=== PATIENT | female | born 1970 | race Caucasian/White ===

== ENCOUNTER 2017-09-04 15:17 | Inpatient (IN) | payer OTHER ==
[2017-09-04] VITALS (9 sets, daily range): BP systolic 116–162; BP diastolic 70–86
[~2017-09-04] VITALS: Ht 174 cm; Wt 71.6 kg
[2017-09-04] MEDS ORDERED: NS IV 1000 ML 1,000 ML IV ONE ×2 (15:40→16:19)
[2017-09-04] MEDS ORDERED: ONDANSETRON 4 MG/2 ML (SDV) Z0FRAN IVP ONE (15:45)
[2017-09-04 15:53] LABS: BASOPHILS % (AUTO) 0 % (0-10); EOSINOPHILS % (AUTO) 0 % (0-10); LYMPHOCYTES # (AUTO) 0.6 X 10^3 (1.0-4.0); LYMPHOCYTES % (AUTO) 4 % (12-44); MEAN CORPUSCULAR HEMOGLOBIN 30 PG (25-34); MEAN CORPUSCULAR HGB CONC 33 G/DL (32-36); MEAN CORPUSCULAR VOLUME 93 FL (80-99); MEAN PLATELET VOLUME 10.7 FL (7.4-10.4); MONOCYTES # (AUTO) 0.5 X 10^3 (0.0-1.0); MONOCYTES % (AUTO) 3 % (0-12); NEUTROPHILS # (AUTO) 16.9 X 10^3 (1.8-7.8); NEUTROPHILS % (AUTO) 93 % (42-75); PLATELET COUNT 391 10^3/uL (130-400); RED BLOOD COUNT 4.69 10^6/uL (4.35-5.85); RED CELL DISTRIBUTION WIDTH 14.1 % (10.0-14.5); WHITE BLOOD COUNT 18.1 10^3/uL (4.3-11.0)
[2017-09-04] MEDS ORDERED: inSUlin (REGULAR) HUMAN 1 UNIT/0.01 ML (CHARGE PER UNIT) IV ONE ×2 (16:00→17:15)
[2017-09-04 16:13] LABS: ALBUMIN 4.7 GM/DL (3.2-4.5); BILIRUBIN,TOTAL 0.3 MG/DL (0.1-1.0); CALCIUM 9.2 MG/DL (8.5-10.1); CREATININE SERUM 2.06 MG/DL (0.60-1.30); MAGNESIUM 2.8 MG/DL (1.8-2.4); POTASSIUM 5.6 MMOL/L (3.6-5.0); TOTAL PROTEIN 8.3 GM/DL (6.4-8.2)
[2017-09-04 16:23] LABS: BAND NEUTROPHILS 0 %; BASOPHILS % (MANUAL) 0 %; EOSINOPHILS % (MANUAL) 0 %; LYMPHOCYTES % (MANUAL) 5 %; NEUTROPHILS % (MANUAL) 92 %
[2017-09-04] MEDS ORDERED: PROMETHAZINE INJ 25 MG/ML (PHENERGAN) AMP IVP ONE (16:45)
[2017-09-04 16:49] LABS: BILIRUBIN,URINE NEGATIVE (NEGATIVE); KETONES,URINE 4+ (NEGATIVE); LEUKOCYTE ESTERASE ,URINE 1+ (NEGATIVE); NITRITE,URINE NEGATIVE (NEGATIVE); PH,URINE 5 (5-9); PROTEIN,URINE 2+ (NEGATIVE); UROBILINOGEN,URINE NORMAL (NORMAL)
--- NOTE | 2017-09-04 16:55 | ED General ---
General Chief Complaint: Abdominal/GI Problems Stated Complaint: VOMITING/STOMACH PAIN Nursing Triage Note: PT REPORTS N/V SINCE YESTERDAY MORNING. SHE STATES SHE IS UNABLE TO KEEP ANYTHING DOWN. SHE REPORTS SHE IS A TYPE 1 DIABETIC AND HAS NOT FELT WELL ENOUGH TO CHECK HER BLOOD GLUCOSE. SHE STATES SHE HAS NOT TAKEN ANY INSULIN TODAY. Nursing Sepsis Screen: No Definite Risk Source of Information: Patient Exam Limitations: No Limitations History of Present Illness Time Seen by Provider: 15:35 Initial Comments This 47-year-old woman presents to emergency room with complaints of vomiting and probable DKA. She has type I diabetes and has been ill for the past 2 days. She did not check her blood sugars today but notes her blood sugars yesterday were in the 200s. She stopped taking any short acting insulin because she was not able to eat. She has continued to take her long-acting insulin. She has been recently treated for UTI. She received a Cipro prescription on August 25. She denies fever. She is alert and oriented. Allergies and Home Medications Allergies Coded Allergies: Sulfa (Sulfonamide Antibiotics) (Verified Allergy, Mild, RASH, 09/04/17) Constitutional: no symptoms reported EENTM: no symptoms reported Respiratory: no symptoms reported Cardiovascular: no symptoms reported Gastrointestinal: see HPI Genitourinary: see HPI : No Musculoskeletal: no symptoms reported Skin: no symptoms reported Psychiatric/Neurological: No Symptoms Reported Hematologic/Lymphatic: No Symptoms Reported Past Lvbkimg-Qiemtj-Nsofng Hx Patient Social History Alcohol Use: Denies Use Recreational Drug Use: No Smoking Status: Current Everyday Smoker Type Used: Cigarettes 2nd Hand Smoke Exposure: No Recent Foreign Travel: No Contact w/Someone Who Travel: No Recent Infectious Disease Expo: No Recent Hopitalizations: No Physical Abuse: No Sexual Abuse: No Seasonal Allergies Seasonal Allergies: No Surgeries History of Surgeries: Yes Surgeries: Breast, Orthopedic, Renal (ureteral reimplantation), Tubal Ligation Respiratory History of Respiratory Disorde: No Cardiovascular History of Cardiac Disorders: Yes Cardiac Disorders: Hypertension Neurological History of Neurological Disord: No 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 System : 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 Genitourinary History of Genitourinary Disor: Yes ("KIDNEY PROBLEMS", ureteral reflux status post ureteral reimplantation, atrophic kidney) Musculoskeletal History of Musculoskeletal Dis: No Endocrine History of Endocrine Disorders: Yes Endocrine Disorders: Diabetes, Insulin dep Are Your Blood Sugars Over 250: No HEENT History of HEENT Disorders: No Cancer History of Cancer: No Psychosocial Behavioral Health Disorders: Anxiety, Depression Suicide Risk Score: 0 Integumentary History of Skin or Integumenta: No Physical Exam Vital Signs Vital Sign - Last 12Hours 09/04/17 15:30 Temp 95.6 Pulse 122 Resp 30 B/P (MAP) 145/80 Pulse Ox 100 O2 Delivery Room Air Capillary Refill : Less Than 3 Seconds General Appearance: WD/WN, Moderate Distress HEENT: PERRL/EOMI, Normal ENT Inspection, Other (oropharynx somewhat dry) Neck: Normal Inspection Respiratory: Lungs Clear, Normal Breath Sounds, No Accessory Muscle Use, No Respiratory Distress Cardiovascular: No Edema, No Murmur, Tachycardia Gastrointestinal: Normal Bowel Sounds, Non Tender, Soft Extremity: Normal Inspection, No Pedal Edema Neurologic/Psychiatric: Alert, Oriented x3, No Motor/Sensory Deficits, Normal 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, 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 Norm as Tested Skin: Normal Color, Warm/Dry Focused Exam Evaluation Lactate Level Laboratory Tests 09/04/17 16:19: Lactic Acid Level Laboratory Tests Test 09/04/17 16:19 Progress/Results/Core Measures Suspected Sepsis Recent Fever Within 48 Hours: No Infection Criteria Present: None New/Unexplained Altered Menta: No Sepsis Screen: No Definite Risk Sepsis Diagnosis: SIRS Temperature:95.6 Pulse: 122 Respiratory Rate: 30 Laboratory Tests 09/04/17 15:45: White Blood Count 18.1H Blood Pressure 145 /80 Mean: 101 Laboratory Tests 09/04/17 16:19: Laboratory Tests 09/04/17 15:45: Creatinine 2.06H, Platelet Count 391, Total Bilirubin 0.3 Results/Orders Lab Results Laboratory Tests Test 09/04/17 15:43 09/04/17 15:45 09/04/17 16:19 09/04/17 16:37 Range/Units Glucometer 562 *H 70-110 MG/DL White Blood Count 18.1 H 4.3-11.0 10^3/uL Red Blood Count 4.69 4.35-5.85 10^6/uL Hemoglobin 14.2 11.5-16.0 G/DL Hematocrit 44 35-52 % Mean Corpuscular Volume 93 80-99 FL Mean Corpuscular Hemoglobin 30 25-34 PG Mean Corpuscular Hemoglobin Concent 33 32-36 G/DL Red Cell Distribution Width 14.1 10.0-14.5 % Platelet Count 391 130-400 10^3/uL Mean Platelet Volume 10.7 H 7.4-10.4 FL Neutrophils (%) (Auto) 93 H 42-75 % Lymphocytes (%) (Auto) 4 L 12-44 % Monocytes (%) (Auto) 3 0-12 % Eosinophils (%) (Auto) 0 0-10 % Basophils (%) (Auto) 0 0-10 % Neutrophils # (Auto) 16.9 H 1.8-7.8 X 10^3 Lymphocytes # (Auto) 0.6 L 1.0-4.0 X 10^3 Monocytes # (Auto) 0.5 0.0-1.0 X 10^3 Eosinophils # (Auto) 0.0 0.0-0.3 10^3/uL Basophils # (Auto) 0.0 0.0-0.1 10^3/uL Neutrophils % (Manual) 92 % Lymphocytes % (Manual) 5 % Monocytes % (Manual) 3 % Eosinophils % (Manual) 0 % Basophils % (Manual) 0 % Band Neutrophils 0 % Blood Morphology Comment NORMAL Sodium Level 136 135-145 MMOL/L Potassium Level 5.6 H 3.6-5.0 MMOL/L Chloride Level 98 98-107 MMOL/L Carbon Dioxide Level 5 *L 21-32 MMOL/L Anion Gap 33 H 5-14 MMOL/L Blood Urea Nitrogen 32 H 7-18 MG/DL Creatinine 2.06 H 0.60-1.30 MG/DL Estimat Glomerular Filtration Rate 26 BUN/Creatinine Ratio 16 Glucose Level 703 *H 70-105 MG/DL Calcium Level 9.2 8.5-10.1 MG/DL Phosphorus Level 6.0 H 2.3-4.7 MG/DL Magnesium Level 2.8 H 1.8-2.4 MG/DL Total Bilirubin 0.3 0.1-1.0 MG/DL Aspartate Amino Transf (AST/SGOT) 19 5-34 U/L Alanine Aminotransferase (ALT/SGPT) 24 0-55 U/L Alkaline Phosphatase 143 H 40-136 U/L Total Protein 8.3 H 6.4-8.2 GM/DL Albumin 4.7 H 3.2-4.5 GM/DL Lipase 12 8-78 U/L Urine Color YELLOW Urine Clarity SLIGHTLY CLOUDY Urine pH 5 5-9 Urine Specific [place] 1.020 1.016-1.022 Urine Protein 2+ H NEGATIVE Urine Glucose (UA) 4+ H NEGATIVE Urine Ketones 4+ H NEGATIVE Urine Nitrite NEGATIVE NEGATIVE Urine Bilirubin NEGATIVE NEGATIVE Urine Urobilinogen NORMAL NORMAL MG/DL Urine Leukocyte Esterase 1+ H NEGATIVE Urine RBC (Auto) 5+ H NEGATIVE Urine RBC 50-100 H /HPF Urine WBC 0-2 /HPF Urine Squamous Epithelial Cells 0-2 /HPF Urine Crystals NONE /LPF Urine Bacteria NEGATIVE /HPF Urine Casts NONE /LPF Urine Mucus NEGATIVE /LPF Urine Culture Indicated NO Test 09/04/17 16:38 Range/Units Glucose Level 549 *H 70-105 MG/DL My Orders Orders - TYLER HILLMAN MD Saline Lock/Iv-Start (09/04/17 15:40) Ns Iv 1000 Ml (Sodium Chloride 0.9%) (09/04/17 15:40) Cbc With Automated Diff (09/04/17 15:40) Comprehensive Metabolic Panel (09/04/17 15:40) Lipase (09/04/17 15:40) Magnesium (09/04/17 15:40) Ua Culture If Indicated (09/04/17 15:40) Phosphorus (09/04/17 15:40) Accucheck Stat ONCE (09/04/17 15:40) Monitor-Rhythm Ecg Trace Only (09/04/17 15:40) Ondansetron Injection (Zofran Injectio (09/04/17 15:45) Insulin (Regular) Human (Humulin R (Per (09/04/17 16:00) Manual Differential (09/04/17 15:45) Ns Iv 1000 Ml (Sodium Chloride 0.9%) (09/04/17 16:19) Lactic Acid Analyzer (09/04/17 16:19) Blood Culture (09/04/17 16:19) Hemoglobin A1c (09/04/17 16:31) Promethazine Injection (Phenergan Injec (09/04/17 16:45) Glucose (09/04/17 16:46) Medications Given in ED Current Medications Medications Dose Ordered Sig/Sigifredo Route Start Time Stop Time Status Last Admin Dose Admin Insulin Human Regular 10 unit ONCE ONCE IV 09/04/17 16:00 09/04/17 16:01 DC 09/04/17 15:55 10 UNIT Ondansetron HCl 8 mg ONCE ONCE IVP 09/04/17 15:45 09/04/17 15:46 DC 09/04/17 15:55 8 MG Promethazine HCl 12.5 mg ONCE ONCE IVP 09/04/17 16:45 09/04/17 16:46 DC 09/04/17 16:39 12.5 MG Sodium Chloride 1,000 ml @ 0 mls/hr Q0M ONCE IV 09/04/17 15:40 09/04/17 15:42 DC 09/04/17 15:56 0 MLS/HR Sodium Chloride 1,000 ml @ 0 mls/hr Q0M ONCE IV 09/04/17 16:19 09/04/17 16:21 DC 09/04/17 16:39 0 MLS/HR Vital Signs/I&O Vital Sign - Last 12Hours 09/04/17 15:30 Temp 95.6 Pulse 122 Resp 30 B/P (MAP) 145/80 Pulse Ox 100 O2 Delivery Room Air Capillary Refill : Less Than 3 Seconds Blood Pressure Mean: 101 Point of Care Testing Finger Stick Blood Glucose: 476 Blood Glucose Action Taken: RN AND DR NOTIFIED Progress Note #1: Time: 16:45 Progress Note Patient received a liter of normal saline. A second liter has been ordered. Zofran 8 mg was administered for nausea and vomiting. She has some refractory nausea and Phenergan will be given. 10 units of insulin was given in IV bolus. There is some discrepancy between lab draw glucose and fingerstick glucose. A second laboratory glucose is being obtained. UA is pending. Progress Note #2: Time: 17:12 Progress Note There is no evidence of infection in the urinalysis. Blood sugar still over 500. An additional 5 units of insulin will be administered before being moved to the ICU. Departure Communication (Admissions) Time/Spoke to Admitting Phy: 16:[address] Enriquez Impression Impression: Primary Impression: Diabetic ketoacidosis Qualified Codes: E10.11 - Type 1 diabetes mellitus with ketoacidosis with coma Disposition: ADMITTED INPATIENT Condition: Improved Admissions Decision to Admit Reason: Admit from ER (General) Decision to Admit/Date: Sep 04, 2017 Time/Decision to Admit Time: 15:45 Departure-Patient Inst. Referrals: [facility] (PCP/Family) Primary Care Physician TYLER HILLMAN MD Sep 04, 2017 16:55
[2017-09-04 16:56] LABS: SQUAMOUS EPITHELIAL CELL,UR 0-2 /HPF; WBC,URINE 0-2 /HPF
[2017-09-04] MEDS ORDERED: NS (IVPB) 100 ML ONE (18:06)
[2017-09-04] MEDS ORDERED: 1/2 NS IV SOLUTION 1,000 ML IV ONE (18:10)
[2017-09-04] MEDS ORDERED: D5 1/2 NS 1000 ML IV SOLUTION 1,000 ML IV SCH (18:15)
[2017-09-04] MEDS ORDERED: ONDANSETRON 4 MG/2 ML (SDV) Z0FRAN IVP PRN (18:30)
[2017-09-04] MEDS: 1/2 NS IV SOLUTION 1,000 ML IV SCH ×2 (18:32→22:48)
[2017-09-04] MEDS: 1/2 NS W/KCL 20 MEQ/L 1,000 ML IV SCH ×2 (18:36→22:48)
[2017-09-04] MEDS: D5 1/2 NS W/KCL 20 MEQ/L 1,000 ML IV SCH ×2 (18:37→19:45)
[2017-09-04] MEDS: DEXTROSE 10% IV SOLUTION 1,000 ML IV SCH (18:37)
[2017-09-04] MEDS ORDERED: GABA-488 PO (18:38)
[2017-09-04] MEDS ORDERED: INSU100V16 SQ (18:38)
[2017-09-04] MEDS ORDERED: INSU100V5 SQ (18:38)
[2017-09-04] MEDS ORDERED: AMIT10TA6 PO (18:38)
[2017-09-04] MEDS ORDERED: LISI-556 PO (18:38)
[2017-09-04] MEDS ORDERED: VENL-48 PO (18:38)
[2017-09-04] MEDS ORDERED: IBUP-2055 PO (18:45)
[2017-09-04] MEDS: PROMETHAZINE INJ 25 MG/ML (PHENERGAN) AMP IVP PRN ×2 (18:48→22:52)
[2017-09-04 19:08] LABS: CALCIUM 8.3 MG/DL (8.5-10.1); CREATININE SERUM 1.46 MG/DL (0.60-1.30); MAGNESIUM 2.4 MG/DL (1.8-2.4); POTASSIUM 4.6 MMOL/L (3.6-5.0)
[2017-09-04] MEDS ORDERED: INFLUENZA TRIvalent 2017-2018 0.5 ML/45 MCG SYR IM ONE (19:15)
[2017-09-04] MEDS: FAMOTIDINE 20 MG (PEPCID) TABLET PO SCH (19:56)
[2017-09-04] MEDS: FAMOTIDINE 20MG/2ML IV (PEPCID) IVP SCH (19:56)
[2017-09-04 20:49] LABS: CALCIUM 7.9 MG/DL (8.5-10.1); CREATININE SERUM 1.25 MG/DL (0.60-1.30); POTASSIUM 4.2 MMOL/L (3.6-5.0)
[2017-09-04] MEDS: ONDANSETRON 4 MG/2 ML (SDV) Z0FRAN IVP PRN (20:50)
[2017-09-05] VITALS (23 sets, daily range): BP systolic 83–165; BP diastolic 64–102
[2017-09-05] MEDS: DEXTROSE 10% IV SOLUTION 1,000 ML IV SCH (00:40)
[2017-09-05 00:47] LABS: CALCIUM 8.1 MG/DL (8.5-10.1); CREATININE SERUM 1.3 MG/DL (0.60-1.30); MAGNESIUM 2.3 MG/DL (1.8-2.4); POTASSIUM 4.3 MMOL/L (3.6-5.0)
[2017-09-05 00:51] LABS: PHOSPHORUS 0.8 MG/DL (2.3-4.7)
[2017-09-05] MEDS ORDERED: SODIUM PHOSPHATE INJ 30 MM in NS (IVPB) 250 ML IV NR (01:39)
[2017-09-05] MEDS: 1/2 NS IV SOLUTION 1,000 ML IV SCH ×3 (02:14→10:07)
[2017-09-05] MEDS: 1/2 NS W/KCL 20 MEQ/L 1,000 ML IV SCH ×3 (02:15→10:07)
[2017-09-05] MEDS: D5 1/2 NS W/KCL 20 MEQ/L 1,000 ML IV SCH ×3 (02:15→08:19)
[2017-09-05] MEDS: ONDANSETRON 4 MG/2 ML (SDV) Z0FRAN IVP PRN ×3 (03:24→18:48)
[2017-09-05 05:14] LABS: BASOPHILS % (AUTO) 0 % (0-10); EOSINOPHILS % (AUTO) 0 % (0-10); LYMPHOCYTES % (AUTO) 7 % (12-44); MEAN CORPUSCULAR HEMOGLOBIN 31 PG (25-34); MEAN CORPUSCULAR HGB CONC 34 G/DL (32-36); MEAN CORPUSCULAR VOLUME 90 FL (80-99); MEAN PLATELET VOLUME 10.1 FL (7.4-10.4); MONOCYTES % (AUTO) 7 % (0-12); NEUTROPHILS # (AUTO) 12.6 X 10^3 (1.8-7.8); NEUTROPHILS % (AUTO) 87 % (42-75); PLATELET COUNT 352 10^3/uL (130-400); RED BLOOD COUNT 4.11 10^6/uL (4.35-5.85); RED CELL DISTRIBUTION WIDTH 13.9 % (10.0-14.5); WHITE BLOOD COUNT 14.6 10^3/uL (4.3-11.0)
[2017-09-05 05:27] LABS: CALCIUM 8.1 MG/DL (8.5-10.1); CREATININE SERUM 1.25 MG/DL (0.60-1.30); MAGNESIUM 2.1 MG/DL (1.8-2.4); PHOSPHORUS 3.1 MG/DL (2.3-4.7)
[2017-09-05] MEDS: POTASSIUM CL 10MEQ/50ML IVPB 50 ML IV SCH (05:54)
[2017-09-05] MEDS: MAGNESIUM 1 GM/100 ML IVPB 100 ML IV SCH (05:54)
[2017-09-05] MEDS: KCL 20 MEQ TAB (K-DUR) PO SCH (05:54)
[2017-09-05] MEDS ORDERED: INFLUENZA TRIvalent 2017-2018 0.5 ML/45 MCG SYR IM ONE (07:15)
--- NOTE | 2017-09-05 07:33 | Diagnostic Imaging Report ---
INDICATION: Dyspnea. COMPARISON: None. FINDINGS: Single frontal view of the chest demonstrates normal heart size and pulmonary vascularity. The lungs are well aerated and clear. No large pleural effusion or pneumothorax is seen. The visualized osseous structures show no acute abnormalities. IMPRESSION: 1. No acute cardiopulmonary process. Dictated by: Dictated on workstation # [id number]
[2017-09-05 08:21] LABS: CALCIUM 7.7 MG/DL (8.5-10.1); CREATININE SERUM 1.08 MG/DL (0.60-1.30); POTASSIUM 3.7 MMOL/L (3.6-5.0)
[2017-09-05] MEDS: FAMOTIDINE 20 MG (PEPCID) TABLET PO SCH ×2 (09:00→20:23)
[2017-09-05] MEDS ORDERED: inSUlin DETERMIR 1 UNIT/0.01 ML (LEVEMIR) CHARGE PER UNIT SQ ONE (09:15)
[2017-09-05] MEDS: FAMOTIDINE 20MG/2ML IV (PEPCID) IVP SCH ×2 (11:03→20:23)
[2017-09-05] MEDS ORDERED: inSUlin (REGULAR) HUMAN 1 UNIT/0.01 ML (CHARGE PER UNIT) ONE (12:36)
[2017-09-05] MEDS ORDERED: inSUlin ASPART (NovoLOG) 1 UNIT/0.01 ML (CHARGE PER UNIT) ONE (12:42)
[2017-09-05] MEDS: inSUlin ASPART (NovoLOG) 1 UNIT/0.01 ML (CHARGE PER UNIT) SC SCH ×3 (12:51→20:09)
--- NOTE | 2017-09-05 15:03 | Short Stay Summary ---
History of Present Illness History of Present Illness Reason for visit/HPI 47yo woman with a history of T1DM presented to ER with vomiting and weakness. Patient states she was seen at the clinic and diagnosed with a UTI. SHe has been compliant with her usual insulin regimen but states her BS became somewhat labile in the past few days. She eventually was unable to tolerate orals and presented to ER. She did not have fever associated with the n/v. NO blood in the urine. Denies other sx including cough/sore throat/runny nose. Date of Admission Sep 04, 2017 at 16:30 Date of Discharge September 06, 2017 Time Seen by Provider: 09:00 Attending Physician Margarita Enriquez DO Admitting Physician Ema,[facility] Allergies and Home Medications Allergies Coded Allergies: Sulfa (Sulfonamide Antibiotics) (Verified Allergy, Mild, RASH, 09/04/17) Home Medications Amitriptyline HCl 10 Mg Tablet, 10 MG PO DAILY, (Reported) Gabapentin 300 Mg Capsule, 300 MG PO BID, (Reported) Ibuprofen 200 Mg Tablet, 800 MG PO DAILY PRN for PAIN-MILD, (Reported) TAKES 4 (200 MG) TABLETS Insulin Aspart 100 Unit/1 Ml Susp, 12 UNITS SQ AC, (Reported) Insulin Determir 1,000 Units/10 Ml Soln, 20 UNITS SQ BID, (Reported) Lisinopril 5 Mg Tablet, 5 MG PO DAILY, (Reported) Venlafaxine HCl 37.5 Mg Cap.er.24h, 37.5 MG PO DAILY, (Reported) Past Oragdko-Chkkmm-Cxlgod Hx Patient Social History Alcohol Use: Denies Use Recreational Drug Use: No Smoking Status: Current Everyday Smoker Type Used: Cigarettes 2nd Hand Smoke Exposure: No Physical Abuse Screen: No Sexual Abuse: No Recent Foreign Travel: No Contact w/other who traveled: No Recent Hopitalizations: No Recent Infectious Disease Expo: No Seasonal Allergies Seasonal Allergies: No Surgeries Yes (ureter reimplantation bilaterally when a child) Breast, Orthopedic, Renal (ureteral reimplantation), Tubal Ligation Respiratory No Cardiovascular No Hypertension Neurological No 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 System : No Sexually Transmitted Disease: No HIV/AIDS: 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 Genitourinary Yes (atrophic kidney) Kidney Stones, UTI-Chronic Gastrointestinal No Musculoskeletal No Endocrine History of Endocrine Disorders: Yes Endocrine Disorders: Diabetes, Insulin dep Are Your Blood Sugars Over 250: No HEENT History of HEENT Disorders: No Cancer No Psychosocial History of Psychiatric Problem: Yes Behavioral Health Disorders: Anxiety, Depression Integumentary History of Skin or Integumenta: No Blood Transfusions History of Blood Disorders: No Constitutional: no symptoms reported All Other Systems Reviewed Negative Unless Noted: Yes Physical Exam Vital Signs Vital Sign - Last 12Hours 09/04/17 15:30 Temp 95.6 Pulse 122 Resp 30 B/P (MAP) 145/80 Pulse Ox 100 O2 Delivery Room Air Capillary Refill : Less Than 3 Seconds General Appearance: No Apparent Distress, WD/WN, Thin HEENT: PERRL/EOMI, Pharynx Normal Neck: Full Range of Motion, Normal Inspection, Non Tender, Supple Respiratory: Chest Non Tender, Lungs Clear, Normal Breath Sounds, No Accessory Muscle Use, No Respiratory Distress Cardiovascular: Regular Rate, Rhythm, No Edema, No Gallop, No JVD, No Murmur, Normal Peripheral Pulses Gastrointestinal: Normal Bowel Sounds, No Organomegaly, No Pulsatile Mass, Non Tender, Soft Back: Normal Inspection, No CVA Tenderness, No Vertebral Tenderness Extremity: Normal Capillary Refill, Normal Inspection, Normal Range of Motion, Non Tender, No Calf Tenderness, No Pedal Edema Neurologic/Psychiatric: Alert, Oriented x3, No Motor/Sensory Deficits, Normal Mood/Affect Skin: Normal Color, Warm/Dry Clinical Quality Measures DVT/VTE Risk/Contraindication: Risk Factor Score Per Nursin RFS Level Per Nursing on Admit: 3=High Short Stay Diagnosis Discharge Diagnosis-Short Stay Admission Diagnosis: SEE BELOW Final Discharge Diagnosis: MILD DIABETIC KETOACIDOSIS SIMLE URINARY TRACT INFECTION Conclusion Labs Laboratory Tests 09/04/17 15:43: Glucometer 562*H 09/04/17 15:45: White Blood Count 18.1H, Red Blood Count 4.69, Hemoglobin 14.2, Hematocrit 44, Mean Corpuscular Volume 93, Mean Corpuscular Hemoglobin 30, Mean Corpuscular Hemoglobin Concent 33, Red Cell Distribution Width 14.1, Platelet Count 391, Mean Platelet Volume 10.7H, Neutrophils (%) (Auto) 93H, Lymphocytes (%) (Auto) 4L, Monocytes (%) (Auto) 3, Eosinophils (%) (Auto) 0, Basophils (%) (Auto) 0, Neutrophils # (Auto) 16.9H, Lymphocytes # (Auto) 0.6L, Monocytes # (Auto) 0.5, Eosinophils # (Auto) 0.0, Basophils # (Auto) 0.0, Neutrophils % (Manual) 92, Lymphocytes % (Manual) 5, Monocytes % (Manual) 3, Eosinophils % (Manual) 0, Basophils % (Manual) 0, Band Neutrophils 0, Blood Morphology Comment NORMAL, Sodium Level 136, Potassium Level 5.6H, Chloride Level 98, Carbon Dioxide Level 5*L, Anion Gap 33H, Blood Urea Nitrogen 32H, Creatinine 2.06H, Estimat Glomerular Filtration Rate 26, BUN/Creatinine Ratio 16, Glucose Level 703*H, Hemoglobin A1c 10.2H, Calcium Level 9.2, Phosphorus Level 6.0H, Magnesium Level 2.8H, Total Bilirubin 0.3, Aspartate Amino Transf (AST/SGOT) 19, Alanine Aminotransferase (ALT/SGPT) 24, Alkaline Phosphatase 143H, Total Protein 8.3H, Albumin 4.7H, Lipase 12 09/04/17 16:19: Lactic Acid Level 2.16*H 09/04/17 16:37: Urine Color YELLOW, Urine Clarity SLIGHTLY CLOUDY, Urine pH 5, Urine Specific [place] 1.020, Urine Protein 2+H, Urine Glucose (UA) 4+H, Urine Ketones 4+H, Urine Nitrite NEGATIVE, Urine Bilirubin NEGATIVE, Urine Urobilinogen NORMAL, Urine Leukocyte Esterase 1+H, Urine RBC (Auto) 5+H, Urine RBC 50-100H, Urine WBC 0-2, Urine Squamous Epithelial Cells 0-2, Urine Crystals NONE, Urine Bacteria NEGATIVE, Urine Casts NONE, Urine Mucus NEGATIVE, Urine Culture Indicated NO 09/04/17 16:38: Glucose Level 549*H 09/04/17 18:28: Glucometer 287H 09/04/17 18:42: Glucose Level 313H, Sodium Level 139, Potassium Level 4.6, Chloride Level 109H, Carbon Dioxide Level 8*L, Anion Gap 22H, Blood Urea Nitrogen 27H, Creatinine 1.46H, Estimat Glomerular Filtration Rate 39, BUN/Creatinine Ratio 18, Lactic Acid Level 1.31, Calcium Level 8.3L, Phosphorus Level 2.0L, Magnesium Level 2.4 09/04/17 19:40: Glucometer 187H 09/04/17 20:17: Sodium Level 140, Potassium Level 4.2, Chloride Level 113H, Carbon Dioxide Level 11L, Anion Gap 16H, Blood Urea Nitrogen 25H, Creatinine 1.25, Estimat Glomerular Filtration Rate 46, BUN/Creatinine Ratio 20, Glucose Level 218H, Calcium Level 7.9L 09/04/17 20:29: Glucometer 168H 09/04/17 21:32: Glucometer 195H 09/04/17 22:32: Glucometer 168H 09/04/17 23:29: Glucometer 155H 09/04/17 23:59: Glucometer 145H 09/05/17 00:15: Sodium Level 138, Potassium Level 4.3, Chloride Level 113H, Carbon Dioxide Level 16L, Anion Gap 9, Blood Urea Nitrogen 23H, Creatinine 1.30, Estimat Glomerular Filtration Rate 44, BUN/Creatinine Ratio 18, Glucose Level 175H, Calcium Level 8.1L, Phosphorus Level 0.8*L, Magnesium Level 2.3 09/05/17 00:32: Glucometer 147H 09/05/17 01:32: Glucometer 138H 09/05/17 02:05: Glucometer 154H 09/05/17 03:02: Glucometer 136H 09/05/17 03:52: Glucometer 180H 09/05/17 04:43: Glucometer 216H 09/05/17 04:50: White Blood Count 14.6H, Red Blood Count 4.11L, Hemoglobin 12.6, Hematocrit 37, Mean Corpuscular Volume 90, Mean Corpuscular Hemoglobin 31, Mean Corpuscular Hemoglobin Concent 34, Red Cell Distribution Width 13.9, Platelet Count 352, Mean Platelet Volume 10.1, Neutrophils (%) (Auto) 87H, Lymphocytes (%) (Auto) 7L , Monocytes (%) (Auto) 7, Eosinophils (%) (Auto) 0, Basophils (%) (Auto) 0, Neutrophils # (Auto) 12.6H, Lymphocytes # (Auto) 1.0, Monocytes # (Auto) 1.0, Eosinophils # (Auto) 0.0, Basophils # (Auto) 0.0, Sodium Level 140, Potassium Level 4.0, Chloride Level 110H, Carbon Dioxide Level 15L, Anion Gap 15H, Blood Urea Nitrogen 20H, Creatinine 1.25, Estimat Glomerular Filtration Rate 46, BUN/ Creatinine Ratio 16, Glucose Level 258H, Calcium Level 8.1L, Phosphorus Level 3.1, Magnesium Level 2.1 09/05/17 05:49: Glucometer 209H 09/05/17 06:29: Glucometer 206H 09/05/17 07:56: Sodium Level 139, Potassium Level 3.7, Chloride Level 111H, Carbon Dioxide Level 18L, Anion Gap 10, Blood Urea Nitrogen 16, Creatinine 1.08, Estimat Glomerular Filtration Rate 55, BUN/Creatinine Ratio 15, Glucose Level 212H, Calcium Level 7.7L 09/05/17 08:10: Glucometer 157H 09/05/17 09:06: Glucometer 135H 09/05/17 10:23: Glucometer 233H Conclusion/Plan Misty was admitted to hospital with DKA. SHe received aggressive fluid rehydration per the DKA protocol. She was also placed on an insulin drip with good response. THis was stopped overnight, but the anion gap opened, so it was put back on. THe morning after admission, we stopped the insulin drip and fluids again. We gave levemir 20 units (she normally takes 20 units BID). SHe received SSI on top of this. Her BS were largely very controlled. HOwever, she began having profuse vomiting. She did not complain of abdominal pain with this , but she continued to vomit through the day, thus delaying the discharge. Decision was made to keep her an additional night to see if the vomiting would calm down. Please see DC summary for the second day progress. Copy Copies To 1: NICOLAS VILLAR APRN, MD Sep 05, 2017 3:03 pm
[2017-09-05 15:47] LABS: ANION GAP 8 MMOL/L (5-14); BLOOD UREA NITROGEN 11 MG/DL (7-18); BUN/CREATININE RATIO 12; CARBON DIOXIDE 21 MMOL/L (21-32); CHLORIDE 110 MMOL/L (98-107); GFR ESTIMATED > 60; GLUCOSE 78 MG/DL (70-105); POTASSIUM 3.5 MMOL/L (3.6-5.0); SODIUM 139 MMOL/L (135-145)
[2017-09-05] MEDS: PROMETHAZINE INJ 25 MG/ML (PHENERGAN) AMP IVP PRN ×2 (15:49→20:23)
[2017-09-05] MEDS ORDERED: NS IV 1000 ML 1,000 ML IV SCH (18:15)
[2017-09-05] MEDS ORDERED: POTASSIUM CHLORIDE INJ 20 MEQ in NS IV 1000 ML 1,000 ML IV SCH (19:25)
[2017-09-05] MEDS: NS W/KCL 20 MEQ/L 1,000 ML IV SCH (20:23)
[2017-09-06] VITALS (18 sets, daily range): BP systolic 130–162; BP diastolic 84–100
[2017-09-06] MEDS: ONDANSETRON 4 MG/2 ML (SDV) Z0FRAN IVP PRN ×2 (02:38→12:29)
[2017-09-06] MEDS: PROMETHAZINE INJ 25 MG/ML (PHENERGAN) AMP IVP PRN ×3 (04:04→17:47)
[2017-09-06] MEDS: NS W/KCL 20 MEQ/L 1,000 ML IV SCH ×2 (04:04→11:46)
[2017-09-06 05:23] LABS: BASOPHILS % (AUTO) 0 % (0-10); EOSINOPHILS % (AUTO) 0 % (0-10); LYMPHOCYTES % (AUTO) 9 % (12-44); MEAN CORPUSCULAR HEMOGLOBIN 30 PG (25-34); MEAN CORPUSCULAR HGB CONC 34 G/DL (32-36); MEAN CORPUSCULAR VOLUME 90 FL (80-99); MEAN PLATELET VOLUME 10.1 FL (7.4-10.4); MONOCYTES # (AUTO) 0.8 X 10^3 (0.0-1.0); MONOCYTES % (AUTO) 8 % (0-12); NEUTROPHILS % (AUTO) 83 % (42-75); PLATELET COUNT 279 10^3/uL (130-400); RED BLOOD COUNT 3.96 10^6/uL (4.35-5.85); RED CELL DISTRIBUTION WIDTH 14.3 % (10.0-14.5); WHITE BLOOD COUNT 10.9 10^3/uL (4.3-11.0)
[2017-09-06 05:40] LABS: ANION GAP 12 MMOL/L (5-14); BLOOD UREA NITROGEN 9 MG/DL (7-18); BUN/CREATININE RATIO 12; CALCIUM 7.8 MG/DL (8.5-10.1); CARBON DIOXIDE 20 MMOL/L (21-32); CHLORIDE 106 MMOL/L (98-107); CREATININE SERUM 0.75 MG/DL (0.60-1.30); GFR ESTIMATED > 60; GLUCOSE 298 MG/DL (70-105); MAGNESIUM 2.1 MG/DL (1.8-2.4); PHOSPHORUS 1.7 MG/DL (2.3-4.7); SODIUM 138 MMOL/L (135-145)
[2017-09-06] MEDS: MAGNESIUM 1 GM/100 ML IVPB 100 ML IV SCH (06:07)
[2017-09-06] MEDS: POTASSIUM CL 10MEQ/50ML IVPB 50 ML IV SCH (06:07)
[2017-09-06] MEDS: KCL 20 MEQ TAB (K-DUR) PO SCH (06:07)
[2017-09-06] MEDS: inSUlin ASPART (NovoLOG) 1 UNIT/0.01 ML (CHARGE PER UNIT) SC SCH ×3 (06:11→17:00)
[2017-09-06] MEDS: FAMOTIDINE 20 MG (PEPCID) TABLET PO SCH (09:00)
[2017-09-06] MEDS ORDERED: CIPROFLOXACIN 500 MG (CIPRO) TABLET PO SCH (09:00)
--- NOTE | 2017-09-06 10:16 | Diagnostic Imaging Report ---
INDICATION: Dyspnea. Comparison made with prior examination 09/05/2017. FINDINGS: The heart size, mediastinal configuration, and pulmonary vascularity are within normal limits. There is no pleural effusion, pneumothorax, or pneumonia. The osseous structures are unremarkable. IMPRESSION: No acute cardiopulmonary abnormality. Dictated by: Dictated on workstation # [id number]
[2017-09-06 10:20] LABS: BILIRUBIN,URINE NEGATIVE (NEGATIVE); KETONES,URINE 3+ (NEGATIVE); LEUKOCYTE ESTERASE ,URINE 2+ (NEGATIVE); NITRITE,URINE POSITIVE (NEGATIVE); PH,URINE 6.5 (5-9); PROTEIN,URINE 1+ (NEGATIVE); UROBILINOGEN,URINE NORMAL (NORMAL)
[2017-09-06] MEDS: FAMOTIDINE 20MG/2ML IV (PEPCID) IVP SCH (10:26)
[2017-09-06 10:37] LABS: WBC,URINE 25-50 /HPF
--- NOTE | 2017-09-06 11:19 | Diagnostic Imaging Report ---
PROCEDURE: CT abdomen without contrast. TECHNIQUE: Multiple contiguous axial images were obtained through the abdomen without the use of intravenous contrast. INDICATION: Persistent vomiting. Epigastric pain. FINDINGS: The lung bases appear unremarkable. The liver, the gallbladder, the spleen, and adrenal glands appear unremarkable. The pancreas appears unremarkable. The kidneys demonstrate moderate to severe hydronephrosis on the right side with hydroureter. The visualized portions of the upper pelvis demonstrate portions of a significantly dilated urinary bladder. 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 There is also severe dilatation of the left ureter draining the lower pole. There is possibly another nondilated ureter on the left side. There is severe atrophy of the renal parenchyma in the lower pole of the left kidney suggestive of chronicity. No fluid collection or pneumoperitoneum is seen in the abdomen. There is a tiny fat-containing umbilical hernia. The osseous structures appear grossly unremarkable. IMPRESSION: 1. 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 The ureters appears to be dilated within the field of view to the upper pelvis. Also the urinary bladder appears to be significantly dilated. The distal ureters are not evaluated on this exam. 2. Consider imaging of the pelvis and a distal ureteric stones are suspected. 3. Tiny fat-containing umbilical hernia. Dictated by: Dictated on workstation # [id number]
[2017-09-06] MEDS ORDERED: inSUlin DETERMIR 1 UNIT/0.01 ML (LEVEMIR) CHARGE PER UNIT SQ NR (11:30)
[2017-09-06] MEDS ORDERED: NITR-65 PO (16:06)
--- NOTE | 2017-09-06 16:10 | Discharge Instructions ---
Discharge [facility] Discharge Medications New, Converted or Re-Newed RX: Transmitted to Pharmacy New Medications: Nitrofurantoin Monohyd/M-Cryst (Macrobid 100 mg Capsule) 100 Mg Capsule 1 TAB PO BID for 7 Days, #14 CAP 0 Refills Continued Medications: Amitriptyline HCl (Amitriptyline HCl) 10 Mg Tablet 10 MG PO DAILY Gabapentin (Gabapentin) 300 Mg Capsule 300 MG PO BID Ibuprofen (Ibuprofen) 200 Mg Tablet 800 MG PO DAILY PRN for PAIN-MILD, TAB TAKES 4 (200 MG) TABLETS Insulin Aspart (Novolog) 100 Unit/1 Ml Susp 12 UNITS SQ AC Insulin Determir (Levemir) 1,000 Units/10 Ml Soln 20 UNITS SQ BID Lisinopril (Lisinopril) 5 Mg Tablet 5 MG PO DAILY Venlafaxine HCl (Venlafaxine HCl ER) 37.5 Mg Cap.er.24h 37.5 MG PO DAILY Patient Instructions Goal/Follow Up Appt: SEPTEMBER 13 AT 1:20 WITH SANTINO HAN APRN SEPTEMBER [address] BRUSH Patient Instructions: PLEASE TAKE ALL OF THE MACROBID PRESCRIBED. YOU HAVE A URINARY TRACT INFECTION WITH A RESISTANT E COLI BACTERIA. IT IS VERY IMPORTANT THAT WE ERADICATE IT FROM YOUR SYSTEM. KEEP CAREFUL CHECKS OF YOUR BLOOD SUGARS WELL. Return to The Hospital For: BS >500 THAT WON'T COME DOWN WITH INSULIN, PERSISTENT VOMITING, BLOOD IN URINE, INABILITY TO URINATE Activity & Diet Discharge Diet: ADA Diet Activity as Tolerated: Yes Orders-Post D/C & Referrals Pneu Vac Indicated: Yes Copy Copies To 1: NICOLAS VILLAR APRN, MD Sep 06, 2017 4:10 pm
--- NOTE | 2017-09-06 16:11 | Discharge Summary ---
Diagnosis/Chief Complaint Date of Admission Sep 04, 2017 at 4:30 pm Date of Discharge Discharge Summary-Simple/Stand Discharge Physical Examination Allergies: Coded Allergies: Sulfa (Sulfonamide Antibiotics) (Verified Allergy, Mild, RASH, 09/04/17) Vitals & I&Os Vital Sign - Last 12Hours Date Time Temp Pulse Resp B/P (MAP) Pulse Ox O2 Delivery O2 Flow Rate FiO2 09/06/17 14:00 101 15 152/85 97 Room Air 09/06/17 08:00 97.8 Hospital Course See final discharge diagnosis. Discharge Instructions to patient/family Please see electronic discharge instructions given to patient. Discharge Medications Reviewed and agree with Discharge Medication list on patient's Discharge Instruction sheet Clinical Quality Measures DVT/VTE Risk/Contraindication: Risk Factor Score Per Nursin RFS Level Per Nursing on Admit: 3=High NICOLAS JETT MD Sep 06, 2017 4:11 pm
== END 2017-09-06 17:40 | disposition home or self-care (01) | DRG 638 ==
LOC: ER 15:20 → ICU 16:30
PROVIDERS: ADMIT Family Medicine; ATTEND Family Medicine
DX: E10.10 Type 1 diabetes mellitus with ketoacidosis without coma (principal); N39.0 Urinary tract infection, site not specified; I10 Essential (primary) hypertension; F41.9 Anxiety disorder, unspecified; F32.9 Major depressive disorder, single episode, unspecified; F17.210 Nicotine dependence, cigarettes, uncomplicated; Z79.4 Long term (current) use of insulin; Z87.440 Personal history of urinary (tract) infections; Z87.442 Personal history of urinary calculi
CPT/HCPCS: 36415; 71010; 74150; 80048; 80053; 81000; 82947; 82962; 83036; 83605; 83690; 83735; 84100; 85007; 85025; 85027; 87040; 87088; 93041; 96361; 96374; 96375; 96376

== ENCOUNTER 2017-09-09 16:23 | Emergency (ER) | payer OTHER ==
[~2017-09-09] VITALS: Ht 172.7 cm; Wt 75.3 kg
[~2017-09-09 16:23] MED LIST: AMIT10TA6 PO; GABA-488 PO; IBUP-2055 PO; INSU100V16 SQ; INSU100V5 SQ; LISI-556 PO; NITR-65 PO; VENL-48 PO
[2017-09-09] MEDS ORDERED: PROM50TA3 PO (16:44)
[2017-09-09] MEDS ORDERED: FAMOTIDINE 20MG/2ML IV (PEPCID) IV STA (16:48)
[2017-09-09] MEDS ORDERED: NS IV 1000 ML 1,000 ML IV ONE (16:48)
[2017-09-09 16:56] VITALS: BP_SYST 144; BP_SYST 149; BP_SYST 160; BP_DIAS 104; BP_DIAS 94; BP_DIAS 97
[2017-09-09] MEDS ORDERED: SCOPOLAMINE 1.5 MG (TRANSDERM-SCOP) PATCH TD ONE (17:00)
[2017-09-09] MEDS ORDERED: ONDANSETRON 4 MG/2 ML (SDV) Z0FRAN IVP ONE ×2 (17:00→19:15)
--- NOTE | 2017-09-09 17:08 | ED GI ---
General Chief Complaint: Abdominal/GI Problems Stated Complaint: VOMITING Nursing Triage Note: Pt reports she has been unable to keep food down since Monday 09/03. Pt was admitted to ICU on 09/04 for DKA and discharged on 09/06. Pt reports she has a prescription for phenergan tablets but vomits shortly after taking them. Pt states sugars have been running 58-158 at home recently. Sepsis Screen: Possible Sepsis Risk Source of Information: Patient, Old Records History of Present Illness Time Seen By Provider: 16:45 Initial Comments PT ARRIVES VIA POV C/O NAUSEA AND VOMITING X 1 WEEK--SYMPTOMS BEGAN LAST Tuesday09/03/17 WAS ADMITTED ON Tuesday09/04/17 FOR DKA AND UTI. DISMISSED WITH RX'S FOR MACROBID AND PHENERGAN PILLS WAS DISMISSED ON TUESDAY PT STATES HER SYMPTOMS HAVE NOT IMPROVED AT ALL, AND CANNOT KEEP PHENERGAN PILLS DOWN. HAS VOMITED AT LEAST 5 TIMES SINCE 1400 NO DIARRHEA NO FEVER C/O BODY ACHES C/O GENERALIZED WEAKNESS STATES HER STOMACH MUSCLES ARE SORE FROM HEAVING, BUT NOT ACTUALLY HAVING ABDOMINAL PAIN. STATES "MY ESOPHAGUS IS SORE FROM VOMITING AND MY KIDNEYS ACHE" THINKS SHE ONLY VOIDED TWICE TODAY, BUT NOT SURE--THINKS SHE URINATED THIS AM AND MAYBE ONE OTHER TIME EARLIER TODAY TRIED TO EAT BREAKFAST AT 0900--PINEAPPLE + MASHED POTATOES. HAS NOT TAKEN ANY OF HER REGULAR MEDICATIONS TODAY--TRIED TO TAKE PHENERGAN PILL AND MACROBID THIS AM STATES HER BLOOD SUGARS ARE RUNNING 50'S TO 150'S NO KNOWN SICK CONTACTS NO SUSPICIOUS FOODS HAS NOT ATTEMPTED TO FOLLOW UP WITH [facility]UE THIS WEEK PCP: RENÉ ROGERS Allergies and Home Medications Allergies Coded Allergies: Sulfa (Sulfonamide Antibiotics) (Verified Allergy, Mild, RASH, 09/04/17) Home Medications Amitriptyline HCl 10 Mg Tablet, 10 MG PO DAILY, (Reported) Gabapentin 300 Mg Capsule, 300 MG PO BID, (Reported) Ibuprofen 200 Mg Tablet, 800 MG PO DAILY PRN for PAIN-MILD, (Reported) TAKES 4 (200 MG) TABLETS Insulin Aspart 100 Unit/1 Ml Susp, 12 UNITS SQ AC, (Reported) Insulin Determir 1,000 Units/10 Ml Soln, 20 UNITS SQ BID, (Reported) Lisinopril 5 Mg Tablet, 5 MG PO DAILY, (Reported) Nitrofurantoin Monohyd/M-Cryst 100 Mg Capsule, 1 TAB PO BID for 7 Days, #14 Ref 0 Prescribed by: NICOLAS JETT on 09/06/17 1606 Promethazine HCl 50 Mg Tablet, 25 MG PO Q6H PRN for NAUSEA/VOMITING-1ST LINE, ( Reported) Venlafaxine HCl 37.5 Mg Cap.er.24h, 37.5 MG PO DAILY, (Reported) Review of Systems Constitutional: see HPI, malaise, weakness EENTM: Other (DRY MOUTH) Respiratory: No Symptoms Reported Cardiovascular: No Symptoms Reported Gastrointestinal: See HPI, Nausea, Poor Appetite, Poor Fluid Intake, Vomiting Genitourinary: See HPI Musculoskeletal: see HPI Skin: no symptoms reported Psychiatric/Neurological: No Symptoms Reported Endocrine: No Symptoms Reported Hematologic/Lymphatic: No Symptoms Reported Past [id number] Hx Patient Social History Alcohol Use: Denies Use Recreational Drug Use: No Smoking Status: Current Everyday Smoker Type Used: Cigarettes 2nd Hand Smoke Exposure: No Recent Foreign Travel: No Contact w/Someone Who Travel: No Recent Infectious Disease Expo: No Recent Hopitalizations: No Immunizations Up To Date Tetanus Booster (TDap): Unknown Seasonal Allergies Seasonal Allergies: No Surgeries History of Surgeries: Yes (ureter reimplantation bilaterally when a child) Surgeries: Breast, Orthopedic, Renal, Tubal Ligation Respiratory History of Respiratory Disorde: No Cardiovascular History of Cardiac Disorders: Yes Cardiac Disorders: Hypertension Neurological History of Neurological Disord: Yes Neurological Disorders: Neuropathy 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 System : No Sexually Transmitted Disease: No HIV/AIDS: No 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 Genitourinary History of Genitourinary Disor: Yes (atrophic kidney) Genitourinary Disorders: Kidney Stones, UTI-Chronic Gastrointestinal History of Gastrointestinal Di: No Musculoskeletal History of Musculoskeletal Dis: No Endocrine History of Endocrine Disorders: Yes Endocrine Disorders: Diabetes, Insulin dep HEENT History of HEENT Disorders: No Cancer History of Cancer: No Psychosocial History of Psychiatric Problem: Yes Behavioral Health Disorders: Anxiety, Depression Integumentary History of Skin or Integumenta: No Blood Transfusions History of Blood Disorders: No Physical Exam Vital Signs VS - Last 72 Hours, by Label 09/09/17 09/09/17 16:37 16:56 Temp 96.6 Pulse 103 100 109 128 Resp 18 B/P (MAP) 168/117 160/97 (118) 149/94 (112) 144/104 (117) Pulse Ox 99 O2 Delivery Room Air Capillary Refill : Less Than 3 Seconds General Appearance: no apparent distress, thin, other (LOOKS MILDY ILL. 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, no motor/sensory deficits, alert, oriented x 3 Skin: normal color, warm/dry Focused Exam Respiratory: Normal Breath Sounds, No Accessory Muscle Use, No Respiratory Distress Cardiovascular: No JVD, No Murmur, Tachycardia Skin: normal color, warm/dry Progress/Results/Core Measures Results/Orders Lab Results Laboratory Tests Test 09/09/17 17:05 09/09/17 17:10 09/09/17 19:14 Range/Units Glucometer 73 70-110 MG/DL White Blood Count 10.2 4.3-11.0 10^3/uL Red Blood Count 5.10 4.35-5.85 10^6/uL Hemoglobin 15.4 # 11.5-16.0 G/DL Hematocrit 45 35-52 % Mean Corpuscular Volume 88 80-99 FL Mean Corpuscular Hemoglobin 30 25-34 PG Mean Corpuscular Hemoglobin Concent 34 32-36 G/DL Red Cell Distribution Width 14.4 10.0-14.5 % Platelet Count 374 130-400 10^3/uL Mean Platelet Volume 10.4 7.4-10.4 FL Neutrophils (%) (Auto) 78 H 42-75 % Lymphocytes (%) (Auto) 15 12-44 % Monocytes (%) (Auto) 7 0-12 % Eosinophils (%) (Auto) 0 0-10 % Basophils (%) (Auto) 0 0-10 % Neutrophils # (Auto) 7.9 H 1.8-7.8 X 10^3 Lymphocytes # (Auto) 1.5 1.0-4.0 X 10^3 Monocytes # (Auto) 0.7 0.0-1.0 X 10^3 Eosinophils # (Auto) 0.0 0.0-0.3 10^3/uL Basophils # (Auto) 0.0 0.0-0.1 10^3/uL Sodium Level 141 135-145 MMOL/L Potassium Level 2.9 L 3.6-5.0 MMOL/L Chloride Level 98 98-107 MMOL/L Carbon Dioxide Level 27 21-32 MMOL/L Anion Gap 16 H 5-14 MMOL/L Blood Urea Nitrogen 11 7-18 MG/DL Creatinine 0.79 0.60-1.30 MG/DL Estimat Glomerular Filtration Rate > 60 BUN/Creatinine Ratio 14 Glucose Level 75 70-105 MG/DL Calcium Level 9.9 8.5-10.1 MG/DL Magnesium Level 2.3 1.8-2.4 MG/DL Total Bilirubin 0.6 0.1-1.0 MG/DL Aspartate Amino Transf (AST/SGOT) 33 5-34 U/L Alanine Aminotransferase (ALT/SGPT) 24 0-55 U/L Alkaline Phosphatase 99 40-136 U/L Total Protein 7.8 6.4-8.2 GM/DL Albumin 4.4 3.2-4.5 GM/DL Amylase Level 25 25-125 U/L Lipase < 4 L 8-78 U/L Serum Test, Qualitative NEGATIVE NEGATIVE Urine Color YELLOW Urine Clarity SLIGHTLY CLOUDY Urine pH 8 5-9 Urine Specific [place] 1.015 L 1.016-1.022 Urine Protein NEGATIVE NEGATIVE Urine Glucose (UA) NEGATIVE NEGATIVE Urine Ketones 2+ H NEGATIVE Urine Nitrite NEGATIVE NEGATIVE Urine Bilirubin NEGATIVE NEGATIVE Urine Urobilinogen NORMAL NORMAL MG/DL Urine Leukocyte Esterase 3+ H NEGATIVE Urine RBC (Auto) 2+ H NEGATIVE Urine RBC 5-10 H /HPF Urine WBC 50-100 H /HPF Urine Squamous Epithelial Cells 5-10 /HPF Urine Crystals NONE /LPF Urine Bacteria MODERATE H /HPF Urine Casts NONE /LPF Urine Mucus NEGATIVE /LPF Urine Culture Indicated YES My Orders Orders - AKILA PEARSON DO Accucheck Stat ONCE (09/09/17 16:48) Saline Lock/Iv-Start (09/09/17 16:48) Ekg Tracing (09/09/17 16:48) Monitor-Rhythm Ecg Trace Only (09/09/17 16:48) Orthostatic Vital Signs (Adult (09/09/17 16:48) Amylase (09/09/17 16:48) Cbc With Automated Diff (09/09/17 16:48) Comprehensive Metabolic Panel (09/09/17 16:48) Hcg,Qualitative Serum (09/09/17 16:48) Lipase (09/09/17 16:48) Magnesium (09/09/17 16:48) Ua Culture If Indicated (09/09/17 16:48) Saline Lock/Iv-Start (09/09/17 16:48) Ns Iv 1000 Ml (Sodium Chloride 0.9%) (09/09/17 16:48) Ondansetron Injection (Zofran Injectio (09/09/17 17:00) Famotidine Injection (Pepcid Injection) (09/09/17 16:48) Scopolamine Patch (Transderm-Scop Patch) (09/09/17 17:00) Promethazine Injection (Phenergan Injec (09/09/17 18:07) Potassium Chloride (Tablet) (Klor Con Ta (09/09/17 18:15) Promethazine Injection (Phenergan Injec (09/09/17 19:15) Diphenhydramine Injection (Benadryl Inje (09/09/17 19:15) Ondansetron Injection (Zofran Injectio (09/09/17 19:15) Urine Culture (09/09/17 19:14) Medications Given in ED Current Medications Medications Dose Ordered Sig/Sigifredo Route Start Time Stop Time Status Last Admin Dose Admin Diphenhydramine HCl 25 mg ONCE ONCE IVP 09/09/17 19:15 09/09/17 19:16 DC 09/09/17 19:23 25 MG Ondansetron HCl 4 mg ONCE ONCE IVP 09/09/17 17:00 09/09/17 17:01 DC 09/09/17 17:08 4 MG Promethazine HCl 25 mg ONCE ONCE IVP 09/09/17 19:15 09/09/17 19:16 DC 09/09/17 19:23 25 MG Scopolamine 1.5 mg ONCE ONCE TD 09/09/17 17:00 09/09/17 17:01 DC 09/09/17 17:09 1.5 MG Sodium Chloride 1,000 ml @ 0 mls/hr Q0M ONCE IV 09/09/17 16:48 09/09/17 16:50 DC 09/09/17 17:07 999 MLS/HR Vital Signs/I&O Vital Sign - Last 12Hours 09/09/17 09/09/17 16:37 16:56 Temp 96.6 Pulse 103 100 109 128 Resp 18 B/P (MAP) 168/117 160/97 (118) 149/94 (112) 144/104 (117) Pulse Ox 99 O2 Delivery Room Air Blood Pressure Mean: 117 Progress Note : Progress Note NAUSEA IMPROVED, NO LONGER VOMITING AND PT ABLE TO TOLERATE WATER /ICE CHIPS PRIOR TO DISMISSAL REVIEWED URINE CULTURE FROM RECENT ADMIT--COAG NEGATIVE STAPH, SENSITIVE TO MACROBID ECG Initial ECG Impression Time: 17:13 Initial ECG Rate: 88 Initial ECG Rhythm: Normal Sinus Initial ECG Comparisson: No Previous ECG Available Departure Impression Impression: Primary Impression: Gastroenteritis Additional Impressions: Intractable nausea and vomiting Hypokalemia Urinary tract infection Disposition: 01 HOME, SELF-CARE Condition: Improved Departure-Patient Inst. Referrals: [facility] (PCP/Family) Primary Care Physician Patient Instructions: [id number], Hypokalemia (DC), Sick Day Management for Diabetics, Viral Gastroenteritis, Adult (DC) Add. Discharge Instructions: CLEAR LIQUIDS--WATER, BROTH, JELLO, GATORADE TOMORROW IF YOU ARE BETTER, ADD BRATS DIET TO CLEAR LIQUIDS--BANANAS, RICE, APPLESAUCE, TOAST, SALTINES CONTINUE MACROBID FOLLOW UP WITH [facility] IN 1-2 DAYS IF NO BETTER RETURN TO ER IF WORSE All discharge instructions reviewed with patient and/or family. Voiced understanding. Scripts Promethazine HCl (Phenergan) 25 Mg Supp.rect 25 MG RC Q4H for Nausea/Vomiting, #10 SUPP.RECT Prov: AKILA PEARSON DO 09/09/17 Ondansetron (Zofran Odt) 8 Mg Tab.rapdis 8 MG PO Q4H for Nausea/Vomiting, #14 TAB Prov: AKILA PEARSON DO 09/09/17 Scopolamine (Transderm-Scop) 1 Each Patch.td72 1 EACH TD Q72 HOURS for Dizziness, #3 PATCH Prov: AKILA PEARSON DO 09/09/17 AKILA PEARSON DO Sep 09, 2017 17:08
[2017-09-09 17:21] LABS: BASOPHILS % (AUTO) 0 % (0-10); EOSINOPHILS % (AUTO) 0 % (0-10); LYMPHOCYTES # (AUTO) 1.5 X 10^3 (1.0-4.0); LYMPHOCYTES % (AUTO) 15 % (12-44); MEAN CORPUSCULAR HEMOGLOBIN 30 PG (25-34); MEAN CORPUSCULAR HGB CONC 34 G/DL (32-36); MEAN CORPUSCULAR VOLUME 88 FL (80-99); MEAN PLATELET VOLUME 10.4 FL (7.4-10.4); MONOCYTES # (AUTO) 0.7 X 10^3 (0.0-1.0); MONOCYTES % (AUTO) 7 % (0-12); NEUTROPHILS # (AUTO) 7.9 X 10^3 (1.8-7.8); NEUTROPHILS % (AUTO) 78 % (42-75); PLATELET COUNT 374 10^3/uL (130-400); RED CELL DISTRIBUTION WIDTH 14.4 % (10.0-14.5); WHITE BLOOD COUNT 10.2 10^3/uL (4.3-11.0)
[2017-09-09 17:41] LABS: ALANINE AMINOTRANSFERASE 24 U/L (0-55); ALBUMIN 4.4 GM/DL (3.2-4.5); AMYLASE 25 U/L (25-125); ANION GAP 16 MMOL/L (5-14); ASPARTATE AMINO TRANSFERASE 33 U/L (5-34); BILIRUBIN,TOTAL 0.6 MG/DL (0.1-1.0); BLOOD UREA NITROGEN 11 MG/DL (7-18); BUN/CREATININE RATIO 14; CALCIUM 9.9 MG/DL (8.5-10.1); CARBON DIOXIDE 27 MMOL/L (21-32); CHLORIDE 98 MMOL/L (98-107); CREATININE SERUM 0.79 MG/DL (0.60-1.30); GFR ESTIMATED > 60; GLUCOSE 75 MG/DL (70-105); LIPASE < 4 U/L (8-78); MAGNESIUM 2.3 MG/DL (1.8-2.4); POTASSIUM 2.9 MMOL/L (3.6-5.0); SODIUM 141 MMOL/L (135-145); TOTAL PROTEIN 7.8 GM/DL (6.4-8.2)
[2017-09-09] MEDS ORDERED: PROMETHAZINE INJ 25 MG/ML (PHENERGAN) AMP IVP STA (18:07)
[2017-09-09] MEDS ORDERED: KCL 10 MEQ TAB (MICRO K) PO ONE (18:15)
[2017-09-09] MEDS ORDERED: PROMETHAZINE INJ 25 MG/ML (PHENERGAN) AMP IVP ONE (19:15)
[2017-09-09] MEDS ORDERED: diphenhydrAMINE 50 MG/ML INJ (BENADRYL) IVP ONE (19:15)
[2017-09-09 19:21] LABS: BILIRUBIN,URINE NEGATIVE (NEGATIVE); KETONES,URINE 2+ (NEGATIVE); LEUKOCYTE ESTERASE ,URINE 3+ (NEGATIVE); NITRITE,URINE NEGATIVE (NEGATIVE); PH,URINE 8 (5-9); PROTEIN,URINE NEGATIVE (NEGATIVE); UROBILINOGEN,URINE NORMAL (NORMAL)
[2017-09-09 19:29] LABS: WBC,URINE 50-100 /HPF
[2017-09-09] MEDS ORDERED: ONDA8TAB9 PO (20:01)
[2017-09-09] MEDS ORDERED: SCOP1PAT TD (20:01)
[2017-09-09] MEDS ORDERED: PROM25SU43 RC (20:01)
[2017-09-09 20:17] VITALS: BP 152/97
== END 2017-09-09 20:17 | disposition home or self-care (01) ==
LOC: EDUNIT# 16:23 → ER 16:24
DX: K52.9 Noninfective gastroenteritis and colitis, unspecified (principal); N39.0 Urinary tract infection, site not specified; E87.6 Hypokalemia; I10 Essential (primary) hypertension; E11.40 Type 2 diabetes mellitus with diabetic neuropathy, unspecified; F41.9 Anxiety disorder, unspecified; F32.9 Major depressive disorder, single episode, unspecified; F17.210 Nicotine dependence, cigarettes, uncomplicated; Z87.442 Personal history of urinary calculi; Z87.440 Personal history of urinary (tract) infections; Z79.4 Long term (current) use of insulin; Z98.51 Tubal ligation status
CPT/HCPCS: 36415; 80053; 81000; 82150; 82962; 83690; 83735; 84703; 85025; 87088; 93041

== ENCOUNTER 2019-12-27 14:07 | Inpatient (IN) | payer BC, OTHER ==
[~2019-12-27] VITALS: Ht 175 cm; Wt 89.7 kg
[~2019-12-27 14:07] MED LIST changes: -IBUP-2055 PO; +IBUP-2473 PO; +ONDA8TAB9 PO; +PROM25SU43 RC; +PROM50TA3 PO; +SCOP1PAT11 TD
--- NOTE | 2019-12-27 14:33 | NUR ---
ATTEMPT X2 FOR IV UNSUCCESSFUL.
[2019-12-27] MEDS ORDERED: NS IV 1000 ML 1,000 ML IV SCH ×2 (14:37→15:49)
--- NOTE | 2019-12-27 14:38 | NUR ---
FERNANDEZ IN ROOM ATTEMTING IV AT THIS TIME.
--- NOTE | 2019-12-27 14:48 | NUR ---
ANNE-MAREI NOTIFIED OF PT'S BLOOD SUGAR BEING 568. PT INFORMED ANNE-MARIE WOULD LIKE HER TO DOSE HERSELF WITH HER INSULIN PUMP. PT STATES SHE WILL BE GIVING HERSELF 9.2 UNITS OF NOVOLOG. ANNE-MARIE AN NOTIFIED.
[2019-12-27 14:51] LABS: BASOPHILS % (AUTO) 0 % (0-10); EOSINOPHILS % (AUTO) 0 % (0-10); HEMATOCRIT 44 % (35-52); HEMOGLOBIN 14.1 G/DL (11.5-16.0); LYMPHOCYTES # (AUTO) 0.4 X 10^3 (1.0-4.0); LYMPHOCYTES % (AUTO) 2 % (12-44); MEAN CORPUSCULAR HEMOGLOBIN 31 PG (25-34); MEAN CORPUSCULAR HGB CONC 32 G/DL (32-36); MEAN CORPUSCULAR VOLUME 97 FL (80-99); MEAN PLATELET VOLUME 10.8 FL (7.4-10.4); MONOCYTES # (AUTO) 0.9 X 10^3 (0.0-1.0); MONOCYTES % (AUTO) 4 % (0-12); NEUTROPHILS % (AUTO) 94 % (42-75); PLATELET COUNT 341 10^3/uL (130-400); RED CELL DISTRIBUTION WIDTH 13.7 % (10.0-14.5); WHITE BLOOD COUNT 23.4 10^3/uL (4.3-11.0)
[2019-12-27] MEDS ORDERED: ONDANSETRON 4 MG/2 ML (SDV) Z0FRAN IVP ONE (15:00)
[2019-12-27 15:06] LABS: INR 1.2 (0.8-1.4); PROTHROMBIN TIME PATIENT 15.2 SEC (12.2-14.7)
[2019-12-27 15:09] LABS: ALBUMIN 4.5 GM/DL (3.2-4.5); BILIRUBIN,TOTAL 0.5 MG/DL (0.1-1.0); CALCIUM 9.2 MG/DL (8.5-10.1); CREATININE SERUM 1.83 MG/DL (0.60-1.30); POTASSIUM 5.3 MMOL/L (3.6-5.0); TOTAL PROTEIN 7.6 GM/DL (6.4-8.2)
[2019-12-27 15:12] LABS: BILIRUBIN,URINE NEGATIVE (NEGATIVE); CLARITY,URINE CLEAR; COLOR,URINE YELLOW; GLUCOSE, URINE (UA) 3+ (NEGATIVE); KETONES,URINE 3+ (NEGATIVE); LEUKOCYTE ESTERASE ,URINE NEGATIVE (NEGATIVE); NITRITE,URINE NEGATIVE (NEGATIVE); PH,URINE 5.5 (5-9); PROTEIN,URINE TRACE (NEGATIVE)
[2019-12-27 15:25] LABS: BACTERIA,URINE TRACE /HPF; RBC,URINE 0-2 /HPF
--- NOTE | 2019-12-27 15:27 | Diagnostic Imaging Report ---
INDICATION: Nausea, vomiting, and body aches. TIME OF EXAM: 03:14 p.m. COMPARISON: Comparison is made with prior chest from 09/06/2017. FINDINGS: The heart size is normal. The pulmonary vascularity is unremarkable. The lungs are clear. No infiltrate, effusion or pneumothorax is detected. IMPRESSION: No acute cardiopulmonary process is detected. Dictated by: Dictated on workstation # [id number]
[2019-12-27 15:34] LABS: NEUTROPHILS % (MANUAL) 96 %
[2019-12-27 15:35] LABS: BAND NEUTROPHILS 1 %; LYMPHOCYTES % (MANUAL) 1 %; MONOCYTES % (MANUAL) 2 %
--- NOTE | 2019-12-27 15:46 | ED General ---
General Chief Complaint: Abdominal/GI Problems Stated Complaint: VOMITING;LEFT SIDE PAIN Nursing Triage Note: Pt amb to triage with c/o nausea, vomiting, body aches, chills, L flank discomfort, et hematuria. 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 Pt reports onset of flank discomfort to be 12/23/19 with progression of symptoms on 12/25/19. Pt reports [facility] tests her for influenza with negative results. Pt reports hx UTI. Nursing Sepsis Screen: Possible Severe Sepsis Risk History of Present Illness Date Seen by Provider: Dec 27, 2019 Time Seen by Provider: 14:20 Initial Comments 49 year old female presents from [facility] for nausea, vomiting, fevers and left flank pain. History of bilateral renal calculi in the past. Patient is a type I diabetic with a pump, but reports she is compliant with her diabetic management. She was diagnosed with diabetes approximately 12 years ago after having gestational diabetes. She sees the solar installer [facility]. She has limited fluid intake. Timing/Duration: 4-5 Days Severity: Mild Associated Systoms: No Chest Pain, No Cough, No Diaphoresis; Fever/Chills, Loss of Appetite, Malaise, Nausea/Vomiting; No Shortness of Air, No Weakness Allergies and Home Medications Allergies Coded Allergies: Sulfa (Sulfonamide Antibiotics) (Verified Allergy, Mild, RASH, 09/04/17) Home Medications Amitriptyline HCl 10 Mg Tablet, 10 MG PO DAILY, (Reported) Gabapentin 300 Mg Capsule, 300 MG PO BID, (Reported) Ibuprofen 200 Mg Tablet, 800 MG PO DAILY PRN for PAIN-MILD, (Reported) TAKES 4 (200 MG) TABLETS Insulin Aspart 100 Unit/1 Ml Susp, 12 UNITS SQ AC, (Reported) Insulin Determir 1,000 Units/10 Ml Soln, 20 UNITS SQ BID, (Reported) Lisinopril 5 Mg Tablet, 5 MG PO DAILY, (Reported) Nitrofurantoin Monohyd/M-Cryst 100 Mg Capsule, 1 TAB PO BID Prescribed by: NICOLAS JETT on 09/06/171605 Ondansetron 8 Mg Tab.rapdis, 8 MG PO Q4H Prescribed by: AKILA PEARSON on 09/09/172000 Promethazine HCl 50 Mg Tablet, 25 MG PO Q6H PRN for NAUSEA/VOMITING-1ST LINE, (Reported) Promethazine HCl 25 Mg Supp.rect, 25 MG RC Q4H Prescribed by: AKILA PEARSON on 09/09/172000 Scopolamine 1 Each Patch.td72, 1 EACH TD Q72 HOURS Prescribed by: AKILA PEARSON on 09/09/172000 Venlafaxine HCl 37.5 Mg Cap.er.24h, 37.5 MG PO DAILY, (Reported) Patient Home Medication List Home Medication List Reviewed: Yes Review of Systems Review of Systems Constitutional: see HPI, malaise, weakness Respiratory: no symptoms reported, see HPI; No cough Genitourinary: see HPI, dysuria, hematuria All Other Systems Reviewed Negative Unless Noted: Yes Past Mjkgoft-Bxqezz-Eqjjiy Hx Past Med/Social Hx: Reviewed Nursing Past Med/Soc Hx Patient Social History Alcohol Use: Rarely Uses Number of Drinks Today: 0 Recreational Drug Use: No Smoking Status: Current Everyday Smoker Type Used: Cigarettes 2nd Hand Smoke Exposure: No Recent Foreign Travel: No Contact w/Someone Who Travel: No Recent Infectious Disease Expo: No Recent Hopitalizations: No Immunizations Up To Date Tetanus Booster (TDap): Unknown Seasonal Allergies Seasonal Allergies: No Past Medical History Surgeries: Yes (ureter reimplantation bilaterally when a child) Breast, Orthopedic, Renal, Tubal Ligation Respiratory: No Cardiac: Yes Hypertension Neurological: Yes Neuropathy 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 12.8oz. [id number]; 26.00 BMI Method:Stated General Appearance: WD/WN, Mild Distress Eyes: Bilateral Eye Normal Inspection, Bilateral Eye PERRL, Bilateral Eye EOMI HEENT: PERRL/EOMI, TMs Normal, Normal ENT Inspection, Pharynx Normal Neck: Full Range of Motion, Normal Inspection, Non Tender Respiratory: Chest Non Tender, Lungs Clear, Normal Breath Sounds Cardiovascular: Regular Rate, Rhythm, No Edema, No Murmur, Normal Peripheral Pulses Gastrointestinal: Normal Bowel Sounds, Soft; No Distended, No Guarding Back: CVA Tenderness (L) Extremity: Normal Capillary Refill, Normal Inspection, Normal Range of Motion Neurologic/Psychiatric: Alert, Oriented x3, No Motor/Sensory Deficits, Normal Mood/Affect Skin: Normal Color, Warm/Dry Focused Exam Lactate Level 12/27/19 14:40: Lactic Acid Level 2.37*H 12/27/19 17:40: Lactic Acid Level 1.94 Lactic Acid Level Progress/Results/Core Measures Suspected Sepsis Recent Fever Within 48 Hours: Yes Infection Criteria Present: Suspected New Infection New/Unexplained Altered Menta: No Sepsis Screen: Possible Severe Sepsis Risk Within 3hrs of presentation: Admin fluids, Admin ABX, Blood cultures prior to ABX's, Focus exam, Lactate level SIRS Temperature: Pulse: 119 Respiratory Rate: 18 Laboratory Tests 12/27/19 14:40: White Blood Count 23.4H 12/27/19 20:50: White Blood Count 18.1H Blood Pressure 111 /61 Mean: 78 12/27/19 14:40: Lactic Acid Level 2.37*H 12/27/19 17:40: Lactic Acid Level 1.94 Laboratory Tests 12/27/19 14:40: Creatinine 1.83H, INR Comment 1.2, Platelet Count 341, Total Bilirubin 0.5 12/27/19 17:40: Creatinine 1.59H 12/27/19 20:50: Creatinine 1.29, Platelet Count 269 Results/Orders Lab Results Laboratory Tests Test 12/27/19 14:40 12/27/19 14:43 12/27/19 15:00 12/27/19 16:40 Range/Units White Blood Count 23.4 H 4.3-11.0 10^3/uL Red Blood Count 4.54 4.35-5.85 10^6/uL Hemoglobin 14.1 11.5-16.0 G/DL Hematocrit 44 35-52 % Mean Corpuscular Volume 97 80-99 FL Mean Corpuscular Hemoglobin 31 25-34 PG Mean Corpuscular Hemoglobin Concent 32 32-36 G/DL Red Cell Distribution Width 13.7 10.0-14.5 % Platelet Count 341 130-400 10^3/uL Mean Platelet Volume 10.8 H 7.4-10.4 FL Neutrophils (%) (Auto) 94 H 42-75 % Lymphocytes (%) (Auto) 2 L 12-44 % Monocytes (%) (Auto) 4 0-12 % Eosinophils (%) (Auto) 0 0-10 % Basophils (%) (Auto) 0 0-10 % Neutrophils # (Auto) 22.0 H 1.8-7.8 X 10^3 Lymphocytes # (Auto) 0.4 L 1.0-4.0 X 10^3 Monocytes # (Auto) 0.9 0.0-1.0 X 10^3 Eosinophils # (Auto) 0.0 0.0-0.3 10^3/uL Basophils # (Auto) 0.0 0.0-0.1 10^3/uL Neutrophils % (Manual) 96 % Lymphocytes % (Manual) 1 % Monocytes % (Manual) 2 % Band Neutrophils 1 % Macrocytosis SLIGHT Blood Morphology Comment SEE NOTE Prothrombin Time 15.2 H 12.2-14.7 SEC INR Comment 1.2 0.8-1.4 Activated Partial Thromboplast Time 28 24-35 SEC Sodium Level 132 L 135-145 MMOL/L Potassium Level 5.3 H 3.6-5.0 MMOL/L Chloride Level 99 98-107 MMOL/L Carbon Dioxide Level 10 L 21-32 MMOL/L Anion Gap 23 H 5-14 MMOL/L Blood Urea Nitrogen 31 H 7-18 MG/DL Creatinine 1.83 H 0.60-1.30 MG/DL Estimat Glomerular Filtration Rate 30 BUN/Creatinine Ratio 17 Glucose Level 651 *H 70-105 MG/DL Lactic Acid Level 2.37 *H 0.50-2.00 MMOL/L Calcium Level 9.2 8.5-10.1 MG/DL Corrected Calcium 8.8 8.5-10.1 MG/DL Total Bilirubin 0.5 0.1-1.0 MG/DL Aspartate Amino Transf (AST/SGOT) 38 H 5-34 U/L Alanine Aminotransferase (ALT/SGPT) 48 0-55 U/L Alkaline Phosphatase 139 H 40-136 U/L Total Protein 7.6 6.4-8.2 GM/DL Albumin 4.5 3.2-4.5 GM/DL Glucometer 568 *H 70-110 MG/DL Urine Color YELLOW Urine Clarity CLEAR Urine pH 5.5 5-9 Urine Specific Pritchett 1.025 H 1.016-1.022 Urine Protein TRACE H NEGATIVE Urine Glucose (UA) 3+ H NEGATIVE Urine Ketones 3+ H NEGATIVE Urine Nitrite NEGATIVE NEGATIVE Urine Bilirubin NEGATIVE NEGATIVE Urine Urobilinogen 0.2 < = 1.0 MG/DL Urine Leukocyte Esterase NEGATIVE NEGATIVE Urine RBC (Auto) 2+ H NEGATIVE Urine RBC 0-2 /HPF Urine WBC 10-25 H /HPF Urine Squamous Epithelial Cells 2-5 /HPF Urine Crystals NONE /LPF Urine Bacteria TRACE /HPF Urine Casts NONE /LPF Urine Mucus NEGATIVE /LPF Urine Culture Indicated NO Urine Opiates Screen NEGATIVE NEGATIVE Urine Oxycodone Screen NEGATIVE NEGATIVE Urine Methadone Screen NEGATIVE NEGATIVE Urine Propoxyphene Screen NEGATIVE NEGATIVE Urine Barbiturates Screen NEGATIVE NEGATIVE Ur Tricyclic Antidepressants Screen NEGATIVE NEGATIVE Urine Phencyclidine Screen NEGATIVE NEGATIVE Urine Amphetamines Screen NEGATIVE NEGATIVE Urine Methamphetamines Screen NEGATIVE NEGATIVE Urine Benzodiazepines Screen NEGATIVE NEGATIVE Urine Cocaine Screen NEGATIVE NEGATIVE Urine Cannabinoids Screen NEGATIVE NEGATIVE Blood Gas Puncture Site RIGHT RADIAL Blood Gas Patient Temperature 98.1 Arterial Blood pH 7.15 *L 7.37-7.43 Arterial Blood Partial Pressure CO2 21 L 35-45 MMHG Arterial Blood Partial Pressure O2 103 H 79-93 MMHG Arterial Blood HCO3 7 *L 23-27 MMOL/L Arterial Blood Total CO2 7.8 L 21.0-31.0 MMOL/L Arterial Blood Oxygen Saturation 98 94-100 % Arterial Blood Base Excess -20.2 L -2.5-2.5 MMOL/L Jose Test POSITIVE Blood Gas Ventilator Setting NO Blood Gas Inspired Oxygen UNK Test 12/27/19 16:51 12/27/19 17:40 12/27/19 18:54 12/27/19 19:56 Range/Units Glucometer 540 *H 392 H 390 H 70-110 MG/DL Sodium Level 134 L 135-145 MMOL/L Potassium Level 4.8 3.6-5.0 MMOL/L Chloride Level 104 98-107 MMOL/L Carbon Dioxide Level 9 *L 21-32 MMOL/L Anion Gap 21 H 5-14 MMOL/L Blood Urea Nitrogen 31 H 7-18 MG/DL Creatinine 1.59 H 0.60-1.30 MG/DL Estimat Glomerular Filtration Rate 35 BUN/Creatinine Ratio 19 Glucose Level 548 *H 70-105 MG/DL Lactic Acid Level 1.94 0.50-2.00 MMOL/L Calcium Level 8.6 8.5-10.1 MG/DL Test 12/27/19 20:50 12/27/19 21:08 12/27/19 21:32 Range/Units White Blood Count 18.1 H 4.3-11.0 10^3/uL Red Blood Count 3.54 L 4.35-5.85 10^6/uL Hemoglobin 10.8 #L 11.5-16.0 G/DL Hematocrit 34 L 35-52 % Mean Corpuscular Volume 96 80-99 FL Mean Corpuscular Hemoglobin 31 25-34 PG Mean Corpuscular Hemoglobin Concent 32 32-36 G/DL Red Cell Distribution Width 13.6 10.0-14.5 % Platelet Count 269 130-400 10^3/uL Mean Platelet Volume 10.6 H 7.4-10.4 FL Sodium Level 133 L 135-145 MMOL/L Potassium Level 4.2 3.6-5.0 MMOL/L Chloride Level 108 H 98-107 MMOL/L Carbon Dioxide Level 10 L 21-32 MMOL/L Anion Gap 15 H 5-14 MMOL/L Blood Urea Nitrogen 30 H 7-18 MG/DL Creatinine 1.29 0.60-1.30 MG/DL Estimat Glomerular Filtration Rate 44 BUN/Creatinine Ratio 23 Glucose Level 364 H 70-105 MG/DL Calcium Level 7.4 L 8.5-10.1 MG/DL Beta-Hydroxybutyrate (Chem panel) 3.26 H 0.00-0.27 MMOL/L Glucometer 299 H 70-110 MG/DL Urine Color YELLOW Urine Clarity CLEAR Urine pH 5.5 5-9 Urine Specific Pritchett 1.025 H 1.016-1.022 Urine Protein NEGATIVE NEGATIVE Urine Glucose (UA) 2+ H NEGATIVE Urine Ketones 3+ H NEGATIVE Urine Nitrite NEGATIVE NEGATIVE Urine Bilirubin NEGATIVE NEGATIVE Urine Urobilinogen 0.2 < = 1.0 MG/DL Urine Leukocyte Esterase NEGATIVE NEGATIVE Urine RBC (Auto) 1+ H NEGATIVE Urine RBC NONE /HPF Urine WBC NONE /HPF Urine Crystals NONE /LPF Urine Bacteria TRACE /HPF Urine Casts NONE /LPF Urine Mucus NEGATIVE /LPF Urine Culture Indicated NO My Orders Orders - ANNE-MARIE AN TELEPHONE ADVICE NURSE Ua Culture If Indicated (12/27/19 14:09) Cbc With Automated Diff (12/27/19 14:37) Comprehensive Metabolic Panel (12/27/19 14:37) Blood Culture (12/27/19 14:37) Protime With Inr (12/27/19 14:37) Partial Thromboplastin Time (12/27/19 14:37) Chest 1 View, Ap/Pa Only (12/27/19 14:37) Ed Iv/Invasive Line Start (12/27/19 14:37) Ns Iv 1000 Ml (Sodium Chloride 0.9%) (12/27/19 14:37) Lactic Acid Analyzer (12/27/19 14:37) Manual Differential (12/27/19 14:40) Ondansetron Injection (Zofran Injectio (12/27/19 15:00) Ct Abd/Pelvis Wo(Kidney Stone) (12/27/19 15:46) Ed Iv/Invasive Line Start (12/27/19 15:49) Ns Iv 1000 Ml (Sodium Chloride 0.9%) (12/27/19 15:49) Arterial Blood Gas (12/27/19 16:22) Ceftriaxone For Iv Use (Rocephin For I (12/27/19 16:45) Sodium Bicarbonate 8.4% Vial (Sodium Bic (12/27/19 17:00) Insulin (Regular) Human (Humulin R (Per (12/27/19 16:58) Drug Screen Stat (Urine) (12/27/19 17:03) Hemoglobin A1c (12/27/19 17:13) Basic Metabolic Panel (12/27/19 17:13) Ketorolac Injection (Toradol Injection) (12/27/19 17:45) 1/2 Ns Iv Solution (0.45% Sodium Chlorid (12/27/19 18:17) Medications Given in ED Current Medications Medications Dose Ordered Sig/Sigifredo Route Start Time Stop Time Status Last Admin Dose Admin Ceftriaxone Sodium 1000 mg/ Sterile Water 10 ml @ 200 mls/hr ONCE ONCE IV 12/27/19 16:45 12/27/19 16:47 DC 12/27/19 16:52 200 MLS/HR Ondansetron HCl 8 mg ONCE ONCE IVP 12/27/19 15:00 12/27/19 15:01 DC 12/27/19 15:15 8 MG Sodium Bicarbonate 50 meq ONCE ONCE IV 12/27/19 17:00 12/27/19 17:01 DC 12/27/19 16:58 50 MEQ Vital Signs/I&O 12/27/19 12/27/19 12/27/19 12/27/19 14:11 18:20 18:33 18:44 Temp 36.6 36.9 Pulse 119 110 111 Resp 18 18 B/P (MAP) 111/61 (78) 98/43 Pulse Ox 98 97 O2 Delivery Room Air Room Air Room Air 12/27/19 12/27/19 12/27/19 19:04 19:13 20:00 Temp 37.0 37.1 Pulse 107 Resp 20 B/P (MAP) 111/67 (82) Pulse Ox 97 96 O2 Delivery Room Air Room Air Capillary Refill : Less Than 3 Seconds Blood Pressure Mean: 78 Point of Care Testing Finger Stick Blood Glucose: 568 Progress Note : Time: 14:20 Progress Note Patient seen and evaluated, will obtain labs, normal saline 1 L IV, Zofran for nausea and continue to monitor closely. Patient just administered Insulin via pump, so will await labs to order Insulin. 1500 Glucose 651, will obtain ABG. Influenza negative. WBC elevated, secondary to dehydration. 1515 lactic acid 2.37. IV infusing slowly, 22 G. 1600 lab reports that ABGs are mixed blood, will draw a new set. 1 amp Sodium Bicarb. 1645 Glucose 540. Patient taking ice chips, second IV obtained. Spoke to Dr. Morley agreed with plans for admission to ICU for insulin drip. Will follow DKA protocol. 1745 Dr. Morley in emergency department to see patient. Glucose 548, will switch to half normal saline. Diagnostic Imaging Diagonstic Imaging: Xray Plain Films/CT/US/NM/MRI: chest Comments [place] NAME: BLANCHE MINOR MED REC#: [id number] PT STATUS: REG ER : 1970 PHYSICIAN: ANNE-MARIE AN ADMIT DATE: 12/27/19/ER Draft Date of Exam:12/27/19 CHEST 1 VIEW, AP/PA ONLY INDICATION: Nausea, vomiting, and body aches. TIME OF EXAM: 03:14 p.m. COMPARISON: Comparison is made with prior chest from 09/06/2017. FINDINGS: The heart size is normal. The pulmonary vascularity is unremarkable. The lungs are clear. No infiltrate, effusion or pneumothorax is detected. IMPRESSION: No acute cardiopulmonary process is detected. Dictated on workstation # [id number] Dict: 12/27/19 1523 Trans: 12/27/19 1527 [id number] Interpreted by: SUSI ALONSO MD Electronically signed by: Kristine Imaging: CT Plain Films/CT/US/NM/MRI: abdomen, pelvis Comments NAME: BLANCHE MINOR [facility] REC#: [id number] PT STATUS: REG ER : 1970 PHYSICIAN: ANNE-MARIE AN TELEPHONE ADVICE NURSE ADMIT DATE: 12/27/19/ER Signed Date of Exam:12/27/19 CT ABD/PELVIS WO(KIDNEY STONE) PROCEDURE: CT urinary tract, rule out kidney stone. TECHNIQUE: Multiple contiguous axial images were obtained through the abdomen and pelvis without the use of intravenous contrast. Auto Exposure Controls were utilized during the CT exam to meet ALARA standards for radiation dose reduction. INDICATION: Nausea and vomiting. Bodyaches. Left flank discomfort. COMPARISON: CT abdomen and pelvis on 09/12/2017. FINDINGS: The heart is unremarkable. The included lung bases are clear. There is bilateral mild hydroureteronephrosis. This appearance is similar on the left compared to prior exams. Associated atrophy of the mid and lower pole of the left kidney is noted. No obstructing renal calculi are seen bilaterally. No suspicious renal masses. Minimal perinephric fat stranding is seen. The urinary bladder is distended with bladder wall thickening and air within the bladder lumen. The liver, spleen, pancreas, and adrenal glands have an unremarkable noncontrast CT appearance. There is no pathologically enlarged mesenteric or retroperitoneal adenopathy. The bowel loops are nondilated. The appendix is visualized in the right lower quadrant and has a normal appearance.. There is no free air. The osseous structures are age-appropriate. A small amount of physiologic free fluid is seen in the pelvis. There is no free air, loculated collection, or adenopathy in the pelvis. IMPRESSION: 1. Bilateral mild hydroureteronephrosis which is likely chronic on the left. The urinary bladder is distended with bladder wall thickening and air in the bladder lumen. These findings are suggestive of cystitis. Recommend correlation with UA. 2. No obstructing calculi or suspicious renal masses. 3. Small amount of physiologic free fluid in the pelvis. Reviewed: Reviewed by Me Departure Impression Primary Impression: Diabetic ketoacidosis Qualified Codes: E10.10 - Type 1 diabetes mellitus with ketoacidosis without coma Additional Impression: Noncompliance with diabetes treatment Disposition: ADMITTED INPATIENT Condition: Critical Admissions Decision to Admit Reason: Admit from ER (General) Decision to Admit/Date: Dec 27, 2019 Time/Decision to Admit Time: 16:00 Departure-Patient Inst. Referrals: [facility] (PCP/Family) Primary Care Physician Copy Copies To 1: GRISELDA RUIZ AMY ARNP Dec 27, 2019 15:45
--- NOTE | 2019-12-27 15:52 | NUR ---
RT NOTIFIED OF NEEDING ABG'S.
--- NOTE | 2019-12-27 16:10 | NUR ---
FLUIDS PLACED ON PRESSURE BAG.
--- NOTE | 2019-12-27 16:20 | Diagnostic Imaging Report ---
PROCEDURE: CT urinary tract, rule out kidney stone. TECHNIQUE: Multiple contiguous axial images were obtained through the abdomen and pelvis without the use of intravenous contrast. Auto Exposure Controls were utilized during the CT exam to meet ALARA standards for radiation dose reduction. INDICATION: Nausea and vomiting. Bodyaches. Left flank discomfort. COMPARISON: CT abdomen and pelvis on 09/12/2017. FINDINGS: The heart is unremarkable. The included lung bases are clear. There is bilateral mild hydroureteronephrosis. This appearance is similar on the left compared to prior exams. Associated atrophy of the mid and lower pole of the left kidney is noted. No obstructing renal calculi are seen bilaterally. No suspicious renal masses. Minimal perinephric fat stranding is seen. The urinary bladder is distended with bladder wall thickening and air within the bladder lumen. The liver, spleen, pancreas, and adrenal glands have an unremarkable noncontrast CT appearance. There is no pathologically enlarged mesenteric or retroperitoneal adenopathy. The bowel loops are nondilated. The appendix is visualized in the right lower quadrant and has a normal appearance.. There is no free air. The osseous structures are age-appropriate. A small amount of physiologic free fluid is seen in the pelvis. There is no free air, loculated collection, or adenopathy in the pelvis. IMPRESSION: 1. Bilateral mild hydroureteronephrosis which is likely chronic on the left. The urinary bladder is distended with bladder wall thickening and air in the bladder lumen. These findings are suggestive of cystitis. Recommend correlation with UA. 2. No obstructing calculi or suspicious renal masses. 3. Small amount of physiologic free fluid in the pelvis. Dictated by: Dictated on workstation # [id number]
[2019-12-27] MEDS ORDERED: cefTRIAXone FOR IV USE 1,000 MG in WATER (STERILE) FOR INJECTION 10 ML IV ONE (16:45)
[2019-12-27 16:51] LABS: ABG BASE EXCESS -20.2 MMOL/L (-2.5-2.5); ABG OXYGEN SATURATION 98 % (94-100); ABG PCO2 21 MMHG (35-45); ABG PO2 103 MMHG (79-93); ABG TCO2 7.8 MMOL/L (21.0-31.0)
[2019-12-27 16:52] LABS: ABG PH 7.15 (7.37-7.43); ALLENS TEST POSITIVE; PATIENT TEMP 98.1; VENTILATOR NO
[2019-12-27] MEDS ORDERED: inSUlin (REGULAR) HUMAN 1 UNIT/0.01 ML (CHARGE PER UNIT) IV STA (16:58)
[2019-12-27] MEDS ORDERED: SODIUM BICARB 8.4% 50 MEQ/50 ML VIAL IV ONE (17:00)
[2019-12-27 17:21] LABS: AMPHETAMINE SCREEN, URINE NEGATIVE (NEGATIVE); BARBITURATE SCREEN URINE NEGATIVE (NEGATIVE); BENZODIAZEPINES SCREEN URINE NEGATIVE (NEGATIVE); CANNABINOID SCREEN, URINE NEGATIVE (NEGATIVE); COCAINE SCREEN URINE NEGATIVE (NEGATIVE); METHADONE STAT NEGATIVE (NEGATIVE); METHAMPHETAMINE SCREEN URINE S NEGATIVE (NEGATIVE); OPIATE SCREEN URINE NEGATIVE (NEGATIVE); OXYCODONE STAT NEGATIVE (NEGATIVE); PROPOXYPHENE STAT NEGATIVE (NEGATIVE); TRICYCLIC ANTIDEPRESSANTS SCRE NEGATIVE (NEGATIVE)
[2019-12-27] MEDS ORDERED: KETOROLAC 30 MG/ML VIAL IVP ONE (17:45)
[2019-12-27 18:00] LABS: CALCIUM 8.6 MG/DL (8.5-10.1); CREATININE SERUM 1.59 MG/DL (0.60-1.30); POTASSIUM 4.8 MMOL/L (3.6-5.0)
[2019-12-27] MEDS ORDERED: 1/2 NS IV SOLUTION 1,000 ML IV STA (18:17)
[2019-12-27] MEDS ORDERED: REGULAR inSUlin DRIP 250 UNITS/NS 250 ML IV SCH ×2 (18:45)
[2019-12-27] MEDS: DEXTROSE 10% IV SOLUTION 1,000 ML IV SCH (18:57)
[2019-12-27] MEDS: D5 1/2 NS IV 1,000 ML IV SCH ×3 (18:58→23:51)
[2019-12-27 19:13] VITALS: BP 111/67
[2019-12-27] MEDS ORDERED: ENOXAPARIN 40 MG/0.4 ML (LOVENOX) SYR SQ SCH (19:15)
[2019-12-27] MEDS: POTASSIUM CL 10MEQ/50ML IVPB 50 ML IV SCH ×3 (19:22→22:55)
[2019-12-27] MEDS: 1/2 NS IV SOLUTION 1,000 ML IV SCH ×2 (19:25→22:26)
[2019-12-27 19:30] VITALS: BP 99/52
[2019-12-27 20:00] VITALS: BP 101/57
--- NOTE | 2019-12-27 20:46 | History & Physical-Hospitalist ---
History of Present Illness HPI/Chief Complaint CC: DKA HPI: This is a 49yoWF clinic patient of [facility] who has a h/o DM since gestational DM dx who has an insulin pump who presented to the ER at [facility] direction due to high sugars and N/V and patient was found to have DKA. Patient reports she is non-compliant with her insulin pump and was having difficulty with getting her sugars down today. 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 Insulin drip will be started and IVF given for profound dehydration. Source: patient, family, RN/MD Exam Limitations: no limitations Date Seen 12/27/19 Time Seen by a Provider: 18:00 Attending Physician Rachelle Morley DO [facility] [place] Referring Physician Date of Admission Dec 27, 2019 at 17:00 Home Medications & Allergies Home Medications Reviewed patient Home Medication Reconciliation performed by pharmacy medication reconciliations boiler control technician and/or nursing. Patients Allergies have been reviewed. Allergies Allergies Coded Allergies Sulfa (Sulfonamide Antibiotics) (Verified Allergy, Mild, RASH, 09/04/17) Past Heffrud-Fmxttd-Iisiil Hx Past Med/Social Hx: Reviewed Nursing Past Med/Soc Hx, Reviewed and Corrections made Patient Social History Marrital Status: Employed/Student: employed Alcohol Use: Rarely Uses Number of Drinks Today: 0 Recreational Drug Use: No Smoking Status: Current Everyday Smoker Type Used: Cigarettes 2nd Hand Smoke Exposure: No Recent Foreign Travel: No Contact w/other who traveled: No Recent Hopitalizations: No Recent Infectious Disease Expo: No Immunizations Up To Date Tetanus Booster (TDap): Unknown Date of Influenza Vaccine: Jul 16, 2019 Seasonal Allergies Seasonal Allergies: No Past Medical History Surgeries: Breast, Orthopedic, Renal, Tubal Ligation Cardiac: Hypertension Neurological: Neuropathy Sexually Transmitted Disease: No HIV/AIDS: No Tubal Ligation Genitourinary: Kidney Stones, UTI-Chronic Endocrine: Diabetes, Insulin dep Psychosocial: Anxiety, Depression History of Blood Disorders: No Review of Systems Constitutional: see HPI, dizziness, malaise, weakness Gastrointestinal: loss of appetite, nausea, vomiting Physical Exam Physical Exam Vital Signs Vital Signs - First Documented 12/27/19 14:11 Temp 36.6 Pulse 119 Resp 18 B/P (MAP) 111/61 (78) Pulse Ox 98 O2 Delivery Room Air Capillary Refill : Less Than 3 Seconds Height, Weight, BMI Height: 5'8.00" Weight: 166lbs. 12.8oz. [id number]; 26.00 BMI Method:Stated General Appearance: Anxious, Chronically ill, Mild Distress HEENT: PERRL/EOMI, TMs Normal, Normal ENT Inspection, Pharynx Normal, Moist Mucous Membranes Respiratory: Chest Non Tender, Lungs Clear, Normal Breath Sounds, No Accessory Muscle Use, No Respiratory Distress Cardiovascular: Regular Rate, Rhythm, No Edema, No Gallop, No JVD, No Murmur, Normal Peripheral Pulses Neurologic/Psychiatric: Alert, Oriented x3, No Motor/Sensory Deficits, Normal Mood/Affect Skin: Normal Color, Warm/Dry Results Results/Procedures Labs Laboratory Tests 12/27/19 14:40 12/27/19 17:40 Patient resulted labs reviewed. Assessment/Plan Admission Diagnosis Assessment: Acute DKA DM Type 1 on insulin pump Smoker Non-compliance Plan: Insulin drip Monitor in ICU Admission Status: Observation Diagnosis/Problems Diagnosis/Problems (1) Diabetic ketoacidosis Status: Acute (2) Urinary tract infection Status: Acute (3) Intractable nausea and vomiting Status: Acute (4) Hypokalemia Status: Acute (5) Gastroenteritis Status: Acute Clinical Quality Measures DVT/VTE Risk/Contraindication: Risk Factor Score Per Nursin RFS Level Per Nursing on Admit: 2=Moderate RACHELLE MORLEY DO Dec 27, 2019 20:46
[2019-12-27 20:57] LABS: HEMOGLOBIN 10.8 G/DL (11.5-16.0); MEAN PLATELET VOLUME 10.6 FL (7.4-10.4); RED CELL DISTRIBUTION WIDTH 13.6 % (10.0-14.5); WHITE BLOOD COUNT 18.1 10^3/uL (4.3-11.0)
[2019-12-27 21:00] VITALS: BP 95/52
[2019-12-27 21:24] LABS: CREATININE SERUM 1.29 MG/DL (0.60-1.30); POTASSIUM 4.2 MMOL/L (3.6-5.0)
[2019-12-27 21:25] LABS: CALCIUM 7.4 MG/DL (8.5-10.1)
[2019-12-27 21:41] LABS: BILIRUBIN,URINE NEGATIVE (NEGATIVE); CLARITY,URINE CLEAR; COLOR,URINE YELLOW; GLUCOSE, URINE (UA) 2+ (NEGATIVE); KETONES,URINE 3+ (NEGATIVE); LEUKOCYTE ESTERASE ,URINE NEGATIVE (NEGATIVE); NITRITE,URINE NEGATIVE (NEGATIVE); PH,URINE 5.5 (5-9); PROTEIN,URINE NEGATIVE (NEGATIVE)
[2019-12-27 21:48] LABS: BACTERIA,URINE TRACE /HPF
[2019-12-27 22:00] VITALS: BP 97/51
[2019-12-27 23:00] VITALS: BP 90/51
[2019-12-27 23:05] LABS: CALCIUM 7.3 MG/DL (8.5-10.1); CREATININE SERUM 1.21 MG/DL (0.60-1.30); POTASSIUM 4.1 MMOL/L (3.6-5.0)
[2019-12-28] VITALS (23 sets, daily range): BP systolic 86–124; BP diastolic 51–71
[2019-12-28] MEDS: POTASSIUM CL 10MEQ/50ML IVPB 50 ML IV SCH ×8 (00:40→15:10)
[2019-12-28] MEDS: 1/2 NS IV SOLUTION 1,000 ML IV SCH ×4 (02:40→15:14)
[2019-12-28 03:52] LABS: BASOPHILS % (AUTO) 0 % (0-10); EOSINOPHILS # (AUTO) 0.1 10^3/uL (0.0-0.3); EOSINOPHILS % (AUTO) 0 % (0-10); HEMATOCRIT 33 % (35-52); HEMOGLOBIN 10.7 G/DL (11.5-16.0); LYMPHOCYTES # (AUTO) 1.5 X 10^3 (1.0-4.0); LYMPHOCYTES % (AUTO) 9 % (12-44); MEAN CORPUSCULAR HGB CONC 32 G/DL (32-36); MEAN CORPUSCULAR VOLUME 94 FL (80-99); MEAN PLATELET VOLUME 10.9 FL (7.4-10.4); MONOCYTES # (AUTO) 1.3 X 10^3 (0.0-1.0); MONOCYTES % (AUTO) 8 % (0-12); NEUTROPHILS # (AUTO) 13.7 X 10^3 (1.8-7.8); NEUTROPHILS % (AUTO) 83 % (42-75); PLATELET COUNT 255 10^3/uL (130-400); RED CELL DISTRIBUTION WIDTH 13.7 % (10.0-14.5); WHITE BLOOD COUNT 16.5 10^3/uL (4.3-11.0)
[2019-12-28 03:53] LABS: MEAN CORPUSCULAR HEMOGLOBIN 30 PG (25-34)
[2019-12-28] MEDS: D5 1/2 NS IV 1,000 ML IV SCH ×3 (03:55→13:42)
--- NOTE | 2019-12-28 04:08 | Pulmonary Consultation ---
History of Present Illness History of Present Illness Date Seen by Provider: Dec 28, 2019 Time Seen by Provider: 04:06 Date of Admission Allergies and Home Medications Allergies Coded Allergies: Sulfa (Sulfonamide Antibiotics) (Verified Allergy, Mild, RASH, 09/04/17) Home Medications Amitriptyline HCl 10 Mg Tablet, 10 MG PO DAILY, (Reported) Gabapentin 300 Mg Capsule, 300 MG PO BID, (Reported) Ibuprofen 200 Mg Tablet, 800 MG PO DAILY PRN for PAIN-MILD, (Reported) TAKES 4 (200 MG) TABLETS Insulin Aspart 100 Unit/1 Ml Susp, 12 UNITS SQ AC, (Reported) Insulin Determir 1,000 Units/10 Ml Soln, 20 UNITS SQ BID, (Reported) Lisinopril 5 Mg Tablet, 5 MG PO DAILY, (Reported) Nitrofurantoin Monohyd/M-Cryst 100 Mg Capsule, 1 TAB PO BID Prescribed by: NICOLAS JETT on 09/06/17 1606 Ondansetron 8 Mg Tab.rapdis, 8 MG PO Q4H Prescribed by: AKILA PEARSON on 09/09/172000 Promethazine HCl 50 Mg Tablet, 25 MG PO Q6H PRN for NAUSEA/VOMITING-1ST LINE, ( Reported) Promethazine HCl 25 Mg Supp.rect, 25 MG RC Q4H Prescribed by: AKILA PEARSON on 09/09/172000 Scopolamine 1 Each Patch.td72, 1 EACH TD Q72 HOURS Prescribed by: AKILA PEARSON on 09/09/172000 Venlafaxine HCl 37.5 Mg Cap.er.24h, 37.5 MG PO DAILY, (Reported) Past Mmmrcuv-Kdrvxi-Julvdq Hx Past Med/Social Hx: Reviewed Nursing Past Med/Soc Hx, Reviewed and Corrections made Patient Social History Alcohol Use: Rarely Uses Number of Drinks Today: 0 Recreational Drug Use: No Smoking Status: Current Everyday Smoker Type Used: Cigarettes 2nd Hand Smoke Exposure: No Recent Foreign Travel: No Contact w/Someone Who Travel: No Recent Infectious Disease Expo: No Recent Hopitalizations: No Immunizations Up To Date Tetanus Booster (TDap): Unknown Date of Influenza Vaccine: Jul 16, 2019 Seasonal Allergies Seasonal Allergies: No Past Medical History Surgeries: Yes (ureter reimplantation bilaterally when a child) Breast, Orthopedic, Renal, Tubal Ligation Respiratory: No Cardiac: Yes Hypertension Neurological: Yes Neuropathy [employer] E[employer]MENT [employer]PER[employer] History: Tubal Ligation Sexually Transmitted Disease: No HIV/AIDS: No Genitourinary: Yes (atrophic kidney) Kidney Stones, UTI-Chronic Gastrointestinal: No Musculoskeletal: No Endocrine: Yes Diabetes, Insulin dep HEENT: No Cancer: No Psychosocial: Yes Anxiety, Depression Integumentary: No Blood Disorders: No Review of Systems Time Seen by Provider: 04:08 Sepsis Event Evaluation Height, Weight, BMI Height: 5'8.00" Weight: 166lbs. 12.8oz. 75.816918eb; 26.00 BMI Method:Stated Exam Exam Vital Signs Date Time Temp Pulse Resp B/P (MAP) Pulse Ox O2 Delivery O2 Flow Rate FiO2 12/28/19 03:14 96 Room Air 12/28/19 01:00 92 12/27/19 23:30 96 Room Air 12/27/19 23:28 36.6 12/27/19 23:00 96 16 90/51 (64) 97 Room Air 12/27/19 22:00 99 16 97/51 (66) 97 Room Air 12/27/19 21:00 103 15 95/52 (66) 96 Room Air 12/27/19 20:30 104 18 96 Room Air 12/27/19 20:00 96 Room Air 12/27/19 20:00 107 19 101/57 (72) 96 Room Air 12/27/19 19:45 110 18 96 Room Air 12/27/19 19:30 106 16 99/52 (68) 96 Room Air 12/27/19 19:13 37.1 107 20 111/67 (82) 97 Room Air 12/27/19 19:04 37.0 12/27/19 18:44 Room Air 12/27/19 18:33 111 12/27/19 18:20 36.9 110 18 98/43 97 Room Air 12/27/19 14:11 36.6 119 18 111/61 (78) 98 Room Air I & O 12/28/19 07:00 Intake Total 4650 ml Output Total 300 ml Balance 4350 ml Height & Weight Height: 5'8.00" Weight: 166lbs. 12.8oz. 75.543742nt; 26.00 BMI Method:Stated General Appearance: WD/WN, Mild Distress HEENT: PERRL/EOMI, TMs Normal, Normal ENT Inspection, Pharynx Normal Neck: Full Range of Motion, Normal Inspection, Non Tender Respiratory: Chest Non Tender, Lungs Clear, Normal Breath Sounds Cardiovascular: Regular Rate, Rhythm, No Edema, No Murmur, Normal Peripheral Pulses Capillary Refill: Less Than 3 Seconds Extremity: Normal Capillary Refill, Normal Inspection, Normal Range of Motion Neurologic/Psychiatric: Alert, Oriented x3, No Motor/Sensory Deficits, Normal Mood/Affect Skin: Normal Color, Warm/Dry Results Lab Laboratory Tests 12/27/19 14:40 12/27/19 17:40 12/27/19 20:50 12/27/19 22:44 12/28/19 03:09 Assessment/Plan Assessment/Plan Acute DKA -Repeat Labs pending DM I HX Smoker Hx of medical noncompliance STEFANY ALARCON DO Dec 28, 2019 04:08
[2019-12-28 04:15] LABS: CALCIUM 7.3 MG/DL (8.5-10.1); CREATININE SERUM 1.08 MG/DL (0.60-1.30); MAGNESIUM 2.1 MG/DL (1.6-2.4); PHOSPHORUS 1.8 MG/DL (2.3-4.7); POTASSIUM 4.1 MMOL/L (3.6-5.0)
[2019-12-28] MEDS: DEXTROSE 10% IV SOLUTION 1,000 ML IV SCH ×2 (05:24→15:16)
[2019-12-28] MEDS ORDERED: SODIUM PHOSPHATE INJ 30 MM in NS (IVPB) 250 ML IV ONE (05:30)
[2019-12-28 06:11] LABS: BILIRUBIN,URINE NEGATIVE (NEGATIVE); CLARITY,URINE CLEAR; COLOR,URINE YELLOW; GLUCOSE, URINE (UA) 3+ (NEGATIVE); KETONES,URINE 2+ (NEGATIVE); LEUKOCYTE ESTERASE ,URINE TRACE (NEGATIVE); NITRITE,URINE NEGATIVE (NEGATIVE); PROTEIN,URINE NEGATIVE (NEGATIVE)
[2019-12-28 06:40] LABS: BACTERIA,URINE FEW /HPF; WBC,URINE 0-2 /HPF
--- NOTE | 2019-12-28 06:59 | Diagnostic Imaging Report ---
INDICATION: Diabetic ketoacidosis. Comparison made with prior examination 12/27/2019. FINDINGS: The heart size, mediastinal configuration, and pulmonary vascularity are within normal limits. There is no pleural effusion, pneumothorax, or pneumonia. The osseous structures are unremarkable. IMPRESSION: No acute cardiopulmonary abnormality. Dictated by: Dictated on workstation # [id number]
[2019-12-28 07:50] LABS: CALCIUM 7.5 MG/DL (8.5-10.1); CREATININE SERUM 0.99 MG/DL (0.60-1.30); POTASSIUM 4.4 MMOL/L (3.6-5.0)
[2019-12-28] MEDS: PANTOPRAZOLE 40 MG (PROTONIX) VIAL IV SCH (09:07)
[2019-12-28] MEDS: ENOXAPARIN 40 MG/0.4 ML (LOVENOX) SYR SQ SCH (09:07)
--- NOTE | 2019-12-28 10:51 | Progress Note - Hospitalist ---
Subjective HPI/CC On Admission Date Seen by Provider: Dec 28, 2019 Time Seen by Provider: 09:45 CC: DKA HPI: This is a 49yoWF clinic patient of [facility] who has a h/o DM since gestational DM dx who has an insulin pump who presented to the ER at [facility] direction due to high sugars and N/V and patient was found to have DKA. Patient reports she is non-compliant with her insulin pump and was having difficulty with getting her sugars down today. 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 Insulin drip will be started and IVF given for profound dehydration. Subjective/Events-last exam Pt doing much better No nausea or vomiting Bicarb is 14 so once that corrects about 1 o'clock on BNP will transfer to the fourth floor Overall feels much better Review of Systems General: Fatigue Gastrointestinal: Nausea Focused Exam Lactate Level 12/27/19 14:40: Lactic Acid Level 2.37*H 12/27/19 17:40: Lactic Acid Level 1.94 Objective Exam Vital Signs Vital Signs Date Time Temp Pulse Resp B/P (MAP) Pulse Ox O2 Delivery O2 Flow Rate FiO2 12/28/19 20:00 98 Room Air 12/28/19 20:00 36.7 12/28/19 19:00 86 12/28/19 18:00 20 107/65 (79) Capillary Refill : Less Than 3 Seconds General Appearance: No Apparent Distress, WD/WN, Chronically ill Respiratory: Chest Non Tender, Lungs Clear, Normal Breath Sounds, No Accessory Muscle Use, No Respiratory Distress Cardiovascular: Regular Rate, Rhythm, No Edema, No Gallop, No JVD, No Murmur, Normal Peripheral Pulses Extremity: No Normal Capillary Refill, No Normal Inspection, No Normal Range of Motion, No Non Tender, No No Calf Tenderness, No No Pedal Edema, No Calf Tenderness, No Inflammation, No Pedal Edema, No Pelvis Stable, No Slow Capillary Refill, No Swelling, No Other Neurologic/Psychiatric: Alert, Oriented x3, No Motor/Sensory Deficits, Normal Mood/Affect Results/Procedures Lab Laboratory Tests 12/27/19 22:44 12/28/19 03:09 12/28/19 07:28 12/28/19 13:20 12/28/19 16:23 Patient resulted labs reviewed. Assessment/Plan Assessment and Plan Assess & Plan/Chief Complaint Assessment: DKA N/V Non-compliance with insulin pump Plan: IVF Insulin drip Diagnosis/Problems Diagnosis/Problems (1) Diabetic ketoacidosis Status: Acute (2) Urinary tract infection Status: Acute (3) Intractable nausea and vomiting Status: Acute (4) Hypokalemia Status: Acute (5) Gastroenteritis Status: Acute Clinical Quality Measures DVT/VTE Risk/Contraindication: Risk Factor Score Per Nursin RFS Level Per Nursing on Admit: 2=Moderate JOVI SAUNDERS DO Dec 28, 2019 10:51
[2019-12-28 13:54] LABS: BUN/CREATININE RATIO 20; CARBON DIOXIDE 16 MMOL/L (21-32); CHLORIDE 112 MMOL/L (98-107); CREATININE SERUM 0.93 MG/DL (0.60-1.30); POTASSIUM 4.3 MMOL/L (3.6-5.0); SODIUM 138 MMOL/L (135-145)
[2019-12-28 13:55] LABS: CALCIUM 7.3 MG/DL (8.5-10.1); GFR ESTIMATED > 60; GLUCOSE 190 MG/DL (70-105)
[2019-12-28] MEDS ORDERED: INSU100V16 SQ (14:22)
--- NOTE | 2019-12-28 14:30 | NUR ---
Spoke with Dr. Crawley regarding recent BMP. She stated to 1/2 insulin gtt, leave fluids at D51/2NS @250mL/hr, have pt put insulin pump back on per her normal settings and recheck her sugars hourly until 1700 and then will re-evaluate
--- NOTE | 2019-12-28 15:10 | NUR ---
"RD ASSESSMENT PMHx: DM; hx of non-compliance; HTN ; chronic-UTI PT INTERACTION: Pt was awake and pleasant during nutrition assessment. Pt states current appetite is average. Note avg PO intake of 75% x2meal, per chart review. Pt states following a low-CHO diet at home, and has no issues with chewing/swallowing food. Pt states some recent issues with nausea/vomiting. Pt states no recent issues with constipation/diarrhea, and that her last BM was 12/25. Note pt not currently on bowel regimen per chart review. Pt states no recent wt changes. Note unable to determine recent wt hx, per chart review. Pt states current DM management is fairly good, and that her averages are between 60-200. Note unable to determine recent HbA1c, per chart review. ABNORMAL NUTRITION-RELATED LAB VALUES LOW: Ca 7.5 HIGH: Cl 111; BUN 24; glu 107 Est. kcal needs: 9889-8193 kcal | 20-25 kcal/kg Est. Pro needs: 71-89 g Pro | 0.8-1.0 g Pro/kg PES STATEMENT: Inadequate oral intake (NI-2.1) related to loss of appetite | nausea | vomiting as evidenced by pt interview INTERVENTION: Continue with current diet order of CHO 60g/m 3snack diet. Offered dietary education. Pt declined at this time. Will attempt again prior to discharge. Will continue to follow and reassess as pt needs, intake, and status change. MONITOR/EVALUATE: PO Intake; Plan of Care; Hydration Status; Weight Status; Lab Values Vivek Navarrete, MS, RD, LD"
[2019-12-28] MEDS ORDERED: L.AC1CAP6 PO (15:37)
--- NOTE | 2019-12-28 15:38 | NUR ---
SPOKE WITH THE PT AND CALLED [facility] TO COMPLETE THE MED REC PT INDICATES SHE USES NOVOLOG VIAL PER HER PUMP- I SPOKE WITH [facility] TO FIND OUT A FILL DATE AND THEY HAD NOT FILLED IT SINCE 04-27-2018. THEY CHECKED THE PALS PROGRAM AND IT HAD NOT BEEN DISPENSED FROM THEM EITHER. DUE TO THE RX BEING I DID NOT INCLUDE IT ON THE MED REC OTC MEDS: IBUPROFEN PROBIOTIC
[2019-12-28] MEDS ORDERED: cefTRIAXone 1,000 MG/SWFI 10 ML IV PUSH IV SCH ×2 (17:00)
[2019-12-28 17:03] LABS: BUN/CREATININE RATIO 20; CALCIUM 7.6 MG/DL (8.5-10.1); CARBON DIOXIDE 16 MMOL/L (21-32); CHLORIDE 114 MMOL/L (98-107); CREATININE SERUM 0.83 MG/DL (0.60-1.30); GFR ESTIMATED > 60; GLUCOSE 94 MG/DL (70-105); POTASSIUM 4.2 MMOL/L (3.6-5.0); SODIUM 139 MMOL/L (135-145)
--- NOTE | 2019-12-28 17:24 | NUR ---
Updated Dr. Crawley on pt. New orders received including taking pt off DKA protocol and keeping her in ICU for the night.
[2019-12-28] MEDS ORDERED: NS IV 1000 ML 1,000 ML IV SCH (17:30)
[2019-12-28] MEDS ORDERED: CATHETER FLUSH 10 ML SYR IV PRN (17:45)
[2019-12-28] MEDS ORDERED: ALPRAZolam 0.25 MG (XANAX) TAB PO PRN (18:15)
[2019-12-29] VITALS (7 sets, daily range): BP systolic 107–131; BP diastolic 65–73
[2019-12-29 03:29] LABS: BASOPHILS % (AUTO) 0 % (0-10); EOSINOPHILS % (AUTO) 2 % (0-10); HEMATOCRIT 33 % (35-52); HEMOGLOBIN 10.6 G/DL (11.5-16.0); LYMPHOCYTES # (AUTO) 1.2 X 10^3 (1.0-4.0); LYMPHOCYTES % (AUTO) 15 % (12-44); MEAN CORPUSCULAR HEMOGLOBIN 31 PG (25-34); MEAN CORPUSCULAR HGB CONC 32 G/DL (32-36); MEAN CORPUSCULAR VOLUME 95 FL (80-99); MEAN PLATELET VOLUME 10.4 FL (7.4-10.4); MONOCYTES % (AUTO) 9 % (0-12); NEUTROPHILS # (AUTO) 6.1 X 10^3 (1.8-7.8); NEUTROPHILS % (AUTO) 75 % (42-75); PLATELET COUNT 243 10^3/uL (130-400); RED CELL DISTRIBUTION WIDTH 14.2 % (10.0-14.5); WHITE BLOOD COUNT 8.2 10^3/uL (4.3-11.0)
[2019-12-29 03:30] LABS: EOSINOPHILS # (AUTO) 0.1 10^3/uL (0.0-0.3); MONOCYTES # (AUTO) 0.7 X 10^3 (0.0-1.0)
[2019-12-29 03:48] LABS: BUN/CREATININE RATIO 16; CALCIUM 7.5 MG/DL (8.5-10.1); CARBON DIOXIDE 17 MMOL/L (21-32); CHLORIDE 116 MMOL/L (98-107); CREATININE SERUM 0.76 MG/DL (0.60-1.30); GFR ESTIMATED > 60; GLUCOSE 108 MG/DL (70-105); MAGNESIUM 2.3 MG/DL (1.6-2.4); PHOSPHORUS 1.9 MG/DL (2.3-4.7); POTASSIUM 4.1 MMOL/L (3.6-5.0); SODIUM 140 MMOL/L (135-145)
[2019-12-29] MEDS ORDERED: SODIUM BICARB 8.4% 50 MEQ/50 ML VIAL ONE (04:50)
--- NOTE | 2019-12-29 04:55 | Pulmonary Progress Note ---
Subjective Time Seen by a Provider: 04:54 Sepsis Event Evaluation Height, Weight, BMI Height: 5'8.00" Weight: 166lbs. 12.8oz. 75.643267ki; 26.00 BMI Method:Stated Focused Exam Lactate Level 12/27/19 14:40: Lactic Acid Level 2.37*H 12/27/19 17:40: Lactic Acid Level 1.94 Exam Exam Vital Signs Date Time Temp Pulse Resp B/P (MAP) Pulse Ox O2 Delivery O2 Flow Rate FiO2 12/29/19 04:00 74 16 131/73 (92) 96 Room Air 12/29/19 03:00 36.3 12/29/19 03:00 98 Room Air 12/29/19 03:00 78 14 113/65 (81) 96 Room Air 12/29/19 02:00 80 14 117/69 (85) 96 Room Air 12/29/19 01:00 72 12/29/19 01:00 73 17 107/73 (84) 96 Room Air 12/29/19 00:00 77 20 121/68 (85) 96 Room Air 12/28/19 23:40 98 Room Air 12/28/19 23:39 36.0 12/28/19 23:00 74 17 124/69 (87) 95 Room Air 12/28/19 22:00 88 16 116/71 (86) 93 Room Air 12/28/19 21:00 84 18 108/66 (80) 96 Room Air 12/28/19 20:00 86 20 119/66 (83) 96 Room Air 12/28/19 20:00 98 Room Air 12/28/19 20:00 36.7 12/28/19 19:00 86 12/28/19 19:00 85 17 109/63 (78) 96 Room Air 12/28/19 18:00 85 20 107/65 (79) 96 Room Air 12/28/19 17:00 82 13 98 Room Air 12/28/19 16:22 98 Room Air 12/28/19 16:00 84 17 90/68 (75) 97 Room Air 12/28/19 15:00 99 30 113/65 (81) 99 Room Air 12/28/19 14:00 88 16 113/69 (84) 97 Room Air 12/28/19 13:00 87 12/28/19 13:00 90 19 98/65 (76) 96 Room Air 12/28/19 12:00 88 16 98/64 (75) 97 Room Air 12/28/19 12:00 98 Room Air 12/28/19 12:00 36.8 12/28/19 11:00 90 20 107/66 (80) 98 Room Air 12/28/19 10:00 93 18 108/64 (79) 97 Room Air 12/28/19 09:00 98 13 93/59 (70) 96 Room Air 12/28/19 08:00 98 Room Air 12/28/19 08:00 99 18 97/52 (67) 96 Room Air 12/28/19 08:00 36.7 12/28/19 07:00 93 12/28/19 07:00 93 18 102/59 (73) 98 Room Air 12/28/19 06:00 93 18 94/61 (72) 98 Room Air 12/28/19 05:00 92 15 86/60 (69) 97 Room Air I & O 12/29/19 07:00 Intake Total 5430 ml Output Total 3475 ml Balance 1955 ml Height & Weight Height: 5'8.00" Weight: 166lbs. 12.8oz. 75.101541bv; 26.00 BMI Method:Stated General Appearance: No Apparent Distress, WD/WN, Chronically ill HEENT: PERRL/EOMI, TMs Normal, Normal ENT Inspection, Pharynx Normal Neck: Full Range of Motion, Normal Inspection, Non Tender Respiratory: Chest Non Tender, Lungs Clear, Normal Breath Sounds, No Accessory Muscle Use, No Respiratory Distress Cardiovascular: Regular Rate, Rhythm, No Edema, No Gallop, No JVD, No Murmur, Normal Peripheral Pulses Capillary Refill: Less Than 3 Seconds Extremity: No Normal Capillary Refill, No Normal Inspection, No Normal Range of Motion, No Non Tender, No No Calf Tenderness, No No Pedal Edema, No Calf Tenderness, No Inflammation, No Pedal Edema, No Pelvis Stable, No Slow Capillary Refill, No Swelling, No Other Neurologic/Psychiatric: Alert, Oriented x3, No Motor/Sensory Deficits, Normal Mood/Affect Skin: Normal Color, Warm/Dry Results Lab Laboratory Tests 12/27/19 14:40 12/27/19 17:40 12/27/19 20:50 3/12/20 22:44 12/28/19 03:09 12/28/19 07:28 12/28/19 13:20 12/28/19 16:23 12/29/19 03:18 Assessment/Plan Assessment/Plan Acute DKA- resolved -Insulin gtt is off Now nonanion gapped metabolic acidosis -D/C IVF -Give 1 amp of bicarb hypophos -Give 2 taps of neutra phos PO x 1 DM I HX Smoker Hx of medical noncompliance Make 4th floor status probably home today. I am going to sign off please call with any questions. STEFANY ALARCON DO Dec 29, 2019 04:55
[2019-12-29] MEDS ORDERED: POT PHOS/NA PHOS (K-PHOS NEUTRAL) PO ONE (05:00)
[2019-12-29] MEDS ORDERED: SODIUM BICARB 8.4% 50 MEQ/50 ML VIAL IV ONE (05:00)
--- NOTE | 2019-12-29 07:22 | Diagnostic Imaging Report ---
Indication: Dyspnea. Comparison: 12/28/2019. Discussion: Single portable upright view of the chest was obtained. Stable normal heart size. No focal consolidation, pleural fluid, or pneumothorax. No osseous abnormality. Impression: 1. Stable negative chest. Dictated by: Dictated on workstation # [id number]
[2019-12-29] MEDS: PANTOPRAZOLE 40 MG (PROTONIX) VIAL IV SCH (08:30)
[2019-12-29] MEDS: ENOXAPARIN 40 MG/0.4 ML (LOVENOX) SYR SQ SCH (08:30)
[2019-12-29] MEDS ORDERED: INSU100V5 SQ (09:42)
[2019-12-29] MEDS ORDERED: INSU100V SQ (09:42)
--- NOTE | 2019-12-29 09:48 | Discharge Summary ---
Diagnosis/Chief Complaint Date of Admission Dec 27, 2019 at 17:00 Date of Discharge december Discharge Date: Dec 29, 2019 Discharge Time: 11:00 Admission Diagnosis Assessment: Acute DKA DM Type 1 on insulin pump Smoker Non-compliance Plan: Insulin drip Monitor in ICU [facility] Discharge Diagnosis DKA Type 1 DM Tobaccoism (1) Diabetic ketoacidosis Status: Acute (2) Urinary tract infection Status: Acute (3) Intractable nausea and vomiting Status: Acute (4) Hypokalemia Status: Acute (5) Gastroenteritis Status: Acute Discharge Summary Discharge Physical Exam Allergies: Coded Allergies: Sulfa (Sulfonamide Antibiotics) (Verified Allergy, Mild, RASH, 09/04/17) Vitals & I&Os Vital Signs Date Time Temp Pulse Resp B/P (MAP) Pulse Ox O2 Delivery O2 Flow Rate FiO2 12/29/19 07:43 97 21 116/67 (83) Room Air 12/29/19 07:28 36.6 96 General Appearance: No Apparent Distress, WD/WN HEENT: Normal ENT Inspection, Pharynx Normal Respiratory: Chest Non Tender, Lungs Clear, Normal Breath Sounds, No Accessory Muscle Use, No Respiratory Distress Cardiovascular: Regular Rate, Rhythm, No Edema, No Gallop, No JVD, No Murmur, Normal Peripheral Pulses Gastrointestinal: Normal Bowel Sounds, Non Tender, Soft Extremity: Normal Inspection, Non Tender, No Calf Tenderness Skin: Normal Color, Warm/Dry Neurologic/Psychiatric: Alert, Oriented x3, No Motor/Sensory Deficits, Normal Mood/Affect, home health attendant II-XII Norm as Tested Hospital Course Was the Problem List Reviewed?: Yes Pt was admitted with DKA - aggressively flid resuscitated. Electrolytes adjusted . CT abd/pelvis- possible cystitis. Urine culture negative - Flu negative. D/c with Levimir and humolog. Pt does not have enough money for pump and supplies. Will f/u with [facility] and stay on meds. May need financial assistance for supplies. Labs (last 24 hrs) Laboratory Tests 12/28/19 10:05: Glucometer 233H 12/28/19 10:44: Glucometer 245H 12/28/19 11:46: Glucometer 239H 12/28/19 13:03: Glucometer 215H 12/28/19 13:20: Sodium Level 138, Potassium Level 4.3, Chloride Level 112H, Carbon Dioxide Level 16L, Anion Gap 10, Blood Urea Nitrogen 19H, Creatinine 0.93, Estimat Glomerular Filtration Rate > 60, BUN/Creatinine Ratio 20, Glucose Level 190H, Calcium Level 7.3L 12/28/19 14:06: Glucometer 170H 12/28/19 14:56: Glucometer 119H 12/28/19 16:06: Glucometer 99 12/28/19 16:23: Sodium Level 139, Potassium Level 4.2, Chloride Level 114H, Carbon Dioxide Level 16L, Anion Gap 9, Blood Urea Nitrogen 17, Creatinine 0.83, Estimat Glomerular F iltration Rate > 60, BUN/Creatinine Ratio 20, Glucose Level 94, Calcium Level 7.6L, Beta-Hydroxybutyrate (Chem panel) 0.06 12/28/19 17:00: Glucometer 112H 12/29/19 03:18: Sodium Level 140, Potassium Level 4.1, Chloride Level 116H, Carbon Dioxide Level 17L, Anion Gap 7, Blood Urea Nitrogen 12, Creatinine 0.76, Estimat Glomerular Filtration Rate > 60, BUN/Creatinine Ratio 16, Glucose Level 108H, Calcium Level 7.5L, Beta-Hydroxybutyrate (Chem panel) 0.11, White Blood Count 8.2, Red Blood Count 3.46L, Hemoglobin 10.6L, Hematocrit 33L, Mean Corpuscular Volume 95, Mean Corpuscular Hemoglobin 31, Mean Corpuscular Hemoglobin Concent 32, Red Cell Distribution Width 14.2, Platelet Count 243, Mean Platelet Volume 10.4, Neutrophils (%) (Auto) 75, Lymphocytes (%) (Auto) 15, Monocytes (%) (Auto) 9, Eosinophils (%) (Auto) 2, Basophils (%) (Auto) 0, Neutrophils # (Auto) 6.1, Lymphocytes # (Auto) 1.2, Monocytes # (Auto) 0.7, Eosinophils # (Auto) 0.1, Basophils # (Auto) 0.0, Phosphorus Level 1.9L, Magnesium Level 2.3 Microbiology 12/28/19 Influenza Types A,B Antigen (KEVON) - Final, Complete 12/28/19 Urine Culture - Final, Complete NO GROWTH 12/27/19 Blood Culture - Preliminary, Resulted No growth Patient resulted labs reviewed. Pending Labs Laboratory Tests 12/29/19 03:18: White Blood Count 8.2, Red Blood Count 3.46, Hemoglobin 10.6, Hematocrit 33, Mean Corpuscular Volume 95, Mean Corpuscular Hemoglobin 31, Mean Corpuscular Hemoglobin Concent 32, Red Cell Distribution Width 14.2, Platelet Count 243, Mean Platelet Volume 10.4, Neutrophils (%) (Auto) 75, Lymphocytes (%) (Auto) 15, Monocytes (%) (Auto) 9, Eosinophils (%) (Auto) 2, Basophils (%) (Auto) 0, Neutrophils # (Auto) 6.1, Lymphocytes # (Auto) 1.2, Monocytes # (Auto) 0.7, Eosinophils # (Auto) 0.1, Basophils # (Auto) 0.0, Sodium Level 140, Potassium Level 4.1, Chloride Level 116, Carbon Dioxide Level 17, Anion Gap 7, Blood Urea Nitrogen 12, Creatinine 0.76, Estimat Glomerular Filtration Rate > 60, BUN/Creatinine Ratio 16, Glucose Level 108, Calcium Level 7.5, Phosphorus Level 1.9, Magnesium Level 2.3, Beta-Hydroxybutyrate (Chem panel) 0.11 Radiology Reviewed y Imaging: Reviewed Imaging Report Discussion & Recommendations Discharge Planning: >30 minutes discharge planning Discharge Home Medications: Active Scripts Active Humalog (Insulin Lispro) 100 Unit/1 Ml Vial 8 Unit SQ AC 30 Days Levemir (Insulin Determir) 1,000 Units/10 Ml Soln 15 Units SQ BID 30 Days Reported Probiotic (L.acidoph & Paracasei,B.lactis) 1 Each Capsule 1 Each PO DAILY Condition at discharge stable Instructions to patient/family Please see electronic discharge instructions given to patient. Clinical Quality Measures DVT/VTE Risk/Contraindication: Risk Factor Score Per Nursin RFS Level Per Nursing on Admit: 2=Moderate CHANELL RICHARDS MD Dec 29, 2019 09:48
--- OUTSIDE RECORDS SUMMARY | 2019-12-29 13:32 | XMS REPORT ---
Author Author Misty JETT Organization [facility] Address [address] [place] [address] Care Team Providers Care Latrine Cleaner Name Role Phone NICOLAS JETT Unavailable PROBLEMS Type Condition ICD9-CM Code FDH53-JO Code Onset Dates Condition S tatus SNOMED Code Problem Polyneuropathy due to type 1 diabetes mellitus E10 .42 Active 633481394 Problem Dysthymia F34.1 Active 29667719 Problem Type 1 diabetes mellitus with hyperglycemia E10.65 Active 461353494346021 Problem Other chronic pain G89.29 Active 8 6637204 Problem Mixed hyperlipidemia E78.2 Active 246688612 Problem Generalized anxiety disorder F41.1 A ctive 53565178 Problem Restless legs syndrome G25.81 Active 03747838 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 Active 016535728 Problem Shoulder arthritis M19.019 Active 4 35973914 Problem Long-term insulin use Z79.4 Active 955552022 ALLERGIES No Information ENCOUNTERS Encounter Location Date Diagnosis [place] [id number] [facility] [id number] [address] [place] [id number] May, [place] [address] [facility] [id number] [address] [place] [phone] Mar, [facility] [address] [place] [id number] [address] [place] [id number] February, [facility] [address] [facility] [id number] [address] [place] [id number] February, [place] [address] [place] [id number] [address] [place] [id number] February, Dysthymia F34.1 and Generali zed anxiety disorder F41.1 [facility] [address] [facility] [id number] [address] [place] [id number] February, [facility] [address] [facility] [id number] [address] [place] [id number] Jan, [facility] [address] [facility] [id number] [address] [place] [id number] Jan, Dysthymia F34.1 and Generali zed anxiety disorder F41.1 [facility] [address] [facility] [id number] [address] [place] [id number] Jan, Acute cystitis without hemat uria N30.00 and Flank pain R10.9 [facility] [address] [facility] [id number] [address] [place] [id number] Jan, Type 1 diabetes mellitus wit h hyperglycemia E10.65 [facility] [address] [facility] [id number] [address] [place] [id number] Jan, Dysthymia F34.1 [facility] [address] [facility] [id number] [address] [place] [id number] Jan, [facility] [address] [facility] [id number] [address] [place] [id number] Jan, [facility] [address] [facility] [id number] [address] [place] [phone] Jan, [facility] [address] [facility] [id number] [address] [place] [phone] Jan, [facility] [address] [facility] [id number] [address] [place] [id number] Jan, [facility] [address] [facility] [id number] [address] [place] [id number] Jan, Dysthymia F34.1 and Generali zed anxiety disorder F41.1 [facility] [address] [facility] [id number] [address] [place] [id number] Dec, Mood disorder F39 and Anxiet y disorder, unspecified F41.9 [facility] [address] [facility] [id number] [address] [place] [id number] Dec, Restless legs syndrome G25.8 1 and Type 1 diabetes mellitus with hyperglycemia E10.65 [facility] [address] [facility] [id number] [address] [place] [id number] Dec, [facility] [address] [facility] [id number] [address] [place] [id number] Dec, [facility] [address] [place] [id number] [address] [place] [id number] Dec, [facility] [address] [facility] [id number] [address] [place] [id number] Dec, Mood disorder F39 and Anxiet y disorder, unspecified F41.9 [facility] [address] [facility] [id number] [address] [place] [id number] Dec, Type 1 diabetes mellitus wit h hyperglycemia E10.65 and Anxiety disorder, unspecified F41.9 [facility] [address] [place] [id number] [address] [place] [id number] Dec, Type 1 diabetes mellitus wit h hyperglycemia E10.65 [facility] [address] [facility] [id number] [address] [place] [id number] Nov, Acute cyclitis H20.00 [facility] [address] [facility] [id number] [address] [place] [id number] Oct, Type 1 diabetes mellitus wit h hyperglycemia E10.65 [facility] [address] [facility] [id number] [address] [place] [id number] Oct, 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 [facility] [address] [facility] [id number] [address] [place] [id number] Sep, [facility] [address] [facility] [id number] [address] [place] [id number] Aug, [facility] [address] [facility] [id number] [address] [place] [id number] Jul, [facility] [address] [id number] [address] [place] [id number] Jun, Type 1 diabetes mellitus wit h hyperglycemia E10.65 ; Long-term insulin use Z79.4 ; Polyneuropathy due to type 1 diabetes mellitus E10.42 ; 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 ; Restless legs syndrome G25.81 ; Mixed hyperlipidemia E78.2 ; Dysuria R30.0 ; Acute cystitis with hematuria N30.01 ; Pain in right shoulder M25.511 and Other chronic pain G89.29 [facility] [address] [id number] [address] [place] [id number] May, [facility] [address] [id number] [address] [place] [id number] Apr, [facility] [address] [id number] [address] [place] [id number] Apr, [facility] [address] [id number] [address] [place] [id number] Apr, [facility] [address] [id number] [address] [place] [id number] Apr, [facility] [address] [id number] [address] [place] [id number] Mar, [facility] [address] [id number] [address] [place] [id number] Mar, [facility] [address] [id number] [address] [place] [id number] February, Acute cystitis with hematuri a N30.01 [facility] [address] [id number] [address] [place] [id number] February, [facility] [address] [facility] [id number] [address] [place] [address] February, Type 1 diabetes mellitus wit h hyperglycemia E10.65 ; Dysuria R30.0 ; Polyneuropathy associated with underlying disease G63 ; Dysthymia F34.1 ; Restless legs syndrome G25.81 ; Acute cystitis with hematuria N30.01 and Shoulder arthritis M19.019 [facility] [address] [id number] February, [facility] [address] [id number] Jan, [facility] [address] [address] Jan, [facility] [address] [id number] Dec, [facility] [address] [address] Dec, Open bite of right forearm, initial encounter S51.851A ; Local infection of the skin and subcutaneous tissue, unspecified L08.9 and Bitten by cat, initial encounter W55.01XA [facility] [address] [address] Nov, [facility] [address] [address] Nov, Type 1 diabetes mellitus wit h hyperglycemia E10.65 ; Type 2 diabetes mellitus without complications E11.9 ; [facility] (current) use of insulin Z79.4 ; Acute cystitis with hematuria N30.01 ; Polyneuropathy in diseases classified elsewhere G63 ; Endocrine disorder, unspecified E34.9 ; Dysuria R30.0 ; Dysthymia F34.1 and Restless legs syndrome G25.81 [facility] [address] [place] [id number] [address] [place] [id number] Oct, [facility] [address] [id number] Oct, Type 1 diabetes mellitus wit h hyperglycemia E10.65 [facility] [address] [place] [id number] [address] [place] [address] Oct, [facility] [address] [place] [address] Oct, [facility] [address] [facility] [id number] [address] [place] [id number] Sep, [facility] [address] [facility] [id number] [address] [place] [id number] Sep, [facility] [address] [facility] [id number] [address] [place] [address] Sep, Type 1 diabetes mellitus wit h hyperglycemia E10.65 [facility] [address] [facility] [id number] [address] [place] [id number] Aug, [facility] [address] [facility] [id number] [address] [place] [id number] Aug, Type 1 diabetes mellitus wit h hyperglycemia E10.65 ; Polyneuropathy associated with underlying disease G63 ; Mixed hyperlipidemia E78.2 and Hospital discharge follow-up Z09 [facility] [address] [facility] [id number] [address] [place] [id number] Aug, [facility] [address] [facility] [id number] [address] [place] [id number] Aug, [facility] [address] [facility] [id number] [address] [place] [id number] Aug, [facility] [address] [facility] [id number] [address] [place] [id number] Aug, Type 1 diabetes mellitus wit h hyperglycemia E10.65 ; Polyneuropathy associated with underlying disease G63 ; Mixed hyperlipidemia E78.2 ; Dysuria R30.0 ; Dysthymia F34.1 ; Restless legs syndrome G25.81 and Acute cystitis with hematuria N30.01 [facility] [address] [facility] [id number] [address] [place] [id number] May, [facility] [address] [facility] [id number] [address] [place] [id number] Apr, Type 1 diabetes mellitus wit h hyperglycemia E10.65 ; Dysuria R30.0 ; Dysthymia F34.1 ; Polyneuropathy associated with underlying disease G63 ; Acute cystitis without hematuria N30.00 and Encounter to establish care with new doctor Z76.89 IMMUNIZATIONS No Known Immunizations SOCIAL HISTORY Never Assessed REASON FOR VISIT lab results PLAN OF CARE VITAL SIGNS MEDICATIONS Medication Instructions Dosage Frequency Start Date End Date Duration S tatus Macrobid 100 MG Orally every 12 hrs 1 capsule with food 12h 22 M 2018 7 day(s) Active RESULTS No Results PROCEDURES No Known procedures INSTRUCTIONS MEDICATIONS ADMINISTERED No Known Medications MEDICAL (GENERAL) HISTORY Type Description Date Medical History Type 1 DM Medical History Depression Medical History Anxiety Surgical History Bilateral reflux ureter repair at 15 mon ths old Surgical History Calcium deposit on left leg removal at a ge 19 Surgical History Tubal Surgical History Abscess of right breast Surgical History Tubal ligation Surgical History Stent placement in ureter an d then later removed due to kidney stones Surgical History colonosccopy at age 37- normal Hospitalization History past surgery Hospitalization History diabetic ketoacidosis multiple times Hospitalization History vomiting Hospitalization History childbirth Hospitalization History DKA 08/2017
--- OUTSIDE RECORDS SUMMARY | 2019-12-29 13:32 | XMS REPORT ---
Author Author Misty JETT Organization [facility] Address [address] 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 Active 359828490 Problem Dysthymia F34.1 Active 20337587 Problem Type 1 diabetes mellitus with hyperglycemia E10.65 Active 046554254510638 Problem Other chronic pain G89.29 Active 8 7264716 Problem Mixed hyperlipidemia E78.2 Active 537398317 Problem Generalized anxiety disorder F41.1 A ctive 91415796 Problem Restless legs syndrome G25.81 Active 07464821 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 114468855 Problem Shoulder arthritis M19.019 Active 4 37410300 Problem Long-term insulin use Z79.4 Active 940870951 ALLERGIES Substance Reaction Event Type Date Status Sulfamethoxazole-Trimethoprim Unknown Drug Allergy Dec, 201 9 Active ENCOUNTERS Encounter Location Date Diagnosis [place] [address] [facility] [id number] [address] [place] [phone] May, [facility] [address] [facility] [id number] [address] [place] [phone] Mar, [facility] [address] [facility] [id number] [address] [place] [phone] February, [place] [address] [facility] [id number] [address] [place] [phone] February, [place] [address] [facility] [id number] [address] [place] [phone] February, Dysthymia F34.1 and Generali zed anxiety disorder F41.1 [place] [address] [facility] [id number] [address] [place] [phone] February, [facility] [address] [facility] [id number] [address] [place] [phone] Jan, [facility] [address] [facility] [id number] [address] [place] [phone] Jan, Dysthymia F34.1 and Generali zed anxiety disorder F41.1 [facility] [address] [facility] [id number] [address] [place] [phone] Jan, Acute cystitis without hemat uria N30.00 and Flank pain R10.9 [facility] [address] [facility] [id number] [address] [place] [phone] Jan, Type 1 diabetes mellitus wit h hyperglycemia E10.65 [facility] [address] [facility] [id number] [address] [place] [phone] Jan, Dysthymia F34.1 [facility] [address] [facility] [id number] [address] [place] [phone] Jan, [facility] [address] [facility] [id number] [address] [place] [phone] Jan, [facility] [address] [facility] [id number] [address] [place] [phone] Jan, [facility] [address] [facility] [id number] [address] [place] [phone] Jan, [facility] [address] [facility] [id number] [address] [place] [phone] Jan, [facility] [address] [facility] [id number] [address] [place] [phone] Jan, Dysthymia F34.1 and Generali zed anxiety disorder F41.1 [facility] [address] [facility] [id number] [address] [place] [phone] Dec, Mood disorder F39 and Anxiet y disorder, unspecified F41.9 [facility] [address] [id number] [address] [place] [phone] Dec, Restless legs syndrome G25.8 1 and Type 1 diabetes mellitus with hyperglycemia E10.65 [facility] [address] [id number] [address] [place] [phone] Dec, [facility] [address] [facility] [id number] [address] [place] [phone] Dec, [facility] [address] [facility] [id number] [address] [place] [phone] Dec, [facility] [address] [facility] [id number] [address] [place] [phone] Dec, Mood disorder F39 and Anxiet y disorder, unspecified F41.9 [facility] [address] [facility] [id number] [address] [place] [phone] Dec, Type 1 diabetes mellitus wit h hyperglycemia E10.65 and Anxiety disorder, unspecified F41.9 [facility] [address] [facility] [id number] [address] [place] [phone] Dec, Type 1 diabetes mellitus wit h hyperglycemia E10.65 [facility] [address] [facility] [id number] [address] [place] [phone] Nov, Acute cyclitis H20.00 [facility] [address] [facility] [id number] [address] [place] [phone] Oct, Type 1 diabetes mellitus wit h hyperglycemia E10.65 [facility] [address] [facility] [id number] [address] [place] [phone] Oct, 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 [facility] [address] [facility] [id number] [address] [place] [phone] Sep, [facility] [address] [facility] [id number] [address] [place] [phone] Aug, [facility] [address] [id number] [address] [place] [phone] Jul, [facility] [address] [id number] [address] [place] [phone] Jun, Type 1 diabetes mellitus wit h [...] shoulder M25.511 and Other chronic pain G89.29 [facility] [address] [facility] [id number] [address] [place] [phone] May, [facility] [address] [facility] [id number] [address] [place] [phone] Apr, [facility] [address] [facility] [id number] [address] [place] [phone] Apr, [facility] [address] [facility] [id number] [address] [place] [phone] Apr, [facility] [address] [facility] [id number] [address] [place] [phone] Apr, [facility] [address] [facility] [id number] [address] [place] [phone] Mar, [facility] [address] [facility] [id number] [address] [place] [phone] Mar, [facility] [address] [facility] [id number] [address] [place] [phone] February, Acute cystitis with hematuri a N30.01 [facility] [address] [facility] [id number] [address] [place] [phone] February, [facility] [address] [facility] [id number] [address] [place] [phone] February, Type 1 diabetes mellitus wit h hyperglycemia E10.65 ; Dysuria R30.0 ; Polyneuropathy associated with underlying disease G63 ; Dysthymia F34.1 ; Restless legs syndrome G25.81 ; Acute cystitis with hematuria N30.01 and Shoulder arthritis M19.019 [facility] [address] [phone] February, [facility] [address] [id number] Jan, [facility] [address] [phone] Jan, [facility] [address] [id number] Dec, [facility] [address] [id number] Dec, Open bite of right forearm, initial encounter S51.851A ; Local infection of the skin and subcutaneous tissue, unspecified L08.9 and Bitten by cat, initial encounter W55.01XA [place] [address] [id number] Nov, [place] [address] [id number] Nov, Type 1 diabetes mellitus wit h hyperglycemia E10.65 ; Type 2 diabetes mellitus without complications E11.9 ; 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 ; Acute cystitis with hematuria N30.01 ; Polyneuropathy in diseases classified elsewhere G63 ; Endocrine disorder, unspecified E34.9 ; Dysuria R30.0 ; Dysthymia F34.1 and Restless legs syndrome G25.81 [place] [address] [id number] Oct, [place] [address] [id number] Oct, Type 1 diabetes mellitus wit h hyperglycemia E10.65 [place] [address] [phone] Oct, [facility] [address] [facility] [id number] [address] [place] [phone] Oct, [facility] [address] [facility] [id number] [address] [place] [phone] Sep, [facility] [address] [facility] [id number] [address] [place] [phone] Sep, [facility] [address] [facility] [id number] [address] [place] [phone] Sep, Type 1 diabetes mellitus wit h hyperglycemia E10.65 [facility] [address] [facility] [id number] [address] [place] [phone] Aug, [facility] [address] [facility] [id number] [address] [place] [phone] Aug, Type 1 diabetes mellitus wit h hyperglycemia E10.65 ; Polyneuropathy associated with underlying disease G63 ; Mixed hyperlipidemia E78.2 and Hospital discharge follow-up Z09 [facility] [address] [facility] [id number] [address] [place] [phone] Aug, [facility] [address] [facility] [id number] [address] [place] [phone] Aug, [facility] [address] [facility] [id number] [address] [place] [phone] Aug, [facility] [address] [facility] [id number] [address] [place] [phone] Aug, Type 1 diabetes mellitus wit h hyperglycemia E10.65 ; Polyneuropathy associated with underlying disease G63 ; Mixed hyperlipidemia E78.2 ; Dysuria R30.0 ; Dysthymia F34.1 ; Restless legs syndrome G25.81 and Acute cystitis with hematuria N30.01 [facility] [address] [facility] [id number] [address] [place] [id number] May, [facility] [address] [facility] [id number] [address] [place] [phone] Apr, Type 1 diabetes mellitus wit h hyperglycemia E10.65 ; Dysuria R30.0 ; Dysthymia F34.1 ; Polyneuropathy associated with underlying disease G63 ; Acute cystitis without hematuria N30.00 and Encounter to establish care with new doctor Z76.89 IMMUNIZATIONS No Known Immunizations SOCIAL HISTORY Never Assessed REASON FOR VISIT Establish care, Insulin Pump supplies---josé miguel parnell PLAN OF CARE Activity Details Follow Up 6 Weeks Reason: VITAL SIGNS Height 68 in 2018-12-27 Weight 166.5 lbs 2018-12-27 Temperature 97.8 degrees Fahrenheit 2018-12-27 Heart Rate 78 bpm 2018-12-27 Respiratory Rate 16 2018-12-27 BMI 25.31 kg/m2 2018-12-27 Blood pressure systolic 118 mmHg 2018-12-27 Blood pressure diastolic 76 mmHg 2018-12-27 MEDICATIONS Medication Instructions Dosage Frequency Start Date End Date Duration S tatus Sertraline HCl 50 mg Orally Once a day 1 tablet 24h 20 Jun, 2018 14 days Not-Taking Ciprofloxacin HCl 500 MG Orally every 12 hrs 1 tablet 12h 18 2018 7 day(s) Not-Taking Amitriptyline HCl 25 MG Orally Once a day 1 tablet 24h 20 Jun, 2018 30 day(s) Active Glucocard Expression Test 1 subcutaneously 3 times a day test 3 times per day 8h Apr, 12 months Active Lisinopril 5 mg Orally Once a day 1 tablet 24h Apr, 90 days Active Pravachol 20 mg Orally Once a day 1 tablet 24h 20 Jun, 2018 90 days Active Amitriptyline HCl 10 mg Orally Once a day 1 tablet 24h 90 days Active Gabapentin 300 MG Orally twice a day 1 capsule twice daily 12h 0 9 Aug, 2017 90 days Active Humalog 100 UNIT/ML Subcutaneous 3 times a day inject 10-15 units three times daily 8h 04 Mar, 2018 30 days Active Levemir 100 UNIT/ML Subcutaneous 2 times a day INJECT 20 UNI TS SUBCUTANEOUSLY IN THE MORNING AND 20 UNITS IN THE EVENING 12h 2 5 Active RESULTS No Results PROCEDURES Procedure Date Ordered Result Body Site URINE CULTURE/COLONY COUNT December 27, 2018 MICROALBUMIN, QUANTITATIVE December 27, 2018 ASSAY OF URINE CREATININE December 27, 2018 MICROALBUMIN, SEMIQUANT December 27, 2018 URINALYSIS, AUTO, W/O SCOPE December 27, 2018 GLYCATED HEMOGLOBIN TEST December 27, 2018 INSTRUCTIONS MEDICATIONS ADMINISTERED No Known Medications MEDICAL [...]
--- OUTSIDE RECORDS SUMMARY | 2019-12-29 13:33 | XMS REPORT ---
Author Author Misty JETT Organization [facility] Address [address] 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 Active 203123627 Problem Dysthymia F34.1 Active 13181201 Problem Type 1 diabetes mellitus with hyperglycemia E10.65 Active [id number] Problem Other chronic pain G89.29 Active 8 1561736 Problem Mixed hyperlipidemia E78.2 Active 293709358 Problem Generalized anxiety disorder F41.1 A ctive 57895589 Problem Restless legs syndrome G25.81 Active 20366297 Problem 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 Active 518347027 Problem Shoulder arthritis M19.019 Active 4 62924339 Problem Long-term insulin use Z79.4 Active 102301669 ALLERGIES No Information ENCOUNTERS Encounter Location Date Diagnosis [facility] [address] [facility] [place] [facility] [id number] [address] [place] [phone] Mar, [facility] [address] [facility] [place] [id number] [address] [place] [phone] February, [facility] [address] [facility] [place] [id number] [address] [place] [phone] February, [facility] [address] [facility] [place] [id number] [address] [place] [address] February, Dysthymia F34.1 and Generali zed anxiety disorder F41.1 [facility] [address] [facility] [place] [id number] [address] [place] [phone] February, [facility] [address] [facility] [place] [id number] [address] [place] [phone] Jan, [facility] [address] [facility] [place] [id number] [address] [place] [address] Jan, Dysthymia F34.1 and Generali zed anxiety disorder F41.1 [facility] [address] [id number] [address] [place] [id number] Jan, Acute cystitis without hemat uria N30.00 and Flank pain R10.9 [facility] [address] [id number] [address] [place] [phone] Jan, Type 1 diabetes mellitus wit h hyperglycemia E10.65 [facility] [address] [facility] [place] [id number] [address] [place] [phone] Jan, Dysthymia F34.1 [facility] [address] [facility] [place] [id number] [address] [place] [phone] Jan, [facility] [address] [facility] [place] [id number] [address] [place] [phone] Jan, [facility] [address] [facility] [place] [id number] [address] [place] [phone] Jan, [facility] [address] [facility] [place] [id number] [address] [place] [phone] Jan, [facility] [address] [facility] [place] [id number] [address] [place] [phone] Jan, [facility] [address] [facility] [place] [id number] [address] [place] [phone] Jan, Dysthymia F34.1 and Generali zed anxiety disorder F41.1 [facility] [address] [id number] [address] [place] [phone] Dec, Mood disorder F39 and Anxiet y disorder, unspecified F41.9 [facility] [address] [facility] [place] [id number] [address] [place] [phone] Dec, Restless legs syndrome G25.8 1 and Type 1 diabetes mellitus with hyperglycemia E10.65 [facility] [address] [id number] [address] [place] [id number] Dec, [facility] [address] [facility] [place] [id number] [address] [place] [phone] Dec, [facility] [address] [facility] [place] [id number] [address] [place] [phone] Dec, [facility] [address] [facility] [place] [id number] [address] [place] [phone] Dec, Mood disorder F39 and Anxiet y disorder, unspecified F41.9 [facility] [address] [id number] [address] [place] [phone] Dec, Type 1 diabetes mellitus wit h hyperglycemia E10.65 and Anxiety disorder, unspecified F41.9 [facility] [address] [facility] [place] [id number] [address] [place] [address] Dec, Type 1 diabetes mellitus wit h hyperglycemia E10.65 [facility] [address] [id number] [address] [place] [phone] Nov, Acute cyclitis H20.00 [facility] [address] [facility] [place] [id number] [address] [place] [phone] Oct, Type 1 diabetes mellitus wit h hyperglycemia E10.65 [facility] [address] [facility] [place] [id number] [address] [place] [phone] Oct, 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 [facility] [address] [id number] [address] [place] [phone] Sep, [facility] [address] [facility] [place] [id number] [address] [place] [phone] Aug, [facility] [address] [facility] [place] [id number] [address] [place] [phone] Jul, [facility] [address] [facility] [place] [id number] [address] [place] [address] Jun, Type 1 diabetes mellitus wit h [...] shoulder M25.511 and Other chronic pain G89.29 [facility] [address] [facility] [place] [id number] [address] [place] [phone] May, [facility] [address] [id number] [address] [place] [phone] Apr, [facility] [address] [facility] [place] [id number] [address] [place] [phone] Apr, [facility] [address] [facility] [place] [id number] [address] [place] [phone] Apr, [facility] [address] [facility] [place] [id number] [address] [place] [phone] Apr, [facility] [address] [facility] [place] [id number] [address] [place] [phone] Mar, [facility] [address] [facility] [place] [id number] [address] [place] [phone] Mar, [facility] [address] [facility] [place] [id number] [address] [place] [address] February, Acute cystitis with hematuri a N30.01 [facility] [address] [facility] [place] [id number] [address] [place] [id number] February, [facility] [address] [facility] [place] [id number] [address] [place] [address] February, Type 1 diabetes mellitus wit h hyperglycemia E10.65 ; Dysuria R30.0 ; Polyneuropathy associated with underlying disease G63 ; Dysthymia F34.1 ; Restless legs syndrome G25.81 ; Acute cystitis with hematuria N30.01 and Shoulder arthritis M19.019 [facility] [address] [facility] [place] [id number] [address] [place] [phone] February, [facility] [address] [facility] [place] [id number] [address] [place] [phone] Jan, [facility] [address] [facility] [place] [id number] [address] [place] [address] Jan, [facility] [address] [place] [id number] [address] [place] [phone] Dec, [facility] [address] [facility] [place] [id number] [address] [place] [id number] Dec, Open bite of right forearm, initial encounter S51.851A ; Local infection of the skin and subcutaneous tissue, unspecified L08.9 and Bitten by cat, initial encounter W55.01XA [facility] [address] [place] [id number] [address] [place] [address] Nov, [facility] [address] [place] [id number] [address] [place] [address] Nov, Type 1 diabetes mellitus wit h hyperglycemia E10.65 ; Type 2 diabetes mellitus without complications E11.9 ; 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 ; Acute cystitis with hematuria N30.01 ; Polyneuropathy in diseases classified elsewhere G63 ; Endocrine disorder, unspecified E34.9 ; Dysuria R30.0 ; Dysthymia F34.1 and Restless legs syndrome G25.81 [facility] [address] [facility] [place] [id number] [address] [place] [phone] Oct, [facility] [address] [facility] [place] [id number] [address] [place] [address] Oct, Type 1 diabetes mellitus wit h hyperglycemia E10.65 [facility] [address] [place] [id number] [address] [place] [phone] Oct, [facility] [address] [place] [id number] [address] [place] [id number] Oct, [facility] [address] [place] [id number] [address] [place] [phone] Sep, [facility] [address] [facility] [place] [id number] [address] [place] [phone] Sep, [facility] [address] [facility] [place] [id number] [address] [place] [id number] Sep, Type 1 diabetes mellitus wit h hyperglycemia E10.65 [facility] [address] [facility] [place] [id number] [address] [place] [phone] Aug, [facility] [address] [facility] [place] [id number] [address] [place] [phone] Aug, Type 1 diabetes mellitus wit h hyperglycemia E10.65 ; Polyneuropathy associated with underlying disease G63 ; Mixed hyperlipidemia E78.2 and Hospital discharge follow-up Z09 [facility] [address] [place] [id number] [address] [place] [phone] Aug, [facility] [address] [place] [id number] [address] [place] [phone] Aug, [facility] [address] [facility] [place] [id number] [address] [place] [phone] Aug, [facility] [address] [place] [id number] [address] [place] [id number] Aug, Type 1 diabetes mellitus wit h hyperglycemia E10.65 ; Polyneuropathy associated with underlying disease G63 ; Mixed hyperlipidemia E78.2 ; Dysuria R30.0 ; Dysthymia F34.1 ; Restless legs syndrome G25.81 and Acute cystitis with hematuria N30.01 [facility] [address] [facility] [place] [id number] [address] [place] [phone] May, [facility] [address] [place] [id number] [address] [place] [id number] Apr, Type 1 diabetes mellitus wit h hyperglycemia E10.65 ; Dysuria R30.0 ; Dysthymia F34.1 ; Polyneuropathy associated with underlying disease G63 ; Acute cystitis without hematuria N30.00 and Encounter to establish care with new doctor Z76.89 IMMUNIZATIONS No Known Immunizations SOCIAL HISTORY Never Assessed REASON FOR VISIT pump issues PLAN OF CARE VITAL SIGNS MEDICATIONS Unknown Medications RESULTS No Results PROCEDURES No Known procedures [...]
--- OUTSIDE RECORDS SUMMARY | 2019-12-29 13:33 | XMS REPORT ---
Author Author Misty JETT Organization [facility] Address [address] 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 Active 373717434 Problem Other chronic pain G89.29 Active 8 3234422 Problem Long-term insulin use Z79.4 Active 354275770 Problem longterm (current) use of insulin Z79.4 Active 113501884 Problem Restless legs syndrome G25.81 Active 49837586 Problem 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 44977600 Problem Shoulder arthritis M19.019 Active 4 00691674 ALLERGIES No Information ENCOUNTERS Encounter Location Date Diagnosis [place] [id number] [facility] [id number] [address] [place] [phone] Aug, [facility] [address] [facility] [id number] [address] [place] [phone] Jul, [place] [id number] [facility] [id number] [address] [place] [phone] Jun, Type 1 diabetes mellitus wit h [...] shoulder M25.511 and Other chronic pain G89.29 [facility] [address] [id number] [address] [place] [phone] May, [facility] [address] [id number] [address] [place] [phone] Apr, [facility] [address] [facility] [id number] [address] [place] [id number] Apr, [facility] [address] [id number] [address] [place] [phone] Apr, [facility] [address] [facility] [id number] [address] [place] [phone] Apr, [facility] [address] [facility] [id number] [address] [place] [phone] Mar, [facility] [address] [facility] [id number] [address] [place] [phone] Mar, [facility] [address] [facility] [id number] [address] [place] [phone] February, Acute cystitis with hematuri a N30.01 [facility] [address] [facility] [id number] [address] [place] [address] February, [facility] [address] [facility] [id number] [address] [place] [address] February, Type 1 diabetes mellitus wit h hyperglycemia E10.65 ; Dysuria R30.0 ; Polyneuropathy associated with underlying disease G63 ; Dysthymia F34.1 ; Restless legs syndrome G25.81 ; Acute cystitis with hematuria N30.01 and Shoulder arthritis M19.019 [facility] [address] [facility] [id number] [address] [place] [phone] February, [facility] [address] [facility] [id number] [address] [place] [phone] Jan, [facility] [address] [facility] [id number] [address] [place] [phone] Jan, [facility] [address] [facility] [id number] [address] [place] [phone] Dec, [facility] [address] [facility] [id number] [address] [place] [phone] Dec, Open bite of right forearm, initial encounter S51.851A ; Local infection of the skin and subcutaneous tissue, unspecified L08.9 and Bitten by cat, initial encounter W55.01XA [facility] [address] [place] [id number] [address] [place] [phone] 05 Nov, 2017 [facility] [address] [place] [id number] [address] [place] [phone] Nov, Type 1 diabetes mellitus wit h hyperglycemia E10.65 ; Type 2 diabetes mellitus without complications E11.9 ; 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.4 ; Acute cystitis with hematuria N30.01 ; Polyneuropathy in diseases classified elsewhere G63 ; Endocrine disorder, unspecified E34.9 ; Dysuria R30.0 ; Dysthymia F34.1 and Restless legs syndrome G25.81 [facility] [id number] [place] [address] Oct, [facility] [address] [place] [id number] [address] [place] [id number] Oct, Type 1 diabetes mellitus wit h hyperglycemia E10.65 [facility] [address] [place] [id number] [address] [place] [phone] Oct, [facility] [address] [place] [id number] [address] [place] [phone] Oct, [facility] [address] [place] [id number] [address] [place] [phone] Sep, [facility] [address] [place] [id number] [address] [place] [phone] Sep, [facility] [address] [place] [id number] [address] [place] [id number] Sep, Type 1 diabetes mellitus wit h hyperglycemia E10.65 [place] [address] [facility] [id number] [address] [place] [phone] Aug, [place] [address] [address] Aug, Type 1 diabetes mellitus wit h hyperglycemia E10.65 ; Polyneuropathy associated with underlying disease G63 ; Mixed hyperlipidemia E78.2 and Hospital discharge follow-up Z09 [place] [address] [address] Aug, [place] [address] [place] [id number] [address] [place] [phone] Aug, [place] [address] [address] Aug, [place] [address] [address] Aug, Type 1 diabetes mellitus wit h hyperglycemia E10.65 ; Polyneuropathy associated with underlying disease G63 ; Mixed hyperlipidemia E78.2 ; Dysuria R30.0 ; Dysthymia F34.1 ; Restless legs syndrome G25.81 and Acute cystitis with hematuria N30.01 [place] [address] [place] [id number] [address] [place] [address] May, [place] [address] [place] [id number] [address] [place] [address] Apr, Type 1 diabetes mellitus wit h hyperglycemia E10.65 ; Dysuria R30.0 ; Dysthymia F34.1 ; Polyneuropathy associated with underlying disease G63 ; Acute cystitis without hematuria N30.00 and Encounter to establish care with new doctor Z76.89 IMMUNIZATIONS No Known Immunizations SOCIAL HISTORY Never Assessed REASON FOR VISIT 1 yr f/u DM Ed PLAN OF CARE VITAL SIGNS MEDICATIONS Unknown [...]
--- OUTSIDE RECORDS SUMMARY | 2019-12-29 13:33 | XMS REPORT ---
Author Author Misty HAN Organization [facility] Address [address] [place] [address] Care Team Providers Care Lens Silverer Name Role Phone HANTHAO MurryELE Unavailable PROBLEMS Type Condition ICD9-CM Code [id number] Code Onset Dates Condition S tatus SNOMED Code Problem Mixed hyperlipidemia E78.2 Active 727577532 Problem Shoulder arthritis M19.019 Active 4 92704022 Problem FPC (current) use of insulin Z79.4 Active 986250579 Problem Polyneuropathy associated with underlying disease G63 Active 105867301 Problem Type 1 diabetes mellitus with hyperglycemia E10.65 Active 141477633071229 Problem Restless legs syndrome G25.81 Active 93631508 Problem Dysthymia F34.1 Active 99909565 ALLERGIES No Information ENCOUNTERS Encounter Location Date Diagnosis [place] [place] [phone] February, Acute cystitis with hematuri a N30.01 [place] N [facility] [id number] [address] [place] [phone] February, [place] N [facility] [id number] [address] [place] [phone] February, Type 1 diabetes mellitus wit h hyperglycemia E10.65 ; Dysuria R30.0 ; Polyneuropathy associated with underlying disease G63 ; Dysthymia F34.1 ; Restless legs syndrome G25.81 ; Acute cystitis with hematuria N30.01 and Shoulder arthritis M19.019 [facility] [address] [facility] [id number] [address] [place] [phone] February, [facility] [address] [facility] [id number] [address] [place] [phone] Jan, [place] [place] [id number] [address] [place] [phone] Jan, [facility] [address] [place] [id number] [address] [place] [phone] Dec, [facility] [address] [place] [id number] [address] [place] [phone] Dec, Open bite of right forearm, initial encounter S51.851A ; Local infection of the skin and subcutaneous tissue, unspecified L08.9 and Bitten by cat, initial encounter W55.01XA [facility] [address] [place] [id number] [address] [place] [phone] Nov, [facility] [address] [place] [id number] [address] [place] [phone] Nov, Type 1 diabetes mellitus wit h hyperglycemia E10.65 ; Type 2 diabetes mellitus without complications E11.9 ; FPC (current) use of insulin Z79.4 ; Acute cystitis with hematuria N30.01 ; Polyneuropathy in diseases classified elsewhere G63 ; Endocrine disorder, unspecified E34.9 ; Dysuria R30.0 ; Dysthymia F34.1 and Restless legs syndrome G25.81 [facility] [address] [place] [id number] [address] [place] [phone] Oct, [facility] [address] [place] [id number] [address] [place] [phone] Oct, Type 1 diabetes mellitus wit h hyperglycemia E10.65 [facility] [address] [place] [id number] [address] [place] [phone] Oct, [facility] [address] [place] [phone] Oct, [facility] [address] [place] [id number] [address] [place] [phone] Sep, [facility] [address] [place] [id number] [address] [place] [phone] Sep, [facility] [address] [place] [id number] [address] [place] [phone] Sep, Type 1 diabetes mellitus wit h hyperglycemia E10.65 [place] [address] [address] [facility] [id number] [address] [place] [phone] Aug, [facility] [address] [facility] [id number] [address] [place] [phone] Aug, Type 1 diabetes mellitus wit h hyperglycemia E10.65 ; Polyneuropathy associated with underlying disease G63 ; Mixed hyperlipidemia E78.2 and Hospital discharge follow-up Z09 [place] [address] [address] [facility] [id number] [address] [place] [phone] Aug, [place] [address] [address] [place] [id number] [address] [place] [phone] Aug, [place] [address] [address] [place] [id number] [address] [place] [phone] Aug, [place] [address] [place] [id number] [place] [address] Aug, Type 1 diabetes mellitus wit h hyperglycemia E10.65 ; Polyneuropathy associated with underlying disease G63 ; Mixed hyperlipidemia E78.2 ; Dysuria R30.0 ; Dysthymia F34.1 ; Restless legs syndrome G25.81 and Acute cystitis with hematuria N30.01 [place] [address] [address] [place] [id number] [address] [place] [phone] May, [place] [address] [address] [place] [id number] [address] [place] [phone] Apr, Type 1 diabetes mellitus wit h hyperglycemia E10.65 ; Dysuria R30.0 ; Dysthymia F34.1 ; Polyneuropathy associated with underlying disease G63 ; Acute cystitis without hematuria N30.00 and Encounter to establish care with new doctor Z76.89 IMMUNIZATIONS No Known Immunizations SOCIAL HISTORY Never Assessed REASON FOR VISIT DM ed PLAN OF CARE VITAL SIGNS MEDICATIONS Unknown [...]
--- OUTSIDE RECORDS SUMMARY | 2019-12-29 13:33 | XMS REPORT ---
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 Active 830934112 Problem Other chronic pain G89.29 Active 8 3523618 Problem Long-term insulin use Z79.4 Active 181598381 Problem 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.4 Active 072772694 Problem Restless legs syndrome G25.81 Active 52022171 Problem 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 97525969 Problem Shoulder arthritis M19.019 Active 4 99242708 ALLERGIES No Information ENCOUNTERS Encounter Location Date Diagnosis [place] [address] [facility] [id number] [address] [place] [phone] Sep, [facility] [address] [facility] [id number] [address] [place] [phone] Aug, [facility] [address] [id number] [address] [place] [phone] Jul, [place] [address] [facility] [id number] [address] [place] [address] Jun, Type 1 diabetes mellitus wit h [...] shoulder M25.511 and Other chronic pain G89.29 [facility] [address] [id number] [address] [place] [phone] May, [facility] [address] [id number] [address] [place] [phone] Apr, [facility] [address] [id number] [address] [place] [phone] Apr, [facility] [address] [id number] [address] [place] [phone] Apr, [facility] [address] [facility] [id number] [address] [place] [phone] Apr, [facility] [address] [facility] [id number] [address] [place] [phone] Mar, [facility] [address] [id number] [address] [place] [phone] Mar, [facility] [address] [facility] [id number] [address] [place] [address] February, Acute cystitis with hematuri a N30.01 [facility] [address] [facility] [id number] [address] [place] [phone] February, [facility] [address] [id number] [address] [place] [address] February, Type 1 diabetes mellitus wit h hyperglycemia E10.65 ; Dysuria R30.0 ; Polyneuropathy associated with underlying disease G63 ; Dysthymia F34.1 ; Restless legs syndrome G25.81 ; Acute cystitis with hematuria N30.01 and Shoulder arthritis M19.019 [facility] [address] [id number] [address] [place] [address] February, [facility] [address] [place] [id number] [address] [place] [phone] Jan, [facility] [address] [id number] [address] [place] [phone] Jan, [facility] [address] [id number] [address] [place] [address] Dec, [facility] [address] [facility] [id number] [address] [place] [address] Dec, Open bite of right forearm, initial encounter S51.851A ; Local infection of the skin and subcutaneous tissue, unspecified L08.9 and Bitten by cat, initial encounter W55.01XA [facility] [address] [id number] [address] [place] [phone] Nov, [place] [address] [place] [id number] [address] [place] [phone] Nov, Type 1 diabetes mellitus wit h hyperglycemia E10.65 ; Type 2 diabetes mellitus without complications E11.9 ; MCFP (current) use of insulin Z79.4 ; Acute cystitis with hematuria N30.01 ; Polyneuropathy in diseases classified elsewhere G63 ; Endocrine disorder, unspecified E34.9 ; Dysuria R30.0 ; Dysthymia F34.1 and Restless legs syndrome G25.81 [facility] [address] [place] [id number] [address] [place] [address] Oct, [place] [address] [address] [place] [id number] [address] [place] [address] Oct, Type 1 diabetes mellitus wit h hyperglycemia E10.65 [facility] [address] [id number] [address] [place] [phone] Oct, [facility] [address] [place] [address] Oct, [place] [address] [address] [place] [id number] [address] [place] [phone] Sep, [facility] [address] [place] [id number] [address] [place] [address] Sep, [place] [address] [place] [id number] [address] [place] [address] Sep, Type 1 diabetes mellitus wit h hyperglycemia E10.65 [place] [address] [place] [address] Aug, [place] [address] [place] [id number] [address] [place] [address] Aug, Type 1 diabetes mellitus wit h hyperglycemia E10.65 ; Polyneuropathy associated with underlying disease G63 ; Mixed hyperlipidemia E78.2 and Hospital discharge follow-up Z09 [place] [address] [address] [place] [id number] [address] [place] [phone] Aug, [place] [address] [place] [id number] [address] [place] [address] Aug, [place] [address] [address] Aug, [place] [address] [address] [place] [id number] [address] [place] [address] Aug, Type 1 diabetes mellitus wit h hyperglycemia E10.65 ; Polyneuropathy associated with underlying disease G63 ; Mixed hyperlipidemia E78.2 ; Dysuria R30.0 ; Dysthymia F34.1 ; Restless legs syndrome G25.81 and Acute cystitis with hematuria N30.01 [place] [address] [address] [place] [id number] [address] [place] [address] May, [place] [address] [address] [place] [id number] [address] [place] [address] Apr, Type 1 diabetes mellitus wit h hyperglycemia E10.65 ; Dysuria R30.0 ; Dysthymia F34.1 ; Polyneuropathy associated with underlying disease G63 ; Acute cystitis without hematuria N30.00 and Encounter to establish care with new doctor Z76.89 IMMUNIZATIONS No Known Immunizations SOCIAL HISTORY Never Assessed REASON FOR VISIT Prior Authorization Request PLAN OF CARE VITAL SIGNS MEDICATIONS Unknown [...]
--- OUTSIDE RECORDS SUMMARY | 2019-12-29 13:33 | XMS REPORT ---
Author Author Misty HAN Organization [facility] Address [address] [place] [address] Care Team Providers Care Special Education Aide Name Role Phone HANTHAO MurryELE Unavailable PROBLEMS Type Condition ICD9-CM Code NUX19-SV Code Onset Dates Condition S tatus SNOMED Code Problem Mixed hyperlipidemia E78.2 Active 141730399 Problem Polyneuropathy due to type 1 diabetes mellitus E10 .42 Active 261263781 Problem Shoulder arthritis M19.019 Active 4 31324790 Problem correction (current) use of insulin Z79.4 Active 123404468 Problem Polyneuropathy associated with underlying disease G63 Active 805037939 Problem Type 1 diabetes mellitus with hyperglycemia E10.65 Active 115618554748212 Problem Restless legs syndrome G25.81 Active 82574919 Problem Dysthymia F34.1 Active 47191086 ALLERGIES No Information ENCOUNTERS Encounter Location Date Diagnosis [place] [id number] [place] [id number] [place] [phone] Mar, [place] [address] [place] [id number] [address] [place] [phone] February, Acute cystitis with hematuri a N30.01 [place] [address] N [place] [id number] [address] [place] [address] February, [place] [address] [address] [place] [id number] [address] [place] [address] February, Type 1 diabetes mellitus wit h hyperglycemia E10.65 ; Dysuria R30.0 ; Polyneuropathy associated with underlying disease G63 ; Dysthymia F34.1 ; Restless legs syndrome G25.81 ; Acute cystitis with hematuria N30.01 and Shoulder arthritis M19.019 [facility] [address] [place] [id number] [address] [place] [address] February, [facility] [address] [facility] [id number] [address] [place] [phone] Jan, [facility] [address] [facility] [id number] [address] [place] [phone] Jan, [facility] [address] [facility] [id number] [address] [place] [phone] Dec, [facility] [address] [facility] [id number] [address] [place] [address] Dec, Open bite of right forearm, initial encounter S51.851A ; Local infection of the skin and subcutaneous tissue, unspecified L08.9 and Bitten by cat, initial encounter W55.01XA [facility] [address] [facility] [id number] [address] [place] [address] Nov, [facility] [address] [place] [id number] [address] [place] [address] Nov, Type 1 diabetes mellitus wit h hyperglycemia E10.65 ; Type 2 diabetes mellitus without complications E11.9 ; correction (current) use of insulin Z79.4 ; Acute cystitis with hematuria N30.01 ; Polyneuropathy in diseases classified elsewhere G63 ; Endocrine disorder, unspecified E34.9 ; Dysuria R30.0 ; Dysthymia F34.1 and Restless legs syndrome G25.81 [facility] [address] [facility] [id number] [address] [place] [phone] Oct, [facility] [address] [place] [id number] [address] [place] [address] Oct, Type 1 diabetes mellitus wit h hyperglycemia E10.65 [facility] [address] [place] [id number] [address] [place] [phone] Oct, [facility] [address] [place] [id number] [address] [place] [phone] Oct, [facility] [address] [facility] [id number] [address] [place] [phone] Sep, [place] [address] [facility] [id number] [address] [place] [phone] Sep, [place] [address] [facility] [id number] [address] [place] [phone] Sep, Type 1 diabetes mellitus wit h hyperglycemia E10.65 [place] [address] [place] [id number] [address] [place] [phone] Aug, [place] [address] [facility] [id number] [address] [place] [address] Aug, Type 1 diabetes mellitus wit h hyperglycemia E10.65 ; Polyneuropathy associated with underlying disease G63 ; Mixed hyperlipidemia E78.2 and Hospital discharge follow-up Z09 [place] [address] [place] [id number] [address] [place] [phone] Aug, [place] [address] [place] [id number] [address] [place] [phone] Aug, [place] [address] [place] [id number] [address] [place] [phone] Aug, [place] [address] [facility] [id number] [address] [place] [address] Aug, Type 1 diabetes mellitus wit h hyperglycemia E10.65 ; Polyneuropathy associated with underlying disease G63 ; Mixed hyperlipidemia E78.2 ; Dysuria R30.0 ; Dysthymia F34.1 ; Restless legs syndrome G25.81 and Acute cystitis with hematuria N30.01 [place] [address] [place] [id number] [address] [place] [address] May, [place] [address] [facility] [id number] [address] [place] [phone] Apr, Type 1 diabetes mellitus wit h hyperglycemia E10.65 ; Dysuria R30.0 ; Dysthymia F34.1 ; Polyneuropathy associated with underlying disease G63 ; Acute cystitis without hematuria N30.00 and Encounter to establish care with new doctor Z76.89 IMMUNIZATIONS No Known Immunizations SOCIAL HISTORY Never Assessed REASON FOR VISIT Diabetic Supply Request Form PLAN OF CARE VITAL SIGNS MEDICATIONS Unknown [...]
--- OUTSIDE RECORDS SUMMARY | 2019-12-29 13:33 | XMS REPORT ---
Author Author Misty JETT Organization [facility] [place] Address [address] 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 Active 128710640 Problem Dysthymia F34.1 Active 17316904 Problem Type 1 diabetes mellitus with hyperglycemia E10.65 Active 092554984170658 Problem Other chronic pain G89.29 Active 8 0642159 Problem Mixed hyperlipidemia E78.2 Active 676473068 Problem Generalized anxiety disorder F41.1 A ctive 19634220 Problem Restless legs syndrome G25.81 Active 89672158 Problem 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 822824152 Problem Shoulder arthritis M19.019 Active 4 69424950 Problem Long-term insulin use Z79.4 Active 303875872 ALLERGIES No Information ENCOUNTERS Encounter Location Date Diagnosis [facility] [place] [address] [facility] [id number] [address] [place] [phone] Mar, [facility] [place] [address] [facility] [id number] [address] [place] [phone] Mar, [facility] [place] [address] [facility] [id number] [address] [place] [phone] February, [facility] [place] [address] [facility] [id number] [address] [place] [phone] February, [facility] [place] [address] [facility] [id number] [address] [place] [phone] February, [facility] [place] [address] [facility] [id number] [address] [place] [phone] Jan, [facility] [place] [address] [facility] [id number] [address] [place] [phone] Jan, Dysthymia F34.1 and Generali zed anxiety disorder F41.1 [facility] [place] [address] [facility] [id number] [address] [place] [phone] Jan, Acute cystitis without hemat uria N30.00 and Flank pain R10.9 [facility] [place] [address] [facility] [id number] [address] [place] [phone] Jan, Type 1 diabetes mellitus wit h hyperglycemia E10.65 [facility] [place] [address] [facility] [id number] [address] [place] [phone] Jan, Dysthymia F34.1 [facility] [place] [address] [facility] [id number] [address] [place] [phone] Jan, [facility] [place] [address] [facility] [id number] [address] [place] [phone] Jan, [facility] [place] [address] [facility] [id number] [address] [place] [phone] Jan, [facility] [place] [address] [facility] [id number] [address] [place] [phone] Jan, [facility] [place] [address] [facility] [id number] [address] [place] [phone] Jan, [facility] [place] [address] [facility] [id number] [address] [place] [phone] Jan, Dysthymia F34.1 and Generali zed anxiety disorder F41.1 [facility] [place] [address] [facility] [id number] [address] [place] [phone] Dec, Mood disorder F39 and Anxiet y disorder, unspecified F41.9 [facility] [place] [address] [facility] [id number] [address] [place] [phone] Dec, Restless legs syndrome G25.8 1 and Type 1 diabetes mellitus with hyperglycemia E10.65 [facility] [place] [address] [facility] [id number] [address] [place] [phone] Dec, [facility] [place] [address] [facility] [id number] [address] [place] [phone] Dec, [facility] [place] [address] [facility] [id number] [address] [place] [phone] Dec, [facility] [place] [address] [facility] [id number] [address] [place] [phone] Dec, Mood disorder F39 and Anxiet y disorder, unspecified F41.9 [facility] [place] [address] [id number] [address] [place] [phone] Dec, Type 1 diabetes mellitus wit h hyperglycemia E10.65 and Anxiety disorder, unspecified F41.9 [facility] [place] [address] [facility] [id number] [address] [place] [phone] 08 Dec, 2018 Type 1 diabetes mellitus wit h hyperglycemia E10.65 [facility] [address] [facility] [id number] [address] [place] [phone] Nov, Acute cyclitis H20.00 [facility] [place] [address] [facility] [id number] [address] [place] [phone] Oct, Type 1 diabetes mellitus wit h hyperglycemia E10.65 [facility] [place] [address] [facility] [id number] [address] [place] [phone] Oct, 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 [facility] [place] [address] [facility] [id number] [address] [place] [phone] Sep, [facility] [place] [address] [facility] [id number] [address] [place] [phone] Aug, [facility] [place] [address] [facility] [id number] [address] [place] [phone] Jul, [facility] [place] [address] [facility] [id number] [address] [place] [phone] Jun, Type 1 diabetes mellitus wit h [...] shoulder M25.511 and Other chronic pain G89.29 [facility] [place] [address] [id number] [address] [place] [phone] May, [facility] [place] [address] [id number] [address] [place] [phone] Apr, [facility] [place] [address] [id number] [address] [place] [phone] Apr, [facility] [place] [address] [id number] [address] [place] [phone] Apr, [facility] [place] [address] [facility] [id number] [address] [place] [phone] Apr, [facility] [place] [address] [facility] [id number] [address] [place] [phone] Mar, [facility] [place] [address] [facility] [id number] [address] [place] [phone] Mar, [facility] [place] [address] [facility] [id number] [address] [place] [phone] February, Acute cystitis with hematuri a N30.01 [facility] [place] [address] [facility] [id number] [address] [place] [phone] February, [facility] [place] [address] [facility] [id number] [address] [place] [phone] February, Type 1 diabetes mellitus wit h hyperglycemia E10.65 ; Dysuria R30.0 ; Polyneuropathy associated with underlying disease G63 ; Dysthymia F34.1 ; Restless legs syndrome G25.81 ; Acute cystitis with hematuria N30.01 and Shoulder arthritis M19.019 [facility] [place] [address] [facility] [id number] [address] [place] [phone] February, [facility] [place] [address] [facility] [id number] [address] [place] [phone] Jan, [facility] [place] [address] [facility] [id number] [address] [place] [phone] Jan, [facility] [place] [address] [facility] [id number] [address] [place] [phone] Dec, [facility] [address] [facility] [id number] [address] [place] [phone] Dec, Open bite of right forearm, initial encounter S51.851A ; Local infection of the skin and subcutaneous tissue, unspecified L08.9 and Bitten by cat, initial encounter W55.01XA [facility] [place] [address] [facility] [id number] [address] [place] [phone] Nov, [facility] [place] [address] [facility] [id number] [address] [place] [phone] Nov, Type 1 diabetes mellitus wit h hyperglycemia E10.65 ; Type 2 diabetes mellitus without complications E11.9 ; FCI (current) use of insulin Z79.4 ; Acute cystitis with hematuria N30.01 ; Polyneuropathy in diseases classified elsewhere G63 ; Endocrine disorder, unspecified E34.9 ; Dysuria R30.0 ; Dysthymia F34.1 and Restless legs syndrome G25.81 [facility] [place] [address] [facility] [id number] [address] [place] [phone] Oct, [facility] [place] [address] [place] [id number] [address] [place] [phone] Oct, Type 1 diabetes mellitus wit h hyperglycemia E10.65 [facility] [place] [address] [facility] [id number] [address] [place] [phone] Oct, [facility] [place] [address] [facility] [id number] [address] [place] [phone] Oct, [facility] [place] [address] [facility] [id number] [address] [place] [phone] Sep, [place] [address] [facility] [id number] [address] [place] [phone] Sep, [place] [address] [facility] [id number] [address] [place] [phone] Sep, Type 1 diabetes mellitus wit h hyperglycemia E10.65 [place] [address] [place] [id number] [address] [place] [phone] Aug, [place] [address] [facility] [id number] [address] [place] [phone] Aug, Type 1 diabetes mellitus wit h hyperglycemia E10.65 ; Polyneuropathy associated with underlying disease G63 ; Mixed hyperlipidemia E78.2 and Hospital discharge follow-up Z09 [place] [address] [place] [id number] [address] [place] [phone] Aug, [place] [address] [place] [id number] [address] [place] [phone] Aug, [place] [address] [place] [id number] [address] [place] [phone] Aug, [place] [address] [place] [id number] [address] [place] [phone] Aug, Type 1 diabetes mellitus wit h hyperglycemia E10.65 ; Polyneuropathy associated with underlying disease G63 ; Mixed hyperlipidemia E78.2 ; Dysuria R30.0 ; Dysthymia F34.1 ; Restless legs syndrome G25.81 and Acute cystitis with hematuria N30.01 [place] [address] [address] [place] [id number] [address] [place] [phone] May, [place] [address] [facility] [id number] [address] [place] [phone] Apr, Type 1 diabetes mellitus wit h hyperglycemia E10.65 ; Dysuria R30.0 ; Dysthymia F34.1 ; Polyneuropathy associated with underlying disease G63 ; Acute cystitis without hematuria N30.00 and Encounter to establish care with new doctor Z76.89 IMMUNIZATIONS No Known Immunizations SOCIAL HISTORY Never Assessed REASON FOR VISIT Refill Request PLAN OF CARE VITAL SIGNS MEDICATIONS Medication Instructions Dosage Frequency Start Date End Date Duration S tatus Humalog 100 UNIT/ML Subcutaneous 3 times a day inject 10-15 units three times daily 8h Mar, 30 days Active Levemir 100 UNIT/ML Subcutaneous 2 times a day INJECT 20 UNI TS SUBCUTANEOUSLY IN THE MORNING AND 20 UNITS IN THE EVENING 12h 2 5 Active RESULTS No Results PROCEDURES No Known [...]
--- OUTSIDE RECORDS SUMMARY | 2019-12-29 13:33 | XMS REPORT ---
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 Active 691448799 Problem Other chronic pain G89.29 Active 8 3794686 Problem Long-term insulin use Z79.4 Active 470121219 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 215343747 Problem Restless legs syndrome G25.81 Active 93793750 Problem 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 70101831 Problem Shoulder arthritis M19.019 Active 4 77962039 ALLERGIES Substance Reaction Event Type Date Status Sulfamethoxazole-Trimethoprim Unknown Drug Allergy Jun, 201 8 Active ENCOUNTERS Encounter Location Date Diagnosis [facility] [address] [facility] [id number] [address] [place] [phone] Jun, Type 1 diabetes mellitus wit h [...] shoulder M25.511 and Other chronic pain G89.29 [facility] [address] [facility] [id number] [address] [place] [phone] May, [facility] [address] [id number] [address] [place] [phone] Apr, [facility] [address] [id number] [address] [place] [phone] Apr, [facility] [address] [facility] [id number] [address] [place] [phone] Apr, [facility] [address] [facility] [id number] [address] [place] [phone] Apr, [facility] [address] [id number] [address] [place] [phone] Mar, [facility] [address] [facility] [id number] [address] [place] [id number] Mar, [facility] [address] [facility] [id number] [address] [place] [phone] February, Acute cystitis with hematuri a N30.01 [facility] [address] [facility] [id number] [address] [place] [phone] February, [facility] [address] [facility] [id number] [address] [place] [phone] February, Type 1 diabetes mellitus wit h hyperglycemia E10.65 ; Dysuria R30.0 ; Polyneuropathy associated with underlying disease G63 ; Dysthymia F34.1 ; Restless legs syndrome G25.81 ; Acute cystitis with hematuria N30.01 and Shoulder arthritis M19.019 [facility] [address] [facility] [id number] [address] [place] [phone] February, [facility] [address] [facility] [id number] [address] [place] [phone] Jan, [facility] [address] [facility] [id number] [address] [place] [phone] Jan, [facility] [address] [facility] [id number] [address] [place] [phone] Dec, [facility] [address] [place] [id number] [address] [place] [phone] Dec, Open bite of right forearm, initial encounter S51.851A ; Local infection of the skin and subcutaneous tissue, unspecified L08.9 and Bitten by cat, initial encounter W55.01XA [facility] [address] [place] [id number] [address] [place] [phone] Nov, [facility] [address] [place] [id number] [address] [place] [phone] Nov, Type 1 diabetes mellitus wit h hyperglycemia E10.65 ; Type 2 diabetes mellitus without complications E11.9 ; FCI (current) use of insulin Z79.4 ; Acute cystitis with hematuria N30.01 ; Polyneuropathy in diseases classified elsewhere G63 ; Endocrine disorder, unspecified E34.9 ; Dysuria R30.0 ; Dysthymia F34.1 and Restless legs syndrome G25.81 [place] [address] [id number] [place] [phone] Oct, [facility] [address] [place] [id number] [address] [place] [phone] Oct, Type 1 diabetes mellitus wit h hyperglycemia E10.65 [place] [address] [place] [id number] [address] [place] [phone] Oct, [facility] [address] [place] [id number] [address] [place] [phone] Oct, [facility] [address] [place] [id number] [address] [place] [phone] Sep, [facility] [address] [place] [id number] [address] [place] [phone] Sep, [facility] [id number] [place] [address] Sep, Type 1 diabetes mellitus wit h hyperglycemia E10.65 [facility] [address] [place] [id number] [address] [place] [phone] Aug, [facility] [address] [place] [phone] Aug, Type 1 diabetes mellitus wit h hyperglycemia E10.65 ; Polyneuropathy associated with underlying disease G63 ; Mixed hyperlipidemia E78.2 and Hospital discharge follow-up Z09 [place] [address] [address] [place] [id number] [address] [place] [phone] Aug, [address] [phone] Aug, [place] [address] [address] Aug, [address] [address] Aug, Type 1 diabetes mellitus wit h hyperglycemia E10.65 ; Polyneuropathy associated with underlying disease G63 ; Mixed hyperlipidemia E78.2 ; Dysuria R30.0 ; Dysthymia F34.1 ; Restless legs syndrome G25.81 and Acute cystitis with hematuria N30.01 [place] [address] [address] [place] [id number] [address] [place] [phone] May, [address] [phone] Apr, Type 1 diabetes mellitus wit h hyperglycemia E10.65 ; Dysuria R30.0 ; Dysthymia F34.1 ; Polyneuropathy associated with underlying disease G63 ; Acute cystitis without hematuria N30.00 and Encounter to establish care with new doctor Z76.89 IMMUNIZATIONS No Known Immunizations SOCIAL HISTORY Never Assessed REASON FOR VISIT Diabetes--tcuppettRN, -possible kidney infection, -Right Shoulder pain continues and decreased ROM. Quit taking celebrex not helping, -Stopped taking venlafaxine due to not helping PLAN OF CARE Activity Details Follow Up 3 Months, prn Reason:CHM/DM w/Derrick Pending Test UA LONG DIP (IN HOUSE) Future/Pending Procedure JOINT INJECTION-LARGE JOINT VITAL SIGNS Height 68 in 2018-07-06 Weight 159.1 lbs 2018-07-06 Temperature 98.4 degrees Fahrenheit 2018-07-06 Heart Rate 76 bpm 2018-07-06 Respiratory Rate 20 2018-07-06 BMI 24.19 kg/m2 2018-07-06 Blood pressure systolic 132 mmHg 2018-07-06 Blood pressure diastolic 78 mmHg 2018-07-06 MEDICATIONS Medication Instructions Dosage Frequency Start Date End Date Duration S eduin Sertraline HCl 50 mg Orally Once a day 1 tablet 24h 20 Jun, 2018 90 days Active Amitriptyline HCl 25 MG Orally Once a day 1 tablet 24h Jun, 30 day(s) Active Pravachol 20 mg Orally Once a day 1 tablet 24h Jun, 90 days Active Humalog 100 UNIT/ML Subcutaneous 3 times a day inject 10-15 units three times daily 8h 04 Mar, 2018 30 days Active Macrobid 100 mg Orally every 12 hrs 1 capsule with food 12h Jun, Jun, 7 day(s) Active Amitriptyline HCl 10 mg Orally Once a day 1 tablet 24h 90 days Active Lisinopril 5 mg Orally Once a day 1 tablet 24h Apr, 90 days Active Gabapentin 300 MG Orally twice a day 1 capsule twice daily 12h 0 Aug, 90 days Active Levemir 100 UNIT/ML Subcutaneous 2 times a day INJECT 20 UNI TS SUBCUTANEOUSLY IN THE MORNING AND 20 UNITS IN THE EVENING 12h 2 5 Active Glucocard Expression Test 1 subcutaneously 3 times a day test 3 times per day 8h Apr, 12 months Active RESULTS No Results PROCEDURES Procedure Date Ordered Result Body Site GLYCATED HEMOGLOBIN TEST Jul 06, 2018 URINALYSIS, AUTO, W/O SCOPE Jul 06, 2018 DRAIN/INJECT, JOINT/BURSA Jul 06, 2018 URINE CULTURE/COLONY COUNT Jul 06, 2018 INSTRUCTIONS MEDICATIONS ADMINISTERED No Known Medications [...]
--- OUTSIDE RECORDS SUMMARY | 2019-12-29 13:33 | XMS REPORT ---
Author Author Misty HAN Organization [facility] Address [address] [place] [address] Care Team Providers Care [employer] Name Role Phone HANTHAO MurryELE Unavailable PROBLEMS Type Condition ICD9-CM Code PQV19-DD Code Onset Dates Condition S tatus SNOMED Code Problem Mixed hyperlipidemia E78.2 Active 914860775 Problem Dysthymia F34.1 Active 73727323 Problem Type 1 diabetes mellitus with hyperglycemia E10.65 Active [id number] Problem Polyneuropathy due to type 1 diabetes mellitus E10 .42 Active 807676697 Problem Other chronic pain G89.29 Active 8 7754653 Problem Long-term insulin use Z79.4 Active 136271307 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 213617187 Problem Restless legs syndrome G25.81 Active 91507655 Problem 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 62715859 Problem Shoulder arthritis M19.019 Active 4 41015813 ALLERGIES No Information ENCOUNTERS Encounter Location Date Diagnosis [facility] [address] [facility] [id number] [address] [place] [phone] Jun, Type 1 diabetes mellitus wit h [...] shoulder M25.511 and Other chronic pain G89.29 [facility] [address] [facility] [id number] [address] [place] [phone] May, [facility] [address] [facility] [id number] [address] [place] [phone] Apr, [facility] [address] [id number] [address] [place] [phone] Apr, [facility] [address] [id number] [address] [place] [phone] Apr, [facility] [address] [facility] [id number] [address] [place] [phone] Apr, [facility] [address] [id number] [address] [place] [phone] Mar, [facility] [address] [facility] [id number] [address] [place] [phone] Mar, [facility] [address] [facility] [id number] [address] [place] [phone] February, Acute cystitis with hematuri a N30.01 [facility] [address] [facility] [id number] [address] [place] [phone] February, [facility] [address] [facility] [id number] [address] [place] [phone] February, Type 1 diabetes mellitus wit h hyperglycemia E10.65 ; Dysuria R30.0 ; Polyneuropathy associated with underlying disease G63 ; Dysthymia F34.1 ; Restless legs syndrome G25.81 ; Acute cystitis with hematuria N30.01 and Shoulder arthritis M19.019 [facility] [address] [facility] [id number] [address] [place] [phone] February, [facility] [address] [facility] [id number] [address] [place] [phone] Jan, [facility] [address] [facility] [id number] [address] [place] [phone] Jan, [facility] [address] [facility] [id number] [address] [place] [phone] Dec, [facility] [address] [facility] [id number] [address] [place] [id number] Dec, Open bite of right forearm, initial encounter S51.851A ; Local infection of the skin and subcutaneous tissue, unspecified L08.9 and Bitten by cat, initial encounter W55.01XA [facility] [address] [place] [id number] [address] [place] [phone] 05 Nov, 2017 [place] [address] [address] [place] [id number] [address] [place] [phone] Nov, Type 1 diabetes mellitus wit h hyperglycemia E10.65 ; Type 2 diabetes mellitus without complications E11.9 ; intermediate (current) use of insulin Z79.4 ; Acute cystitis with hematuria N30.01 ; Polyneuropathy in diseases classified elsewhere G63 ; Endocrine disorder, unspecified E34.9 ; Dysuria R30.0 ; Dysthymia F34.1 and Restless legs syndrome G25.81 [place] [id number] [place] [phone] Oct, [place] [address] [place] [id number] [address] [place] [phone] Oct, Type 1 diabetes mellitus wit h hyperglycemia E10.65 [place] [address] [facility] [id number] [address] [place] [phone] Oct, [place] [address] [place] [id number] [address] [place] [phone] Oct, [place] [address] [place] [id number] [address] [place] [phone] Sep, [place] [address] [place] [id number] [address] [place] [phone] Sep, [place] [address] [facility] [id number] [address] [place] [phone] Sep, Type 1 diabetes mellitus wit h hyperglycemia E10.65 [facility] [address] [facility] [id number] [address] [place] [phone] Aug, [place] [address] [place] [id number] [address] [place] [phone] Aug, Type 1 diabetes mellitus wit h hyperglycemia E10.65 ; Polyneuropathy associated with underlying disease G63 ; Mixed hyperlipidemia E78.2 and Hospital discharge follow-up Z09 [facility] [address] [facility] [id number] [address] [place] [phone] Aug, [facility] [address] [facility] [id number] [address] [place] [phone] Aug, [place] [address] [facility] [id number] [address] [place] [phone] Aug, [place] [address] [facility] [id number] [address] [place] [phone] Aug, Type 1 diabetes mellitus wit h hyperglycemia E10.65 ; Polyneuropathy associated with underlying disease G63 ; Mixed hyperlipidemia E78.2 ; Dysuria R30.0 ; Dysthymia F34.1 ; Restless legs syndrome G25.81 and Acute cystitis with hematuria N30.01 [place] [address] [facility] [id number] [address] [place] [phone] May, [place] [address] [facility] [id number] [address] [place] [phone] Apr, Type 1 diabetes mellitus wit h hyperglycemia E10.65 ; Dysuria R30.0 ; Dysthymia F34.1 ; Polyneuropathy associated with underlying disease G63 ; Acute cystitis without hematuria N30.00 and Encounter to establish care with new doctor Z76.89 IMMUNIZATIONS No Known Immunizations SOCIAL HISTORY Never Assessed REASON FOR VISIT Refill request PLAN OF CARE VITAL SIGNS MEDICATIONS No Known Medications RESULTS No Results PROCEDURES No Known [...]
--- OUTSIDE RECORDS SUMMARY | 2019-12-29 13:33 | XMS REPORT ---
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 Active 071815893 Problem Shoulder arthritis M19.019 Active 4 21617385 Problem long-term (current) use of insulin Z79.4 Active 340674358 Problem Polyneuropathy associated with underlying disease G63 Active 097497980 Problem Type 1 diabetes mellitus with hyperglycemia E10.65 Active 875558346505917 Problem Restless legs syndrome G25.81 Active 57212471 Problem Dysthymia F34.1 Active 65230557 ALLERGIES No Information ENCOUNTERS Encounter Location Date Diagnosis [facility] [address] [facility] [id number] [address] [place] [phone] Jun, [facility] [address] [facility] [id number] [address] [place] [phone] May, [facility] [address] [facility] [id number] [address] [place] [phone] Apr, [facility] [address] [facility] [id number] [address] [place] [phone] Apr, [facility] [address] [facility] [id number] [address] [place] [phone] Apr, [facility] [address] [facility] [id number] [address] [place] [phone] Apr, [facility] [address] [facility] [id number] [address] [place] [phone] Mar, [facility] [address] [place] [id number] [address] [place] [phone] Mar, [facility] [address] [phone] February, Acute cystitis with hematuri a N30.01 [facility] [address] [phone] February, [place] [address] [phone] February, Type 1 diabetes mellitus wit h hyperglycemia E10.65 ; Dysuria R30.0 ; Polyneuropathy associated with underlying disease G63 ; Dysthymia F34.1 ; Restless legs syndrome G25.81 ; Acute cystitis with hematuria N30.01 and Shoulder arthritis M19.019 [place] [address] [phone] February, [place] [address] [phone] Jan, [place] [address] [place] [id number] [address] [place] [phone] Jan, [place] [address] [place] [id number] [address] [place] [phone] Dec, [facility] [address] [place] [id number] [address] [place] [phone] Dec, Open bite of right forearm, initial encounter S51.851A ; Local infection of the skin and subcutaneous tissue, unspecified L08.9 and Bitten by cat, initial encounter W55.01XA [place] [address] [address] Nov, [place] [address] [phone] Nov, Type 1 diabetes mellitus wit h hyperglycemia E10.65 ; Type 2 diabetes mellitus without complications E11.9 ; long-term (current) use of insulin Z79.4 ; Acute cystitis with hematuria N30.01 ; Polyneuropathy in diseases classified elsewhere G63 ; Endocrine disorder, unspecified E34.9 ; Dysuria R30.0 ; Dysthymia F34.1 and Restless legs syndrome G25.81 [facility] [address] [id number] [address] [place] [phone] Oct, [facility] [address] [facility] [id number] [address] [place] [phone] Oct, Type 1 diabetes mellitus wit h hyperglycemia E10.65 [facility] [address] [id number] [address] [place] [phone] Oct, [facility] [address] [facility] [id number] [address] [place] [phone] Oct, [facility] [address] [place] [id number] [address] [place] [phone] Sep, [facility] [address] [facility] [id number] [address] [place] [phone] Sep, [facility] [address] [facility] [id number] [address] [place] [phone] Sep, Type 1 diabetes mellitus wit h hyperglycemia E10.65 [facility] [address] [facility] [id number] [address] [place] [phone] Aug, [facility] [address] [facility] [id number] [address] [place] [phone] Aug, Type 1 diabetes mellitus wit h hyperglycemia E10.65 ; Polyneuropathy associated with underlying disease G63 ; Mixed hyperlipidemia E78.2 and Hospital discharge follow-up Z09 [facility] [address] [facility] [id number] [address] [place] [phone] Aug, [facility] [address] [facility] [id number] [address] [place] [phone] Aug, [facility] [address] [facility] [id number] [address] [place] [phone] Aug, [facility] [address] [facility] [id number] [address] [place] [address] Aug, Type 1 diabetes mellitus wit h hyperglycemia E10.65 ; Polyneuropathy associated with underlying disease G63 ; Mixed hyperlipidemia E78.2 ; Dysuria R30.0 ; Dysthymia F34.1 ; Restless legs syndrome G25.81 and Acute cystitis with hematuria N30.01 [facility] [address] [facility] [id number] [address] [place] [phone] May, [facility] [address] [facility] [id number] [address] [place] [id number] Apr, Type 1 diabetes mellitus wit h hyperglycemia E10.65 ; Dysuria R30.0 ; Dysthymia F34.1 ; Polyneuropathy associated with underlying disease G63 ; Acute cystitis without hematuria N30.00 and Encounter to establish care with new doctor Z76.89 IMMUNIZATIONS No Known Immunizations SOCIAL HISTORY Never Assessed REASON FOR VISIT insulin pump upload request PLAN OF CARE VITAL SIGNS MEDICATIONS Unknown [...]
--- OUTSIDE RECORDS SUMMARY | 2019-12-29 13:33 | XMS REPORT ---
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 Active 947735900 Problem Dysthymia F34.1 Active 00537584 Problem Type 1 diabetes mellitus with hyperglycemia E10.65 Active 381663767284519 Problem Other chronic pain G89.29 Active 8 4753120 Problem Mixed hyperlipidemia E78.2 Active 510251736 Problem Generalized anxiety disorder F41.1 A ctive 23426669 Problem Restless legs syndrome G25.81 Active 53171409 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 427394223 Problem Shoulder arthritis M19.019 Active 4 54003796 Problem Long-term insulin use Z79.4 Active 353792212 ALLERGIES No Information ENCOUNTERS Encounter Location Date Diagnosis [facility] [address] [facility] [id number] [address] [place] [phone] Mar, [facility] [address] [facility] [id number] [address] [place] [phone] February, [facility] [address] [facility] [id number] [address] [place] [phone] February, [facility] [address] [facility] [id number] [address] [place] [phone] February, Dysthymia F34.1 and Generali zed anxiety disorder F41.1 [facility] [address] [facility] [id number] [address] [place] [phone] February, [facility] [address] [facility] [id number] [address] [place] [phone] Jan, [facility] [address] [facility] [id number] [address] [place] [phone] Jan, Dysthymia F34.1 and Generali zed anxiety disorder F41.1 [facility] [address] [id number] [address] [place] [phone] Jan, Acute cystitis without hemat uria N30.00 and Flank pain R10.9 [facility] [address] [id number] [address] [place] [phone] Jan, Type 1 diabetes mellitus wit h hyperglycemia E10.65 [facility] [address] [facility] [id number] [address] [place] [phone] Jan, Dysthymia F34.1 [facility] [address] [facility] [id number] [address] [place] [phone] Jan, [facility] [address] [facility] [id number] [address] [place] [phone] Jan, [facility] [address] [facility] [id number] [address] [place] [phone] Jan, [facility] [address] [facility] [id number] [address] [place] [phone] Jan, [facility] [address] [facility] [id number] [address] [place] [phone] Jan, [facility] [address] [facility] [id number] [address] [place] [phone] Jan, Dysthymia F34.1 and Generali zed anxiety disorder F41.1 [facility] [address] [id number] [address] [place] [phone] Dec, Mood disorder F39 and Anxiet y disorder, unspecified F41.9 [facility] [address] [facility] [id number] [address] [place] [phone] Dec, Restless legs syndrome G25.8 1 and Type 1 diabetes mellitus with hyperglycemia E10.65 [facility] [address] [id number] [address] [place] [phone] Dec, [facility] [address] [facility] [id number] [address] [place] [phone] Dec, [facility] [address] [facility] [id number] [address] [place] [phone] Dec, [facility] [address] [facility] [id number] [address] [place] [phone] Dec, Mood disorder F39 and Anxiet y disorder, unspecified F41.9 [facility] [address] [id number] [address] [place] [id number] Dec, Type 1 diabetes mellitus wit h hyperglycemia E10.65 and Anxiety disorder, unspecified F41.9 [facility] [address] [facility] [id number] [address] [place] [phone] 08 Dec, 2018 Type 1 diabetes mellitus wit h hyperglycemia E10.65 [facility] [address] [facility] [id number] [address] [place] [phone] Nov, Acute cyclitis H20.00 [facility] [address] [facility] [id number] [address] [place] [phone] Oct, Type 1 diabetes mellitus wit h hyperglycemia E10.65 [facility] [address] [facility] [id number] [address] [place] [phone] Oct, 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 [facility] [address] [facility] [id number] [address] [place] [phone] Sep, [facility] [address] [facility] [id number] [address] [place] [phone] Aug, [facility] [address] [facility] [id number] [address] [place] [phone] Jul, [facility] [address] [facility] [id number] [address] [place] [phone] Jun, Type 1 diabetes mellitus wit h [...] shoulder M25.511 and Other chronic pain G89.29 [facility] [address] [facility] [id number] [address] [place] [phone] May, [facility] [address] [id number] [address] [place] [phone] Apr, [facility] [address] [facility] [id number] [address] [place] [phone] Apr, [facility] [address] [facility] [id number] [address] [place] [phone] Apr, [facility] [address] [facility] [id number] [address] [place] [phone] Apr, [facility] [address] [facility] [id number] [address] [place] [phone] Mar, [facility] [address] [facility] [id number] [address] [place] [phone] Mar, [facility] [address] [facility] [id number] [address] [place] [phone] February, Acute cystitis with hematuri a N30.01 [facility] [address] [facility] [id number] [address] [place] [phone] February, [facility] [address] [facility] [id number] [address] [place] [id number] February, Type 1 diabetes mellitus wit h hyperglycemia E10.65 ; Dysuria R30.0 ; Polyneuropathy associated with underlying disease G63 ; Dysthymia F34.1 ; Restless legs syndrome G25.81 ; Acute cystitis with hematuria N30.01 and Shoulder arthritis M19.019 [facility] [address] [facility] [id number] [address] [place] [phone] February, [facility] [address] [facility] [id number] [address] [place] [phone] Jan, [facility] [address] [facility] [id number] [address] [place] [phone] Jan, [facility] [address] [place] [id number] [address] [place] [phone] Dec, [facility] [address] [facility] [id number] [address] [place] [phone] Dec, Open bite of right forearm, initial encounter S51.851A ; Local infection of the skin and subcutaneous tissue, unspecified L08.9 and Bitten by cat, initial encounter W55.01XA [facility] [address] [place] [id number] [address] [place] [phone] Nov, [facility] [address] [place] [id number] [address] [place] [phone] Nov, Type 1 diabetes mellitus wit h hyperglycemia E10.65 ; Type 2 diabetes mellitus without complications E11.9 ; [facility] (current) use of insulin Z79.4 ; Acute cystitis with hematuria N30.01 ; Polyneuropathy in diseases classified elsewhere G63 ; Endocrine disorder, unspecified E34.9 ; Dysuria R30.0 ; Dysthymia F34.1 and Restless legs syndrome G25.81 [facility] [address] [facility] [id number] [address] [place] [phone] Oct, [facility] [address] [facility] [id number] [address] [place] [phone] Oct, Type 1 diabetes mellitus wit h hyperglycemia E10.65 [facility] [address] [facility] [id number] [address] [place] [phone] Oct, [facility] [address] [place] [id number] [address] [place] [id number] Oct, [facility] [address] [place] [id number] [address] [place] [phone] Sep, [facility] [address] [facility] [id number] [address] [place] [phone] Sep, [facility] [address] [facility] [id number] [address] [place] [phone] Sep, Type 1 diabetes mellitus wit h hyperglycemia E10.65 [facility] [address] [place] [id number] [address] [place] [id number] Aug, [facility] [address] [facility] [id number] [address] [place] [phone] Aug, Type 1 diabetes mellitus wit h hyperglycemia E10.65 ; Polyneuropathy associated with underlying disease G63 ; Mixed hyperlipidemia E78.2 and Hospital discharge follow-up Z09 [facility] [address] [place] [id number] [address] [place] [phone] Aug, [facility] [address] [place] [id number] [address] [place] [id number] Aug, [facility] [address] [place] [id number] [address] [place] [phone] Aug, [facility] [address] [place] [id number] [address] [place] [id number] Aug, Type 1 diabetes mellitus wit h hyperglycemia E10.65 ; Polyneuropathy associated with underlying disease G63 ; Mixed hyperlipidemia E78.2 ; Dysuria R30.0 ; Dysthymia F34.1 ; Restless legs syndrome G25.81 and Acute cystitis with hematuria N30.01 [facility] [address] [place] [id number] [address] [place] [id number] May, [facility] [address] [place] [id number] [address] [place] [phone] Apr, Type 1 diabetes mellitus wit h hyperglycemia E10.65 ; Dysuria R30.0 ; Dysthymia F34.1 ; Polyneuropathy associated with underlying disease G63 ; Acute cystitis without hematuria N30.00 and Encounter to establish care with new doctor Z76.89 IMMUNIZATIONS No Known Immunizations SOCIAL HISTORY Never Assessed REASON FOR VISIT Intake PLAN OF CARE Activity Details Follow Up next available Reason:depres evelina and anger VITAL SIGNS MEDICATIONS Medication Instructions Dosage Frequency Start Date End Date Duration S tatus Lisinopril 5 mg Orally Once a day 1 tablet 24h Apr, 90 days Active Humalog 100 UNIT/ML Subcutaneous 3 times a day inject 10-15 units three times daily 8h Mar, 30 days Active Amitriptyline HCl 25 MG Orally Once a day 1 tablet 24h Jun, 30 day(s) Active Pravachol 20 mg Orally Once a day 1 tablet 24h Jun, 90 days Active Ciprofloxacin HCl 500 MG Orally every 12 hrs 1 tablet 12h 2018 7 day(s) Unknown Gabapentin 300 MG Orally twice a day 1 capsule twice daily 12h 0 Aug, 90 days Active Amitriptyline HCl 10 mg Orally Once a day 1 tablet 24h 90 days Active Glucocard Expression Test 1 subcutaneously 3 times a day test 3 times per day 8h Apr, 12 months Active Sertraline HCl 50 mg Orally Once a day 1 tablet 24h Jun, 14 days Unknown Levemir 100 UNIT/ML Subcutaneous 2 times a day INJECT 20 UNI TS SUBCUTANEOUSLY IN THE MORNING AND 20 UNITS IN THE EVENING 12h 2 5 Active RESULTS No Results PROCEDURES Procedure Date Ordered Result Body Site Psych diagnostic evaluation, established patient December 27, 2018 INSTRUCTIONS MEDICATIONS ADMINISTERED No [...]
--- OUTSIDE RECORDS SUMMARY | 2019-12-29 13:33 | XMS REPORT ---
Author Author Misty RUIZ Organization [facility] Address [address] [place] [address] Care Team Providers Care Bakery Sales Clerk Name Role Phone GRISELDA RUIZ Unavailable PROBLEMS Type Condition ICD9-CM Code BPC72-UK Code Onset Dates Condition S tatus SNOMED Code Problem Mixed hyperlipidemia E78.2 Active 440495451 Problem Dysthymia F34.1 Active 12838201 Problem Type 1 diabetes mellitus with hyperglycemia E10.65 Active 497305195065239 Problem Polyneuropathy due to type 1 diabetes mellitus E10 .42 Active 077894160 Problem Other chronic pain G89.29 Active 8 5220947 Problem Long-term insulin use Z79.4 Active 708538421 Problem 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.4 Active 717348853 Problem Restless legs syndrome G25.81 Active 40161281 Problem 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 33837458 Problem Shoulder arthritis M19.019 Active 4 38644438 ALLERGIES No Information ENCOUNTERS Encounter Location Date Diagnosis [place] [id number] [facility] [id number] [address] [place] [phone] Jul, [facility] [address] [facility] [id number] [address] [place] [phone] Jun, Type 1 diabetes mellitus wit h [...] shoulder M25.511 and Other chronic pain G89.29 [facility] [address] [facility] [id number] [address] [place] [phone] May, [facility] [address] [id number] [address] [place] [phone] Apr, [facility] [address] [id number] [address] [place] [phone] Apr, [facility] [address] [facility] [id number] [address] [place] [phone] Apr, [facility] [address] [id number] [address] [place] [phone] Apr, [facility] [address] [id number] [address] [place] [phone] Mar, [facility] [address] [facility] [id number] [address] [place] [phone] Mar, [facility] [address] [facility] [id number] [address] [place] [phone] February, Acute cystitis with hematuri a N30.01 [facility] [address] [facility] [id number] [address] [place] [phone] February, [facility] [address] [facility] [id number] [address] [place] [phone] February, Type 1 diabetes mellitus wit h hyperglycemia E10.65 ; Dysuria R30.0 ; Polyneuropathy associated with underlying disease G63 ; Dysthymia F34.1 ; Restless legs syndrome G25.81 ; Acute cystitis with hematuria N30.01 and Shoulder arthritis M19.019 [facility] [address] [facility] [id number] [address] [place] [phone] February, [facility] [address] [facility] [id number] [address] [place] [phone] Jan, [facility] [address] [facility] [id number] [address] [place] [phone] Jan, [facility] [address] [facility] [id number] [address] [place] [phone] Dec, [facility] [address] [facility] [id number] [address] [place] [phone] Dec, Open bite of right forearm, initial encounter S51.851A ; Local infection of the skin and subcutaneous tissue, unspecified L08.9 and Bitten by cat, initial encounter W55.01XA [facility] [address] [place] [id number] [address] [place] [phone] Nov, [facility] [address] [place] [id number] [address] [place] [phone] Nov, Type 1 diabetes mellitus wit h hyperglycemia E10.65 ; Type 2 diabetes mellitus without complications E11.9 ; assisted (current) use of insulin Z79.4 ; Acute cystitis with hematuria N30.01 ; Polyneuropathy in diseases classified elsewhere G63 ; Endocrine disorder, unspecified E34.9 ; Dysuria R30.0 ; Dysthymia F34.1 and Restless legs syndrome G25.81 [facility] [address] [place] [id number] [address] [place] [phone] Oct, [facility] [address] [place] [id number] [address] [place] [phone] Oct, Type 1 diabetes mellitus wit h hyperglycemia E10.65 [facility] [address] [place] [id number] [address] [place] [phone] Oct, [facility] [address] [place] [id number] [address] [place] [phone] Oct, [facility] [address] [place] [id number] [address] [place] [phone] Sep, [facility] [address] [place] [id number] [address] [place] [phone] Sep, [facility] [address] [place] [id number] [address] [place] [phone] Sep, Type 1 diabetes mellitus wit h hyperglycemia E10.65 [facility] [address] [place] [id number] [address] [place] [phone] Aug, [facility] [address] [facility] [id number] [address] [place] [phone] Aug, Type 1 diabetes mellitus wit h hyperglycemia E10.65 ; Polyneuropathy associated with underlying disease G63 ; Mixed hyperlipidemia E78.2 and Hospital discharge follow-up Z09 [facility] [address] [place] [id number] [address] [place] [phone] Aug, [facility] [address] [address] Aug, [facility] [address] [place] [id number] [place] [phone] Aug, [place] [address] [address] Aug, Type 1 diabetes mellitus wit h hyperglycemia E10.65 ; Polyneuropathy associated with underlying disease G63 ; Mixed hyperlipidemia E78.2 ; Dysuria R30.0 ; Dysthymia F34.1 ; Restless legs syndrome G25.81 and Acute cystitis with hematuria N30.01 [place] [address] [place] [id number] [address] [place] [address] May, [place] [address] [place] [id number] [address] [place] [phone] Apr, Type 1 diabetes mellitus wit h hyperglycemia E10.65 ; Dysuria R30.0 ; Dysthymia F34.1 ; Polyneuropathy associated with underlying disease G63 ; Acute cystitis without hematuria N30.00 and Encounter to establish care with new doctor Z76.89 IMMUNIZATIONS No Known Immunizations SOCIAL HISTORY Never Assessed REASON FOR VISIT upload request PLAN OF CARE VITAL SIGNS [...]
--- OUTSIDE RECORDS SUMMARY | 2019-12-29 13:33 | XMS REPORT ---
Author Author Misty HAN Organization [facility] Address [address] [place] [address] Care Team Providers Care Fuel Distribution System Operator Name Role Phone HANTHAO MurryELE Unavailable PROBLEMS Type Condition ICD9-CM Code NBM98-DL Code Onset Dates Condition S tatus SNOMED Code Problem Mixed hyperlipidemia E78.2 Active 757903582 Problem Polyneuropathy due to type 1 diabetes mellitus E10 .42 Active 530008031 Problem Shoulder arthritis M19.019 Active 4 68080529 Problem prison (current) use of insulin Z79.4 Active 245599546 Problem Polyneuropathy associated with underlying disease G63 Active 475655814 Problem Type 1 diabetes mellitus with hyperglycemia E10.65 Active 710288252305884 Problem Restless legs syndrome G25.81 Active 26628094 Problem Dysthymia F34.1 Active 50919764 ALLERGIES No Information ENCOUNTERS Encounter Location Date Diagnosis [facility] [address] [facility] [id number] [address] [place] [phone] Jun, [facility] [address] [facility] [id number] [address] [place] [address] May, [facility] [address] [facility] [id number] [address] [place] [phone] Apr, [facility] [address] [facility] [id number] [address] [place] [phone] Apr, [facility] [address] [facility] [id number] [address] [place] [phone] Apr, [facility] [address] [facility] [id number] [address] [place] [phone] Apr, [facility] [address] [facility] [id number] [address] [place] [address] Mar, [facility] [address] [place] [id number] [address] [place] [address] Mar, [facility] [address] [address] February, Acute cystitis with hematuri a N30.01 [facility] [address] [address] February, [place] [address] [address] February, Type 1 diabetes mellitus wit h hyperglycemia E10.65 ; Dysuria R30.0 ; Polyneuropathy associated with underlying disease G63 ; Dysthymia F34.1 ; Restless legs syndrome G25.81 ; Acute cystitis with hematuria N30.01 and Shoulder arthritis M19.019 [place] [address] [address] February, [place] [address] [address] Jan, [place] [address] [place] [id number] [address] [place] [address] Jan, [place] [address] [place] [id number] [address] [place] [address] Dec, [facility]ALK [facility] [address] [place] [id number] [address] [place] [address] Dec, Open bite of right forearm, initial encounter S51.851A ; Local infection of the skin and subcutaneous tissue, unspecified L08.9 and Bitten by cat, initial encounter W55.01XA [place] [address] [address] Nov, [place] [address] [address] Nov, Type 1 diabetes mellitus wit h hyperglycemia E10.65 ; Type 2 diabetes mellitus without complications E11.9 ; prison (current) use of insulin Z79.4 ; Acute cystitis with hematuria N30.01 ; Polyneuropathy in diseases classified elsewhere G63 ; Endocrine disorder, unspecified E34.9 ; Dysuria R30.0 ; Dysthymia F34.1 and Restless legs syndrome G25.81 [facility] [address] [id number] [address] [place] [phone] Oct, [facility] [address] [facility] [id number] [address] [place] [address] Oct, Type 1 diabetes mellitus wit h hyperglycemia E10.65 [facility] [address] [id number] [address] [place] [phone] Oct, [facility] [address] [facility] [id number] [address] [place] [phone] Oct, [facility] [address] [place] [id number] [address] [place] [phone] Sep, [facility] [address] [facility] [id number] [address] [place] [phone] Sep, [facility] [address] [facility] [id number] [address] [place] [phone] Sep, Type 1 diabetes mellitus wit h hyperglycemia E10.65 [facility] [address] [facility] [id number] [address] [place] [phone] Aug, [facility] [address] [facility] [id number] [address] [place] [address] Aug, Type 1 diabetes mellitus wit h hyperglycemia E10.65 ; Polyneuropathy associated with underlying disease G63 ; Mixed hyperlipidemia E78.2 and Hospital discharge follow-up Z09 [facility] [address] [facility] [id number] [address] [place] [phone] Aug, [facility] [address] [facility] [id number] [address] [place] [address] Aug, [facility] [address] [facility] [id number] [address] [place] [address] Aug, [facility] [address] [facility] [id number] [address] [place] [address] Aug, Type 1 diabetes mellitus wit h hyperglycemia E10.65 ; Polyneuropathy associated with underlying disease G63 ; Mixed hyperlipidemia E78.2 ; Dysuria R30.0 ; Dysthymia F34.1 ; Restless legs syndrome G25.81 and Acute cystitis with hematuria N30.01 [facility] [address] [facility] [id number] [address] [place] [address] May, [facility] [address] [facility] [id number] [address] [place] [address] Apr, Type 1 diabetes mellitus wit h hyperglycemia E10.65 ; Dysuria R30.0 ; Dysthymia F34.1 ; Polyneuropathy associated with underlying disease G63 ; Acute cystitis without hematuria N30.00 and Encounter to establish care with new doctor Z76.89 IMMUNIZATIONS No Known Immunizations SOCIAL HISTORY Never Assessed REASON FOR VISIT medication refill request PLAN OF CARE VITAL SIGNS MEDICATIONS Medication Instructions Dosage Frequency Start Date End Date Duration S tatus NovoLog 100 UNIT/ML Subcutaneous 3 times a day Inject 20 units 8h 30 Active RESULTS No Results PROCEDURES No Known [...]
--- OUTSIDE RECORDS SUMMARY | 2019-12-29 13:34 | XMS REPORT ---
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 Active 581144961 Problem Shoulder arthritis M19.019 Active 4 78140774 Problem [facility] (current) use of insulin Z79.4 Active 726577872 Problem Polyneuropathy associated with underlying disease G63 Active 144479407 Problem Type 1 diabetes mellitus with hyperglycemia E10.65 Active 523964345691118 Problem Restless legs syndrome G25.81 Active 33707071 Problem Dysthymia F34.1 Active 42059528 ALLERGIES No Information ENCOUNTERS Encounter Location Date Diagnosis [facility] [address] [facility] [id number] [address] [place] [phone] Jun, [facility] [address] [facility] [id number] [address] [place] [phone] May, [facility] [address] [facility] [id number] [address] [place] [phone] Apr, [facility] [address] [facility] [id number] [address] [place] [phone] Apr, [facility] [address] [facility] [id number] [address] [place] [address] Apr, [facility] [address] [facility] [id number] [address] [place] [phone] Apr, [facility] [address] [facility] [id number] [address] [place] [phone] Mar, [facility] [address] [place] [id number] [address] [place] [address] Mar, [facility] [address] [address] February, Acute cystitis with hematuri a N30.01 [facility] [address] [address] February, [place] [address] [address] February, Type 1 diabetes mellitus wit h hyperglycemia E10.65 ; Dysuria R30.0 ; Polyneuropathy associated with underlying disease G63 ; Dysthymia F34.1 ; Restless legs syndrome G25.81 ; Acute cystitis with hematuria N30.01 and Shoulder arthritis M19.019 [place] [address] [address] February, [place] [address] [address] Jan, [place] [address] [place] [id number] [address] [place] [phone] Jan, [place] [address] [place] [id number] [address] [place] [phone] Dec, [facility] [address] [place] [id number] [address] [place] [address] Dec, Open bite of right forearm, initial encounter S51.851A ; Local infection of the skin and subcutaneous tissue, unspecified L08.9 and Bitten by cat, initial encounter W55.01XA [place] [address] [address] Nov, [place] [address] [address] Nov, Type 1 diabetes mellitus wit h hyperglycemia E10.65 ; Type 2 diabetes mellitus without complications E11.9 ; [facility] (current) use of insulin Z79.4 ; Acute cystitis with hematuria N30.01 ; Polyneuropathy in diseases classified elsewhere G63 ; Endocrine disorder, unspecified E34.9 ; Dysuria R30.0 ; Dysthymia F34.1 and Restless legs syndrome G25.81 [facility] [address] [id number] [address] [place] [address] Oct, [facility] [address] [facility] [id number] [address] [place] [phone] Oct, Type 1 diabetes mellitus wit h hyperglycemia E10.65 [facility] [address] [id number] [address] [place] [phone] Oct, [facility] [address] [facility] [id number] [address] [place] [phone] Oct, [facility] [address] [place] [id number] [address] [place] [phone] Sep, [facility] [address] [facility] [id number] [address] [place] [phone] Sep, [facility] [address] [facility] [id number] [address] [place] [address] Sep, Type 1 diabetes mellitus wit h hyperglycemia E10.65 [facility] [address] [facility] [id number] [address] [place] [phone] Aug, [facility] [address] [facility] [id number] [address] [place] [phone] Aug, Type 1 diabetes mellitus wit h hyperglycemia E10.65 ; Polyneuropathy associated with underlying disease G63 ; Mixed hyperlipidemia E78.2 and Hospital discharge follow-up Z09 [facility] [address] [facility] [id number] [address] [place] [phone] Aug, [facility] [address] [facility] [id number] [address] [place] [phone] Aug, [facility] [address] [facility] [id number] [address] [place] [phone] Aug, [facility] [address] [facility] [id number] [address] [place] [address] Aug, Type 1 diabetes mellitus wit h hyperglycemia E10.65 ; Polyneuropathy associated with underlying disease G63 ; Mixed hyperlipidemia E78.2 ; Dysuria R30.0 ; Dysthymia F34.1 ; Restless legs syndrome G25.81 and Acute cystitis with hematuria N30.01 [facility] [address] [facility] [id number] [address] [place] [phone] May, [facility] [address] [facility] [id number] [address] [place] [address] Apr, Type 1 diabetes mellitus wit h hyperglycemia E10.65 ; Dysuria R30.0 ; Dysthymia F34.1 ; Polyneuropathy associated with underlying disease G63 ; Acute cystitis without hematuria N30.00 and Encounter to establish care with new doctor Z76.89 IMMUNIZATIONS No Known Immunizations SOCIAL HISTORY Never Assessed REASON FOR VISIT 6 mo DM ed f/u PLAN OF CARE VITAL SIGNS MEDICATIONS Unknown [...]
--- OUTSIDE RECORDS SUMMARY | 2019-12-29 13:34 | XMS REPORT ---
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 Active 859248343 Problem Shoulder arthritis M19.019 Active 4 64251554 Problem custodial (current) use of insulin Z79.4 Active 209840406 Problem Polyneuropathy associated with underlying disease G63 Active 098437877 Problem Type 1 diabetes mellitus with hyperglycemia E10.65 Active 688621725396951 Problem Restless legs syndrome G25.81 Active 77537263 Problem Dysthymia F34.1 Active 16918300 ALLERGIES No Information ENCOUNTERS Encounter Location Date Diagnosis [facility] [address] [facility] [id number] [address] [place] [phone] Jun, [facility] [address] [facility] [id number] [address] [place] [phone] May, [facility] [address] [facility] [id number] [address] [place] [phone] Apr, [facility] [address] [facility] [id number] [address] [place] [phone] Apr, [facility] [address] [facility] [id number] [address] [place] [phone] Apr, [facility] [address] [facility] [id number] [address] [place] [phone] Apr, [facility] [address] [facility] [id number] [address] [place] [phone] Mar, [facility] [address] [place] [id number] [address] [place] [address] Mar, [facility] [address] [address] February, Acute cystitis with hematuri a N30.01 [facility] [address] [address] February, [place] [address] [address] February, Type 1 diabetes mellitus wit h hyperglycemia E10.65 ; Dysuria R30.0 ; Polyneuropathy associated with underlying disease G63 ; Dysthymia F34.1 ; Restless legs syndrome G25.81 ; Acute cystitis with hematuria N30.01 and Shoulder arthritis M19.019 [place] [address] [address] February, [place] [address] [address] Jan, [place] [address] [place] [id number] [address] [place] [address] Jan, [place] [address] [place] [id number] [address] [place] [address] Dec, [facility]ALK IN [facility] [address] [place] [id number] [address] [place] [address] Dec, Open bite of right forearm, initial encounter S51.851A ; Local infection of the skin and subcutaneous tissue, unspecified L08.9 and Bitten by cat, initial encounter W55.01XA [place] [address] [address] Nov, [place] [address] [address] Nov, Type 1 diabetes mellitus wit h hyperglycemia E10.65 ; Type 2 diabetes mellitus without complications E11.9 ; custodial (current) use of insulin Z79.4 ; Acute cystitis with hematuria N30.01 ; Polyneuropathy in diseases classified elsewhere G63 ; Endocrine disorder, unspecified E34.9 ; Dysuria R30.0 ; Dysthymia F34.1 and Restless legs syndrome G25.81 [facility] [address] [id number] [address] [place] [phone] Oct, [facility] [address] [facility] [id number] [address] [place] [address] Oct, Type 1 diabetes mellitus wit h hyperglycemia E10.65 [facility] [address] [id number] [address] [place] [address] Oct, [facility] [address] [facility] [id number] [address] [place] [phone] Oct, [facility] [address] [place] [id number] [address] [place] [phone] Sep, [facility] [address] [facility] [id number] [address] [place] [phone] Sep, [facility] [address] [facility] [id number] [address] [place] [address] Sep, Type 1 diabetes mellitus wit h hyperglycemia E10.65 [facility] [address] [facility] [id number] [address] [place] [phone] Aug, [facility] [address] [facility] [id number] [address] [place] [address] Aug, Type 1 diabetes mellitus wit h hyperglycemia E10.65 ; Polyneuropathy associated with underlying disease G63 ; Mixed hyperlipidemia E78.2 and Hospital discharge follow-up Z09 [facility] [address] [facility] [id number] [address] [place] [phone] Aug, [facility] [address] [facility] [id number] [address] [place] [phone] Aug, [facility] [address] [facility] [id number] [address] [place] [phone] Aug, [facility] [address] [facility] [id number] [address] [place] [address] Aug, Type 1 diabetes mellitus wit h hyperglycemia E10.65 ; Polyneuropathy associated with underlying disease G63 ; Mixed hyperlipidemia E78.2 ; Dysuria R30.0 ; Dysthymia F34.1 ; Restless legs syndrome G25.81 and Acute cystitis with hematuria N30.01 [facility] [address] [facility] [id number] [address] [place] [phone] May, [facility] [address] [facility] [id number] [address] [place] [address] Apr, Type 1 diabetes mellitus wit h hyperglycemia E10.65 ; Dysuria R30.0 ; Dysthymia F34.1 ; Polyneuropathy associated with underlying disease G63 ; Acute cystitis without hematuria N30.00 and Encounter to establish care with new doctor Z76.89 IMMUNIZATIONS No Known Immunizations SOCIAL HISTORY Never Assessed REASON FOR VISIT PA for Novolog PLAN OF CARE VITAL SIGNS MEDICATIONS Medication Instructions Dosage Frequency Start Date End Date Duration S tatus Humalog 100 UNIT/ML inject 60 units daily Mar, 30 days Active RESULTS No Results PROCEDURES No Known [...]
--- OUTSIDE RECORDS SUMMARY | 2019-12-29 13:34 | XMS REPORT ---
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 Active 346241861 Problem Shoulder arthritis M19.019 Active 4 98817654 Problem retirement (current) use of insulin Z79.4 Active 692816591 Problem Polyneuropathy associated with underlying disease G63 Active 489411834 Problem Type 1 diabetes mellitus with hyperglycemia E10.65 Active 273723288704169 Problem Restless legs syndrome G25.81 Active 32223194 Problem Dysthymia F34.1 Active [id number] ALLERGIES No Information ENCOUNTERS Encounter Location Date Diagnosis [facility] [address] [facility] [id number] [address] [place] [phone] Apr, [facility] [address] [facility] [id number] [address] [place] [phone] Apr, [facility] [address] [facility] [id number] [address] [place] [phone] Apr, [facility] [address] [facility] [id number] [address] [place] [phone] Apr, [facility] [address] [facility] [id number] [address] [place] [phone] Mar, [facility] [address] [facility] [id number] [address] [place] [phone] Mar, [facility] [address] [facility] [id number] [address] [place] [address] February, Acute cystitis with hematuri a N30.01 [facility] [address] [place] [phone] February, [facility] [address] [address] February, Type 1 diabetes mellitus wit h hyperglycemia E10.65 ; Dysuria R30.0 ; Polyneuropathy associated with underlying disease G63 ; Dysthymia F34.1 ; Restless legs syndrome G25.81 ; Acute cystitis with hematuria N30.01 and Shoulder arthritis M19.019 [facility] [address] [place] [id number] [address] [place] [phone] February, [facility] [address] [phone] Jan, [place] [address] [phone] Jan, [facility] [address] [place] [id number] [address] [place] [phone] Dec, [facility] [address] [place] [id number] [address] [place] [phone] Dec, Open bite of right forearm, initial encounter S51.851A ; Local infection of the skin and subcutaneous tissue, unspecified L08.9 and Bitten by cat, initial encounter W55.01XA [facility] [address] [place] [address] Nov, [facility] [address] [place] [id number] [address] [place] [phone] Nov, Type 1 diabetes mellitus wit h hyperglycemia E10.65 ; Type 2 diabetes mellitus without complications E11.9 ; retirement (current) use of insulin Z79.4 ; Acute cystitis with hematuria N30.01 ; Polyneuropathy in diseases classified elsewhere G63 ; Endocrine disorder, unspecified E34.9 ; Dysuria R30.0 ; Dysthymia F34.1 and Restless legs syndrome G25.81 [facility] [address] [place] [id number] [address] [place] [phone] Oct, [facility] [address] [id number] [address] [place] [phone] Oct, Type 1 diabetes mellitus wit h hyperglycemia E10.65 [facility] [address] [facility] [id number] [address] [place] [id number] Oct, [facility] [address] [facility] [id number] [address] [place] [phone] Oct, [facility] [address] [facility] [id number] [address] [place] [phone] Sep, [facility] [address] [facility] [id number] [address] [place] [phone] Sep, [facility] [address] [facility] [id number] [address] [place] [phone] Sep, Type 1 diabetes mellitus wit h hyperglycemia E10.65 [facility] [address] [facility] [id number] [address] [place] [phone] Aug, [facility] [address] [facility] [id number] [address] [place] [phone] Aug, Type 1 diabetes mellitus wit h hyperglycemia E10.65 ; Polyneuropathy associated with underlying disease G63 ; Mixed hyperlipidemia E78.2 and Hospital discharge follow-up Z09 [facility] [address] [facility] [id number] [address] [place] [phone] Aug, [facility] [address] [facility] [id number] [address] [place] [phone] Aug, [facility] [address] [facility] [id number] [address] [place] [phone] Aug, [facility] [address] [facility] [id number] [address] [place] [address] Aug, Type 1 diabetes mellitus wit h hyperglycemia E10.65 ; Polyneuropathy associated with underlying disease G63 ; Mixed hyperlipidemia E78.2 ; Dysuria R30.0 ; Dysthymia F34.1 ; Restless legs syndrome G25.81 and Acute cystitis with hematuria N30.01 [facility] [address] [facility] [id number] [address] [place] [phone] May, [facility] [address] [facility] [id number] [address] [place] [phone] Apr, Type 1 diabetes mellitus wit h [...]
--- OUTSIDE RECORDS SUMMARY | 2019-12-29 13:34 | XMS REPORT ---
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 Active 170956061 Problem Shoulder arthritis M19.019 Active 4 36127709 Problem nursing home (current) use of insulin Z79.4 Active 169318654 Problem Polyneuropathy associated with underlying disease G63 Active 873123080 Problem Type 1 diabetes mellitus with hyperglycemia E10.65 Active 032305785164639 Problem Restless legs syndrome G25.81 Active 03997196 Problem Dysthymia F34.1 Active 15732652 ALLERGIES No Information ENCOUNTERS Encounter Location Date Diagnosis [facility] [address] [facility] [id number] [address] [place] [phone] Apr, [facility] [address] [facility] [id number] [address] [place] [phone] Apr, [facility] [address] [facility] [id number] [address] [place] [phone] Apr, [facility] [address] [facility] [id number] [address] [place] [phone] Apr, [facility] [address] [facility] [id number] [address] [place] [phone] Mar, [facility] [address] [place] [id number] [address] [place] [phone] Mar, [facility] [address] [facility] [id number] [address] [place] [phone] February, Acute cystitis with hematuri a N30.01 [facility] [address] [place] [phone] February, [facility] [address] [address] February, Type 1 diabetes mellitus wit h hyperglycemia E10.65 ; Dysuria R30.0 ; Polyneuropathy associated with underlying disease G63 ; Dysthymia F34.1 ; Restless legs syndrome G25.81 ; Acute cystitis with hematuria N30.01 and Shoulder arthritis M19.019 [facility] [address] [place] [id number] [address] [place] [phone] February, [facility] [address] [address] Jan, [place] [address] [address] Jan, [facility] [address] [place] [id number] [address] [place] [phone] Dec, [facility] [address] [place] [id number] [address] [place] [phone] Dec, Open bite of right forearm, initial encounter S51.851A ; Local infection of the skin and subcutaneous tissue, unspecified L08.9 and Bitten by cat, initial encounter W55.01XA [facility] [address] [place] [phone] Nov, [facility] [address] [place] [id number] [address] [place] [address] Nov, Type 1 diabetes mellitus wit h hyperglycemia E10.65 ; Type 2 diabetes mellitus without complications E11.9 ; 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 ; Acute cystitis with hematuria N30.01 ; Polyneuropathy in diseases classified elsewhere G63 ; Endocrine disorder, unspecified E34.9 ; Dysuria R30.0 ; Dysthymia F34.1 and Restless legs syndrome G25.81 [facility] [address] [place] [id number] [address] [place] [phone] Oct, [facility] [address] [id number] [address] [place] [phone] Oct, Type 1 diabetes mellitus wit h hyperglycemia E10.65 [facility] [address] [facility] [id number] [address] [place] [phone] Oct, [facility] [address] [facility] [id number] [address] [place] [phone] Oct, [facility] [address] [facility] [id number] [address] [place] [phone] Sep, [facility] [address] [facility] [id number] [address] [place] [phone] Sep, [facility] [address] [facility] [id number] [address] [place] [phone] Sep, Type 1 diabetes mellitus wit h hyperglycemia E10.65 [facility] [address] [facility] [id number] [address] [place] [phone] Aug, [facility] [address] [facility] [id number] [address] [place] [phone] Aug, Type 1 diabetes mellitus wit h hyperglycemia E10.65 ; Polyneuropathy associated with underlying disease G63 ; Mixed hyperlipidemia E78.2 and Hospital discharge follow-up Z09 [facility] [address] [facility] [id number] [address] [place] [phone] Aug, [facility] [address] [facility] [id number] [address] [place] [phone] Aug, [facility] [address] [facility] [id number] [address] [place] [phone] Aug, [facility] [address] [facility] [id number] [address] [place] [phone] Aug, Type 1 diabetes mellitus wit h hyperglycemia E10.65 ; Polyneuropathy associated with underlying disease G63 ; Mixed hyperlipidemia E78.2 ; Dysuria R30.0 ; Dysthymia F34.1 ; Restless legs syndrome G25.81 and Acute cystitis with hematuria N30.01 [facility] [address] [facility] [id number] [address] [address] May, [facility] [address] [facility] [id number] [address] [address] Apr, Type 1 diabetes mellitus wit h hyperglycemia E10.65 ; Dysuria R30.0 ; Dysthymia F34.1 ; Polyneuropathy associated with underlying disease G63 ; Acute cystitis without hematuria N30.00 and Encounter to establish care with new doctor Z76.89 IMMUNIZATIONS No Known Immunizations SOCIAL HISTORY Never Assessed REASON FOR VISIT new med orders PLAN OF CARE VITAL SIGNS MEDICATIONS Medication Instructions Dosage Frequency Start Date End Date Duration S tatus Nitrofurantoin 100 mg Orally twice a day 1 capsule with food 12h February, 18 Mar, 2018 10 days Active RESULTS No Results PROCEDURES No [...]
--- OUTSIDE RECORDS SUMMARY | 2019-12-29 13:34 | XMS REPORT ---
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 of insulin Z79.4 Active 417887298 Problem Polyneuropathy associated with underlying disease G63 Active 800022572 Problem Type 1 diabetes mellitus with hyperglycemia E10.65 Active 936305826425511 Problem Restless legs syndrome G25.81 Active 22507930 Problem Dysthymia F34.1 Active 19163769 ALLERGIES No Information ENCOUNTERS Encounter Location Date Diagnosis [place] [address] [place] [id number] [address] [place] [phone] Mar, [place] [address] [place] [id number] [address] [place] [address] Mar, [place] [address] [place] [id number] [address] [place] [address] February, Acute cystitis with hematuri a N30.01 [facility] [address] [place] [id number] [address] [place] [address] February, [place] [address] [place] [id number] [address] [place] [address] February, Type 1 diabetes mellitus wit h hyperglycemia E10.65 ; Dysuria R30.0 ; Polyneuropathy associated with underlying disease G63 ; Dysthymia F34.1 ; Restless legs syndrome G25.81 ; Acute cystitis with hematuria N30.01 and Shoulder arthritis M19.019 [facility] [address] [facility] [id number] [address] [place] [phone] February, [facility] [address] [place] [id number] [address] [place] [phone] Jan, [facility] [address] [place] [id number] [address] [place] [phone] Jan, [facility] [address] [place] [id number] [address] [place] [id number] Dec, [facility] [address] [facility] [id number] [address] [place] [address] Dec, Open bite of right forearm, initial encounter S51.851A ; Local infection of the skin and subcutaneous tissue, unspecified L08.9 and Bitten by cat, initial encounter W55.01XA [facility] [address] [place] [id number] [address] [place] [address] Nov, [facility] [address] [place] [id number] [address] [place] [address] Nov, Type 1 diabetes mellitus wit h hyperglycemia E10.65 ; Type 2 diabetes mellitus without complications E11.9 ; shelter (current) use of insulin Z79.4 ; Acute cystitis with hematuria N30.01 ; Polyneuropathy in diseases classified elsewhere G63 ; Endocrine disorder, unspecified E34.9 ; Dysuria R30.0 ; Dysthymia F34.1 and Restless legs syndrome G25.81 [facility] [address] [facility] [id number] [address] [place] [address] Oct, [facility] [address] [place] [id number] [address] [place] [address] Oct, Type 1 diabetes mellitus wit h hyperglycemia E10.65 [facility] [address] [place] [id number] [address] [place] [address] Oct, [facility] [address] [place] [id number] [address] [place] [phone] Oct, [facility] [address] [facility] [id number] [address] [place] [phone] Sep, [facility] [address] [facility] [id number] [address] [place] [address] Sep, [facility] [address] [facility] [id number] [address] [place] [address] Sep, Type 1 diabetes mellitus wit h hyperglycemia E10.65 [facility] [address] [facility] [id number] [address] [place] [phone] Aug, [facility] [address] [facility] [id number] [address] [place] [address] Aug, Type 1 diabetes mellitus wit h hyperglycemia E10.65 ; Polyneuropathy associated with underlying disease G63 ; Mixed hyperlipidemia E78.2 and Hospital discharge follow-up Z09 [facility] [address] [facility] [id number] [address] [place] [address] Aug, [facility] [address] [facility] [id number] [address] [place] [address] Aug, [facility] [address] [facility] [id number] [address] [place] [phone] Aug, [facility] [address] [facility] [id number] [address] [place] [address] Aug, Type 1 diabetes mellitus wit h hyperglycemia E10.65 ; Polyneuropathy associated with underlying disease G63 ; Mixed hyperlipidemia E78.2 ; Dysuria R30.0 ; Dysthymia F34.1 ; Restless legs syndrome G25.81 and Acute cystitis with hematuria N30.01 [facility] [address] [facility] [id number] [address] [place] [address] May, [facility] [address] [facility] [id number] [address] [place] [address] Apr, Type 1 diabetes mellitus wit h [...]
--- OUTSIDE RECORDS SUMMARY | 2019-12-29 13:34 | XMS REPORT ---
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 Active 248917490 Problem Shoulder arthritis M19.019 Active 4 92175012 Problem intermediate (current) use of insulin Z79.4 Active 347440629 Problem Polyneuropathy associated with underlying disease G63 Active 467342272 Problem Type 1 diabetes mellitus with hyperglycemia E10.65 Active 543028525734424 Problem Restless legs syndrome G25.81 Active 92196960 Problem Dysthymia F34.1 Active 39944899 ALLERGIES Substance Reaction Event Type Date Status Sulfamethoxazole-Trimethoprim Unknown Drug Allergy Dec, 201 8 Active ENCOUNTERS Encounter Location Date Diagnosis [place] [address] [address] [facility] [id number] [address] [place] [phone] Apr, [facility] [address] [facility] [id number] [address] [place] [phone] Mar, [place] [address] [address] [place] [id number] [address] [place] [phone] Mar, [facility] [address] [facility] [id number] [address] [place] [phone] February, Acute cystitis with hematuri a N30.01 [facility] [address] [facility] [id number] [address] [place] [address] February, [facility] [address] [facility] [id number] [address] [place] [id number] February, Type 1 diabetes mellitus wit h hyperglycemia E10.65 ; Dysuria R30.0 ; Polyneuropathy associated with underlying disease G63 ; Dysthymia F34.1 ; Restless legs syndrome G25.81 ; Acute cystitis with hematuria N30.01 and Shoulder arthritis M19.019 [facility] [address] [place] [id number] [address] [place] [phone] February, [facility] [address] [address] Jan, [facility] [address] [address] Jan, [facility] [address] [address] Dec, 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 ; Acute cystitis with hematuria N30.01 ; Polyneuropathy in diseases classified elsewhere G63 ; Endocrine disorder, unspecified E34.9 ; Dysuria R30.0 ; Dysthymia F34.1 and Restless legs syndrome G25.81 [facility] [address] [place] [id number] [address] [place] [phone] Oct, [place] [address] [address] [place] [id number] [address] [place] [phone] Oct, Type 1 diabetes mellitus wit h hyperglycemia E10.65 [place] [address] [address] [place] [address] Oct, [facility] [address] [facility] [id number] [address] [place] [phone] Oct, [facility] [address] [facility] [id number] [address] [place] [phone] Sep, [facility] [address] [facility] [id number] [address] [place] [phone] Sep, [facility] [address] [facility] [id number] [address] [place] [id number] Sep, Type 1 diabetes mellitus wit h hyperglycemia E10.65 [facility] [address] [facility] [id number] [address] [place] [id number] Aug, [facility] [address] [facility] [id number] [address] [place] [phone] Aug, Type 1 diabetes mellitus wit h hyperglycemia E10.65 ; Polyneuropathy associated with underlying disease G63 ; Mixed hyperlipidemia E78.2 and Hospital discharge follow-up Z09 [facility] [address] [place] [id number] [address] [place] [phone] Aug, [facility] [address] [place] [id number] [address] [place] [phone] Aug, [facility] [address] [place] [id number] [address] [place] [phone] Aug, [facility] [address] [facility] [id number] [address] [place] [address] Aug, Type 1 diabetes mellitus wit h hyperglycemia E10.65 ; Polyneuropathy associated with underlying disease G63 ; Mixed hyperlipidemia E78.2 ; Dysuria R30.0 ; Dysthymia F34.1 ; Restless legs syndrome G25.81 and Acute cystitis with hematuria N30.01 [facility] [address] [facility] [id number] [address] [place] [id number] May, [facility] [address] [place] [id number] [address] [place] [phone] Apr, Type 1 diabetes mellitus wit h hyperglycemia E10.65 ; Dysuria R30.0 ; Dysthymia F34.1 ; Polyneuropathy associated with underlying disease G63 ; Acute cystitis without hematuria N30.00 and Encounter to establish care with new doctor Z76.89 IMMUNIZATIONS Vaccine Route Administration Date Status ROCEPHIN 1 GM (IM) IM Intramuscular December 26, 2017 Administered SOCIAL HISTORY Never Assessed REASON FOR VISIT cat bite right arm happened Th JStrasserRMattie PLAN OF CARE Activity Details Follow Up prn Reason: VITAL SIGNS Height 68 in 2017-12-26 Weight 174.6 lbs 2017-12-26 Temperature 98.4 degrees Fahrenheit 2017-12-26 Heart Rate 104 bpm 2017-12-26 Respiratory Rate 22 2017-12-26 BMI 26.54 kg/m2 2017-12-26 Blood pressure systolic 122 mmHg 2017-12-26 Blood pressure diastolic 80 mmHg 2017-12-26 MEDICATIONS Medication Instructions Dosage Frequency Start Date End Date Duration S tatus Gabapentin 300 MG Orally twice a day 1 capsule twice daily 12h 2016 Active NovoLog 100 UNIT/ML DX- E10.65 per insulin pump daily 60 units 24h Aug, Active Promethazine HCl 25 MG Orally every 12 hrs 1 tablet as needed 12h Not-Taking Hydrocodone-Acetaminophen 5-325 MG Orally every 6 hrs 1 tablet as n eeded 6h Dec, Dec, 4 days Active Lisinopril 5 mg Orally Once a day 1 tablet 24h Apr, Active Augmentin 875-125 MG Orally every 12 hrs 1 tablet 12h Dec, 2 018 Dec, 10 day(s) Active Amitriptyline HCl 10 mg Orally Once a day 1 tablet 24h Active Juanita Contour Next Test - DX-E10.65- on insulin pump T est FBS and per and post all meals and bedtime test 6 times per day Oct, Not-Taking Venlafaxine HCl ER 37.5 MG Orally Once a day 1 capsule with food 24h Active Glucocard Expression Test 1 subcutaneously 3 times a day test 3 times per day 8h Apr, Active RESULTS No Results PROCEDURES Procedure Date Ordered Result Body Site ROCEPHIN 1 GM (IM) December 26, 2017 THER/PROPH/DIAG INJ, SC/IM December 26, 2017 INSTRUCTIONS MEDICATIONS ADMINISTERED No Known Medications MEDICAL [...]
--- OUTSIDE RECORDS SUMMARY | 2019-12-29 13:34 | XMS REPORT ---
Author Author Misty HAN Organization [facility] Address [address] [place] [address] Care Team Providers Care Bingo Attendant Name Role Phone EMELYTHAOSANTINO Unavailable PROBLEMS Type Condition ICD9-CM Code FPX93-HG Code Onset Dates Condition S tatus SNOMED Code Problem Mixed hyperlipidemia E78.2 Active 370827126 Problem Polyneuropathy due to type 1 diabetes mellitus E10 .42 Active 739134174 Problem Shoulder arthritis M19.019 Active 4 47179684 Problem intermediate (current) use of insulin Z79.4 Active 863066730 Problem Polyneuropathy associated with underlying disease G63 Active 747395536 Problem Type 1 diabetes mellitus with hyperglycemia E10.65 Active 557951106411842 Problem Restless legs syndrome G25.81 Active 39539127 Problem Dysthymia F34.1 Active 69413972 ALLERGIES No Information ENCOUNTERS Encounter Location Date Diagnosis [facility] [address] [facility] [id number] [address] [place] [phone] Apr, [facility] [address] [facility] [id number] [address] [place] [address] Apr, [facility] [address] [facility] [id number] [address] [place] [address] Mar, [facility] [address] [facility] [id number] [address] [place] [address] Mar, [facility] [address] [facility] [id number] [address] [place] [address] February, Acute cystitis with hematuri a N30.01 [facility] [address] [facility] [id number] [address] [place] [address] February, [facility] [address] [place] [id number] [address] [place] [address] February, Type 1 diabetes mellitus wit h hyperglycemia E10.65 ; Dysuria R30.0 ; Polyneuropathy associated with underlying disease G63 ; Dysthymia F34.1 ; Restless legs syndrome G25.81 ; Acute cystitis with hematuria N30.01 and Shoulder arthritis M19.019 [facility] [address] [place] [address] February, [facility] [address] [address] Jan, [facility] [address] [address] Jan, [place] [address] [address] Dec, [facility] [address] [place] [id number] [address] [place] [address] Dec, Open bite of right forearm, initial encounter S51.851A ; Local infection of the skin and subcutaneous tissue, unspecified L08.9 and Bitten by cat, initial encounter W55.01XA [place] [address] [address] Nov, [place] [address] [address] [place] [id number] [address] [place] [address] Nov, Type 1 diabetes mellitus wit h hyperglycemia E10.65 ; Type 2 diabetes mellitus without complications E11.9 ; intermediate (current) use of insulin Z79.4 ; Acute cystitis with hematuria N30.01 ; Polyneuropathy in diseases classified elsewhere G63 ; Endocrine disorder, unspecified E34.9 ; Dysuria R30.0 ; Dysthymia F34.1 and Restless legs syndrome G25.81 [facility] [address] [place] [id number] [address] [place] [address] Oct, [place] [address] [address] [place] [id number] [address] [place] [address] Oct, Type 1 diabetes mellitus wit h hyperglycemia E10.65 [facility] [address] [id number] [address] [place] [phone] Oct, [facility] [address] [facility] [id number] [address] [place] [address] Oct, [facility] [address] [id number] [address] [place] [id number] Sep, [facility] [address] [facility] [id number] [address] [place] [address] Sep, [facility] [address] [facility] [id number] [address] [place] [address] Sep, Type 1 diabetes mellitus wit h hyperglycemia E10.65 [facility] [address] [facility] [id number] [address] [place] [address] Aug, [facility] [address] [facility] [id number] [address] [place] [address] Aug, Type 1 diabetes mellitus wit h hyperglycemia E10.65 ; Polyneuropathy associated with underlying disease G63 ; Mixed hyperlipidemia E78.2 and Hospital discharge follow-up Z09 [facility] [address] [facility] [id number] [address] [place] [phone] Aug, [facility] [address] [facility] [id number] [address] [place] [address] Aug, [facility] [address] [facility] [id number] [address] [place] [address] Aug, [facility] [address] [facility] [id number] [address] [place] [address] Aug, Type 1 diabetes mellitus wit h hyperglycemia E10.65 ; Polyneuropathy associated with underlying disease G63 ; Mixed hyperlipidemia E78.2 ; Dysuria R30.0 ; Dysthymia F34.1 ; Restless legs syndrome G25.81 and Acute cystitis with hematuria N30.01 [facility] [address] [facility] [id number] [address] [place] [address] May, [facility] [address] [facility] [id number] [facility] [address] Apr, Type 1 diabetes mellitus wit h [...]
--- OUTSIDE RECORDS SUMMARY | 2019-12-29 13:34 | XMS REPORT ---
Author Author Msity HAN Organization [facility] Address [address] [place] [address] Care Team Providers Care Welfare Adviser Name Role Phone HANTHAO MurryELE Unavailable PROBLEMS Type Condition ICD9-CM Code VQG82-MI Code Onset Dates Condition S tatus SNOMED Code Problem Mixed hyperlipidemia E78.2 Active 954862932 Problem Polyneuropathy due to type 1 diabetes mellitus E10 .42 Active 144204830 Problem Shoulder arthritis M19.019 Active 4 60876421 Problem skilled nursing (current) use of insulin Z79.4 Active 402602897 Problem Polyneuropathy associated with underlying disease G63 Active 525289966 Problem Type 1 diabetes mellitus with hyperglycemia E10.65 Active 139604857306140 Problem Restless legs syndrome G25.81 Active 58694888 Problem Dysthymia F34.1 Active 06178583 ALLERGIES No Information ENCOUNTERS Encounter Location Date Diagnosis [facility] [address] [facility] [id number] [address] [place] [phone] Apr, [facility] [address] [facility] [id number] [address] [place] [phone] Apr, [facility] [address] [facility] [id number] [address] [place] [phone] Apr, [facility] [address] [facility] [id number] [address] [place] [phone] Apr, [facility] [address] [facility] [id number] [address] [place] [phone] Mar, [facility] [address] [place] [id number] [address] [place] [address] Mar, [facility] [address] [facility] [id number] [address] [place] [address] February, Acute cystitis with hematuri a N30.01 [facility] [address] [place] [address] February, [facility] [address] [address] February, Type 1 diabetes mellitus wit h hyperglycemia E10.65 ; Dysuria R30.0 ; Polyneuropathy associated with underlying disease G63 ; Dysthymia F34.1 ; Restless legs syndrome G25.81 ; Acute cystitis with hematuria N30.01 and Shoulder arthritis M19.019 [facility] [address] [place] [id number] [address] [place] [address] February, [facility] [address] [address] Jan, [place] [address] [address] Jan, [facility] [address] [place] [id number] [address] [place] [address] Dec, [facility] [address] [place] [id number] [address] [place] [address] Dec, Open bite of right forearm, initial encounter S51.851A ; Local infection of the skin and subcutaneous tissue, unspecified L08.9 and Bitten by cat, initial encounter W55.01XA [facility] [address] [place] [address] Nov, [facility] [address] [place] [id number] [address] [place] [address] Nov, Type 1 diabetes mellitus wit h hyperglycemia E10.65 ; Type 2 diabetes mellitus without complications E11.9 ; intermediate project manager (current) use of insulin Z79.4 ; Acute cystitis with hematuria N30.01 ; Polyneuropathy in diseases classified elsewhere G63 ; Endocrine disorder, unspecified E34.9 ; Dysuria R30.0 ; Dysthymia F34.1 and Restless legs syndrome G25.81 [facility] [address] [place] [id number] [address] [place] [address] Oct, [facility] [address] [id number] [address] [place] [address] Oct, Type 1 diabetes mellitus wit h hyperglycemia E10.65 [facility] [address] [facility] [id number] [address] [place] [address] Oct, [facility] [address] [facility] [id number] [address] [place] [phone] Oct, [facility] [address] [facility] [id number] [address] [place] [address] Sep, [facility] [address] [facility] [id number] [address] [place] [address] Sep, [facility] [address] [facility] [id number] [address] [place] [address] Sep, Type 1 diabetes mellitus wit h hyperglycemia E10.65 [facility] [address] [facility] [id number] [address] [place] [address] Aug, [facility] [address] [facility] [id number] [address] [place] [address] Aug, Type 1 diabetes mellitus wit h hyperglycemia E10.65 ; Polyneuropathy associated with underlying disease G63 ; Mixed hyperlipidemia E78.2 and Hospital discharge follow-up Z09 [facility] [address] [facility] [id number] [address] [place] [phone] Aug, [facility] [address] [facility] [id number] [address] [place] [address] Aug, [facility] [address] [facility] [id number] [address] [place] [id number] Aug, [facility] [address] [facility] [id number] [address] [place] [address] Aug, Type 1 diabetes mellitus wit h hyperglycemia E10.65 ; Polyneuropathy associated with underlying disease G63 ; Mixed hyperlipidemia E78.2 ; Dysuria R30.0 ; Dysthymia F34.1 ; Restless legs syndrome G25.81 and Acute cystitis with hematuria N30.01 [facility] [address] [facility] [id number] [address] [place] [phone] May, [facility] [address] [facility] [id number] [address] [place] [address] Apr, Type 1 diabetes mellitus wit h hyperglycemia E10.65 ; Dysuria R30.0 ; Dysthymia F34.1 ; Polyneuropathy associated with underlying disease G63 ; Acute cystitis without hematuria N30.00 and Encounter to establish care with new doctor Z76.89 IMMUNIZATIONS No Known Immunizations SOCIAL HISTORY Never Assessed REASON FOR VISIT FYI PLAN OF CARE VITAL SIGNS MEDICATIONS Unknown [...]
--- OUTSIDE RECORDS SUMMARY | 2019-12-29 13:34 | XMS REPORT ---
Author Author Misty HAN Organization [facility] Address [address] [place] [address] Care Team Providers Care Finishing Technician Name Role Phone HANTHAO MurryELE Unavailable PROBLEMS Type Condition ICD9-CM Code GYB49-LO Code Onset Dates Condition S tatus SNOMED Code Problem Mixed hyperlipidemia E78.2 Active 956955118 Problem Polyneuropathy due to type 1 diabetes mellitus E10 .42 Active 432308027 Problem Shoulder arthritis M19.019 Active 4 26277810 Problem custodial (current) use of insulin Z79.4 Active 903948539 Problem Polyneuropathy associated with underlying disease G63 Active 778588395 Problem Type 1 diabetes mellitus with hyperglycemia E10.65 Active [id number] Problem Restless legs syndrome G25.81 Active 14334076 Problem Dysthymia F34.1 Active [id number] ALLERGIES No Information ENCOUNTERS Encounter Location Date Diagnosis [facility] [address] [facility] [id number] [address] [place] [phone] Apr, [facility] [address] [facility] [id number] [address] [place] [phone] Apr, [facility] [address] [facility] [id number] [address] [place] [phone] Apr, [facility] [address] [facility] [id number] [address] [place] [phone] Apr, [facility] [address] [facility] [id number] [address] [place] [phone] Mar, [facility] [address] [place] [id number] [address] [place] [address] Mar, [facility] [address] [facility] [id number] [address] [place] [address] February, Acute cystitis with hematuri a N30.01 [facility] [address] [place] [address] February, [facility] [address] [address] February, Type 1 diabetes mellitus wit h hyperglycemia E10.65 ; Dysuria R30.0 ; Polyneuropathy associated with underlying disease G63 ; Dysthymia F34.1 ; Restless legs syndrome G25.81 ; Acute cystitis with hematuria N30.01 and Shoulder arthritis M19.019 [facility] [address] [place] [id number] [address] [place] [address] February, [facility] [address] [address] Jan, [place] [address] [address] Jan, [facility] [address] [place] [id number] [address] [place] [address] Dec, [facility] [address] [place] [id number] [address] [place] [address] Dec, Open bite of right forearm, initial encounter S51.851A ; Local infection of the skin and subcutaneous tissue, unspecified L08.9 and Bitten by cat, initial encounter W55.01XA [facility] [address] [place] [address] Nov, [facility] [address] [place] [id number] [address] [place] [address] Nov, Type 1 diabetes mellitus wit h hyperglycemia E10.65 ; Type 2 diabetes mellitus without complications E11.9 ; custodial (current) use of insulin Z79.4 ; Acute cystitis with hematuria N30.01 ; Polyneuropathy in diseases classified elsewhere G63 ; Endocrine disorder, unspecified E34.9 ; Dysuria R30.0 ; Dysthymia F34.1 and Restless legs syndrome G25.81 [facility] [address] [place] [id number] [address] [place] [phone] Oct, [facility] [address] [id number] [address] [place] [address] Oct, Type 1 diabetes mellitus wit h hyperglycemia E10.65 [facility] [address] [facility] [id number] [address] [place] [phone] Oct, [facility] [address] [facility] [id number] [address] [place] [phone] Oct, [facility] [address] [facility] [id number] [address] [place] [phone] Sep, [facility] [address] [facility] [id number] [address] [place] [phone] Sep, [facility] [address] [facility] [id number] [address] [place] [phone] Sep, Type 1 diabetes mellitus wit h hyperglycemia E10.65 [facility] [address] [facility] [id number] [address] [place] [phone] Aug, [facility] [address] [facility] [id number] [address] [place] [address] Aug, Type 1 diabetes mellitus wit h hyperglycemia E10.65 ; Polyneuropathy associated with underlying disease G63 ; Mixed hyperlipidemia E78.2 and Hospital discharge follow-up Z09 [facility] [address] [facility] [id number] [address] [place] [phone] Aug, [facility] [address] [facility] [id number] [address] [place] [address] Aug, [facility] [address] [facility] [id number] [address] [place] [address] Aug, [facility] [address] [facility] [id number] [address] [place] [address] Aug, Type 1 diabetes mellitus wit h hyperglycemia E10.65 ; Polyneuropathy associated with underlying disease G63 ; Mixed hyperlipidemia E78.2 ; Dysuria R30.0 ; Dysthymia F34.1 ; Restless legs syndrome G25.81 and Acute cystitis with hematuria N30.01 [facility] [address] [facility] [id number] [address] [place] [address] May, [facility] [address] [facility] [id number] [address] [place] [address] Apr, Type 1 diabetes mellitus wit h [...]
--- OUTSIDE RECORDS SUMMARY | 2019-12-29 13:34 | XMS REPORT ---
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 Active 115618394 Problem Shoulder arthritis M19.019 Active 4 69623749 Problem retirement (current) use of insulin Z79.4 Active 848235716 Problem Polyneuropathy associated with underlying disease G63 Active 177732482 Problem Type 1 diabetes mellitus with hyperglycemia E10.65 Active 563943051704781 Problem Restless legs syndrome G25.81 Active 86397250 Problem Dysthymia F34.1 Active 12636885 ALLERGIES No Information ENCOUNTERS Encounter Location Date Diagnosis [facility] [address] [facility] [id number] [address] [place] [address] Jun, [facility] [address] [facility] [id number] [address] [place] [phone] May, [facility] [address] [facility] [id number] [address] [place] [phone] Apr, [facility] [address] [facility] [id number] [address] [place] [phone] Apr, [facility] [address] [facility] [id number] [address] [place] [phone] Apr, [facility] [address] [facility] [id number] [address] [place] [phone] Apr, [facility] [address] [facility] [id number] [address] [place] [address] Mar, [facility] [address] [place] [id number] [address] [place] [address] Mar, [facility] [address] [address] February, Acute cystitis with hematuri a N30.01 [facility] [address] [address] February, [place] [address] [address] February, Type 1 diabetes mellitus wit h hyperglycemia E10.65 ; Dysuria R30.0 ; Polyneuropathy associated with underlying disease G63 ; Dysthymia F34.1 ; Restless legs syndrome G25.81 ; Acute cystitis with hematuria N30.01 and Shoulder arthritis M19.019 [place] [address] [address] February, [place] [address] [address] Jan, [place] [address] [place] [id number] [address] [place] [address] Jan, [place] [address] [place] [id number] [address] [place] [address] Dec, [facility] [address] [place] [id number] [address] [place] [address] Dec, Open bite of right forearm, initial encounter S51.851A ; Local infection of the skin and subcutaneous tissue, unspecified L08.9 and Bitten by cat, initial encounter W55.01XA [place] [address] [address] Nov, [place] [address] [address] Nov, Type 1 diabetes mellitus wit h hyperglycemia E10.65 ; Type 2 diabetes mellitus without complications E11.9 ; retirement (current) use of insulin Z79.4 ; Acute cystitis with hematuria N30.01 ; Polyneuropathy in diseases classified elsewhere G63 ; Endocrine disorder, unspecified E34.9 ; Dysuria R30.0 ; Dysthymia F34.1 and Restless legs syndrome G25.81 [facility] [address] [id number] [address] [place] [phone] Oct, [facility] [address] [facility] [id number] [address] [place] [address] Oct, Type 1 diabetes mellitus wit h hyperglycemia E10.65 [facility] [address] [id number] [address] [place] [phone] Oct, [facility] [address] [facility] [id number] [address] [place] [address] Oct, [facility] [address] [place] [id number] [address] [place] [phone] Sep, [facility] [address] [facility] [id number] [address] [place] [address] Sep, [facility] [address] [facility] [id number] [address] [place] [address] Sep, Type 1 diabetes mellitus wit h hyperglycemia E10.65 [facility] [address] [facility] [id number] [address] [place] [address] Aug, [facility] [address] [facility] [id number] [address] [place] [phone] Aug, Type 1 diabetes mellitus wit h hyperglycemia E10.65 ; Polyneuropathy associated with underlying disease G63 ; Mixed hyperlipidemia E78.2 and Hospital discharge follow-up Z09 [facility] [address] [facility] [id number] [address] [place] [address] Aug, [facility] [address] [facility] [id number] [address] [place] [address] Aug, [facility] [address] [facility] [id number] [address] [place] [phone] Aug, [facility] [address] [facility] [id number] [address] [place] [address] Aug, Type 1 diabetes mellitus wit h hyperglycemia E10.65 ; Polyneuropathy associated with underlying disease G63 ; Mixed hyperlipidemia E78.2 ; Dysuria R30.0 ; Dysthymia F34.1 ; Restless legs syndrome G25.81 and Acute cystitis with hematuria N30.01 [facility] [address] [facility] [id number] [address] [place] [address] May, [place] [address] [facility] [id number] [address] [place] [address] Apr, Type 1 diabetes mellitus wit h hyperglycemia E10.65 ; Dysuria R30.0 ; Dysthymia F34.1 ; Polyneuropathy associated with underlying disease G63 ; Acute cystitis without hematuria N30.00 and Encounter to establish care with new doctor Z76.89 IMMUNIZATIONS No Known Immunizations SOCIAL HISTORY Never Assessed REASON FOR VISIT PA PLAN OF CARE VITAL SIGNS MEDICATIONS Unknown [...]
--- OUTSIDE RECORDS SUMMARY | 2019-12-29 13:34 | XMS REPORT ---
Author Author Misty HAN Organization [facility] Address [address] [place] [address] Care Team Providers Care Last Picker Name Role Phone HANTHAO MurryELE Unavailable PROBLEMS Type Condition ICD9-CM Code AAQ39-MM Code Onset Dates Condition S tatus SNOMED Code Problem Mixed hyperlipidemia E78.2 Active 331459589 Problem Polyneuropathy due to type 1 diabetes mellitus E10 .42 Active 535243546 Problem Shoulder arthritis M19.019 Active 4 83147549 Problem residential (current) use of insulin Z79.4 Active 191095118 Problem Polyneuropathy associated with underlying disease G63 Active 964328125 Problem Type 1 diabetes mellitus with hyperglycemia E10.65 Active 499780689770708 Problem Restless legs syndrome G25.81 Active 51198122 Problem Dysthymia F34.1 Active 67134625 ALLERGIES No Information ENCOUNTERS Encounter Location Date Diagnosis [facility] [address] [facility] [id number] [address] [place] [phone] Apr, [facility] [address] [facility] [id number] [address] [place] [phone] Apr, [facility] [address] [facility] [id number] [address] [place] [phone] Apr, [facility] [address] [facility] [id number] [address] [place] [phone] Apr, [facility] [address] [facility] [id number] [address] [place] [phone] Mar, [facility] [address] [facility] [id number] [address] [place] [phone] Mar, [facility] [address] [facility] [id number] [address] [place] [phone] February, Acute cystitis with hematuri a N30.01 [facility] [address] [place] [phone] February, [facility] [address] [address] February, Type 1 diabetes mellitus wit h hyperglycemia E10.65 ; Dysuria R30.0 ; Polyneuropathy associated with underlying disease G63 ; Dysthymia F34.1 ; Restless legs syndrome G25.81 ; Acute cystitis with hematuria N30.01 and Shoulder arthritis M19.019 [facility] [address] [place] [id number] [address] [place] [phone] February, [facility] [address] [address] Jan, [place] [address] [address] Jan, [facility] [address] [place] [id number] [address] [place] [address] Dec, [facility] [address] [place] [id number] [address] [place] [address] Dec, Open bite of right forearm, initial encounter S51.851A ; Local infection of the skin and subcutaneous tissue, unspecified L08.9 and Bitten by cat, initial encounter W55.01XA [facility] [address] [place] [address] Nov, [facility] [address] [place] [id number] [address] [place] [address] Nov, Type 1 diabetes mellitus wit h hyperglycemia E10.65 ; Type 2 diabetes mellitus without complications E11.9 ; residential (current) use of insulin Z79.4 ; Acute cystitis with hematuria N30.01 ; Polyneuropathy in diseases classified elsewhere G63 ; Endocrine disorder, unspecified E34.9 ; Dysuria R30.0 ; Dysthymia F34.1 and Restless legs syndrome G25.81 [facility] [address] [place] [id number] [address] [place] [address] Oct, [facility] [address] [id number] [address] [place] [address] Oct, Type 1 diabetes mellitus wit h hyperglycemia E10.65 [facility] [address] [facility] [id number] [address] [place] [phone] Oct, [facility] [address] [facility] [id number] [address] [place] [phone] Oct, [facility] [address] [facility] [id number] [address] [place] [phone] Sep, [facility] [address] [facility] [id number] [address] [place] [phone] Sep, [facility] [address] [facility] [id number] [address] [place] [address] Sep, Type 1 diabetes mellitus wit h hyperglycemia E10.65 [facility] [address] [facility] [id number] [address] [place] [phone] Aug, [facility] [address] [facility] [id number] [address] [place] [phone] Aug, Type 1 diabetes mellitus wit h hyperglycemia E10.65 ; Polyneuropathy associated with underlying disease G63 ; Mixed hyperlipidemia E78.2 and Hospital discharge follow-up Z09 [facility] [address] [facility] [id number] [address] [place] [phone] Aug, [facility] [address] [facility] [id number] [address] [place] [phone] Aug, [facility] [address] [facility] [id number] [address] [place] [phone] Aug, [facility] [address] [facility] [id number] [address] [place] [phone] Aug, Type 1 diabetes mellitus wit h hyperglycemia E10.65 ; Polyneuropathy associated with underlying disease G63 ; Mixed hyperlipidemia E78.2 ; Dysuria R30.0 ; Dysthymia F34.1 ; Restless legs syndrome G25.81 and Acute cystitis with hematuria N30.01 [facility] [address] [facility] [id number] [address] [place] [phone] May, [facility] [address] [facility] [id number] [address] [place] [address] Apr, Type 1 diabetes mellitus wit h hyperglycemia E10.65 ; Dysuria R30.0 ; Dysthymia F34.1 ; Polyneuropathy associated with underlying disease G63 ; Acute cystitis without hematuria N30.00 and Encounter to establish care with new doctor Z76.89 IMMUNIZATIONS No Known Immunizations SOCIAL HISTORY Never Assessed REASON FOR VISIT PLAN OF CARE VITAL SIGNS MEDICATIONS Unknown [...]
--- OUTSIDE RECORDS SUMMARY | 2019-12-29 13:34 | XMS REPORT ---
Author Author Misty HAN Organization [facility] Address [address] [place] [address] Care Team Providers Care Tank Farm Gauger Name Role Phone EMELYTHAOSANTINO Unavailable PROBLEMS Type Condition ICD9-CM Code BEM97-PO Code Onset Dates Condition S tatus SNOMED Code Problem Polyneuropathy associated with underlying disease G63 Active 250012123 Problem Mixed hyperlipidemia E78.2 Active 543042527 Problem Type 2 diabetes mellitus without complications E11 .9 Active 278473566 Problem Polyneuropathy in diseases classified elsewhere G6 3 Active 394014514 Problem Type 1 diabetes mellitus with hyperglycemia E10.65 Active 533218958155795 Problem Dysthymia F34.1 Active 71255610 Problem 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.4 Active 593786111 Problem Restless legs syndrome G25.81 Active 50979029 ALLERGIES Substance Reaction Event Type Date Status Sulfamethoxazole-Trimethoprim Unknown Drug Allergy Apr, 201 7 Active ENCOUNTERS Encounter Location Date Diagnosis [facility] [address] [facility] [id number] [address] [place] [phone] February, [facility] [address] [facility] [id number] [address] [place] [phone] Dec, [facility] [address] [facility] [id number] [address] [place] [address] Dec, Open bite of right forearm, initial encounter S51.851A ; Local infection of the skin and subcutaneous tissue, unspecified L08.9 and Bitten by cat, initial encounter W55.01XA [facility] [address] [facility] [id number] [address] [place] [address] Nov, [facility] [address] [facility] [id number] [address] [place] [address] Nov, Type 1 diabetes mellitus wit h hyperglycemia E10.65 ; Type 2 diabetes mellitus without complications E11.9 ; 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.4 ; Acute cystitis with hematuria N30.01 ; Polyneuropathy in diseases classified elsewhere G63 ; Endocrine disorder, unspecified E34.9 ; Dysuria R30.0 ; Dysthymia F34.1 and Restless legs syndrome G25.81 [facility] [address] [facility] [id number] [address] [place] [address] Oct, [facility] [address] [id number] [address] [place] [phone] Oct, Type 1 diabetes mellitus wit h hyperglycemia E10.65 [facility] [address] [facility] [id number] [address] [place] [phone] Oct, [facility] [address] [facility] [id number] [address] [place] [phone] Oct, [facility] [address] [facility] [id number] [address] [place] [phone] Sep, [facility] [address] [facility] [id number] [address] [place] [phone] Sep, [facility] [address] [facility] [id number] [address] [place] [address] Sep, Type 1 diabetes mellitus wit h hyperglycemia E10.65 [facility] [address] [facility] [id number] [address] [place] [phone] Aug, [facility] [address] [facility] [id number] [address] [place] [address] Aug, Type 1 diabetes mellitus wit h hyperglycemia E10.65 ; Polyneuropathy associated with underlying disease G63 ; Mixed hyperlipidemia E78.2 and Hospital discharge follow-up Z09 [facility] [address] [facility] [id number] [address] [place] [phone] Aug, [facility] [address] [facility] [id number] [address] [place] [phone] Aug, [facility] [address] [facility] [id number] [address] [place] [phone] Aug, [facility] [address] [facility] [id number] [address] [place] [phone] 09 Aug, 2017 Type 1 diabetes mellitus wit h hyperglycemia E10.65 ; Polyneuropathy associated with underlying disease G63 ; Mixed hyperlipidemia E78.2 ; Dysuria R30.0 ; Dysthymia F34.1 ; Restless legs syndrome G25.81 and Acute cystitis with hematuria N30.01 [facility] [address] [facility] [id number] [address] [place] [phone] May, [facility] [address] [facility] [id number] [address] [place] [phone] Apr, Type 1 diabetes mellitus wit h hyperglycemia E10.65 ; Dysuria R30.0 ; Dysthymia F34.1 ; Polyneuropathy associated with underlying disease G63 ; Acute cystitis without hematuria N30.00 and Encounter to establish care with new doctor Z76.89 IMMUNIZATIONS No Known Immunizations SOCIAL HISTORY Never Assessed REASON FOR VISIT Establish Care--tcuppettRn, -Needing insulin. , -Possible UTI. PLAN OF CARE Activity Details Follow Up 3 Months Reason:CHM VITAL SIGNS Height 68 in 2017-05-11 Weight 163.0 lbs 2017-05-11 Temperature 98.5 degrees Fahrenheit 2017-05-11 Heart Rate 76 bpm 2017-05-11 Respiratory Rate 16 2017-05-11 BMI 24.78 kg/m2 2017-05-11 Blood pressure systolic 112 mmHg 2017-05-11 Blood pressure diastolic 64 mmHg 2017-05-11 MEDICATIONS Medication Instructions Dosage Frequency Start Date End Date Duration S tatus Venlafaxine HCl ER 37.5 MG Orally Once a day 1 capsule with food 24h 90 days Active Gabapentin 100 mg Orally Once a day 1 capsule 24h Apr, 90 days Active Ciprofloxacin HCl 500 mg Orally Twice a day 1 tablet 12h Apr, May, 10 day(s) Active Amitriptyline HCl 10 mg Orally Once a day 1 tablet 24h 90 days Active Glucocard Expression Test 1 subcutaneously 3 times a day test 3 times per day 8h Apr, 12 months Active NovoLog Mix 70/30 Flexpen (70-30) 100 UNIT/ML Subcutaneous 2 times a day 32 units in am and 33 in evening 12h 12 months Active Lisinopril 5 mg Orally Once a day 1 tablet 24h Apr, 90 days Active RESULTS Name Result Date Reference Range A1C (IN HOUSE) 2017-05-11 A1C IN HOUSE 9.3 4.3 - 5.6 % Previous A1c n/a Lot [id number] Exp date 01/2019 UA LONG DIP (IN HOUSE) 2017-05-11 Lot # [id number] Exp date 02/2018 Clarity slightly cloudy Color yellow Odor strong GLU trace JOSE DAVID neg KET neg SG 1.020 BLO neg pH 6.5 Protein neg URO 0.2 NIT positive SULLY 1+ Lot # Exp THYROID ANALYZER 2017-05-11 TSH 1.350 0.450-4.500 CBC 2017-05-11 WBC 10.5 3.4-10.8 RBC 3.98 3.77-5.28 Hemoglobin 12.4 11.1-15.9 Hematocrit 37.7 34.0-46.6 MCV 95 79-97 MCH 31.2 26.6-33.0 MCHC 32.9 31.5-35.7 RDW 13.5 12.3-15.4 Platelets 343 150-379 Neutrophils 78 Lymphs 17 Monocytes 4 Eos 1 Basos 0 Neutrophils (Absolute) 8.1 1.4-7.0 Lymphs (Absolute) 1.8 0.7-3.1 Monocytes(Absolute) 0.5 0.1-0.9 Eos (Absolute) 0.1 0.0-0.4 Baso (Absolute) 0.0 0.0-0.2 Immature Granulocytes 0 Immature Grans (Abs) 0.0 0.0-0.1 LIPID PANEL 2017-05-11 Cholesterol, Total 154 100-199 Triglycerides 52 0-149 HDL Cholesterol 59 >39 VLDL Cholesterol Jeremias 10 5-40 LDL Cholesterol Calc 85 0-99 CMP 2017-05-11 Glucose, Serum 257 65-99 BUN 14 6-24 Creatinine, Serum 0.95 0.57-1.00 eGFR If NonAfricn Am 73 >59 eGFR If Africn Am 84 >59 BUN/Creatinine Ratio 15 9-23 Sodium, Serum 139 134-144 Potassium, Serum 4.7 3.5-5.2 Chloride, Serum 100 96-106 Carbon Dioxide, Total 21 18-29 Calcium, Serum 8.9 8.7-10.2 Protein, Total, Serum 6.3 6.0-8.5 Albumin, Serum 4.0 3.5-5.5 Globulin, Total 2.3 1.5-4.5 A/G Ratio 1.7 1.2-2.2 Bilirubin, Total 0.2 0.0-1.2 Alkaline Phosphatase, S 80 39-117 AST (SGOT) 17 0-40 ALT (SGPT) 15 0-32 CULTURE, URINE 2017-05-11 Urine Culture, Routine Final report Result 1 Escherichia coli Antimicrobial Susceptibility MICROALBUMIN, URINE (IN HOUSE) 2017-05-11 MICROALBUMIN normal Lot # [id number] Exp date 30 Clarity yellow Color yellow ALB 30 CRE 200 A:C (IN HOUSE) <30 Control Control Lot # Exp date PROCEDURES Procedure Date Ordered Result Body Site URINE CULTURE/COLONY COUNT May 11, 2017 GLYCATED HEMOGLOBIN TEST May 11, 2017 URINALYSIS, AUTO, W/O SCOPE May 11, 2017 LIPID PANEL May 11, 2017 VENIPUNCT, ROUTINE* May 11, 2017 COMPLETE CBC W/AUTO DIFF WBC May 11, 2017 MICROALBUMIN, SEMIQUANT May 11, 2017 ASSAY THYROID STIM HORMONE May 11, 2017 COMPREHEN METABOLIC PANEL May 11, 2017 INSTRUCTIONS MEDICATIONS ADMINISTERED No Known Medications [...]
--- OUTSIDE RECORDS SUMMARY | 2019-12-29 13:34 | XMS REPORT ---
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 [id number] [address] [place] [phone] Apr, [facility] [address] [facility] [id number] [address] [place] [phone] Apr, [facility] [address] [facility] [id number] [address] [place] [phone] Apr, [facility] [address] [facility] [id number] [address] [place] [phone] Apr, [facility] [address] [facility] [id number] [address] [place] [phone] Mar, [facility] [address] [facility] [id number] [address] [place] [address] Mar, [facility] [address] [facility] [id number] [address] [place] [address] February, Acute cystitis with hematuri a N30.01 [facility] [address] [address] February, [facility] [address] [address] February, Type 1 diabetes mellitus wit h hyperglycemia E10.65 ; Dysuria R30.0 ; Polyneuropathy associated with underlying disease G63 ; Dysthymia F34.1 ; Restless legs syndrome G25.81 ; Acute cystitis with hematuria N30.01 and Shoulder arthritis M19.019 [place] [address] [address] February, [facility] [address] [address] Jan, [place] [address] [address] Jan, [facility] [address] [place] [id number] [address] [place] [address] Dec, [facility] [address] [address] Dec, Open bite of right forearm, initial encounter S51.851A ; Local infection of the skin and subcutaneous tissue, unspecified L08.9 and Bitten by cat, initial encounter W55.01XA [place] [address] [place] [id number] [address] [place] [address] Nov, [facility] [address] [place] [id number] [address] [place] [address] Nov, Type 1 diabetes mellitus wit h hyperglycemia E10.65 ; Type 2 diabetes mellitus without complications E11.9 ; snf (current) use of insulin Z79.4 ; Acute cystitis with hematuria N30.01 ; Polyneuropathy in diseases classified elsewhere G63 ; Endocrine disorder, unspecified E34.9 ; Dysuria R30.0 ; Dysthymia F34.1 and Restless legs syndrome G25.81 [facility] [address] [id number] [address] [place] [phone] Oct, [facility] [address] [id number] [address] [place] [phone] Oct, Type 1 diabetes mellitus wit h hyperglycemia E10.65 [facility] [address] [id number] [address] [place] [phone] Oct, [facility] [address] [id number] [address] [place] [phone] Oct, [facility] [address] [id number] [address] [place] [phone] Sep, [facility] [address] [id number] [address] [place] [phone] Sep, [facility] [address] [facility] [id number] [address] [place] [address] Sep, Type 1 diabetes mellitus wit h hyperglycemia E10.65 [facility] [address] [id number] [address] [place] [phone] Aug, [facility] [address] [facility] [id number] [address] [place] [address] Aug, Type 1 diabetes mellitus wit h hyperglycemia E10.65 ; Polyneuropathy associated with underlying disease G63 ; Mixed hyperlipidemia E78.2 and Hospital discharge follow-up Z09 [facility] [address] [id number] [address] [place] [phone] Aug, [facility] [address] [facility] [id number] [address] [place] [phone] Aug, [facility] [address] [facility] [id number] [address] [place] [phone] Aug, [facility] [address] [facility] [id number] [address] [place] [address] Aug, Type 1 diabetes mellitus wit h hyperglycemia E10.65 ; Polyneuropathy associated with underlying disease G63 ; Mixed hyperlipidemia E78.2 ; Dysuria R30.0 ; Dysthymia F34.1 ; Restless legs syndrome G25.81 and Acute cystitis with hematuria N30.01 [facility] [address] [facility] [id number] [address] [place] [phone] May, [facility] [address] [facility] [id number] [address] [place] [address] Apr, Type 1 diabetes mellitus wit h hyperglycemia E10.65 ; Dysuria R30.0 ; Dysthymia F34.1 ; Polyneuropathy associated with underlying disease G63 ; Acute cystitis without hematuria N30.00 and Encounter to establish care with new doctor Z76.89 IMMUNIZATIONS No Known Immunizations SOCIAL HISTORY Never Assessed REASON FOR VISIT Diabetes-----DBennettRN, urinary frequency, foul odor x1 week PLAN OF CARE Activity Details Follow Up 3 Months, prn Reason:CHM/ DM VITAL SIGNS Height 68 in 2018-03-07 Weight 170 lbs 2018-03-07 Temperature 98.2 degrees Fahrenheit 2018-03-07 Heart Rate 80 bpm 2018-03-07 Respiratory Rate 20 2018-03-07 BMI 25.85 kg/m2 2018-03-07 Blood pressure systolic 118 mmHg 2018-03-07 Blood pressure diastolic 70 mmHg 2018-03-07 MEDICATIONS Medication Instructions Dosage Frequency Start Date End Date Duration S tatus NovoLog 100 UNIT/ML DX- E10.65 per insulin pump daily 60 units 24h 09 Aug, 2017 Active Lisinopril 5 mg Orally Once a day 1 tablet 24h Apr, 90 days Active Celecoxib 200 mg Orally Once a day 1 capsule with food 24h February, Nov, 90 days Active Glucocard Expression Test 1 subcutaneously 3 times a day test 3 times per day 8h Apr, 12 months Active Ciprofloxacin HCl 500 mg Orally every 12 hrs 1 tablet 12h February, February, 07 days Active Venlafaxine HCl ER 37.5 MG Orally Once a day 1 capsule with food 24h 90 days Active Amitriptyline HCl 10 mg Orally Once a day 1 tablet 24h 90 days Active Gabapentin 300 MG Orally twice a day 1 capsule twice daily 12h 0 Aug, 90 days Active RESULTS No Results PROCEDURES Procedure Date Ordered Result Body Site GLYCATED HEMOGLOBIN TEST March 07, 2018 URINALYSIS, AUTO, W/O SCOPE March 07, 2018 URINE CULTURE/COLONY COUNT March 07, 2018 INSTRUCTIONS MEDICATIONS ADMINISTERED No Known Medications [...]
--- OUTSIDE RECORDS SUMMARY | 2019-12-29 13:34 | XMS REPORT ---
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 [id number] [address] [place] [phone] Jun, [facility] [address] [facility] [id number] [address] [place] [phone] May, [facility] [address] [facility] [id number] [address] [place] [phone] Apr, [facility] [address] [facility] [id number] [address] [place] [phone] Apr, [facility] [address] [facility] [id number] [address] [place] [phone] Apr, [facility] [address] [facility] [id number] [address] [place] [phone] Apr, [facility] [address] [facility] [id number] [address] [place] [address] Mar, [facility] [address] [place] [id number] [address] [place] [address] Mar, [facility] [address] [address] February, Acute cystitis with hematuri a N30.01 [facility] [address] [address] February, [place] [address] [address] February, Type 1 diabetes mellitus wit h hyperglycemia E10.65 ; Dysuria R30.0 ; Polyneuropathy associated with underlying disease G63 ; Dysthymia F34.1 ; Restless legs syndrome G25.81 ; Acute cystitis with hematuria N30.01 and Shoulder arthritis M19.019 [place] [address] [address] February, [place] [address] [address] Jan, [place] [address] [place] [id number] [address] [place] [address] Jan, [place] [address] [place] [id number] [address] [place] [address] Dec, [facility] [address] [place] [id number] [address] [place] [address] Dec, Open bite of right forearm, initial encounter S51.851A ; Local infection of the skin and subcutaneous tissue, unspecified L08.9 and Bitten by cat, initial encounter W55.01XA [place] [address] [address] Nov, [place] [address] [address] Nov, Type 1 diabetes mellitus wit h hyperglycemia E10.65 ; Type 2 diabetes mellitus without complications E11.9 ; detention (current) use of insulin Z79.4 ; Acute cystitis with hematuria N30.01 ; Polyneuropathy in diseases classified elsewhere G63 ; Endocrine disorder, unspecified E34.9 ; Dysuria R30.0 ; Dysthymia F34.1 and Restless legs syndrome G25.81 [facility] [address] [id number] [address] [place] [phone] Oct, [facility] [address] [facility] [id number] [address] [place] [address] Oct, Type 1 diabetes mellitus wit h hyperglycemia E10.65 [facility] [address] [id number] [address] [place] [phone] Oct, [facility] [address] [facility] [id number] [address] [place] [phone] Oct, [facility] [address] [place] [id number] [address] [place] [phone] Sep, [facility] [address] [facility] [id number] [address] [place] [address] Sep, [facility] [address] [facility] [id number] [address] [place] [address] Sep, Type 1 diabetes mellitus wit h hyperglycemia E10.65 [facility] [address] [facility] [id number] [address] [place] [address] Aug, [facility] [address] [facility] [id number] [address] [place] [address] Aug, Type 1 diabetes mellitus wit h hyperglycemia E10.65 ; Polyneuropathy associated with underlying disease G63 ; Mixed hyperlipidemia E78.2 and Hospital discharge follow-up Z09 [facility] [address] [facility] [id number] [address] [place] [phone] Aug, [facility] [address] [facility] [id number] [address] [place] [phone] Aug, [facility] [address] [facility] [id number] [address] [place] [phone] Aug, [facility] [address] [facility] [id number] [address] [place] [address] Aug, Type 1 diabetes mellitus wit h hyperglycemia E10.65 ; Polyneuropathy associated with underlying disease G63 ; Mixed hyperlipidemia E78.2 ; Dysuria R30.0 ; Dysthymia F34.1 ; Restless legs syndrome G25.81 and Acute cystitis with hematuria N30.01 [facility] [address] [facility] [id number] [address] [place] [address] May, [facility] [address] [facility] [id number] [address] [place] [address] Apr, Type 1 diabetes mellitus wit h hyperglycemia E10.65 ; Dysuria R30.0 ; Dysthymia F34.1 ; Polyneuropathy associated with underlying disease G63 ; Acute cystitis without hematuria N30.00 and Encounter to establish care with new doctor Z76.89 IMMUNIZATIONS No Known Immunizations SOCIAL HISTORY Never Assessed REASON FOR VISIT PA novolog PLAN OF CARE VITAL SIGNS MEDICATIONS Medication Instructions Dosage Frequency Start Date End Date Duration S tatus Humalog 100 UNIT/ML inject 20 units three times daily Mar, 30 days Active RESULTS No [...]
--- OUTSIDE RECORDS SUMMARY | 2019-12-29 13:35 | XMS REPORT ---
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 236223924 Problem Shoulder arthritis M19.019 Active 4 01845086 Problem [facility] (current) use of insulin Z79.4 Active 797760178 Problem Polyneuropathy associated with underlying disease G63 Active 783941653 Problem Type 1 diabetes mellitus with hyperglycemia E10.65 Active 804060878267933 Problem Restless legs syndrome G25.81 Active 45350262 Problem Dysthymia F34.1 Active 77244013 ALLERGIES No Information ENCOUNTERS Encounter Location Date Diagnosis [place] [id number] [place] [id number] [address] [place] [phone] Mar, [place] [address] [place] [id number] [place] [phone] Mar, [place] [address] [place] [id number] [place] [phone] February, Acute cystitis with hematuri a N30.01 [facility] [address] [place] [id number] [address] [place] [phone] February, [place] [address] [place] [id number] [place] [phone] February, Type 1 diabetes mellitus wit h hyperglycemia E10.65 ; Dysuria R30.0 ; Polyneuropathy associated with underlying disease G63 ; Dysthymia F34.1 ; Restless legs syndrome G25.81 ; Acute cystitis with hematuria N30.01 and Shoulder arthritis M19.019 [facility] [address] [facility] [id number] [address] [place] [phone] February, [facility] [address] [place] [id number] [place] [phone] Jan, [facility] [address] [place] [id number] [place] [phone] Jan, [facility] [address] [place] [id number] [place] [phone] Dec, [facility] [address] [facility] [id number] [address] [place] [phone] Dec, Open bite of right forearm, initial encounter S51.851A ; Local infection of the skin and subcutaneous tissue, unspecified L08.9 and Bitten by cat, initial encounter W55.01XA [facility] [address] [place] [id number] [place] [phone] Nov, [facility] [address] [place] [id number] [place] [phone] Nov, Type 1 diabetes mellitus wit h hyperglycemia E10.65 ; Type 2 diabetes mellitus without complications E11.9 ; [facility] (current) use of insulin Z79.4 ; Acute cystitis with hematuria N30.01 ; Polyneuropathy in diseases classified elsewhere G63 ; Endocrine disorder, unspecified E34.9 ; Dysuria R30.0 ; Dysthymia F34.1 and Restless legs syndrome G25.81 [facility] [address] [facility] [id number] [address] [place] [phone] Oct, [facility] [address] [place] [id number] [place] [phone] Oct, Type 1 diabetes mellitus wit h hyperglycemia E10.65 [facility] [address] [place] [id number] [place] [phone] Oct, [facility] [address] [place] [id number] [place] [phone] Oct, [facility] [address] [facility] [id number] [address] [place] [phone] Sep, [facility] [address] [facility] [id number] [address] [place] [phone] Sep, [facility] [address] [facility] [id number] [address] [place] [phone] Sep, Type 1 diabetes mellitus wit h hyperglycemia E10.65 [facility] [address] [facility] [id number] [address] [place] [phone] Aug, [facility] [address] [facility] [id number] [address] [place] [phone] Aug, Type 1 diabetes mellitus wit h hyperglycemia E10.65 ; Polyneuropathy associated with underlying disease G63 ; Mixed hyperlipidemia E78.2 and Hospital discharge follow-up Z09 [facility] [address] [facility] [id number] [address] [place] [phone] Aug, [facility] [address] [facility] [id number] [address] [place] [phone] Aug, [facility] [address] [facility] [id number] [address] [place] [phone] Aug, [facility] [address] [facility] [id number] [address] [place] [phone] Aug, Type 1 diabetes mellitus wit h hyperglycemia E10.65 ; Polyneuropathy associated with underlying disease G63 ; Mixed hyperlipidemia E78.2 ; Dysuria R30.0 ; Dysthymia F34.1 ; Restless legs syndrome G25.81 and Acute cystitis with hematuria N30.01 [facility] [address] [facility] [id number] [address] [place] [phone] May, [facility] [address] [facility] [id number] [address] [place] [phone] Apr, Type 1 diabetes mellitus wit h hyperglycemia E10.65 ; Dysuria R30.0 ; Dysthymia F34.1 ; Polyneuropathy associated with underlying disease G63 ; Acute cystitis without hematuria N30.00 and Encounter to establish care with new doctor Z76.89 IMMUNIZATIONS No Known Immunizations SOCIAL HISTORY Never Assessed REASON FOR VISIT insulin pump settings PLAN OF CARE VITAL SIGNS MEDICATIONS Unknown [...]
--- OUTSIDE RECORDS SUMMARY | 2019-12-29 13:35 | XMS REPORT ---
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 Active 945756800 Problem Shoulder arthritis M19.019 Active 4 82312546 Problem correction (current) use of insulin Z79.4 Active 842295873 Problem Polyneuropathy associated with underlying disease G63 Active 864432367 Problem Type 1 diabetes mellitus with hyperglycemia E10.65 Active 648637126894730 Problem Restless legs syndrome G25.81 Active 59949308 Problem Dysthymia F34.1 Active 95824510 ALLERGIES No Information ENCOUNTERS Encounter Location Date Diagnosis [place] [address] [place] [id number] [address] [place] [phone] Mar, [place] [address] [place] [id number] [place] [phone] February, Acute cystitis with hematuri a N30.01 [place] [address] [place] [id number] [place] [phone] February, [place] [address] [place] [id number] [place] [phone] February, Type 1 diabetes mellitus wit h hyperglycemia E10.65 ; Dysuria R30.0 ; Polyneuropathy associated with underlying disease G63 ; Dysthymia F34.1 ; Restless legs syndrome G25.81 ; Acute cystitis with hematuria N30.01 and Shoulder arthritis M19.019 [facility] [address] [place] [id number] [address] [place] [phone] February, [facility] [address] [facility] [id number] [address] [place] [phone] Jan, [facility] [address] [facility] [id number] [address] [place] [phone] Jan, [facility] [address] [facility] [id number] [address] [place] [phone] Dec, [facility] [address] [facility] [id number] [address] [place] [phone] Dec, Open bite of right forearm, initial encounter S51.851A ; Local infection of the skin and subcutaneous tissue, unspecified L08.9 and Bitten by cat, initial encounter W55.01XA [facility] [address] [facility] [id number] [address] [place] [phone] Nov, [facility] [address] [place] [id number] [address] [place] [phone] Nov, Type 1 diabetes mellitus wit h hyperglycemia E10.65 ; Type 2 diabetes mellitus without complications E11.9 ; correction (current) use of insulin Z79.4 ; Acute cystitis with hematuria N30.01 ; Polyneuropathy in diseases classified elsewhere G63 ; Endocrine disorder, unspecified E34.9 ; Dysuria R30.0 ; Dysthymia F34.1 and Restless legs syndrome G25.81 [facility] [address] [facility] [id number] [address] [place] [phone] Oct, [facility] [address] [place] [id number] [place] [phone] Oct, Type 1 diabetes mellitus wit h hyperglycemia E10.65 [facility] [address] [place] [id number] [place] [phone] Oct, [facility] [address] [place] [id number] [place] [phone] Oct, [facility] [address] [facility] [id number] [address] [place] [phone] Sep, [place] [address] [facility] [id number] [address] [place] [phone] Sep, [place] [address] [facility] [id number] [address] [place] [phone] Sep, Type 1 diabetes mellitus wit h hyperglycemia E10.65 [place] [address] [facility] [id number] [address] [place] [phone] Aug, [place] [address] [facility] [id number] [address] [place] [phone] Aug, Type 1 diabetes mellitus wit h hyperglycemia E10.65 ; Polyneuropathy associated with underlying disease G63 ; Mixed hyperlipidemia E78.2 and Hospital discharge follow-up Z09 [place] [address] [facility] [id number] [address] [place] [phone] Aug, [place] [address] [place] [id number] [place] [phone] Aug, [place] [address] [place] [id number] [place] [phone] Aug, [place] [address] [facility] [id number] [address] [place] [phone] Aug, Type 1 diabetes mellitus wit h hyperglycemia E10.65 ; Polyneuropathy associated with underlying disease G63 ; Mixed hyperlipidemia E78.2 ; Dysuria R30.0 ; Dysthymia F34.1 ; Restless legs syndrome G25.81 and Acute cystitis with hematuria N30.01 [place] [address] [facility] [id number] [address] [place] [phone] May, [place] [address] [facility] [id number] [address] [place] [phone] Apr, Type 1 diabetes mellitus wit h hyperglycemia E10.65 ; Dysuria R30.0 ; Dysthymia F34.1 ; Polyneuropathy associated with underlying disease G63 ; Acute cystitis without hematuria N30.00 and Encounter to establish care with new doctor Z76.89 IMMUNIZATIONS No Known Immunizations SOCIAL HISTORY Never Assessed REASON FOR VISIT 1 mo f/u DM Ed PLAN OF CARE VITAL [...]
--- OUTSIDE RECORDS SUMMARY | 2019-12-29 13:35 | XMS REPORT ---
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 Active 473393360 Problem Shoulder arthritis M19.019 Active 4 46648467 Problem snf (current) use of insulin Z79.4 Active 389823340 Problem Polyneuropathy associated with underlying disease G63 Active 396335785 Problem Type 1 diabetes mellitus with hyperglycemia E10.65 Active 660213219428871 Problem Restless legs syndrome G25.81 Active 25582516 Problem Dysthymia F34.1 Active 05966184 ALLERGIES Substance Reaction Event Type Date Status Sulfamethoxazole-Trimethoprim Unknown Drug Allergy Aug, 201 7 Active ENCOUNTERS Encounter Location Date Diagnosis [place] [id number] [place] [phone] February, Acute cystitis with hematuri a N30.01 [place] [address] [place] [id number] [place] [phone] February, [place] [address] [place] [id number] [place] [phone] February, Type 1 diabetes mellitus wit h hyperglycemia E10.65 ; Dysuria R30.0 ; Polyneuropathy associated with underlying disease G63 ; Dysthymia F34.1 ; Restless legs syndrome G25.81 ; Acute cystitis with hematuria N30.01 and Shoulder arthritis M19.019 [facility] [address] [place] [id number] [place] [phone] February, [place] [address] [place] [id number] [address] [place] [phone] Jan, [facility] [address] [facility] [id number] [address] [place] [phone] Jan, [facility] [address] [facility] [id number] [address] [place] [phone] Dec, [facility] [address] [facility] [id number] [address] [place] [phone] Dec, Open bite of right forearm, initial encounter S51.851A ; Local infection of the skin and subcutaneous tissue, unspecified L08.9 and Bitten by cat, initial encounter W55.01XA [facility] [address] [facility] [id number] [address] [place] [phone] Nov, [facility] [address] [place] [id number] [place] [phone] Nov, Type 1 diabetes mellitus wit h hyperglycemia E10.65 ; Type 2 diabetes mellitus without complications E11.9 ; snf (current) use of insulin Z79.4 ; Acute cystitis with hematuria N30.01 ; Polyneuropathy in diseases classified elsewhere G63 ; Endocrine disorder, unspecified E34.9 ; Dysuria R30.0 ; Dysthymia F34.1 and Restless legs syndrome G25.81 [facility] [address] [place] [id number] [place] [phone] Oct, [facility] [address] [facility] [id number] [address] [place] [phone] Oct, Type 1 diabetes mellitus wit h hyperglycemia E10.65 [facility] [address] [facility] [id number] [address] [place] [phone] Oct, [facility] [address] [place] [id number] [place] [phone] Oct, [facility] [address] [place] [id number] [place] [phone] Sep, [facility] [address] [place] [id number] [place] [phone] Sep, [facility] [address] [facility] [id number] [address] [place] [phone] Sep, Type 1 diabetes mellitus wit h hyperglycemia E10.65 [facility] [address] [facility] [id number] [address] [place] [phone] Aug, [place] [address] [place] [id number] [place] [phone] Aug, Type 1 diabetes mellitus wit h hyperglycemia E10.65 ; Polyneuropathy associated with underlying disease G63 ; Mixed hyperlipidemia E78.2 and Hospital discharge follow-up Z09 [place] [address] [place] [id number] [place] [phone] Aug, [place] [address] [place] [id number] [place] [phone] Aug, [place] [address] [place] [id number] [address] [place] [phone] Aug, [place] [address] [place] [id number] [place] [phone] Aug, Type 1 diabetes mellitus wit h hyperglycemia E10.65 ; Polyneuropathy associated with underlying disease G63 ; Mixed hyperlipidemia E78.2 ; Dysuria R30.0 ; Dysthymia F34.1 ; Restless legs syndrome G25.81 and Acute cystitis with hematuria N30.01 [place] [address] [place] [id number] [place] [phone] May, [place] [address] [place] [id number] [place] [phone] Apr, Type 1 diabetes mellitus wit h hyperglycemia E10.65 ; Dysuria R30.0 ; Dysthymia F34.1 ; Polyneuropathy associated with underlying disease G63 ; Acute cystitis without hematuria N30.00 and Encounter to establish care with new doctor Z76.89 IMMUNIZATIONS No Known Immunizations SOCIAL HISTORY Never Assessed REASON FOR VISIT [facility] Follow up , DKA, vomiting -KMcDaniel,RN PLAN OF CARE Activity Details Follow Up 4 Weeks Reason:DM F/U VITAL SIGNS Height 68 in 2017-09-13 Weight 158 lbs 2017-09-13 Temperature 98.2 degrees Fahrenheit 2017-09-13 Heart Rate 84 bpm 2017-09-13 Respiratory Rate 16 2017-09-13 BMI 24.02 kg/m2 2017-09-13 Blood pressure systolic 110 mmHg 2017-09-13 Blood pressure diastolic 70 mmHg 2017-09-13 MEDICATIONS Medication Instructions Dosage Frequency Start Date End Date Duration S tatus Promethazine HCl 25 MG Orally every 12 hrs 1 tablet as needed 12h Active NovoLog 100 UNIT/ML Subcutaneous 3 times a day 12 units thre e times per day with meals 8h Aug, Active Lisinopril 5 mg Orally Once a day 1 tablet 24h Apr, Active Levemir 100 UNIT/ML Subcutaneous 2 times a day 20 units in t he morning and 20 units in the evening 12h Aug, Active Venlafaxine HCl ER 37.5 MG Orally Once a day 1 capsule with food 24h 90 days Active Amitriptyline HCl 10 mg Orally Once a day 1 tablet 24h 90 days Active Glucocard Expression Test 1 subcutaneously 3 times a day test 3 times per day 8h Apr, Active Gabapentin 300 MG Orally twice a day 1 capsule twice daily 12h 2016 Active RESULTS No Results PROCEDURES No Known [...]
--- OUTSIDE RECORDS SUMMARY | 2019-12-29 13:35 | XMS REPORT | Continuity of Care Document ---
Author Organization Unknown Address Unknown Phone Unavailable Allergies Active Description Code Type Severity Reaction Onset Reported/Identified Relationship to Patient Clinical Status Yes Sulfa (Sulfonamide Antibiotics) Sulfa (Sulfonamide Antibiotics) Drug Allergy Unknown UNKNOWN 06/12/2012 Yes Sulfa (Sulfonamide Antibiotics) [id number] Drug Allergy Unknown N/A 013 Medications There is no data. Problems Date Dx Coded Attending Type Code Diagnosis Diagnosed By 04/02/2015 King Cortez M.D. 5 91 HYDRONEPHROSIS 04/02/2015 King Cortez M.D. 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 OT 786.05 08/04/2015 Will Burgess MD E10.65 TYPE 1 DIABETES MELLITUS WITH HYPERGLYCEMIA 08/04/2015 Will Burgess MD E78.0 PURE HYPERCHOLESTEROLEMIA 08/04/2015 Will Burgess MD F17.200 NICOTINE DEPENDENCE, UNSPECIFIED, UNCOMPLICATED 08/04/2015 Will Burgess MD I51.7 CARDIOMEGALY 08/04/2015 Will Burgess MD R06.00 DYSPNEA, UNSPECIFIED 08/12/2015 Yaneth GreenP OT 250.03 08/12/2015 Yaneth Green 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 Results Test Result Range METABOLIC PANEL, BASIC - 04/02/15 12:47 Performing Location: SODIUM 139 mmol/L 135-145 POTASSIUM 3.7 mmol/L 3.6-5.2 CHLORIDE 102 mmol/L 100-108 CARBON DIOXIDE 29.4 mmol/L 21.0-32.0 ANION GAP 11 mmol/L 10-20 GLUCOSE 93 mg/dL 70-110 BLOOD UREA NITROGEN 12 mg/dL 7-22 CREATININE 0.8 mg/dL 0.6-1.0 BUN/CREATININE RATIO 15.0 GLOMERULAR FILTRATION RATE 82.99 CALCIUM 8.6 mg/dL 8.7-10.5 CBC WITH DIFFERENTIAL - 04/30/16 04:15 WHITE BLOOD CELL 14.0 k/cumm 4.8-10.8 RED BLOOD CELL 5.02 m/cumm 4.2-5.4 HEMOGLOBIN 15.7 gm/dL 12.0-16.0 HEMATOCRIT 46.3 % 37-47 MEAN CELL VOLUME 92.2 fl 81-99 MEAN CELL HGB 31.3 pg 27-31 MEAN CELL HGB CONCENTRATION 33.9 g/dL 33 .0-37.0 RED CELL DISTRIBUTION WIDTH 13.5 % 11 .5-14.5 PLATELET COUNT 333 k/cumm 130-400 NEUTROPHIL % 91.1 % 43-65 LYMPHOCYTE % 5.4 % 20-45 MONOCYTE % 3.4 % 5-12 EOSINOPHIL % 0.0 % 0.9-2.9 BASOPHIL % 0.1 % 0.25-1.0 ABSOLUTE NEUTROPHIL # 12.70 k/cumm 2.2-4 .8 LYMPHOCYTE # 0.8 k/cumm 1.3-2.9 MONOCYTE # 0.5 k/cumm 0.31-0.83 EOSINOPHIL # 0.0 k/cumm 0.05-0.22 BASOPHIL # 0.0 k/cumm 0.02-0.06 DIFFERENTIAL/MORPHOLOGY AUTO DIFF Performing Location: [facility] - 04/30/16 04: 15 Performing Location: SODIUM 134 mmol/L 135-145 POTASSIUM 4.3 mmol/L 3.6-5.2 CHLORIDE 95 mmol/L 100-108 CARBON DIOXIDE 12.6 mmol/L 21.0-32.0 ANION GAP 31 mmol/L 10-20 GLUCOSE 384 mg/dL 70-110 BLOOD UREA NITROGEN 23 mg/dL 7-22 CREATININE 1.3 mg/dL 0.6-1.0 BUN/CREATININE RATIO 17.7 GLOMERULAR FILTRATION RATE 47.15 CALCIUM 9.0 mg/dL 8.7-10.5 TOTAL PROTEIN 8.4 gm/dL 6.0-8.0 ALBUMIN 4.3 gm/dL 3.5-5.0 GLOBULIN 4.1 gm/dL 2.1-3.5 ALBUMIN/GLOBULIN RATIO 1.0 1.1-2.2 BILIRUBIN TOTAL 0.5 mg/dL 0.0-1.0 SGOT/AST 16 UNIT/L 15-37 SGPT/ALT 27 UNIT/L 12-78 ALKALINE PHOSPHATASE TOTAL 116 UNIT/L 46 -116 ACETONE QUAL - 04/30/16 04:15 Performing Location: ACETONE QUAL SMALL NEGATIVE URINALYSIS, ROUTINE - 04/30/16 04:25 Performing Location: UA PROTEIN DIPSTICK TRACE mg/dL NEGATIVE UA GLUCOSE DIPSTICK 500 mg/dL NEGATIVE UA KETONE DIPSTICK 3+ mg/dL UA UROBILINOGEN DIPSTICK 0.2 EU/dL 0.2 - 1 UA BILIRUBIN DIPSTICK NEGATIVE mg/dL NEG ATIVE UA BLOOD DIPSTICK 3+ /uL NEGATIVE URINE SAMPLE VOLUME 10 mL UA MICROSCOPIC SPUN URINE UA RBC 30-50 rbc/hpf NEGATIVE UA WBC 10-20 wbc/hpf NEGATIVE UA BACTERIA TRACE NEG-1+ UA COLOR STRAW UA APPEARANCE SL CLOUDY CLEAR UA SPECIFIC GRAVITY >=1.030 1.005-1.03 0 UA PH 5.0 5.0-9.0 UA LEUKOCYTE ESTERASE DIPSTICK NEGATIVE u/L NEGATIVE UA NITRITE DIPSTICK NEGATIVE NEGATIVE UA EPITHELIAL CELLS MODERATE epi/hpf 0-F EW GLUCOSE BY [facility] - 04/30/16 04:32 Performing Location: GLUCOSE BY ACCUCHEK 372 mg/dL 70-110 GLUCOSE BY [facility] - 04/30/16 06:14 Performing Location: GLUCOSE BY ACCUCHEK 268 mg/dL 70-110 GLUCOSE BY ACCUCHEK 04/30/16 08:14 Performing Location: GLUCOSE BY ACCUCHEK 179 mg/dL 70-110 METABOL[address] PANEL, [facility] 04/30/16 10:00 Performing Location: SODIUM 139 mmol/L 135-145 POTASSIUM 4.4 mmol/L 3.6-5.2 CHLORIDE 106 mmol/L 100-108 CARBON DIOXIDE 13.8 mmol/L 21.0-32.0 ANION GAP 24 mmol/L 10-20 GLUCOSE 217 mg/dL 70-110 BLOOD UREA NITROGEN 17 mg/dL 7-22 CREATININE 1.0 mg/dL 0.6-1.0 BUN/CREATININE RATIO 17.0 GLOMERULAR FILTRATION RATE 64.02 CALCIUM 7.7 mg/dL 8.7-10.5 GLUCOSE BY [facility] - 04/30/16 11:11 Performing Location: GLUCOSE BY ACCUCHEK 208 mg/dL 70-110 GLUCOSE BY [facility] - 04/30/16 12:18 Performing Location: GLUCOSE BY ACCUCHEK 234 mg/dL 70-110 GLUCOSE BY [facility] - 04/30/16 13:22 Performing Location: GLUCOSE BY ACCUCHEK 224 mg/dL 70-110 METABOLIC PANEL, [facility] 04/30/16 13:40 Performing Location: SODIUM 138 mmol/L 135-145 POTASSIUM 4.1 mmol/L 3.6-5.2 CHLORIDE 109 mmol/L 100-108 CARBON DIOXIDE 13.0 mmol/L 21.0-32.0 ANION GAP 20 mmol/L 10-20 GLUCOSE 236 mg/dL 70-110 BLOOD UREA NITROGEN 13 mg/dL 7-22 CREATININE 1.0 mg/dL 0.6-1.0 BUN/CREATININE RATIO 13.0 GLOMERULAR FILTRATION RATE 64.02 CALCIUM 7.7 mg/dL 8.7-10.5 GLUCOSE BY [facility] - 04/30/16 14:36 Performing Location: GLUCOSE BY [facility]K 207 mg/dL 70-110 GLUCOSE BY [facility] - 04/30/16 15:27 Performing Location: GLUCOSE BY ACCUCHEK 190 mg/dL 70-110 GLUCOSE BY [facility] 04/30/16 16:31 Performing Location: GLUCOSE BY ACCUCHEK 147 mg/dL 70-110 METABOLIC PANEL, [facility] 04/30/16 16:50 Performing Location: SODIUM 140 mmol/L 135-145 POTASSIUM 3.3 mmol/L 3.6-5.2 CHLORIDE 112 mmol/L 100-108 CARBON DIOXIDE 17.4 mmol/L 21.0-32.0 ANION GAP 14 mmol/L 10-20 GLUCOSE 161 mg/dL 70-110 BLOOD UREA NITROGEN 11 mg/dL 7-22 CREATININE 1.0 mg/dL 0.6-1.0 BUN/CREATININE RATIO 11.0 GLOMERULAR FILTRATION RATE 64.02 CALCIUM 7.7 mg/dL 8.7-10.5 ESTIMATED CREATINE CLEARANCE 78 GLUCOSE BY [facility] - 04/30/16 17:46 Performing Location: GLUCOSE BY ACCUCHEK 126 mg/dL 70-110 GLUCOSE BY [facility] 04/30/16 18:42 Performing Location: GLUCOSE BY ACCUCHEK 98 mg/dL 70-110 GLUCOSE BY [facility] 04/30/16 19:19 Performing Location: GLUCOSE BY ACCUCHEK 94 mg/dL 70-110 METABOL[address] PANEL, [facility] 04/30/16 20:30 Performing Location: SODIUM 141 mmol/L 135-145 POTASSIUM 3.7 mmol/L 3.6-5.2 CHLORIDE 113 mmol/L 100-108 CARBON DIOXIDE 19.6 mmol/L 21.0-32.0 ANION GAP 12 mmol/L 10-20 GLUCOSE 92 mg/dL 70-110 BLOOD UREA NITROGEN 10 mg/dL 7-22 CREATININE 0.9 mg/dL 0.6-1.0 BUN/CREATININE RATIO 11.1 GLOMERULAR FILTRATION RATE 72.28 CALCIUM 7.8 mg/dL 8.7-10.5 ESTIMATED CREATINE CLEARANCE 78 GLUCOSE BY [facility] - 04/30/16 20:31 Performing Location: GLUCOSE BY ACCUCHEK 86 mg/dL 70-110 GLUCOSE BY [facility] - 04/30/16 22:02 Performing Location: GLUCOSE BY ACCUCHEK 117 mg/dL 70-110 GLUCOSE BY [facility] - 04/30/16 23:30 Performing Location: GLUCOSE BY ACCUCHEK 195 mg/dL 70-110 GLUCOSE BY [facility] - 05/01/16 01:01 Performing Location: GLUCOSE BY ACCUCHEK 178 mg/dL 70-110 GLUCOSE BY [facility] - 05/01/16 02:28 Performing Location: GLUCOSE BY ACCUCHEK 160 mg/dL 70-110 GLUCOSE BY [facility] - 05/01/16 03:48 Performing Location: GLUCOSE BY ACCUCHEK 124 mg/dL 70-110 GLUCOSE BY [facility] - 05/01/16 05:37 Performing Location: GLUCOSE BY ACCUCHEK 91 mg/dL 70-110 CBC WITH DIFFERENTIAL - 05/01/16 05:45 WHITE BLOOD CELL 18.2 k/cumm 4.8-10.8 RED BLOOD CELL 4.36 m/cumm 4.2-5.4 HEMOGLOBIN 13.7 gm/dL 12.0-16.0 HEMATOCRIT 40.5 % 37-47 MEAN CELL VOLUME 92.9 fl 81-99 MEAN CELL HGB 31.4 pg 27-31 MEAN CELL HGB CONCENTRATION 33.8 g/dL 33 .0-37.0 RED CELL DISTRIBUTION WIDTH 13.8 % 11 .5-14.5 PLATELET COUNT 297 k/cumm 130-400 NEUTROPHIL % 82.5 % 43-65 LYMPHOCYTE % 9.0 % 20-45 MONOCYTE % 8.3 % 5-12 EOSINOPHIL % 0.1 % 0.9-2.9 BASOPHIL % 0.1 % 0.25-1.0 ABSOLUTE NEUTROPHIL # 15.02 k/cumm 2.2-4 .8 LYMPHOCYTE # 1.6 k/cumm 1.3-2.9 MONOCYTE # 1.5 k/cumm 0.31-0.83 EOSINOPHIL # 0.0 k/cumm 0.05-0.22 BASOPHIL # 0.0 k/cumm 0.02-0.06 DIFFERENTIAL/MORPHOLOGY AUTO DIFF Performing Location: HEMOGLOBIN A1C - 05/01/16 05:45 Performing Location: HEMOGLOBIN A1C 9.9 % 4.5-6.2 METABOLIC PANEL, BASIC - 05/01/16 05:45 Performing Location: SODIUM 144 mmol/L 135-145 POTASSIUM 3.2 mmol/L 3.6-5.2 CHLORIDE 114 mmol/L 100-108 CARBON DIOXIDE 20.7 mmol/L 21.0-32.0 ANION GAP 13 mmol/L 10-20 GLUCOSE 97 mg/dL 70-110 BLOOD UREA NITROGEN 7 mg/dL 7-22 CREATININE 0.9 mg/dL 0.6-1.0 BUN/CREATININE RATIO 7.8 GLOMERULAR FILTRATION RATE 72.28 CALCIUM 7.8 mg/dL 8.7-10.5 ESTIMATED CREATINE CLEARANCE 78 LIPID PANEL - 05/01/16 05:45 Performing Location: TRIGLYCERIDES 103 mg/dL 30-200 CHOLESTEROL 158 mg/dL 0-200 HDL CHOLESTEROL 33 mg/dL 35-60 LDL CHOLESTEROL 104 mg/dL 5-130 CHOLESTEROL/HDL RATIO 4.8 0.0-5.0 GLUCOSE BY [facility] - 05/01/16 06:42 Performing Location: GLUCOSE BY ACCUCHEK 83 mg/dL 70-110 GLUCOSE BY [facility]UCHEK - 05/01/16 07:35 Performing Location: GLUCOSE BY ACCUCHEK 134 mg/dL 70-110 GLUCOSE BY ACCUCHEK - 05/01/16 08:44 Performing Location: GLUCOSE BY ACCUCHEK 143 mg/dL 70-110 GLUCOSE BY ACCUCHEK - 05/01/16 12:01 Performing Location: GLUCOSE BY ACCUCHEK 116 mg/dL 70-110 GLUCOSE BY ACCUCHEK - 05/01/16 16:35 Performing Location: GLUCOSE BY ACCUCHEK 69 mg/dL 70-110 GLUCOSE BY ACCUCHEK - 05/01/16 20:38 Performing Location: GLUCOSE BY ACCUCHEK 175 mg/dL 70-110 CBC WITH DIFFERENTIAL - 05/02/16 04:40 WHITE BLOOD CELL 8.7 k/cumm 4.8-10.8 RED BLOOD CELL 4.29 m/cumm 4.2-5.4 HEMOGLOBIN 13.5 gm/dL 12.0-16.0 HEMATOCRIT 39.9 % 37-47 MEAN CELL VOLUME 93.0 fl 81-99 MEAN CELL HGB 31.5 pg 27-31 MEAN CELL HGB CONCENTRATION 33.8 g/dL 33 .0-37.0 RED CELL DISTRIBUTION WIDTH 13.5 % 11 .5-14.5 PLATELET COUNT 239 k/cumm 130-400 NEUTROPHIL % 77.3 % 43-65 LYMPHOCYTE % 14.8 % 20-45 MONOCYTE % 7.7 % 5-12 EOSINOPHIL % 0.1 % 0.9-2.9 BASOPHIL % 0.1 % 0.25-1.0 ABSOLUTE NEUTROPHIL # 6.72 k/cumm 2.2-4. 8 LYMPHOCYTE # 1.3 k/cumm 1.3-2.9 MONOCYTE # 0.7 k/cumm 0.31-0.83 EOSINOPHIL # 0.0 k/cumm 0.05-0.22 BASOPHIL # 0.0 k/cumm 0.02-0.06 DIFFERENTIAL/MORPHOLOGY AUTO DIFF Performing Location: METABOLIC PANEL, BASIC - 05/02/16 04:40 Performing Location: SODIUM 134 mmol/L 135-145 POTASSIUM 3.4 mmol/L 3.6-5.2 CHLORIDE 99 mmol/L 100-108 CARBON DIOXIDE 29.9 mmol/L 21.0-32.0 ANION GAP 9 mmol/L 10-20 GLUCOSE 273 mg/dL 70-110 BLOOD UREA NITROGEN 4 mg/dL 7-22 CREATININE 0.6 mg/dL 0.6-1.0 BUN/CREATININE RATIO 6.7 GLOMERULAR FILTRATION RATE 115.30 CALCIUM 7.9 mg/dL 8.7-10.5 ESTIMATED CREATINE CLEARANCE 78 GLUCOSE BY [facility] - 05/02/16 06:34 Performing Location: GLUCOSE BY ACCUCHEK 282 mg/dL 70-110 GLUCOSE BY ACCUCHEK - 05/02/16 11:29 Performing Location: GLUCOSE BY ACCUCHEK 239 mg/dL 70-110 GLUCOSE BY ACCUCHEK - 05/02/16 17:07 Performing Location: GLUCOSE BY ACCUCHEK 145 mg/dL 70-110 GLUCOSE BY ACCUCHEK - 05/02/16 20:31 Performing Location: GLUCOSE BY ACCUCHEK 145 mg/dL 70-110 CBC WITH DIFFERENTIAL - 05/03/16 04:30 WHITE BLOOD CELL 7.5 k/cumm 4.8-10.8 RED BLOOD CELL 4.53 m/cumm 4.2-5.4 HEMOGLOBIN 14.2 gm/dL 12.0-16.0 HEMATOCRIT 41.7 % 37-47 MEAN CELL VOLUME 92.1 fl 81-99 MEAN CELL HGB 31.3 pg 27-31 MEAN CELL HGB CONCENTRATION 34.1 g/dL 33 .0-37.0 RED CELL DISTRIBUTION WIDTH 13.0 % 11 .5-14.5 PLATELET COUNT 267 k/cumm 130-400 NEUTROPHIL % 69.0 % 43-65 LYMPHOCYTE % 20.5 % 20-45 MONOCYTE % 10.0 % 5-12 EOSINOPHIL % 0.4 % 0.9-2.9 BASOPHIL % 0.1 % 0.25-1.0 ABSOLUTE NEUTROPHIL # 5.20 k/cumm 2.2-4. 8 LYMPHOCYTE # 1.5 k/cumm 1.3-2.9 MONOCYTE # 0.8 k/cumm 0.31-0.83 EOSINOPHIL # 0.0 k/cumm 0.05-0.22 BASOPHIL # 0.0 k/cumm 0.02-0.06 DIFFERENTIAL/MORPHOLOGY AUTO DIFF Performing Location: METABOLIC PANEL, BASIC - 05/03/16 04:30 Performing Location: SODIUM 133 mmol/L 135-145 POTASSIUM 3.5 mmol/L 3.6-5.2 CHLORIDE 96 mmol/L 100-108 CARBON DIOXIDE 28.0 mmol/L 21.0-32.0 ANION GAP 13 mmol/L 10-20 GLUCOSE 303 mg/dL 70-110 BLOOD UREA NITROGEN 11 mg/dL 7-22 CREATININE 0.7 mg/dL 0.6-1.0 BUN/CREATININE RATIO 15.7 GLOMERULAR FILTRATION RATE 96.37 CALCIUM 8.4 mg/dL 8.7-10.5 ESTIMATED CREATINE CLEARANCE 78 GLUCOSE BY [facility] - 05/03/16 06:21 Performing Location: GLUCOSE BY ACCUCHEK 278 mg/dL 70-110 GLUCOSE BY ACCUCHEK - 05/03/16 10:37 Performing Location: GLUCOSE BY ACCUCHEK 170 mg/dL 70-110 CULTURE, URINE - 11/17/17 08:18 CULTURE, URINE, ROUTINE SEE NOTE NRG CULTURE, URINE - 03/07/18 17:08 CULTURE, URINE, ROUTINE SEE NOTE NRG CULTURE, URINE - 07/06/18 12:15 CULTURE, URINE, ROUTINE SEE NOTE NRG MICROALBUMIN/CREATININE RATIO, URINE - 0 12/27/18 17:17 CREATININE, RANDOM URINE 37 mg/dL 20-27 5 MICROALBUMIN 2.8 mg/dL See Note: MICROALBUMIN/CREATININE RATIO, RANDOM URINE 76 mcg /mg creat <30 CULTURE, URINE - 12/27/18 17:17 CULTURE, URINE, ROUTINE SEE NOTE NRG CULTURE, URINE - 02/05/19 17:58 CULTURE, URINE, ROUTINE SEE NOTE NRG TSH w/ FREE T4 - 02/12/19 15:55 TSH 1.65 mIU/L NRG T4, FREE 1.0 ng/dL 0.8-1.8 CMP - 02/12/19 15:55 GLUCOSE 135 mg/dL 65-99 UREA NITROGEN (BUN) 19 mg/dL 7-25 CREATININE 0.79 mg/dL 0.50-1.10 eGFR NON-AFR. YEMENI 90 mL/min/1.73m2 > OR = 60 eGFR 104 mL/min/1.73m2 > OR = 60 BUN/CREATININE RATIO NOT APPLICABLE (calc) 6-22 SODIUM 137 mmol/L 135-146 POTASSIUM 3.9 mmol/L 3.5-5.3 CHLORIDE 105 mmol/L 98-110 CARBON DIOXIDE 27 mmol/L 20-32 CALCIUM 9.1 mg/dL 8.6-10.2 PROTEIN, TOTAL 6.3 g/dL 6.1-8.1 ALBUMIN 4.3 g/dL 3.6-5.1 GLOBULIN 2.0 g/dL (calc) 1.9-3.7 ALBUMIN/GLOBULIN RATIO 2.2 (calc) 1.0-2. 5 BILIRUBIN, TOTAL 0.4 mg/dL 0.2-1.2 ALKALINE PHOSPHATASE 63 U/L 33-115 AST 14 U/L 10-35 ALT 10 U/L 6- CBC - 02/12/19 15:55 WHITE BLOOD CELL COUNT 8.9 Thousand/uL 3 .8-10.8 RED BLOOD CELL COUNT 4.30 Million/uL 3.8 0-5.10 HEMOGLOBIN 12.9 g/dL 11.7-15.5 HEMATOCRIT 40.2 % 35.0-45.0 MCV 93.5 fL 80.0-100.0 MCH 30.0 pg 27.0-33.0 MCHC 32.1 g/dL 32.0-36.0 RDW 12.5 % 11.0-15.0 PLATELET COUNT 308 Thousand/uL 140-400 MPV 10.0 fL 7.5-12.5 ABSOLUTE NEUTROPHILS 5963 cells/uL 1500- 7800 ABSOLUTE LYMPHOCYTES 2109 cells/uL 850-3 900 ABSOLUTE MONOCYTES 650 cells/uL 200-950 ABSOLUTE EOSINOPHILS 134 cells/uL 15-500 ABSOLUTE BASOPHILS 45 cells/uL 0-200 NEUTROPHILS 67 % NRG LYMPHOCYTES 23.7 % NRG MONOCYTES 7.3 % NRG EOSINOPHILS 1.5 % NRG BASOPHILS 0.5 % NRG Encounters ACCT No. Visit Date/Time Discharge Status Pt. Type Provider Facility Loc./Unit Complaint [id number] 12/27/2019 13:05:00 ACT Outpatient TEAGAN LYNN, [facility] [id number] 02/12/2019 15:40:00 Document Registration [id number] 02/05/2019 15:40:00 Document Registration [id number] 12/27/2018 15:40:00 Document Registration [id number] 07/06/2018 11:00:00 Document Registration [id number] 03/07/2018 14:20:00 Document Registration [id number] 11/17/2017 08:00:00 Document Registration [id number] 06/18/2015 15:49:00 23:59:59 [facility] [id number] 06/18/2015 15:44:00 23:59:59 [facility] [id number] 12/03/2014 20:00:00 Document Registration [id number] 12/03/2014 19:32:00 Document Registration [id number] 10/23/2015 14:00:00 23:59:59 CLS Outpatient Aditya LYNN, [facility] HMG.DHC.DO [id number] 08/04/2015 08:52:00 23:59:00 DIS Outpatient Aditya LYNN, [facility] IMG.US.ECH [id number] 07/17/2015 10:51:00 23:59:59 CLS Outpatient Aditya LYNN, [facility]ARD[facility] [id number] 03/27/2015 16:01:00 23:59:59 CLS Outpatient Dana LYNN, [facility] MARYP [id number] 07/02/2013 13:22:00 23:59:59 CLS Outpatient Dana LYNN, [facility] MARYP [id number] 07/02/2013 09:36:00 23:59:00 DIS Outpatient Erin MALHOTRA [facility] IMG. [id number] 05/16/2013 15:51:00 23:59:59 CLS Outpatient Erin MALHOTRA [facility] MARYP [id number] 05/16/2013 14:28:00 23:59:00 DIS [facility]RAD [id number] 05/05/2016 16:49:00 016 16:49:00 DIS Outpatient Marin Augustin APRN [facility] D.INFUSION [id number] 05/05/2016 16:25:00 016 16:25:00 DIS Outpatient Landon Thibodeaux [facility] D.LAB [id number] 04/30/2016 08:58:00 016 12:19:00 DIS Inpatient Enriqeu De La Torre [facility] D.ICU [id number] 04/02/2015 12:36:00 015 12:36:00 DIS Outpatient Dana [place], [facility] VEE
--- OUTSIDE RECORDS SUMMARY | 2019-12-29 13:35 | XMS REPORT ---
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 Active 731830424 Problem Shoulder arthritis M19.019 Active 4 73109980 Problem [facility] (current) use of insulin Z79.4 Active 632587236 Problem Polyneuropathy associated with underlying disease G63 Active 366362793 Problem Type 1 diabetes mellitus with hyperglycemia E10.65 Active 889484217958256 Problem Restless legs syndrome G25.81 Active 94691634 Problem Dysthymia F34.1 Active 22432531 ALLERGIES No Information ENCOUNTERS Encounter Location Date Diagnosis [place] [address] [place] [id number] [place] [phone] Mar, [place] [address] [place] [id number] [place] [phone] February, Acute cystitis with hematuri a N30.01 [place] [address] [place] [id number] [place] [phone] February, [place] [address] [place] [id number] [place] [phone] February, Type 1 diabetes mellitus wit h hyperglycemia E10.65 ; Dysuria R30.0 ; Polyneuropathy associated with underlying disease G63 ; Dysthymia F34.1 ; Restless legs syndrome G25.81 ; Acute cystitis with hematuria N30.01 and Shoulder arthritis M19.019 [facility] [address] [place] [id number] [place] [phone] February, [facility] [address] [facility] [id number] [address] [place] [phone] Jan, [facility] [address] [facility] [id number] [address] [place] [phone] Jan, [facility] [address] [facility] [id number] [address] [place] [phone] Dec, [facility] [address] [facility] [id number] [address] [place] [phone] Dec, Open bite of right forearm, initial encounter S51.851A ; Local infection of the skin and subcutaneous tissue, unspecified L08.9 and Bitten by cat, initial encounter W55.01XA [facility] [address] [facility] [id number] [address] [place] [phone] Nov, [facility] [address] [place] [id number] [address] [place] [phone] Nov, Type 1 diabetes mellitus wit h hyperglycemia E10.65 ; Type 2 diabetes mellitus without complications E11.9 ; [facility] (current) use of insulin Z79.4 ; Acute cystitis with hematuria N30.01 ; Polyneuropathy in diseases classified elsewhere G63 ; Endocrine disorder, unspecified E34.9 ; Dysuria R30.0 ; Dysthymia F34.1 and Restless legs syndrome G25.81 [facility] [address] [facility] [id number] [address] [place] [phone] Oct, [facility] [address] [place] [id number] [address] [place] [phone] Oct, Type 1 diabetes mellitus wit h hyperglycemia E10.65 [facility] [address] [place] [id number] [address] [place] [phone] Oct, [facility] [address] [place] [id number] [address] [place] [phone] Oct, [facility] [address] [facility] [id number] [address] [place] [phone] Sep, [place] [address] [address] [facility] [id number] [address] [place] [phone] Sep, [place] [address] [address] [facility] [id number] [address] [place] [phone] Sep, Type 1 diabetes mellitus wit h hyperglycemia E10.65 [place] [address] [place] [id number] [place] [phone] Aug, [place] [address] [address] [facility] [id number] [address] [place] [phone] Aug, Type 1 diabetes mellitus wit h hyperglycemia E10.65 ; Polyneuropathy associated with underlying disease G63 ; Mixed hyperlipidemia E78.2 and Hospital discharge follow-up Z09 [place] [address] [address] [facility] [id number] [address] [place] [phone] Aug, [place] [address] [place] [id number] [address] [place] [phone] Aug, [place] [address] [place] [id number] [address] [place] [phone] Aug, [place] [address] [address] [facility] [id number] [address] [place] [phone] Aug, Type 1 diabetes mellitus wit h hyperglycemia E10.65 ; Polyneuropathy associated with underlying disease G63 ; Mixed hyperlipidemia E78.2 ; Dysuria R30.0 ; Dysthymia F34.1 ; Restless legs syndrome G25.81 and Acute cystitis with hematuria N30.01 [place] [address] [place] [id number] [place] [phone] May, [place] [address] [address] [facility] [id number] [address] [place] [phone] Apr, Type 1 diabetes mellitus wit h hyperglycemia E10.65 ; Dysuria R30.0 ; Dysthymia F34.1 ; Polyneuropathy associated with underlying disease G63 ; Acute cystitis without hematuria N30.00 and Encounter to establish care with new doctor Z76.89 IMMUNIZATIONS No Known Immunizations SOCIAL HISTORY Never Assessed REASON FOR VISIT BS f/u PLAN OF CARE VITAL SIGNS MEDICATIONS [...]
--- OUTSIDE RECORDS SUMMARY | 2019-12-29 13:35 | XMS REPORT ---
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 Active 773040763 Problem Shoulder arthritis M19.019 Active 4 92183535 Problem senior living (current) use of insulin Z79.4 Active 317567443 Problem Polyneuropathy associated with underlying disease G63 Active 114905196 Problem Type 1 diabetes mellitus with hyperglycemia E10.65 Active 458218920592110 Problem Restless legs syndrome G25.81 Active 91520509 Problem Dysthymia F34.1 Active 85011812 ALLERGIES No Information ENCOUNTERS Encounter Location Date Diagnosis [place] [place] [id number] [address] [place] [phone] Mar, [place] [address] [place] [id number] [address] [place] [phone] Mar, [place] [address] [place] [id number] [address] [place] [phone] February, Acute cystitis with hematuri a N30.01 [facility] [address] [place] [id number] [address] [place] [address] February, [place] [address] [place] [id number] [address] [place] [address] February, Type 1 diabetes mellitus wit h hyperglycemia E10.65 ; Dysuria R30.0 ; Polyneuropathy associated with underlying disease G63 ; Dysthymia F34.1 ; Restless legs syndrome G25.81 ; Acute cystitis with hematuria N30.01 and Shoulder arthritis M19.019 [facility] [address] [facility] [id number] [address] [place] [phone] February, [facility] [address] [place] [id number] [address] [place] [phone] Jan, [facility] [address] [place] [id number] [address] [place] [phone] Jan, [facility] [address] [place] [id number] [address] [place] [phone] Dec, [facility] [address] [facility] [id number] [address] [place] [phone] Dec, Open bite of right forearm, initial encounter S51.851A ; Local infection of the skin and subcutaneous tissue, unspecified L08.9 and Bitten by cat, initial encounter W55.01XA [facility] [address] [place] [id number] [address] [place] [id number] Nov, [facility] [address] [place] [id number] [address] [place] [phone] Nov, Type 1 diabetes mellitus wit h hyperglycemia E10.65 ; Type 2 diabetes mellitus without complications E11.9 ; senior living (current) use of insulin Z79.4 ; Acute cystitis with hematuria N30.01 ; Polyneuropathy in diseases classified elsewhere G63 ; Endocrine disorder, unspecified E34.9 ; Dysuria R30.0 ; Dysthymia F34.1 and Restless legs syndrome G25.81 [facility] [address] [facility] [id number] [address] [place] [phone] Oct, [facility] [address] [place] [id number] [address] [place] [phone] Oct, Type 1 diabetes mellitus wit h hyperglycemia E10.65 [facility] [address] [place] [id number] [address] [place] [phone] Oct, [facility] [address] [place] [id number] [address] [place] [phone] Oct, [facility] [address] [facility] [id number] [address] [place] [phone] Sep, [facility] [address] [facility] [id number] [address] [place] [phone] Sep, [facility] [address] [facility] [id number] [address] [place] [phone] Sep, Type 1 diabetes mellitus wit h hyperglycemia E10.65 [facility] [address] [facility] [id number] [address] [place] [phone] Aug, [facility] [address] [facility] [id number] [address] [place] [phone] Aug, Type 1 diabetes mellitus wit h hyperglycemia E10.65 ; Polyneuropathy associated with underlying disease G63 ; Mixed hyperlipidemia E78.2 and Hospital discharge follow-up Z09 [facility] [address] [facility] [id number] [address] [place] [phone] Aug, [facility] [address] [facility] [id number] [address] [place] [phone] Aug, [facility] [address] [facility] [id number] [address] [place] [phone] Aug, [facility] [address] [facility] [id number] [address] [place] [address] Aug, Type 1 diabetes mellitus wit h hyperglycemia E10.65 ; Polyneuropathy associated with underlying disease G63 ; Mixed hyperlipidemia E78.2 ; Dysuria R30.0 ; Dysthymia F34.1 ; Restless legs syndrome G25.81 and Acute cystitis with hematuria N30.01 [facility] [address] [facility] [id number] [address] [place] [phone] May, [facility] [address] [facility] [id number] [address] [place] [address] Apr, Type 1 diabetes mellitus wit h hyperglycemia E10.65 ; Dysuria R30.0 ; Dysthymia F34.1 ; Polyneuropathy associated with underlying disease G63 ; Acute cystitis without hematuria N30.00 and Encounter to establish care with new doctor Z76.89 IMMUNIZATIONS No Known Immunizations SOCIAL HISTORY Never Assessed REASON FOR VISIT PA for Contour Next Strips PLAN OF CARE VITAL SIGNS MEDICATIONS Unknown [...]
--- OUTSIDE RECORDS SUMMARY | 2019-12-29 13:35 | XMS REPORT ---
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 Active 390585205 Problem Shoulder arthritis M19.019 Active 4 21083794 Problem intermediate (current) use of insulin Z79.4 Active 031126503 Problem Polyneuropathy associated with underlying disease G63 Active 218518425 Problem Type 1 diabetes mellitus with hyperglycemia E10.65 Active 543513062268047 Problem Restless legs syndrome G25.81 Active 15755166 Problem Dysthymia F34.1 Active 16740018 ALLERGIES No Information ENCOUNTERS Encounter Location Date Diagnosis [place] [id number] [address] February, Acute cystitis with hematuri a N30.01 [place] [address] [place] [id number] [address] [place] [phone] February, [place] [address] [place] [id number] [address] [place] [address] February, Type 1 diabetes mellitus wit h hyperglycemia E10.65 ; Dysuria R30.0 ; Polyneuropathy associated with underlying disease G63 ; Dysthymia F34.1 ; Restless legs syndrome G25.81 ; Acute cystitis with hematuria N30.01 and Shoulder arthritis M19.019 [facility] [address] [place] [id number] [address] [place] [phone] February, [place] [address] [address] Jan, [facility] [address] [facility] [id number] [address] [place] [phone] Jan, [facility] [address] [facility] [id number] [address] [place] [phone] Dec, [facility] [address] [facility] [id number] [address] [place] [phone] Dec, Open bite of right forearm, initial encounter S51.851A ; Local infection of the skin and subcutaneous tissue, unspecified L08.9 and Bitten by cat, initial encounter W55.01XA [facility] [address] [facility] [id number] [address] [place] [phone] Nov, [facility] [address] [place] [id number] [address] [place] [id number] Nov, Type 1 diabetes mellitus wit h hyperglycemia E10.65 ; Type 2 diabetes mellitus without complications E11.9 ; 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 ; Acute cystitis with hematuria N30.01 ; Polyneuropathy in diseases classified elsewhere G63 ; Endocrine disorder, unspecified E34.9 ; Dysuria R30.0 ; Dysthymia F34.1 and Restless legs syndrome G25.81 [facility] [address] [place] [id number] [address] [place] [phone] Oct, [facility] [address] [place] [id number] [address] [place] [phone] Oct, Type 1 diabetes mellitus wit h hyperglycemia E10.65 [facility] [address] [facility] [id number] [address] [place] [phone] Oct, [facility] [address] [place] [id number] [address] [place] [phone] Oct, [facility] [address] [place] [id number] [address] [place] [phone] Sep, [facility] [address] [place] [id number] [address] [place] [phone] Sep, [place] [address] [facility] [id number] [address] [place] [phone] Sep, Type 1 diabetes mellitus wit h hyperglycemia E10.65 [place] [address] [facility] [id number] [address] [place] [phone] Aug, [place] [address] [place] [id number] [address] [place] [address] Aug, Type 1 diabetes mellitus wit h hyperglycemia E10.65 ; Polyneuropathy associated with underlying disease G63 ; Mixed hyperlipidemia E78.2 and Hospital discharge follow-up Z09 [place] [address] [facility] [id number] [address] [place] [phone] Aug, [place] [address] [place] [id number] [address] [place] [phone] Aug, [place] [address] [place] [id number] [address] [place] [phone] Aug, [place] [address] [place] [id number] [address] [place] [address] Aug, Type 1 diabetes mellitus wit h hyperglycemia E10.65 ; Polyneuropathy associated with underlying disease G63 ; Mixed hyperlipidemia E78.2 ; Dysuria R30.0 ; Dysthymia F34.1 ; Restless legs syndrome G25.81 and Acute cystitis with hematuria N30.01 [place] [address] [place] [id number] [address] [place] [phone] May, [place] [address] [place] [id number] [address] [place] [address] Apr, Type 1 diabetes mellitus wit h hyperglycemia E10.65 ; Dysuria R30.0 ; Dysthymia F34.1 ; Polyneuropathy associated with underlying disease G63 ; Acute cystitis without hematuria N30.00 and Encounter to establish care with new doctor Z76.89 IMMUNIZATIONS No Known Immunizations SOCIAL HISTORY Never Assessed REASON FOR VISIT 1 wk f/u DM Ed PLAN OF CARE VITAL SIGNS MEDICATIONS Medication Instructions Dosage Frequency Start Date End Date Duration S tatus Levemir 100 UNIT/ML Subcutaneous 2 times a day 15 units in t he morning and 20 units in the evening 12h 09 Aug, 2017 Active NovoLog 100 UNIT/ML Subcutaneous 3 times a day 10 units thre e times per day with meals 8h Aug, Active RESULTS No Results PROCEDURES No Known [...]
--- OUTSIDE RECORDS SUMMARY | 2019-12-29 13:35 | XMS REPORT ---
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 Active 889998957 Problem Shoulder arthritis M19.019 Active 4 22744819 Problem retirement (current) use of insulin Z79.4 Active 855610468 Problem Polyneuropathy associated with underlying disease G63 Active 399157635 Problem Type 1 diabetes mellitus with hyperglycemia E10.65 Active 461988521323582 Problem Restless legs syndrome G25.81 Active 43156033 Problem Dysthymia F34.1 Active 27113261 ALLERGIES No Information ENCOUNTERS Encounter Location Date Diagnosis [place] [id number] [place] [id number] [address] [place] [phone] Mar, [place] [address] [place] [id number] [address] [place] [address] Mar, [place] [address] [place] [id number] [address] [place] [address] February, Acute cystitis with hematuri a N30.01 [facility] [address] [place] [id number] [address] [place] [address] February, [place] [address] [place] [id number] [address] [place] [address] February, Type 1 diabetes mellitus wit h hyperglycemia E10.65 ; Dysuria R30.0 ; Polyneuropathy associated with underlying disease G63 ; Dysthymia F34.1 ; Restless legs syndrome G25.81 ; Acute cystitis with hematuria N30.01 and Shoulder arthritis M19.019 [facility] [address] [facility] [id number] [address] [place] [phone] February, [facility] [address] [place] [id number] [address] [place] [phone] Jan, [facility] [address] [place] [id number] [address] [place] [phone] Jan, [facility] [address] [place] [id number] [address] [place] [phone] Dec, [facility] [address] [facility] [id number] [address] [place] [address] Dec, Open bite of right forearm, initial encounter S51.851A ; Local infection of the skin and subcutaneous tissue, unspecified L08.9 and Bitten by cat, initial encounter W55.01XA [facility] [address] [place] [id number] [address] [place] [phone] Nov, [facility] [address] [place] [id number] [address] [place] [address] Nov, Type 1 diabetes mellitus wit h hyperglycemia E10.65 ; Type 2 diabetes mellitus without complications E11.9 ; retirement (current) use of insulin Z79.4 ; Acute cystitis with hematuria N30.01 ; Polyneuropathy in diseases classified elsewhere G63 ; Endocrine disorder, unspecified E34.9 ; Dysuria R30.0 ; Dysthymia F34.1 and Restless legs syndrome G25.81 [facility] [address] [facility] [id number] [address] [place] [phone] Oct, [facility] [address] [place] [id number] [address] [place] [address] Oct, Type 1 diabetes mellitus wit h hyperglycemia E10.65 [facility] [address] [place] [id number] [address] [place] [phone] Oct, [facility] [address] [place] [id number] [address] [place] [phone] Oct, [facility] [address] [facility] [id number] [address] [place] [phone] Sep, [facility] [address] [facility] [id number] [address] [place] [phone] Sep, [facility] [address] [facility] [id number] [address] [place] [address] Sep, Type 1 diabetes mellitus wit h hyperglycemia E10.65 [facility] [address] [facility] [id number] [address] [place] [address] Aug, [facility] [address] [facility] [id number] [address] [place] [address] Aug, Type 1 diabetes mellitus wit h hyperglycemia E10.65 ; Polyneuropathy associated with underlying disease G63 ; Mixed hyperlipidemia E78.2 and Hospital discharge follow-up Z09 [facility] [address] [facility] [id number] [address] [place] [address] Aug, [facility] [address] [facility] [id number] [address] [place] [address] Aug, [facility] [address] [facility] [id number] [address] [place] [phone] Aug, [facility] [address] [facility] [id number] [address] [place] [address] Aug, Type 1 diabetes mellitus wit h hyperglycemia E10.65 ; Polyneuropathy associated with underlying disease G63 ; Mixed hyperlipidemia E78.2 ; Dysuria R30.0 ; Dysthymia F34.1 ; Restless legs syndrome G25.81 and Acute cystitis with hematuria N30.01 [facility] [address] [facility] [id number] [address] [place] [phone] May, [facility] [address] [facility] [id number] [address] [place] [address] Apr, Type 1 diabetes mellitus wit h hyperglycemia E10.65 ; Dysuria R30.0 ; Dysthymia F34.1 ; Polyneuropathy associated with underlying disease G63 ; Acute cystitis without hematuria N30.00 and Encounter to establish care with new doctor Z76.89 IMMUNIZATIONS No Known Immunizations SOCIAL HISTORY Never Assessed REASON FOR VISIT Insulin pump start PLAN OF CARE VITAL SIGNS MEDICATIONS Medication Instructions Dosage Frequency Start Date End Date Duration S eduin NovoLog 100 UNIT/ML DX- E10.65 per insulin pump daily 60 units 24h Aug, Active Venlafaxine HCl ER 37.5 MG Orally Once a day 1 capsule with food 24h 90 days Unknown Amitriptyline HCl 10 mg Orally Once a day 1 tablet 24h 90 days Unknown Glucocard Expression Test 1 subcutaneously 3 times a day test 3 times per day 8h Apr, Unknown Juanita Contour Next Test - DX-E10.65- on insulin pump T est FBS and per and post all meals and bedtime test 6 times per day Oct, Active Promethazine HCl 25 MG Orally every 12 hrs 1 tablet as needed 12h Unknown Gabapentin 300 MG Orally twice a day 1 capsule twice daily 12h 09 2016 Unknown Lisinopril 5 mg Orally Once a day 1 tablet 24h Apr, Unknown RESULTS No Results PROCEDURES No Known procedures [...]
--- OUTSIDE RECORDS SUMMARY | 2019-12-29 17:17 | XMS REPORT | Continuity of Care Document ---
Author Organization Unknown Address Unknown Phone Unavailable Allergies Active Description Code Type Severity Reaction Onset Reported/Identified Relationship to Patient Clinical Status Yes Sulfa (Sulfonamide Antibiotics) Sulfa (Sulfonamide Antibiotics) Drug Allergy Unknown UNKNOWN 06/12/2012 Yes Sulfa (Sulfonamide Antibiotics) [id number] Drug Allergy Unknown N/A 013 Medications [...] 250.01 06/24/2015 OT 595.0 07/04/2015 Yaneth Green [employer] OT 250.03 07/04/2015 Yaneth Green [facility] OT 786.05 08/04/2015 Will Burgess MD E10.65 TYPE 1 DIABETES MELLITUS WITH HYPERGLYCEMIA 08/04/2015 Will Burgess MD E78.0 PURE HYPERCHOLESTEROLEMIA 08/04/2015 Will Burgess MD F17.200 NICOTINE DEPENDENCE, UNSPECIFIED, UNCOMPLICATED 08/04/2015 Will Burgess MD I51.7 CARDIOMEGALY 08/04/2015 Will Burgess MD R06.00 DYSPNEA, UNSPECIFIED 08/12/2015 Yaneth GreenP OT 250.03 08/12/2015 Yaneth Green [facility] OT 786.05 05/03/2016 Enrique De La [...] UNSPECIFIED 05/03/2016 Enrique De La Torre Z79.4 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 05/05/2016 Landon Thibodeaux E11.9 TYPE 2 DIABETES MELLITUS WITHOUT COMPLICATIONS 05/05/2016 Landon Thibodeaux M62.81 MUSCLE WEAKNESS (GENERALIZED) 05/05/2016 Landon Thibodeaux R11.2 NAUSEA WITH VOMITING, UNSPECIFIED 05/05/2016 aLndon Thibodeaux R30.0 DYSURIA 05/05/2016 Marin Augustin APRN [...] DIFFERENTIAL/MORPHOLOGY AUTO DIFF Performing Location: METABOLIC PANEL, [facility] - 04/30/16 04: 15 Performing Location: SODIUM [...] BY ACCUCHEK 179 mg/dL 70-110 METABOLIC PANEL, [facility] 04/30/16 10:00 Performing Location: SODIUM 139 mmol/L [...] BY ACCUCHEK 224 mg/dL 70-110 METABOLIC PANEL, [facility] 04/30/16 13:40 Performing Location: SODIUM 138 mmol/L [...] BY ACCUCHEK 147 mg/dL 70-110 METABOLIC PANEL, [facility] 04/30/16 16:50 Performing Location: SODIUM 140 mmol/L [...] BY ACCUCHEK 94 mg/dL 70-110 METABOLIC PANEL, [facility] 04/30/16 20:30 Performing Location: SODIUM 141 mmol/L [...] 7-25 CREATININE 0.79 mg/dL 0.50-1.10 eGFR NON-AFR. ITALIAN 90 mL/min/1.73m2 > OR = 60 eGFR [...] Status Pt. Type Provider Facility Loc./Unit Complaint [id number] 12/27/2019 13:05:00 ACT Outpatient TEAGAN LYNN, [facility] [id number] 02/12/2019 15:40:00 Document Registration [id number] 02/05/2019 15:40:00 Document Registration [id number] 12/27/2018 15:40:00 Document Registration [id number] 07/06/2018 11:00:00 Document Registration [id number] 03/07/2018 14:20:00 Document Registration [id number] 11/17/2017 08:00:00 Document Registration [id number] 06/18/2015 15:49:00 23:59:59 [facility] [id number] 06/18/2015 15:44:00 23:59:59 [facility].05 [id number] 12/03/2014 20:00:00 Document Registration [id number] 12/03/2014 19:32:00 Document Registration [id number] 10/23/2015 14:00:00 23:59:59 CLS Outpatient Aditya LYNN, [facility] HMG.DHC.DO [id number] 08/04/2015 08:52:00 23:59:00 DIS Outpatient Aditya LYNN, [facility] IMG.US.ECH [id number] 07/17/2015 10:51:00 23:59:59 CLS Outpatient Aditya LYNN, [facility] CARD.[facility] [id number] 03/27/2015 16:01:00 23:59:59 CLS Outpatient Dana LYNN, [facility] MARYP [id number] 07/02/2013 13:22:00 23:59:59 CLS Outpatient Dana LYNN, [facility] MARYP [id number] 07/02/2013 09:36:00 23:59:00 DIS Outpatient Erin MALHOTRA [facility] IMG. [id number] 05/16/2013 15:51:00 23:59:59 CLS Outpatient Erin MALHOTRA [facility] MARYP [id number] 05/16/2013 14:28:00 23:59:00 DIS Out[facility] IMG.RAD [id number] 05/05/2016 16:49:00 016 16:49:00 DIS Outpatient Marin Augustin APRN [facility] D.INFUSION [id number] 05/05/2016 16:25:00 016 16:25:00 DIS Outpatient Landon Thibodeaux [facility] D.LAB [id number] 04/30/2016 08:58:00 016 12:19:00 DIS Inpatient Enrique De La Torre [facility] D.ICU [id number] 04/02/2015 12:36:00 015 12:36:00 DIS Outpatient Dana [place], [facility] VEE
== END 2019-12-29 10:20 | disposition home or self-care (01) | DRG 638 ==
LOC: EDUNIT# 14:07 → ER 14:08 → ICU 17:00 → OBSVTOIN 17:00
PROVIDERS: ADMIT Internal Medicine; ATTEND Internal Medicine
DX: E10.10 Type 1 diabetes mellitus with ketoacidosis without coma (principal); N39.0 Urinary tract infection, site not specified; E86.0 Dehydration; E87.6 Hypokalemia; K52.9 Noninfective gastroenteritis and colitis, unspecified; I10 Essential (primary) hypertension; E10.40 Type 1 diabetes mellitus with diabetic neuropathy, unspecified; F41.9 Anxiety disorder, unspecified; F32.9 Major depressive disorder, single episode, unspecified; F17.210 Nicotine dependence, cigarettes, uncomplicated; Z88.2 Allergy status to sulfonamides; Z91.19 Patient's noncompliance with other medical treatment and regimen; Z79.4 Long term (current) use of insulin
CPT/HCPCS: 36415; 71045; 74176; 80048; 80053; 80306; 81000; 82010; 82805; 82962; 83036; 83605; 83735; 84100; 84145; 85007; 85025; 85027; 85610; 85730; 87040; 87081; 87088; 87804

== ENCOUNTER 2020-04-10 05:34 | Outpatient (RCR) | payer BC ==
[~2020-04-10] VITALS: Ht 172 cm; Wt 81.8 kg
[~2020-04-10 05:34] MED LIST changes: +IBUP-1780 PO; +INSU100V SQ; +L.AC1CAP6 PO; +PAMI30VI8 SQ
== END 2020-04-10 11:34 | disposition home or self-care (01) ==
LOC: PREOP 05:34
PROVIDERS: ATTEND Surgery
DX: Z01.812 Encounter for preprocedural laboratory examination (principal); Z20.828 Contact with and (suspected) exposure to other viral communicable diseases; Z80.0 Family history of malignant neoplasm of digestive organs
CPT/HCPCS: 87635

== ENCOUNTER 2020-04-14 08:45 | Day surgery (SDC) | payer BC ==
[2020-04-14] VITALS (8 sets, daily range): BP systolic 84–106; BP diastolic 53–59
[~2020-04-14] VITALS: Ht 172 cm; Wt 81.8 kg
[2020-04-14] MEDS ORDERED: LACTATED RINGERS 1,000 ML IV ONE (08:54)
[2020-04-14] MEDS ORDERED: CITRIC ACID/SOB CIT (BICITRA) 30 ML UDC PO ONE (09:00)
[2020-04-14] MEDS ORDERED: FAMOTIDINE 20MG/2ML IV (PEPCID) IVP ONE (09:00)
[2020-04-14] MEDS ORDERED: METOCLOPRAMIDE INJ 10 MG/2 ML (REGLAN) IVP ONE (09:00)
[2020-04-14] MEDS ORDERED: PROPOFOL INJECTION 50 ML IV ONE (09:01)
[2020-04-14] MEDS ORDERED: MIDAZOLAM 2 MG/2 ML (VERSED) VIAL ONE (09:02)
--- NOTE | 2020-04-14 09:07 | Progress Note-Pre Operative ---
Pre-Operative Progress Note H&P Reviewed The H&P was reviewed, patient examined and no changes noted. Time Seen by Provider: 09:05 Date H&P Reviewed: Apr 14, 2020 Time H&P Reviewed: 09:06 Pre-Operative Diagnosis: Family hx of colon CA JOANNE GALLAGHER DO Apr 14, 2020 09:07
[2020-04-14] MEDS ORDERED: inSUlin (REGULAR) HUMAN 1 UNIT/0.01 ML (CHARGE PER UNIT) ONE (09:16)
[2020-04-14] MEDS ORDERED: LACTATED RINGERS 1,000 ML IV STA (09:26)
--- OUTSIDE RECORDS SUMMARY | 2020-04-14 09:38 | XMS REPORT ---
Author Author Misty JETT [facility] Address [address] 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 Active 232423515 Problem Dysthymia F34.1 Active 95090603 Problem Type 1 diabetes mellitus with hyperglycemia E10.65 Active 656045579969284 Problem Other chronic pain G89.29 Active 8 8324793 Problem Mixed hyperlipidemia E78.2 Active 985074237 Problem Generalized anxiety disorder F41.1 A ctive 26718234 Problem Restless legs syndrome G25.81 Active 05516395 Problem intermediate (current) use of insulin Z79.4 Active 039562132 Problem Shoulder arthritis M19.019 Active 4 41894287 Problem Long-term insulin use Z79.4 Active 565511248 ALLERGIES No Information ENCOUNTERS Encounter Location Date Diagnosis [facility] [id number] [place] [phone] 20 Dec, 2019 Type 1 diabetes mellitus wit h hyperglycemia E10.65 and Hx: UTI (urinary tract infection) Z87.440 [facility] [id number] [place] [id number] 16 Dec, 2019 [facility] [id number] [place] [phone] Dec, Flank pain R10.9 ; Vomiting without nausea, intractability of vomiting not specified, unspecified vomiting type R11.11 and Hematuria, unspecified type R31.9 [facility] [id number] [place] [phone] Jul, [facility] [id number] [place] [phone] Jul, Restless legs syndrome G25.8 1 ; Generalized anxiety disorder F41.1 and Type 1 diabetes mellitus with hyperglycemia E10.65 [facility] [address] [facility] [id number] [address] [place] [phone] Jul, Type 1 diabetes mellitus wit h hyperglycemia E10.65 ; Encounter for immunization Z23 and UTI (urinary tract infection) N39.0 [facility] [address] [id number] [address] [place] [phone] Jul, [facility] [address] [id number] [address] [place] [phone] May, [facility] [address] [facility] [id number] [address] [place] [phone] Mar, [facility] [address] [facility] [id number] [address] [place] [phone] February, [facility] [address] [facility] [id number] [address] [place] [phone] February, [facility] [address] [facility] [id number] [address] [place] [phone] February, Dysthymia F34.1 and Generali zed anxiety disorder F41.1 [facility] [address] [facility] [id number] [address] [place] [phone] February, [facility] [address] [facility] [id number] [address] [place] [phone] Jan, [facility] [address] [facility] [id number] [address] [place] [phone] Jan, Dysthymia F34.1 and Generali zed anxiety disorder F41.1 [facility] [address] [facility] [id number] [address] [place] [phone] Jan, Acute cystitis without hemat uria N30.00 and Flank pain R10.9 [facility] [address] [facility] [id number] [address] [place] [id number] Jan, Type 1 diabetes mellitus wit h hyperglycemia E10.65 [facility] [address] [id number] [address] [place] [id number] Jan, Dysthymia F34.1 [facility] [address] [id number] [address] [place] [phone] Jan, [facility] [address] [facility] [id number] [address] [place] [phone] Jan, [facility] [address] [id number] [address] [place] [phone] Jan, [facility] [address] [facility] [id number] [address] [place] [phone] Jan, [facility] [address] [facility] [id number] [address] [place] [phone] Jan, [facility] [address] [facility] [id number] [address] [place] [phone] Jan, Dysthymia F34.1 and Generali zed anxiety disorder F41.1 [facility] [address] [id number] [address] [place] [phone] Dec, Mood disorder F39 and Anxiet y disorder, unspecified F41.9 [facility] [address] [facility] [id number] [address] [place] [phone] Dec, Restless legs syndrome G25.8 1 and Type 1 diabetes mellitus with hyperglycemia E10.65 [facility] [address] [id number] [address] [place] [phone] Dec, [facility] [address] [facility] [id number] [address] [place] [phone] Dec, [facility] [address] [facility] [id number] [address] [place] [phone] Dec, [facility] [address] [facility] [id number] [address] [place] [phone] Dec, Mood disorder F39 and Anxiet y disorder, unspecified F41.9 [facility] [address] [facility] [id number] [address] [place] [id number] 13 Dec, 2018 Type 1 diabetes mellitus wit h hyperglycemia E10.65 and Anxiety disorder, unspecified F41.9 [facility] [address] [facility] [id number] [address] [place] [id number] 08 Dec, 2018 Type 1 diabetes mellitus wit h hyperglycemia E10.65 [facility] [address] [facility] [id number] [address] [place] [phone] Nov, Acute cyclitis H20.00 [facility] [address] [facility] [id number] [place] [phone] Oct, Type 1 diabetes mellitus wit h hyperglycemia E10.65 [facility] [id number] [place] [phone] Oct, 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 [place] [id number] [place] [phone] Sep, [facility] [id number] [place] [phone] Aug, [facility] [id number] [place] [phone] Jul, [facility] [id number] [place] [phone] Jun, Type 1 diabetes mellitus wit h [...] shoulder M25.511 and Other chronic pain G89.29 [facility] [id number] [place] [phone] May, [facility] [address] [id number] [address] [place] [phone] Apr, [facility] [address] [facility] [id number] [address] [place] [phone] Apr, [facility] [address] [facility] [id number] [address] [place] [phone] Apr, [facility] [address] [facility] [id number] [address] [place] [phone] Apr, [facility] [address] [id number] [address] [place] [phone] Mar, [facility] [address] [facility] [id number] [address] [place] [phone] Mar, [facility] [address] [facility] [id number] [address] [place] [phone] February, Acute cystitis with hematuri a N30.01 [facility] [address] [facility] [id number] [address] [place] [phone] February, [facility] [address] [facility] [id number] [address] [place] [address] February, Type 1 diabetes mellitus wit h hyperglycemia E10.65 ; Dysuria R30.0 ; Polyneuropathy associated with underlying disease G63 ; Dysthymia F34.1 ; Restless legs syndrome G25.81 ; Acute cystitis with hematuria N30.01 and Shoulder arthritis M19.019 [facility] [address] [facility] [id number] [address] [place] [address] February, [facility] [address] [facility] [id number] [address] [place] [phone] Jan, [facility] [address] [facility] [id number] [address] [place] [phone] Jan, [facility] [address] [facility] [id number] [address] [place] [phone] Dec, [facility] [id number] [place] [address] Dec, Open bite of right forearm, initial encounter S51.851A ; Local infection of the skin and subcutaneous tissue, unspecified L08.9 and Bitten by cat, initial encounter W55.01XA [facility] [id number] [place] [address] Nov, [facility] [address] [phone] Nov, Type 1 diabetes mellitus wit h hyperglycemia E10.65 ; Type 2 diabetes mellitus without complications E11.9 ; 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 ; Acute cystitis with hematuria N30.01 ; Polyneuropathy in diseases classified elsewhere G63 ; Endocrine disorder, unspecified E34.9 ; Dysuria R30.0 ; Dysthymia F34.1 and Restless legs syndrome G25.81 [place] [id number] [place] [phone] Oct, [facility] [id number] [place] [address] Oct, Type 1 diabetes mellitus wit h hyperglycemia E10.65 [place] [id number] [place] [phone] Oct, [facility] [id number] [place] [address] Oct, [facility] [id number] [place] [phone] Sep, [facility] [id number] [place] [phone] Sep, [address] [id number] [place] [address] Sep, Type 1 diabetes mellitus wit h hyperglycemia E10.65 [facility] [id number] [place] [phone] Aug, [place] [id number] [place] [phone] Aug, Type 1 diabetes mellitus wit h hyperglycemia E10.65 ; Polyneuropathy associated with underlying disease G63 ; Mixed hyperlipidemia E78.2 and Hospital discharge follow-up Z09 [address] [id number] [place] [phone] Aug, [address] [address] [phone] Aug, [place] [id number] [place] [address] Aug, [address] [address] [address] Aug, Type 1 diabetes mellitus wit h hyperglycemia E10.65 ; Polyneuropathy associated with underlying disease G63 ; Mixed hyperlipidemia E78.2 ; Dysuria R30.0 ; Dysthymia F34.1 ; Restless legs syndrome G25.81 and Acute cystitis with hematuria N30.01 [place] [id number] [place] [address] May, [address] [address] [address] Apr, Type 1 diabetes mellitus wit h hyperglycemia E10.65 ; Dysuria R30.0 ; Dysthymia F34.1 ; Polyneuropathy associated with underlying disease G63 ; Acute cystitis without hematuria N30.00 and Encounter to establish care with new doctor Z76.89 IMMUNIZATIONS No Known Immunizations SOCIAL HISTORY Never Assessed REASON FOR VISIT pump/cgm restart PLAN OF CARE VITAL SIGNS MEDICATIONS Medication Instructions Dosage Frequency Start Date End Date Duration S tatus Blood Glucose Test Strip [place] 670G insulin pump Test Fasting and 2 hours after each meal and bedtime test blood sugar Jan, Active RESULTS No Results PROCEDURES No Known [...]
--- OUTSIDE RECORDS SUMMARY | 2020-04-14 09:38 | XMS REPORT ---
Author Author Misty JETT [facility] Address [address] 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 Active 818784059 Problem Dysthymia F34.1 Active 55503441 Problem Type 1 diabetes mellitus with hyperglycemia E10.65 Active [id number] Problem Other chronic pain G89.29 Active 8 9245421 Problem Mixed hyperlipidemia E78.2 Active 900810446 Problem Generalized anxiety disorder F41.1 A ctive 76505767 Problem Restless legs syndrome G25.81 Active 33936713 Problem [facility] (current) use of insulin Z79.4 Active 694058584 Problem Shoulder arthritis M19.019 Active 4 16532648 Problem Long-term insulin use Z79.4 Active 532530897 ALLERGIES No Information ENCOUNTERS Encounter Location Date Diagnosis [facility] [id number] [place] [phone] 20 Dec, 2019 Type 1 diabetes mellitus wit h hyperglycemia E10.65 and Hx: UTI (urinary tract infection) Z87.440 [facility] [id number] [place] [phone] 16 Dec, 2019 [facility] [id number] [place] [phone] Dec, Flank pain R10.9 ; Vomiting without nausea, intractability of vomiting not specified, unspecified vomiting type R11.11 and Hematuria, unspecified type R31.9 [facility] [id number] [place] [phone] Jul, [facility] [address] [id number] [address] [place] [phone] Jul, Restless legs syndrome G25.8 1 ; Generalized anxiety disorder F41.1 and Type 1 diabetes mellitus with hyperglycemia E10.65 [facility] [address] [facility] [id number] [address] [place] [phone] Jul, Type 1 diabetes mellitus wit h hyperglycemia E10.65 ; Encounter for immunization Z23 and UTI (urinary tract infection) N39.0 [facility] [address] [id number] [address] [place] [phone] Jul, [facility] [address] [id number] [address] [place] [phone] May, [facility] [address] [facility] [id number] [address] [place] [phone] Mar, [facility] [address] [facility] [id number] [address] [place] [phone] February, [facility] [address] [facility] [id number] [address] [place] [phone] February, [facility] [address] [facility] [id number] [address] [place] [phone] February, Dysthymia F34.1 and Generali zed anxiety disorder F41.1 [facility] [address] [facility] [id number] [address] [place] [phone] February, [facility] [address] [facility] [id number] [address] [place] [phone] Jan, [facility] [address] [facility] [id number] [address] [place] [phone] Jan, Dysthymia F34.1 and Generali zed anxiety disorder F41.1 [facility] [address] [facility] [id number] [address] [place] [phone] Jan, Acute cystitis without hemat uria N30.00 and Flank pain R10.9 [facility] [address] [facility] [id number] [address] [place] [phone] Jan, Type 1 diabetes mellitus wit h hyperglycemia E10.65 [facility] [address] [id number] [address] [place] [phone] Jan, Dysthymia F34.1 [facility] [address] [id number] [address] [place] [phone] Jan, [facility] [address] [facility] [id number] [address] [place] [phone] Jan, [facility] [address] [id number] [address] [place] [phone] Jan, [facility] [address] [facility] [id number] [address] [place] [phone] Jan, [facility] [address] [facility] [id number] [address] [place] [phone] Jan, [facility] [address] [facility] [id number] [address] [place] [phone] Jan, Dysthymia F34.1 and Generali zed anxiety disorder F41.1 [facility] [address] [id number] [address] [place] [phone] Dec, Mood disorder F39 and Anxiet y disorder, unspecified F41.9 [facility] [address] [facility] [id number] [address] [place] [phone] Dec, Restless legs syndrome G25.8 1 and Type 1 diabetes mellitus with hyperglycemia E10.65 [facility] [address] [id number] [address] [place] [phone] Dec, [facility] [address] [facility] [id number] [address] [place] [phone] Dec, [facility] [address] [facility] [id number] [address] [place] [phone] Dec, [facility] [address] [facility] [id number] [address] [place] [phone] Dec, Mood disorder F39 and Anxiet y disorder, unspecified F41.9 [facility] [address] [facility] [id number] [address] [place] [phone] 13 Dec, 2018 Type 1 diabetes mellitus wit h hyperglycemia E10.65 and Anxiety disorder, unspecified F41.9 [facility] [address] [facility] [id number] [address] [place] [phone] 08 Dec, 2018 Type 1 diabetes mellitus wit h hyperglycemia E10.65 [facility] [address] [facility] [id number] [address] [place] [phone] Nov, Acute cyclitis H20.00 [facility] [address] 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 [place] [id number] [place] [phone] Sep, [facility] [id number] [place] [phone] Aug, [facility] [id number] [address] [place] [phone] Jul, [facility] [id number] [place] [phone] Jun, Type 1 diabetes mellitus wit h [...] shoulder M25.511 and Other chronic pain G89.29 [facility] [id number] [place] [phone] May, [facility] [address] [id number] [address] [place] [phone] Apr, [facility] [address] [facility] [id number] [address] [place] [phone] Apr, [facility] [address] [facility] [id number] [address] [place] [phone] Apr, [facility] [address] [facility] [id number] [address] [place] [phone] Apr, [facility] [address] [id number] [address] [place] [phone] Mar, [facility] [address] [facility] [id number] [address] [place] [phone] Mar, [facility] [address] [facility] [id number] [address] [place] [phone] February, Acute cystitis with hematuri a N30.01 [facility] [address] [facility] [id number] [address] [place] [phone] February, [facility] [address] [facility] [id number] [address] [place] [phone] February, Type 1 diabetes mellitus wit h hyperglycemia E10.65 ; Dysuria R30.0 ; Polyneuropathy associated with underlying disease G63 ; Dysthymia F34.1 ; Restless legs syndrome G25.81 ; Acute cystitis with hematuria N30.01 and Shoulder arthritis M19.019 [facility] [address] [facility] [id number] [address] [place] [phone] February, [facility] [address] [facility] [id number] [address] [place] [phone] Jan, [facility] [address] [facility] [id number] [address] [place] [phone] Jan, [facility] [address] [facility] [id number] [address] [place] [phone] Dec, [facility] [id number] [address] [place] [phone] Dec, Open bite of right forearm, initial encounter S51.851A ; Local infection of the skin and subcutaneous tissue, unspecified L08.9 and Bitten by cat, initial encounter W55.01XA [facility] [address] [place] [phone] Nov, [facility] [address] [id number] Nov, Type 1 diabetes mellitus wit h hyperglycemia E10.65 ; Type 2 diabetes mellitus without complications E11.9 ; 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 ; Acute cystitis with hematuria N30.01 ; Polyneuropathy in diseases classified elsewhere G63 ; Endocrine disorder, unspecified E34.9 ; Dysuria R30.0 ; Dysthymia F34.1 and Restless legs syndrome G25.81 [place] [id number] [place] [phone] Oct, [facility] [id number] [place] [phone] Oct, Type 1 diabetes mellitus wit h hyperglycemia E10.65 [place] [id number] [address] [place] [phone] Oct, [facility] [address] [place] [phone] Oct, [facility] [id number] [address] [place] [phone] Sep, [facility] [id number] [place] [phone] Sep, [place] [address] [place] [address] Sep, Type 1 diabetes mellitus wit h hyperglycemia E10.65 [facility] [id number] [place] [phone] Aug, [place] [id number] [place] [phone] Aug, Type 1 diabetes mellitus wit h hyperglycemia E10.65 ; Polyneuropathy associated with underlying disease G63 ; Mixed hyperlipidemia E78.2 and Hospital discharge follow-up Z09 [place] [address] [id number] [place] [phone] Aug, [place] [address] [phone] Aug, [place] [address] [id number] [address] [place] [phone] Aug, [place] [address] [id number] Aug, Type 1 diabetes mellitus wit h hyperglycemia E10.65 ; Polyneuropathy associated with underlying disease G63 ; Mixed hyperlipidemia E78.2 ; Dysuria R30.0 ; Dysthymia F34.1 ; Restless legs syndrome G25.81 and Acute cystitis with hematuria N30.01 [place] [id number] [place] [address] May, [address] [id number] Apr, Type 1 diabetes mellitus wit h hyperglycemia E10.65 ; Dysuria R30.0 ; Dysthymia F34.1 ; Polyneuropathy associated with underlying disease G63 ; Acute cystitis without hematuria N30.00 and Encounter to establish care with new doctor Z76.89 IMMUNIZATIONS No Known Immunizations SOCIAL HISTORY Never Assessed REASON FOR VISIT PLAN OF CARE VITAL SIGNS MEDICATIONS Medication Instructions Dosage Frequency Start Date End Date Duration S tatus Blood Glucose Test Strip Husam Controu [place] 670G insulin pump Test Fasting and 2 [...]
--- OUTSIDE RECORDS SUMMARY | 2020-04-14 09:38 | XMS REPORT ---
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 Active 440515536 Problem Dysthymia F34.1 Active 74827678 Problem Type 1 diabetes mellitus with hyperglycemia E10.65 Active [id number] Problem Other chronic pain G89.29 Active 8 8101470 Problem Mixed hyperlipidemia E78.2 Active 196782051 Problem Generalized anxiety disorder F41.1 A ctive 63597955 Problem Restless legs syndrome G25.81 Active 79116705 Problem 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 Active 962013070 Problem Shoulder arthritis M19.019 Active 4 81245864 Problem Long-term insulin use Z79.4 Active 098607842 ALLERGIES No Information ENCOUNTERS Encounter Location Date Diagnosis [facility] [id number] [address] [place] [id number] 20 Dec, 2019 Type 1 diabetes mellitus wit h hyperglycemia E10.65 and Hx: UTI (urinary tract infection) Z87.440 [facility] [id number] [address] [place] [id number] 16 Dec, 2019 [facility] [address] [facility] [id number] [address] [place] [phone] Dec, Flank pain R10.9 ; Vomiting without nausea, intractability of vomiting not specified, unspecified vomiting type R11.11 and Hematuria, unspecified type R31.9 [facility] [id number] [address] [place] [id number] Jul, [facility] [id number] [address] [place] [phone] Jul, Restless legs syndrome G25.8 1 ; Generalized anxiety disorder F41.1 and Type 1 diabetes mellitus with hyperglycemia E10.65 [facility] [address] [facility] [id number] [address] [place] [phone] Jul, Type 1 diabetes mellitus wit h hyperglycemia E10.65 ; Encounter for immunization Z23 and UTI (urinary tract infection) N39.0 [facility] [address] [id number] [address] [place] [id number] Jul, [facility] [address] [id number] [address] [place] [phone] May, [facility] [address] [facility] [id number] [address] [place] [phone] Mar, [facility] [address] [facility] [id number] [address] [place] [phone] February, [facility] [address] [facility] [id number] [address] [place] [phone] February, [facility] [address] [facility] [id number] [address] [place] [phone] February, Dysthymia F34.1 and Generali zed anxiety disorder F41.1 [facility] [address] [facility] [id number] [address] [place] [phone] February, [facility] [address] [facility] [id number] [address] [place] [id number] Jan, [facility] [address] [facility] [id number] [address] [place] [phone] Jan, Dysthymia F34.1 and Generali zed anxiety disorder F41.1 [facility] [address] [facility] [id number] [address] [place] [phone] Jan, Acute cystitis without hemat uria N30.00 and Flank pain R10.9 [facility] [address] [facility] [id number] [address] [place] [phone] Jan, Type 1 diabetes mellitus wit h hyperglycemia E10.65 [facility] [address] [id number] [address] [place] [phone] Jan, Dysthymia F34.1 [facility] [address] [id number] [address] [place] [phone] Jan, [facility] [address] [facility] [id number] [address] [place] [phone] Jan, [facility] [address] [id number] [address] [place] [phone] Jan, [facility] [address] [facility] [id number] [address] [place] [phone] Jan, [facility] [address] [facility] [id number] [address] [place] [phone] Jan, [facility] [address] [facility] [id number] [address] [place] [id number] Jan, Dysthymia F34.1 and Generali zed anxiety disorder F41.1 [facility] [address] [id number] [address] [place] [phone] Dec, Mood disorder F39 and Anxiet y disorder, unspecified F41.9 [facility] [address] [facility] [id number] [address] [place] [phone] Dec, Restless legs syndrome G25.8 1 and Type 1 diabetes mellitus with hyperglycemia E10.65 [facility] [address] [id number] [address] [place] [phone] Dec, [facility] [address] [facility] [id number] [address] [place] [id number] Dec, [facility] [address] [facility] [id number] [address] [place] [id number] Dec, [facility] [address] [facility] [id number] [address] [place] [phone] Dec, Mood disorder F39 and Anxiet y disorder, unspecified F41.9 [facility] [address] [facility] [id number] [address] [place] [phone] 13 Dec, 2018 Type 1 diabetes mellitus wit h hyperglycemia E10.65 and Anxiety disorder, unspecified F41.9 [facility] [address] [facility] [id number] [address] [place] [phone] 08 Dec, 2018 Type 1 diabetes mellitus wit h hyperglycemia E10.65 [facility] [address] [facility] [id number] [address] [place] [phone] 18 Nov, 2018 Acute cyclitis H20.00 [facility] [address] [facility] [id number] [place] [phone] Oct, Type 1 diabetes mellitus wit h hyperglycemia E10.65 [facility] [id number] [address] [place] [id number] Oct, 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 [place] [id number] [place] [phone] Sep, [facility] [id number] [address] [place] [phone] Aug, [facility] [id number] [address] [place] [phone] Jul, [facility] [id number] [address] [place] [phone] Jun, Type 1 diabetes mellitus wit h [...] Other chronic pain G89.29 [facility] [id number] [address] [place] [phone] May, [facility] [address] [id number] [address] [place] [phone] Apr, [facility] [address] [id number] [address] [place] [phone] Apr, [facility] [address] [facility] [id number] [address] [place] [phone] Apr, [facility] [address] [id number] [address] [place] [phone] Apr, [facility] [address] [id number] [address] [place] [phone] Mar, [facility] [address] [facility] [id number] [address] [place] [id number] Mar, [facility] [address] [facility] [id number] [address] [place] [id number] February, Acute cystitis with hematuri a N30.01 [facility] [address] [facility] [id number] [address] [place] [phone] February, [facility] [address] [facility] [id number] [address] [place] [id number] February, Type 1 diabetes mellitus wit h hyperglycemia E10.65 ; Dysuria R30.0 ; Polyneuropathy associated with underlying disease G63 ; Dysthymia F34.1 ; Restless legs syndrome G25.81 ; Acute cystitis with hematuria N30.01 and Shoulder arthritis M19.019 [facility] [address] [facility] [id number] [address] [place] [address] February, [facility] [address] [facility] [id number] [address] [place] [phone] Jan, [facility] [address] [facility] [id number] [address] [place] [phone] Jan, [facility] [address] [facility] [id number] [address] [place] [phone] Dec, [facility] [address] [facility] [id number] [address] [place] [address] Dec, Open bite of right forearm, initial encounter S51.851A ; Local infection of the skin and subcutaneous tissue, unspecified L08.9 and Bitten by cat, initial encounter W55.01XA [facility] [id number] [place] [address] Nov, [facility] [address] [id number] [address] [place] [address] Nov, Type 1 diabetes mellitus wit h hyperglycemia E10.65 ; Type 2 diabetes mellitus without complications E11.9 ; 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 ; Acute cystitis with hematuria N30.01 ; Polyneuropathy in diseases classified elsewhere G63 ; Endocrine disorder, unspecified E34.9 ; Dysuria R30.0 ; Dysthymia F34.1 and Restless legs syndrome G25.81 [id number] [place] [address] Oct, [address] [id number] [address] [place] [phone] Oct, Type 1 diabetes mellitus wit h hyperglycemia E10.65 [place] [id number] [place] [phone] Oct, [place] [id number] [place] [id number] Oct, [place] [id number] [place] [phone] Sep, [facility] [id number] [address] [place] [phone] Sep, [address] [id number] [place] [address] Sep, Type 1 diabetes mellitus wit h hyperglycemia E10.65 [place] [id number] [place] [id number] Aug, [address] [id number] [place] [phone] Aug, Type 1 diabetes mellitus wit h hyperglycemia E10.65 ; Polyneuropathy associated with underlying disease G63 ; Mixed hyperlipidemia E78.2 and Hospital discharge follow-up Z09 [place] [id number] [place] [phone] Aug, [address] [id number] [place] [id number] Aug, [place] [id number] [place] [phone] Aug, [address] [address] [phone] Aug, Type 1 diabetes mellitus wit h hyperglycemia E10.65 ; Polyneuropathy associated with underlying disease G63 ; Mixed hyperlipidemia E78.2 ; Dysuria R30.0 ; Dysthymia F34.1 ; Restless legs syndrome G25.81 and Acute cystitis with hematuria N30.01 [address] [address] [id number] [place] [address] May, [place] [address] [id number] [place] [address] Apr, Type 1 diabetes mellitus wit h hyperglycemia E10.65 ; Dysuria R30.0 ; Dysthymia F34.1 ; Polyneuropathy associated with underlying disease G63 ; Acute cystitis without hematuria N30.00 and Encounter to establish care with new doctor Z76.89 IMMUNIZATIONS No Known Immunizations SOCIAL HISTORY Never Assessed REASON FOR VISIT BH f/u PLAN OF CARE Activity Details Follow Up Next available. Reason:depre ssion & anxiety VITAL SIGNS MEDICATIONS No Known Medications RESULTS No Results PROCEDURES Procedure Date Ordered Result Body Site Psychotherapy, patient &/family, 30 minutes, established pat ient January 10, 2019 INSTRUCTIONS MEDICATIONS ADMINISTERED No Known Medications MEDICAL [...]
--- OUTSIDE RECORDS SUMMARY | 2020-04-14 09:39 | XMS REPORT ---
Author Author Misty BOOTH Organization 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 Active 922284044 Problem Dysthymia F34.1 Active 52338892 Problem Type 1 diabetes mellitus with hyperglycemia E10.65 Active 816293577500598 Problem Other chronic pain G89.29 Active 8 2226550 Problem Mixed hyperlipidemia E78.2 Active 793130763 Problem Generalized anxiety disorder F41.1 A ctive 65167160 Problem Restless legs syndrome G25.81 Active 15828976 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 [id number] [place] [id number] 20 Dec, 2019 Type 1 diabetes mellitus wit h hyperglycemia E10.65 and Hx: UTI (urinary tract infection) Z87.440 [facility] [address] [place] [id number] [address] [place] [phone] 16 Dec, 2019 [facility] [address] [place] [id number] [place] [id number] 12 Dec, 2019 Flank pain R10.9 ; Vomiting without nausea, intractability of vomiting not specified, unspecified vomiting type R11.11 and Hematuria, unspecified type R31.9 [facility] [address] [place] [id number] [place] [id number] Jul, [facility] [address] [place] [id number] [address] [place] [phone] Jul, Restless legs syndrome G25.8 1 ; Generalized anxiety disorder F41.1 and Type 1 diabetes mellitus with hyperglycemia E10.65 [facility] [address] [facility] [id number] [address] [place] [phone] Jul, Type 1 diabetes mellitus wit h hyperglycemia E10.65 ; Encounter for immunization Z23 and UTI (urinary tract infection) N39.0 [facility] [address] [id number] [address] [place] [id number] Jul, [facility] [address] [id number] [place] [phone] May, [facility] [address] [facility] [id number] [address] [place] [phone] Mar, [facility] [address] [id number] [address] [place] [phone] February, [facility] [address] [facility] [id number] [address] [place] [phone] February, [facility] [address] [id number] [address] [place] [phone] February, Dysthymia F34.1 and Generali zed anxiety disorder F41.1 [facility] [address] [facility] [id number] [address] [place] [phone] February, [facility] [address] [id number] [address] [place] [phone] Jan, [facility] [address] [id number] [address] [place] [phone] Jan, Dysthymia F34.1 and Generali zed anxiety disorder F41.1 [facility] [address] [facility] [id number] [address] [place] [phone] Jan, Acute cystitis without hemat uria N30.00 and Flank pain R10.9 [facility] [address] [facility] [id number] [address] [place] [phone] Jan, Type 1 diabetes mellitus wit h hyperglycemia E10.65 [facility] [address] [id number] [address] [place] [id number] Jan, Dysthymia F34.1 [facility] [address] [id number] [address] [place] [phone] Jan, [facility] [address] [facility] [id number] [address] [place] [phone] Jan, [facility] [address] [id number] [address] [place] [phone] Jan, [facility] [address] [facility] [id number] [address] [place] [phone] Jan, [facility] [address] [facility] [id number] [address] [place] [phone] Jan, [facility] [address] [facility] [id number] [address] [place] [phone] Jan, Dysthymia F34.1 and Generali zed anxiety disorder F41.1 [facility] [address] [facility] [id number] [address] [place] [phone] Dec, Mood disorder F39 and Anxiet y disorder, unspecified F41.9 [facility] [address] [facility] [id number] [address] [place] [phone] Dec, Restless legs syndrome G25.8 1 and Type 1 diabetes mellitus with hyperglycemia E10.65 [facility] [address] [id number] [address] [place] [phone] Dec, [facility] [address] [facility] [id number] [address] [place] [phone] Dec, [facility] [address] [facility] [id number] [address] [place] [phone] Dec, [facility] [address] [facility] [id number] [address] [place] [phone] Dec, Mood disorder F39 and Anxiet y disorder, unspecified F41.9 [facility] [address] [facility] [id number] [address] [place] [phone] 13 Dec, 2018 Type 1 diabetes mellitus wit h hyperglycemia E10.65 and Anxiety disorder, unspecified F41.9 [facility] [address] [facility] [id number] [address] [place] [phone] 08 Dec, 2018 Type 1 diabetes mellitus wit h hyperglycemia E10.65 [facility] [address] [facility] [id number] [address] [place] [id number] 18 Nov, [address] [facility] [address] [facility] [id number] [address] [place] [phone] Oct, Type 1 diabetes mellitus wit h hyperglycemia E10.65 [facility] [address] 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 [address] [place] [id number] [place] [id number] Sep, [facility] [address] [place] [id number] [address] [place] [phone] Aug, [facility] [address] [facility] [id number] [address] [place] [phone] Jul, [facility] [address] [place] [id number] [address] [place] [id number] Jun, Type 1 diabetes mellitus wit h [...] shoulder M25.511 and Other chronic pain G89.29 [facility] [address] [place] [id number] [address] [place] [phone] May, [facility] [address] [id number] [address] [place] [phone] Apr, [facility] [address] [id number] [address] [place] [phone] Apr, [facility] [address] [facility] [id number] [address] [place] [phone] Apr, [facility] [address] [facility] [id number] [address] [place] [id number] Apr, [facility] [address] [id number] [address] [place] [phone] Mar, [facility] [address] [facility] [id number] [address] [place] [phone] Mar, [facility] [address] [facility] [id number] [address] [place] [address] February, Acute cystitis with hematuri a N30.01 [facility] [address] [facility] [id number] [address] [place] [phone] February, [facility] [address] [facility] [id number] [address] [place] [phone] February, Type 1 diabetes mellitus wit h hyperglycemia E10.65 ; Dysuria R30.0 ; Polyneuropathy associated with underlying disease G63 ; Dysthymia F34.1 ; Restless legs syndrome G25.81 ; Acute cystitis with hematuria N30.01 and Shoulder arthritis M19.019 [facility] [address] [facility] [id number] [address] [place] [id number] February, [facility] [address] [facility] [id number] [address] [place] [phone] Jan, [facility] [address] [facility] [id number] [address] [place] [phone] Jan, [facility] [address] [facility] [id number] [address] [place] [phone] Dec, [facility] [address] [place] [id number] [address] [place] [phone] Dec, Open bite of right forearm, initial encounter S51.851A ; Local infection of the skin and subcutaneous tissue, unspecified L08.9 and Bitten by cat, initial encounter W55.01XA [facility] [id number] [place] [address] Nov, 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 [address] [place] [id number] [address] [place] [address] Oct, [facility] [address] [place] [id number] [place] [address] Oct, Type 1 diabetes mellitus wit h hyperglycemia E10.65 [place] [address] [place] [id number] [place] [phone] Oct, [facility] [id number] [place] [phone] Oct, [facility] [address] [place] [id number] [address] [place] [phone] Sep, [facility] [address] [place] [id number] [place] [address] Sep, [place] [address] [place] [id number] [place] [address] Sep, Type 1 diabetes mellitus wit h hyperglycemia E10.65 [facility] [address] [place] [id number] [place] [phone] Aug, [place] [id number] [place] [address] Aug, Type 1 diabetes mellitus wit h hyperglycemia E10.65 ; Polyneuropathy associated with underlying disease G63 ; Mixed hyperlipidemia E78.2 and Hospital discharge follow-up Z09 [facility] [address] [place] [id number] [place] [phone] Aug, [place] [address] [address] Aug, [place] [address] [address] Aug, [place] [address] [address] Aug, Type 1 diabetes mellitus wit h hyperglycemia E10.65 ; Polyneuropathy associated with underlying disease G63 ; Mixed hyperlipidemia E78.2 ; Dysuria R30.0 ; Dysthymia F34.1 ; Restless legs syndrome G25.81 and Acute cystitis with hematuria N30.01 [place] [address] [address] May, [place] [address] [address] Apr, Type 1 diabetes mellitus wit h hyperglycemia E10.65 ; Dysuria R30.0 ; Dysthymia F34.1 ; Polyneuropathy associated with underlying disease G63 ; Acute cystitis without hematuria N30.00 and Encounter to establish care with new doctor Z76.89 IMMUNIZATIONS No Known Immunizations SOCIAL HISTORY Never Assessed REASON FOR VISIT Restart pump and CGM PLAN OF CARE VITAL SIGNS MEDICATIONS No [...]
--- OUTSIDE RECORDS SUMMARY | 2020-04-14 09:41 | XMS REPORT | Continuity of Care Document ---
Author Organization Unknown Address Unknown Phone Unavailable Allergies Active Description Code Type Severity Reaction Onset Reported/Identified Relationship to Patient Clinical Status Yes Sulfa (Sulfonamide Antibiotics) Sulfa (Sulfonamide Antibiotics) Drug Allergy Unknown UNKNOWN 06/12/2012 Yes Sulfa (Sulfonamide Antibiotics) [id number] Drug Allergy Unknown N/A 013 Yes No Known Drug Allergies [id number] Drug Allergy Unknown N/A 09/04/2017 Yes Sulfa (Sulfonamide Antibiotics) [id number] Drug Allergy Mild RASH 0 Medications There is no data. Problems Date Dx Coded Attending Type Code Diagnosis Diagnosed By 09/15/1133 JOANNE GALLAGHER DO Ot Z01.8 12 ENCOUNTER FOR PREPROCEDURAL LABORATORY E 09/15/1133 JOANNE GALLAGHER DO Ot Z20.8 28 CONTACT W AND EXPOSURE TO OTH VIRAL COMM 09/15/1133 JOANNE GALLAGHER DO Ot Z80.0 FAMILY HISTORY OF MALIGNANT NEOPLASM OF 12/04/2014 GLORIA WHALEN 250.01 DIAB W/O COMP TYPE I [JUV] NOT STATED UNCNTRL 12/04/2014 GLORIA WHALEN 49 0 BRONCHITIS NOT SPECIFIED ACUTE OR CHRONIC 12/04/2014 GLORIA WHALEN 493.90 ASTHMA, UNSPECIFIED, UNSPECIFIED 12/04/2014 GLORIA WHALEN 786.09 OTHER DYSPNEA AND RESPIRATORY ABNORMALITIES 04/02/2015 Dana North, King Kidd W 5 91 HYDRONEPHROSIS 04/02/2015 Dana North, King Kidd W 599.0 URIN TRACT INFECTION NOS 05/20/2015 OT 250.01 05/20/2015 OT 595.0 05/20/2015 OT 250.01 05/20/2015 OT 595.0 05/20/2015 OT 250.01 05/20/2015 OT 595.0 06/11/2015 OT 250.01 06/11/2015 OT 595.0 06/24/2015 OT 250.01 06/24/2015 OT 595.0 06/24/2015 OT 250.01 06/24/2015 OT 595.0 07/04/2015 Yaneth Whalen [employer] OT 250.03 07/04/2015 Yaneth Whalen [facility] OT 786.05 08/04/2015 Aditya LYNN, Will Coon E10.65 TYPE 1 DIABETES MELLITUS WITH HYPERGLYCEMIA 08/04/2015 Aditya LYNN, Will Coon E78.0 PURE HYPERCHOLESTEROLEMIA 08/04/2015 Aditya LYNN, Will Coon F17.200 NICOTINE DEPENDENCE, UNSPECIFIED, UNCOMPLICATED 08/04/2015 Aditya LYNN, Will Coon I51.7 CARDIOMEGALY 08/04/2015 Aditya LYNN, Will Coon R06.00 DYSPNEA, UNSPECIFIED 08/12/2015 Yaneth Whalen [facility] OT 250.03 08/12/2015 Yaneth Whalen [facility] OT 786.05 05/03/2016 Enrique De La Torre E13.10 OTH DIABETES MELLITUS WITH KETOACIDOSIS WITHOUT CO 05/03/2016 Enrique De La Torre F E86.0 DEHYDRATION 05/03/2016 Enrique De La Torre F17.210 NICOTINE DEPENDENCE, CIGARETTES, UNCOMPLICATED 05/03/2016 Enrique De La Torre F F32.9 MAJOR DEPRESSIVE DISORDER, SINGLE EPISODE, UNSPECI 05/03/2016 Enrique De La Torre F I10 ESSENTIAL (PRIMARY) HYPERTENSION 05/03/2016 Enrique De La Torre F R00.0 TACHYCARDIA, UNSPECIFIED 05/03/2016 Enrique De La Torre F Z79.4 SNF (CURRENT) USE OF INSULIN 05/05/2016 Landon Thibodeaux E11.9 TYPE 2 DIABETES MELLITUS WITHOUT COMPLICATIONS 05/05/2016 Landon Thibodeaux M62.81 MUSCLE WEAKNESS (GENERALIZED) 05/05/2016 Landon Thibodeaux R11.2 NAUSEA WITH VOMITING, UNSPECIFIED 05/05/2016 Landon Thibodeaux R30.0 DYSURIA 05/05/2016 Marin Augustin APRN N39.0 URINARY TRACT INFECTION, SITE NOT SPECIFIED 05/05/2016 Marin Augustin APRN R11.0 NAUSEA 06/15/2016 OT V68.89 09/06/2017 RUIZ DO GRISELDA K Ot E10.10 TYPE 1 DIABETES MELLITUS WITH KETOACIDOS 09/06/2017 RUIZ DO, GRISELDA K Ot F17.21 0 NICOTINE DEPENDENCE, CIGARETTES, UNCOMPL 09/06/2017 RUIZ DO, GRISELDA K Ot F32.9 MAJOR DEPRESSIVE DISORDER, SINGLE EPISOD 09/06/2017 RUIZ DO, GRISELDA K Ot F41.9 ANXIETY DISORDER, UNSPECIFIED 09/06/2017 RUIZ DO, GRISELDA K Ot I10 ESSENTIAL (PRIMARY) HYPERTENSION 09/06/2017 RUIZ DO, GRISELDA K Ot Z79.4 [employer] (CURRENT) USE OF INSULIN 09/06/2017 RUIZ DO, GRISELDA K Ot Z87.44 0 PERSONAL HISTORY OF URINARY (TRACT) INFE 09/06/2017 RUIZ DO, GRISELDA K Ot Z87.44 2 PERSONAL HISTORY OF URINARY CALCULI 09/06/2017 RUIZ DO, GRISELDA K Ot E10.10 TYPE 1 DIABETES MELLITUS WITH KETOACIDOS 09/06/2017 RUIZ DO, GRISELDA K Ot F17.21 0 NICOTINE DEPENDENCE, CIGARETTES, UNCOMPL 09/06/2017 RUIZ DO, GRISELDA K Ot F32.9 MAJOR DEPRESSIVE DISORDER, SINGLE EPISOD 09/06/2017 RUIZ DO, GRISELDA K Ot F41.9 ANXIETY DISORDER, UNSPECIFIED 09/06/2017 RUIZ DO, GRISELDA K Ot I10 ESSENTIAL (PRIMARY) HYPERTENSION 09/06/2017 RUIZ DO, GRISELDA K Ot Z79.4 SNF (CURRENT) USE OF INSULIN 09/06/2017 RUIZ DO, GRISELDA K Ot Z87.44 0 PERSONAL HISTORY OF URINARY (TRACT) INFE 09/06/2017 RUIZ DO, GRISELDA K Ot Z87.44 2 PERSONAL HISTORY OF URINARY CALCULI 09/06/2017 RUIZ DO, RGISELDA K Ot E10.10 TYPE 1 DIABETES MELLITUS WITH KETOACIDOS 09/06/2017 RUIZ DO, GRISELDA K Ot F17.21 0 NICOTINE DEPENDENCE, CIGARETTES, UNCOMPL 09/06/2017 RUIZ DO, GRISELDA K Ot F32.9 MAJOR DEPRESSIVE DISORDER, SINGLE EPISOD 09/06/2017 RUIZ DO, GRISELDA K Ot F41.9 ANXIETY DISORDER, UNSPECIFIED 09/06/2017 RUIZ DO, GRISELDA K Ot I10 ESSENTIAL (PRIMARY) HYPERTENSION 09/06/2017 GRISELDA RUIZ DO K Ot N39.0 URINARY TRACT INFECTION, SITE NOT SPECIF 09/06/2017 GRISELDA RUIZ DO K Ot Z79.4 SNF (CURRENT) USE OF INSULIN 09/06/2017 GRISELDA RUIZ DO K Ot Z87.44 0 PERSONAL HISTORY OF URINARY (TRACT) INFE 09/06/2017 EZEKIEL RUIZ DOA K Ot Z87.44 2 PERSONAL HISTORY OF URINARY CALCULI 09/09/2017 LILI MELVIN MILLSA K Ot E11.40 TYPE 2 DIABETES MELLITUS WITH DIABETIC N 09/09/2017 LILI DO AKILA K Ot E87.6 HYPOKALEMIA 09/09/2017 LILI DO AKILA K Ot F17.210 NICOTINE DEPENDENCE, CIGARETTES, UNCOMPL 09/09/2017 LILI AKILA K Ot F32.9 MAJOR DEPRESSIVE DISORDER, SINGLE EPISOD 09/09/2017 LILI AKILA K Ot F41.9 ANXIETY DISORDER, UNSPECIFIED 09/09/2017 LILI DO AKILA K Ot I10 ESSENTIAL (PRIMARY) HYPERTENSION 09/09/2017 LILI DO AKILA K Ot K52.9 NONINFECTIVE GASTROENTERITIS AND COLITIS 09/09/2017 LILI DO AKILA K Ot N39.0 URINARY TRACT INFECTION, SITE NOT SPECIF 09/09/2017 LILI DO AKILA K Ot R11.2 NAUSEA WITH VOMITING, UNSPECIFIED 09/09/2017 LILI MILLS AKILA K Ot Z79.4 SNF (CURRENT) USE OF INSULIN 09/09/2017 LILI MILLS AKILA K Ot Z87.440 PERSONAL HISTORY OF URINARY (TRACT) INFE 09/09/2017 LILI MILLS AKILA K Ot Z87.442 PERSONAL HISTORY OF URINARY CALCULI 09/09/2017 LILI AKILA K Ot Z98.51 TUBAL LIGATION STATUS 10/13/2017 MARIBEL BRUSH MD Ot N13.3 0 UNSPECIFIED HYDRONEPHROSIS 10/13/2017 MARIBEL BRUSH MD Ot N26.1 ATROPHY OF KIDNEY (TERMINAL) 10/13/2017 MARIBEL BRUSH MD, Ot N32.8 9 OTHER SPECIFIED DISORDERS OF BLADDER 10/13/2017 MARIBEL BRUSH MD Ot 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 07/15/2018 GONSALO MD, MARIBEL A Ot N13.3 0 UNSPECIFIED HYDRONEPHROSIS 07/15/2018 AMRIBEL BRUSH MD Ot N26.1 ATROPHY OF KIDNEY (TERMINAL) 07/15/2018 MARIBEL BRUSH MD Ot N32.8 9 OTHER SPECIFIED DISORDERS OF BLADDER 07/15/2018 MARIBEL BRUSH MD Ot 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 12/27/2019 MARIBEL BRUSH MD Ot N13.3 0 UNSPECIFIED HYDRONEPHROSIS 12/27/2019 MARIBEL BRUSH MD Ot N26.1 ATROPHY OF KIDNEY (TERMINAL) 12/27/2019 MARIBEL BRUSH MD Ot N32.8 9 OTHER SPECIFIED DISORDERS OF BLADDER 12/27/2019 MARIBEL BRUSH MD Ot 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 12/27/2019 MARIBEL BRUSH MD Ot N13.3 0 UNSPECIFIED HYDRONEPHROSIS 12/27/2019 MARIBEL BRUSH MD Ot N26.1 ATROPHY OF KIDNEY (TERMINAL) 12/27/2019 MARIBEL BRUSH MD Ot N32.8 9 OTHER SPECIFIED DISORDERS OF BLADDER 12/27/2019 MARIBEL BRUSH MD Ot 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 12/27/2019 NICKY MILLS JOIV Ot E10.10 TYPE 1 DIABETES MELLITUS WITH KETOACIDOS 12/27/2019 NICKY MILLS JOVI Ot E10.40 TYPE 1 DIABETES MELLITUS WITH DIABETIC N 12/27/2019 NICKY MILLS JOVI Ot E86.0 DEHYDRATION 12/27/2019 NICKY MILLS JOVI Ot E87.6 HYPOKALEMIA 12/27/2019 NICKY MILLS JOVI Ot F17.21 0 NICOTINE DEPENDENCE, CIGARETTES, UNCOMPL 12/27/2019 NICKY MILLS JOVI Ot F32.9 MAJOR DEPRESSIVE DISORDER, SINGLE EPISOD 12/27/2019 NICKY MILLS JOVI Ot F41.9 ANXIETY DISORDER, UNSPECIFIED 12/27/2019 NICKY MILLS JOVI Ot I10 ESSENTIAL (PRIMARY) HYPERTENSION 12/27/2019 NICKY MILLS JOVI Ot K52.9 NONINFECTIVE GASTROENTERITIS AND COLITIS 12/27/2019 NICKY MILLS JOVI Ot N39.0 URINARY TRACT INFECTION, SITE NOT SPECIF 12/27/2019 JOVI SAUNDERS DO Ot Z79.4 [employer] (CURRENT) USE OF INSULIN 12/27/2019 YANN SAUNDERS DOI Ot Z88.2 ALLERGY STATUS TO SULFONAMIDES STATUS 12/27/2019 YANN SAUNDERS DOI Ot Z91.19 PATIENT'S NONCOMPLIANCE W [facility] TR 12/29/2019 JOVI SAUNDERS DO Ot E10.10 TYPE 1 DIABETES MELLITUS WITH KETOACIDOS 12/29/2019 JOVI SAUNDERS DO Ot E10.40 TYPE 1 DIABETES MELLITUS WITH DIABETIC N 12/29/2019 YANN SAUNDERS DOI Ot E86.0 DEHYDRATION 12/29/2019 YANN SAUNDERS DOI Ot E87.6 HYPOKALEMIA 12/29/2019 YANN SAUNDERS DOI Ot F17.21 0 NICOTINE DEPENDENCE, CIGARETTES, UNCOMPL 12/29/2019 JOVI SAUNDERS DO Ot F32.9 MAJOR DEPRESSIVE DISORDER, SINGLE EPISOD 12/29/2019 YANN SAUNDERS DOI Ot F41.9 ANXIETY DISORDER, UNSPECIFIED 12/29/2019 YANN SAUNDERS DOI Ot I10 ESSENTIAL (PRIMARY) HYPERTENSION 12/29/2019 YANN SAUNDERS DOI Ot K52.9 NONINFECTIVE GASTROENTERITIS AND COLITIS 12/29/2019 NICKY MILLS JOVI Ot N39.0 URINARY TRACT INFECTION, SITE NOT SPECIF 12/29/2019 JOVI SAUNDERS DO Ot Z79.4 [employer] (CURRENT) USE OF INSULIN 12/29/2019 YANN SAUNDERS DOI Ot Z88.2 ALLERGY STATUS TO SULFONAMIDES STATUS 12/29/2019 NICKY MILLS JOVI Ot Z91.19 PATIENT'S NONCOMPLIANCE W [facility] TR Procedures There is no data. Results Test [...] DIFFERENTIAL/MORPHOLOGY AUTO DIFF Performing Location: METABOLIC PANEL, [facility] - 04/30/16 04: 15 Performing Location: SODIUM [...] ACCUCHEK 268 mg/dL 70-110 GLUCOSE BY [facility] - 04/30/16 08:14 Performing Location: GLUCOSE BY [facility] 179 mg/dL 70-110 METABOLIC PANEL, BASIC - 04/30/16 10:00 Performing Location: SODIUM 139 mmol/L [...] BY ACCUCHEK 224 mg/dL 70-110 METABOLIC PANEL, [facility] 04/30/16 13:40 Performing Location: SODIUM 138 [...] ACCUCHEK 147 mg/dL 70-110 METABOLIC PANEL, [facility] 04/30/16 16:50 Performing Location: SODIUM 140 [...] ACCUCHEK 98 mg/dL 70-110 GLUCOSE BY [facility] - 04/30/16 19:19 Performing Location: GLUCOSE BY ACCUCHEK 94 mg/dL 70-110 METABOLIC PANEL, [facility] 04/30/16 20:30 Performing Location: SODIUM 141 [...] Location: GLUCOSE BY [facility] 170 mg/dL 70-110 Urine Culture, Routine - 05/11/17 09:18 Urine Culture, Routine Note CBC With Differential/Platelet - 7 09:18 WBC 10.5 x10E3/uL 3.4-10.8 RBC 3.98 x10E6/uL 3.77-5.28 Hemoglobin 12.4 g/dL 11.1-15.9 Hematocrit 37.7 % 34.0-46.6 MCV 95 fL 79-97 MCH 31.2 pg 26.6-33.0 MCHC 32.9 g/dL 31.5-35.7 RDW 13.5 % 12.3-15.4 Platelets 343 x10E3/uL 150-379 Neutrophils 78 % Lymphs 17 % Monocytes 4 % Eos 1 % Basos 0 % Neutrophils (Absolute) 8.1 x10E3/uL 1.4- 7.0 Lymphs (Absolute) 1.8 x10E3/uL 0.7-3.1 Monocytes(Absolute) 0.5 x10E3/uL 0.1-0.9 Eos (Absolute) 0.1 x10E3/uL 0.0-0.4 Baso (Absolute) 0.0 x10E3/uL 0.0-0.2 Immature Granulocytes 0 % Immature Grans (Abs) 0.0 x10E3/uL 0.0-0. 1 Comp. Metabolic Panel (14) - 05/11/17 09 :18 Glucose, Serum 257 mg/dL 65-99 BUN 14 mg/dL 6-24 Creatinine, Serum 0.95 mg/dL 0.57-1.00 eGFR If NonAfricn Am 73 mL/min/1.73 >59 eGFR If Africn Am 84 mL/min/1.73 >59 BUN/Creatinine Ratio 15 9-23 Sodium, Serum 139 mmol/L 134-144 Potassium, Serum 4.7 mmol/L 3.5-5.2 Chloride, Serum 100 mmol/L 96-106 Carbon Dioxide, Total 21 mmol/L 18-29 Calcium, Serum 8.9 mg/dL 8.7-10.2 Protein, Total, Serum 6.3 g/dL 6.0-8.5 Albumin, Serum 4.0 g/dL 3.5-5.5 Globulin, Total 2.3 g/dL 1.5-4.5 A/G Ratio 1.7 1.2-2.2 Bilirubin, Total 0.2 mg/dL 0.0-1.2 Alkaline Phosphatase, S 80 IU/L 39-117 AST (SGOT) 17 IU/L 0-40 ALT (SGPT) 15 IU/L 0-32 Lipid Panel - 05/11/17 09:18 Cholesterol, Total 154 mg/dL 100-199 Triglycerides 52 mg/dL 0-149 HDL Cholesterol 59 mg/dL >39 VLDL Cholesterol Jeremias 10 mg/dL 5-40 LDL Cholesterol Calc 85 mg/dL 0-[address] Profile - 05/11/17 09:18 TSH 1.350 uIU/mL 0.450-4.500 Capillary blood glucose measurement by g lucometer (mass/volume) - 09/04/17 15:43 Capillary blood glucose measurement by glucometer (mas s/volume) 562 mg/dL 70-110 Complete blood count (CBC) with automate d white blood cell (WBC) differential - 09/04/17 15:45 Blood leukocytes automated count (number/volume) 18.1 10*3/uL 4.3-11.0 Blood erythrocytes automated count (number/volume) 4.69 10*6/uL 4.35-5.85 Venous blood hemoglobin measurement (mass/volume) 14.2 g/dL 11.5-16.0 Blood hematocrit (volume fraction) 44 % 35-52 Automated erythrocyte mean corpuscular volume 93 [ foz_us] 80-99 Automated erythrocyte mean corpuscular h emoglobin (mass per erythrocyte) 30 pg 25-34 Automated erythrocyte mean corpuscular h emoglobin concentration measurement (mass/volume) 33 g/dL 32-36 Automated erythrocyte distribution width ratio 14. 1 % 10.0- 14.5 Automated blood platelet count (count/volume) 391 10*3/uL 130-400 Automated blood platelet mean volume measurement 10.7 [foz_us] 7.4-10.4 Automated blood neutrophils/100 leukocytes 93 % 42-75 Automated blood lymphocytes/100 leukocytes 4 % 12-44 Blood monocytes/100 leukocytes 3 % 0-12 Automated blood eosinophils/100 leukocytes 0 % 0-10 Automated blood basophils/100 leukocytes 0 % 0-10 Blood neutrophils automated count (number/volume) 16.9 10*3 1.8-7.8 Blood lymphocytes automated count (number/volume) 0.6 10*3 1.0-4.0 Blood monocytes automated count (number/volume) 0. 5 10*3 0.0-1.0 Automated eosinophil count 0.0 10*3/uL 0 .0-0.3 Automated blood basophil count (count/volume) 0.0 10*3/uL 0.0-0.1 Comprehensive metabolic panel - 09/04/17 15:45 Serum or plasma sodium measurement (moles/volume) 136 mmol/L 135-145 Serum or plasma potassium measurement (moles/volume) 5.6 mmol/L 3.6-5.0 Serum or plasma chloride measurement (moles/volume) 98 mmol/L 98-107 Carbon dioxide 5 mmol/L 21-32 Serum or plasma anion gap determination (moles/volume) 33 mmol/L 5-14 Serum or plasma urea nitrogen measurement (mass/volume ) 32 mg/dL 7-18 Serum or plasma creatinine measurement (mass/volume) 2.06 mg/dL 0.60-1.30 Serum or plasma urea nitrogen/creatinine mass ratio 16 NRG Serum or plasma creatinine measurement w ith calculation of estimated glomerular filtration rate 26 NRG Serum or plasma glucose measurement (mass/volume) 703 mg/dL 70-105 Serum or plasma calcium measurement (mass/volume) 9.2 mg/dL 8.5-10.1 Serum or plasma total bilirubin measurement (mass/volu me) 0.3 mg/dL 0.1-1.0 Serum or plasma alkaline phosphatase barbara surement (enzymatic activity/volume) 143 U/L 40-136 Serum or plasma aspartate aminotransfera se measurement (enzymatic activity/volume) 19 U/L 5-34 Serum or plasma alanine aminotransferase measurement (enzymatic activity/volume) 24 U/L 0-55 Serum or plasma protein measurement (mass/volume) 8.3 g/dL 6.4-8.2 Serum or plasma albumin measurement (mass/volume) 4.7 g/dL 3.2-4.5 Serum or plasma phosphate measurement (m ass/volume) - 09/04/17 15:45 Serum or plasma phosphate measurement (mass/volume) 6.0 mg/dL 2.3-4.7 Magnesium - 09/04/17 15:45 Magnesium 2.8 mg/dL 1.8-2.4 Lipase - 09/04/17 15:45 Lipase 12 U/L 8-78 Blood manual differential performed dete ction - 09/04/17 15:45 Blood monocytes/100 leukocytes 3 % NRG Manual blood segmented neutrophils/100 leukocytes 92 % NRG Blood band neutrophils/100 leukocytes 0 % NRG Manual blood lymphocytes/100 leukocytes 5 % NRG Manual eosinophils/100 leukocytes in nose 0 % NRG Manual blood basophils/100 leukocytes 0 % NRG Blood erythrocyte morphology finding identification NORMAL NRG Hemoglobin A1c - 09/04/17 15:45 Hemoglobin A1c 10.2 % 4.5-6.2 Blood lactic acid measurement (moles/vol ume) - 09/04/17 16:19 Blood lactic acid measurement (moles/volume) 2.16 mmol/L 0.50-2.00 Capillary blood glucose measurement by g lucometer (mass/volume) - 09/04/17 16:30 Capillary blood glucose measurement by glucometer (mas s/volume) 455 mg/dL 70-110 Bacterial blood culture - 09/04/17 16:30 Bacterial blood culture NG NRG Complete urinalysis with reflex to cultu re - 09/04/17 16:37 Urine color determination YELLOW NRG Urine clarity determination SLIGHTLY CLOUDY NRG Urine pH measurement by test strip 5 5-9 Specific gravity of urine by test strip 1.020 1.016-1.022 Urine protein assay by test strip, semi-quantitative 2+ NEGATIVE Urine glucose detection by automated test strip 4+ NEGATIVE Erythrocytes detection in urine sediment by light micr oscopy 5+ NEGATIVE Urine ketones detection by automated test strip 4+ NEGATIVE Urine nitrite detection by test strip NEGATIVE NEGATIVE Urine total bilirubin detection by test strip NEGA TIVE NEGATIVE Urine urobilinogen measurement by automated test strip (mass/volume) NORMAL NORMAL Urine leukocyte esterase detection by dipstick 1+ NEGATIVE Automated urine sediment erythrocyte cou nt by microscopy (number/high power field) [HPF] NRG Automated urine sediment leukocyte count by microscopy (number/high power field) [HPF] NRG Bacteria detection in urine sediment by light microsco py NEGATIVE NRG Squamous epithelial cells detection in u rine sediment by light microscopy 0-2 NRG Crystals detection in urine sediment by light microsco py NONE NRG Casts detection in urine sediment by light microscopy NONE NRG Mucus detection in urine sediment by light microscopy NEGATIVE NRG Complete urinalysis with reflex to culture NO NRG Serum or plasma glucose measurement (mas s/volume) - 09/04/17 16:38 Serum or plasma glucose measurement (mass/volume) 549 mg/dL 70-105 Bacterial blood culture - 09/04/17 16:38 Bacterial blood culture NG NRG Capillary blood glucose measurement by g lucometer (mass/volume) - 09/04/17 18:28 Capillary blood glucose measurement by glucometer (mas s/volume) 287 mg/dL 70-110 Serum or plasma lactate measurement (mol es/volume) - 09/04/17 18:42 Serum or plasma lactate measurement (moles/volume) 1.31 mmol/L 0.50-2.00 Whole blood basic metabolic panel - 08/17 07/03 18:42 Serum or plasma sodium measurement (moles/volume) 139 mmol/L 135-145 Serum or plasma potassium measurement (moles/volume) 4.6 mmol/L 3.6-5.0 Serum or plasma chloride measurement (moles/volume) 109 mmol/L 98-107 Carbon dioxide 8 mmol/L 21-32 Serum or plasma anion gap determination (moles/volume) 22 mmol/L 5-14 Serum or plasma urea nitrogen measurement (mass/volume ) 27 mg/dL 7-18 Serum or plasma creatinine measurement (mass/volume) 1.46 mg/dL 0.60-1.30 Serum or plasma urea nitrogen/creatinine mass ratio 18 NRG Serum or plasma creatinine measurement w ith calculation of estimated glomerular filtration rate 39 NRG Serum or plasma glucose measurement (mass/volume) 313 mg/dL 70-105 Serum or plasma calcium measurement (mass/volume) 8.3 mg/dL 8.5-10.1 Serum or plasma phosphate measurement (m ass/volume) - 09/04/17 18:42 Serum or plasma phosphate measurement (mass/volume) 2.0 mg/dL 2.3-4.7 Magnesium - 09/04/17 18:42 Magnesium 2.4 mg/dL 1.8-2.4 Capillary blood glucose measurement by g lucometer (mass/volume) - 09/04/17 19:40 Capillary blood glucose measurement by glucometer (mas s/volume) 187 mg/dL 70-110 Whole blood basic metabolic panel - 08/17 07/03 20:17 Serum or plasma sodium measurement (moles/volume) 140 mmol/L 135-145 Serum or plasma potassium measurement (moles/volume) 4.2 mmol/L 3.6-5.0 Serum or plasma chloride measurement (moles/volume) 113 mmol/L 98-107 Carbon dioxide 11 mmol/L 21-32 Serum or plasma anion gap determination (moles/volume) 16 mmol/L 5-14 Serum or plasma urea nitrogen measurement (mass/volume ) 25 mg/dL 7-18 Serum or plasma creatinine measurement (mass/volume) 1.25 mg/dL 0.60-1.30 Serum or plasma urea nitrogen/creatinine mass ratio 20 NRG Serum or plasma creatinine measurement w ith calculation of estimated glomerular filtration rate 46 NRG Serum or plasma glucose measurement (mass/volume) 218 mg/dL 70-105 Serum or plasma calcium measurement (mass/volume) 7.9 mg/dL 8.5-10.1 Capillary blood glucose measurement by g lucometer (mass/volume) - 09/04/17 20:29 Capillary blood glucose measurement by glucometer (mas s/volume) 168 mg/dL 70-110 Capillary blood glucose measurement by g lucometer (mass/volume) - 09/04/17 21:32 Capillary blood glucose measurement by glucometer (mas s/volume) 195 mg/dL 70-110 Capillary blood glucose measurement by g lucometer (mass/volume) - 09/04/17 22:32 Capillary blood glucose measurement by glucometer (mas s/volume) 168 mg/dL 70-110 Capillary blood glucose measurement by g lucometer (mass/volume) - 09/04/17 23:29 Capillary blood glucose measurement by glucometer (mas s/volume) 155 mg/dL 70-110 Capillary blood glucose measurement by g lucometer (mass/volume) - 09/04/17 23:59 Capillary blood glucose measurement by glucometer (mas s/volume) 145 mg/dL 70-110 Whole blood basic metabolic panel - 08/18 00:15 Serum or plasma sodium measurement (moles/volume) 138 mmol/L 135-145 Serum or plasma potassium measurement (moles/volume) 4.3 mmol/L 3.6-5.0 Serum or plasma chloride measurement (moles/volume) 113 mmol/L 98-107 Carbon dioxide 16 mmol/L 21-32 Serum or plasma anion gap determination (moles/volume) 9 mmol/L 5-14 Serum or plasma urea nitrogen measurement (mass/volume ) 23 mg/dL 7-18 Serum or plasma creatinine measurement (mass/volume) 1.30 mg/dL 0.60-1.30 Serum or plasma urea nitrogen/creatinine mass ratio 18 NRG Serum or plasma creatinine measurement w ith calculation of estimated glomerular filtration rate 44 NRG Serum or plasma glucose measurement (mass/volume) 175 mg/dL 70-105 Serum or plasma calcium measurement (mass/volume) 8.1 mg/dL 8.5-10.1 Serum or plasma phosphate measurement (m ass/volume) - 09/05/17 00:15 Serum or plasma phosphate measurement (mass/volume) 0.8 mg/dL 2.3-4.7 Magnesium - 09/05/17 00:15 Magnesium 2.3 mg/dL 1.8-2.4 Capillary blood glucose measurement by g lucometer (mass/volume) - 09/05/17 00:32 Capillary blood glucose measurement by glucometer (mas s/volume) 147 mg/dL 70-110 Capillary blood glucose measurement by g lucometer (mass/volume) - 09/05/17 01:32 Capillary blood glucose measurement by glucometer (mas s/volume) 138 mg/dL 70-110 Capillary blood glucose measurement by g lucometer (mass/volume) - 09/05/17 02:05 Capillary blood glucose measurement by glucometer (mas s/volume) 154 mg/dL 70-110 Capillary blood glucose measurement by g lucometer (mass/volume) - 09/05/17 03:02 Capillary blood glucose measurement by glucometer (mas s/volume) 136 mg/dL 70-110 Capillary blood glucose measurement by g lucometer (mass/volume) - 09/05/17 03:52 Capillary blood glucose measurement by glucometer (mas s/volume) 180 mg/dL 70-110 Capillary blood glucose measurement by g lucometer (mass/volume) - 09/05/17 04:43 Capillary blood glucose measurement by glucometer (mas s/volume) 216 mg/dL 70-110 Complete blood count (CBC) with automate d white blood cell (WBC) differential - 09/05/17 04:50 Blood leukocytes automated count (number/volume) 14.6 10*3/uL 4.3-11.0 Blood erythrocytes automated count (number/volume) 4.11 10*6/uL 4.35-5.85 Venous blood hemoglobin measurement (mass/volume) 12.6 g/dL 11.5-16.0 Blood hematocrit (volume fraction) 37 % 35-52 Automated erythrocyte mean corpuscular volume 90 [ foz_us] 80-99 Automated erythrocyte mean corpuscular h emoglobin (mass per erythrocyte) 31 pg 25-34 Automated erythrocyte mean corpuscular h emoglobin concentration measurement (mass/volume) 34 g/dL 32-36 Automated erythrocyte distribution width ratio 13. 9 % 10.0- 14.5 Automated blood platelet count (count/volume) 352 10*3/uL 130-400 Automated blood platelet mean volume measurement 10.1 [foz_us] 7.4-10.4 Automated blood neutrophils/100 leukocytes 87 % 42-75 Automated blood lymphocytes/100 leukocytes 7 % 12-44 Blood monocytes/100 leukocytes 7 % 0-12 Automated blood eosinophils/100 leukocytes 0 % 0-10 Automated blood basophils/100 leukocytes 0 % 0-10 Blood neutrophils automated count (number/volume) 12.6 10*3 1.8-7.8 Blood lymphocytes automated count (number/volume) 1.0 10*3 1.0-4.0 Blood monocytes automated count (number/volume) 1. 0 10*3 0.0-1.0 Automated eosinophil count 0.0 10*3/uL 0 .0-0.3 Automated blood basophil count (count/volume) 0.0 10*3/uL 0.0-0.1 Whole blood basic metabolic panel - 08/18 04:50 Serum or plasma sodium measurement (moles/volume) 140 mmol/L 135-145 Serum or plasma potassium measurement (moles/volume) 4.0 mmol/L 3.6-5.0 Serum or plasma chloride measurement (moles/volume) 110 mmol/L 98-107 Carbon dioxide 15 mmol/L 21-32 Serum or plasma anion gap determination (moles/volume) 15 mmol/L 5-14 Serum or plasma urea nitrogen measurement (mass/volume ) 20 mg/dL 7-18 Serum or plasma creatinine measurement (mass/volume) 1.25 mg/dL 0.60-1.30 Serum or plasma urea nitrogen/creatinine mass ratio 16 NRG Serum or plasma creatinine measurement w ith calculation of estimated glomerular filtration rate 46 NRG Serum or plasma glucose measurement (mass/volume) 258 mg/dL 70-105 Serum or plasma calcium measurement (mass/volume) 8.1 mg/dL 8.5-10.1 Serum or plasma phosphate measurement (m ass/volume) - 09/05/17 04:50 Serum or plasma phosphate measurement (mass/volume) 3.1 mg/dL 2.3-4.7 Magnesium - 09/05/17 04:50 Magnesium 2.1 mg/dL 1.8-2.4 Capillary blood glucose measurement by g lucometer (mass/volume) - 09/05/17 05:49 Capillary blood glucose measurement by glucometer (mas s/volume) 209 mg/dL 70-110 Capillary blood glucose measurement by g lucometer (mass/volume) - 09/05/17 06:29 Capillary blood glucose measurement by glucometer (mas s/volume) 206 mg/dL 70-110 Whole blood basic metabolic panel - 08/18 07:56 Serum or plasma sodium measurement (moles/volume) 139 mmol/L 135-145 Serum or plasma potassium measurement (moles/volume) 3.7 mmol/L 3.6-5.0 Serum or plasma chloride measurement (moles/volume) 111 mmol/L 98-107 Carbon dioxide 18 mmol/L 21-32 Serum or plasma anion gap determination (moles/volume) 10 mmol/L 5-14 Serum or plasma urea nitrogen measurement (mass/volume ) 16 mg/dL 7-18 Serum or plasma creatinine measurement (mass/volume) 1.08 mg/dL 0.60-1.30 Serum or plasma urea nitrogen/creatinine mass ratio 15 NRG Serum or plasma creatinine measurement w ith calculation of estimated glomerular filtration rate 55 NRG Serum or plasma glucose measurement (mass/volume) 212 mg/dL 70-105 Serum or plasma calcium measurement (mass/volume) 7.7 mg/dL 8.5-10.1 Capillary blood glucose measurement by g lucometer (mass/volume) - 09/05/17 08:10 Capillary blood glucose measurement by glucometer (mas s/volume) 157 mg/dL 70-110 Capillary blood glucose measurement by g lucometer (mass/volume) - 09/05/17 09:06 Capillary blood glucose measurement by glucometer (mas s/volume) 135 mg/dL 70-110 Capillary blood glucose measurement by g lucometer (mass/volume) - 09/05/17 10:23 Capillary blood glucose measurement by glucometer (mas s/volume) 233 mg/dL 70-110 Whole blood basic metabolic panel - 08/18 15:25 Serum or plasma sodium measurement (moles/volume) 139 mmol/L 135-145 Serum or plasma potassium measurement (moles/volume) 3.5 mmol/L 3.6-5.0 Serum or plasma chloride measurement (moles/volume) 110 mmol/L 98-107 Carbon dioxide 21 mmol/L 21-32 Serum or plasma anion gap determination (moles/volume) 8 mmol/L 5-14 Serum or plasma urea nitrogen measurement (mass/volume ) 11 mg/dL 7-18 Serum or plasma creatinine measurement (mass/volume) 0.90 mg/dL 0.60-1.30 Serum or plasma urea nitrogen/creatinine mass ratio 12 NRG Serum or plasma creatinine measurement w ith calculation of estimated glomerular filtration rate > NRG Serum or plasma glucose measurement (mass/volume) 78 mg/dL 70-105 Serum or plasma calcium measurement (mass/volume) 8.0 mg/dL 8.5-10.1 Capillary blood glucose measurement by g lucometer (mass/volume) - 09/05/17 16:22 Capillary blood glucose measurement by glucometer (mas s/volume) 64 mg/dL 70-110 Capillary blood glucose measurement by g lucometer (mass/volume) - 09/05/17 20:29 Capillary blood glucose measurement by glucometer (mas s/volume) 80 mg/dL 70-110 Complete blood count (CBC) with automate d white blood cell (WBC) differential - 09/06/17 05:10 Blood leukocytes automated count (number/volume) 10.9 10*3/uL 4.3-11.0 Blood erythrocytes automated count (number/volume) 3.96 10*6/uL 4.35-5.85 Venous blood hemoglobin measurement (mass/volume) 12.0 g/dL 11.5-16.0 Blood hematocrit (volume fraction) 36 % 35-52 Automated erythrocyte mean corpuscular volume 90 [ foz_us] 80-99 Automated erythrocyte mean corpuscular h emoglobin (mass per erythrocyte) 30 pg 25-34 Automated erythrocyte mean corpuscular h emoglobin concentration measurement (mass/volume) 34 g/dL 32-36 Automated erythrocyte distribution width ratio 14. 3 % 10.0- 14.5 Automated blood platelet count (count/volume) 279 10*3/uL 130-400 Automated blood platelet mean volume measurement 10.1 [foz_us] 7.4-10.4 Automated blood neutrophils/100 leukocytes 83 % 42-75 Automated blood lymphocytes/100 leukocytes 9 % 12-44 Blood monocytes/100 leukocytes 8 % 0-12 Automated blood eosinophils/100 leukocytes 0 % 0-10 Automated blood basophils/100 leukocytes 0 % 0-10 Blood neutrophils automated count (number/volume) 9.0 10*3 1.8-7.8 Blood lymphocytes automated count (number/volume) 1.0 10*3 1.0-4.0 Blood monocytes automated count (number/volume) 0. 8 10*3 0.0-1.0 Automated eosinophil count 0.0 10*3/uL 0 .0-0.3 Automated blood basophil count (count/volume) 0.0 10*3/uL 0.0-0.1 Whole blood basic metabolic panel - 08/18 11/02 05:10 Serum or plasma sodium measurement (moles/volume) 138 mmol/L 135-145 Serum or plasma potassium measurement (moles/volume) 4.0 mmol/L 3.6-5.0 Serum or plasma chloride measurement (moles/volume) 106 mmol/L 98-107 Carbon dioxide 20 mmol/L 21-32 Serum or plasma anion gap determination (moles/volume) 12 mmol/L 5-14 Serum or plasma urea nitrogen measurement (mass/volume ) 9 mg/dL 7-18 Serum or plasma creatinine measurement (mass/volume) 0.75 mg/dL 0.60-1.30 Serum or plasma urea nitrogen/creatinine mass ratio 12 NRG Serum or plasma creatinine measurement w ith calculation of estimated glomerular filtration rate > NRG Serum or plasma glucose measurement (mass/volume) 298 mg/dL 70-105 Serum or plasma calcium measurement (mass/volume) 7.8 mg/dL 8.5-10.1 Serum or plasma phosphate measurement (m ass/volume) - 09/06/17 05:10 Serum or plasma phosphate measurement (mass/volume) 1.7 mg/dL 2.3-4.7 Magnesium - 09/06/17 05:10 Magnesium 2.1 mg/dL 1.8-2.4 Lipase - 09/06/17 05:10 Lipase < U/L 8-78 Complete urinalysis with reflex to cultu re - 09/06/17 09:00 Urine color determination YELLOW NRG Urine clarity determination CLEAR NR G Urine pH measurement by test strip 6.5 5-9 Specific gravity of urine by test strip 1.010 1.016-1.022 Urine protein assay by test strip, semi-quantitative 1+ NEGATIVE Urine glucose detection by automated test strip 4+ NEGATIVE Erythrocytes detection in urine sediment by light micr oscopy 5+ NEGATIVE Urine ketones detection by automated test strip 3+ NEGATIVE Urine nitrite detection by test strip POSITIVE NEGATIVE Urine total bilirubin detection by test strip NEGA TIVE NEGATIVE Urine urobilinogen measurement by automated test strip (mass/volume) NORMAL NORMAL Urine leukocyte esterase detection by dipstick 2+ NEGATIVE Automated urine sediment erythrocyte cou nt by microscopy (number/high power field) [HPF] NRG Automated urine sediment leukocyte count by microscopy (number/high power field) [HPF] NRG Bacteria detection in urine sediment by light microsco py MODERATE NRG Squamous epithelial cells detection in u rine sediment by light microscopy 5-10 NRG Crystals detection in urine sediment by light microsco py PRESENT NRG Casts detection in urine sediment by light microscopy NONE NRG Mucus detection in urine sediment by light microscopy NEGATIVE NRG Complete urinalysis with reflex to culture YES NRG Amorphous sediment detection in urine sediment by ligh t microscopy FEW GAMALIEL URATES NRG Bacterial urine culture - 09/06/17 09:00 Bacterial urine culture [id number] NRG COLONY COUNT >100,000/ML NRG FTX;REPORTABLE SENSITIVITY REPORTED 09/08/17 9:25 NRG Bacterial susceptibility panel - 7 09:00 Oxacillin susceptibility test by minimum inhibitory co ncentration >= NRG Gentamicin susceptibility test by minimum inhibitory c oncentration <= NRG Trimethoprim/sulfamethoxazole susceptibi lity test by minimum inhibitoryconcentration <= NRG Vancomycin susceptibility test by minimum inhibitory c oncentration 1 NRG Levofloxacin susceptibility test by minimum inhibitory concentration 0.25 NRG Rifampin susceptibility test by minimum inhibitory con centration <= NRG Tetracycline susceptibility test by minimum inhibitory concentration >= NRG Ciprofloxacin susceptibility test by minimum inhibitor y concentration R NRG Nitrofurantoin susceptibility test by mi nimum inhibitory concentration <= NRG Capillary blood glucose measurement by g lucometer (mass/volume) - 09/06/17 10:32 Capillary blood glucose measurement by glucometer (mas s/volume) 251 mg/dL 70-110 Capillary blood glucose measurement by g lucometer (mass/volume) - 09/06/17 17:25 Capillary blood glucose measurement by glucometer (mas s/volume) 54 mg/dL 70-110 Capillary blood glucose measurement by g lucometer (mass/volume) - 09/06/17 17:48 Capillary blood glucose measurement by glucometer (mas s/volume) 70 mg/dL 70-110 Capillary blood glucose measurement by g lucometer (mass/volume) - 09/09/17 17:05 Capillary blood glucose measurement by glucometer (mas s/volume) 73 mg/dL 70-110 Complete blood count (CBC) with automate d white blood cell (WBC) differential - 09/09/17 17:10 Blood leukocytes automated count (number/volume) 10.2 10*3/uL 4.3-11.0 Blood erythrocytes automated count (number/volume) 5.10 10*6/uL 4.35-5.85 Venous blood hemoglobin measurement (mass/volume) 15.4 g/dL 11.5-16.0 Blood hematocrit (volume fraction) 45 % 35-52 Automated erythrocyte mean corpuscular volume 88 [ foz_us] 80-99 Automated erythrocyte mean corpuscular h emoglobin (mass per erythrocyte) 30 pg 25-34 Automated erythrocyte mean corpuscular h emoglobin concentration measurement (mass/volume) 34 g/dL 32-36 Automated erythrocyte distribution width ratio 14. 4 % 10.0- 14.5 Automated blood platelet count (count/volume) 374 10*3/uL 130-400 Automated blood platelet mean volume measurement 10.4 [foz_us] 7.4-10.4 Automated blood neutrophils/100 leukocytes 78 % 42-75 Automated blood lymphocytes/100 leukocytes 15 % 12-44 Blood monocytes/100 leukocytes 7 % 0-12 Automated blood eosinophils/100 leukocytes 0 % 0-10 Automated blood basophils/100 leukocytes 0 % 0-10 Blood neutrophils automated count (number/volume) 7.9 10*3 1.8-7.8 Blood lymphocytes automated count (number/volume) 1.5 10*3 1.0-4.0 Blood monocytes automated count (number/volume) 0. 7 10*3 0.0-1.0 Automated eosinophil count 0.0 10*3/uL 0 .0-0.3 Automated blood basophil count (count/volume) 0.0 10*3/uL 0.0-0.1 Serum or plasma choriogonadotropin (preg delaney test) detection - 09/09/17 17:10 Serum or plasma choriogonadotropin ( test) de tection NEGATIVE NEGATIVE Comprehensive metabolic panel - 09/09/17 17:10 Serum or plasma sodium measurement (moles/volume) 141 mmol/L 135-145 Serum or plasma potassium measurement (moles/volume) 2.9 mmol/L 3.6-5.0 Serum or plasma chloride measurement (moles/volume) 98 mmol/L 98-107 Carbon dioxide 27 mmol/L 21-32 Serum or plasma anion gap determination (moles/volume) 16 mmol/L 5-14 Serum or plasma urea nitrogen measurement (mass/volume ) 11 mg/dL 7-18 Serum or plasma creatinine measurement (mass/volume) 0.79 mg/dL 0.60-1.30 Serum or plasma urea nitrogen/creatinine mass ratio 14 NRG Serum or plasma creatinine measurement w ith calculation of estimated glomerular filtration rate > NRG Serum or plasma glucose measurement (mass/volume) 75 mg/dL 70-105 Serum or plasma calcium measurement (mass/volume) 9.9 mg/dL 8.5-10.1 Serum or plasma total bilirubin measurement (mass/volu me) 0.6 mg/dL 0.1-1.0 Serum or plasma alkaline phosphatase barbara surement (enzymatic activity/volume) 99 U/L 40-136 Serum or plasma aspartate aminotransfera se measurement (enzymatic activity/volume) 33 U/L 5-34 Serum or plasma alanine aminotransferase measurement (enzymatic activity/volume) 24 U/L 0-55 Serum or plasma protein measurement (mass/volume) 7.8 g/dL 6.4-8.2 Serum or plasma albumin measurement (mass/volume) 4.4 g/dL 3.2-4.5 Magnesium - 09/09/17 17:10 Magnesium 2.3 mg/dL 1.8-2.4 Serum or plasma amylase measurement (enz ymatic activity/volume) - 09/09/17 17:10 Serum or plasma amylase measurement (enzymatic activit y/volume) 25 U/L 25-125 Lipase - 09/09/17 17:10 Lipase < U/L 8-78 Complete urinalysis with reflex to cultu re - 09/09/17 19:14 Urine color determination YELLOW NRG Urine clarity determination SLIGHTLY CLOUDY NRG Urine pH measurement by test strip 8 5-9 Specific gravity of urine by test strip 1.015 1.016-1.022 Urine protein assay by test strip, semi-quantitative NEGATIVE NEGATIVE Urine glucose detection by automated test strip NE GATIVE NEGATIVE Erythrocytes detection in urine sediment by light micr oscopy 2+ NEGATIVE Urine ketones detection by automated test strip 2+ NEGATIVE Urine nitrite detection by test strip NEGATIVE NEGATIVE Urine total bilirubin detection by test strip NEGA TIVE NEGATIVE Urine urobilinogen measurement by automated test strip (mass/volume) NORMAL NORMAL Urine leukocyte esterase detection by dipstick 3+ NEGATIVE Automated urine sediment erythrocyte cou nt by microscopy (number/high power field) [HPF] NRG Automated urine sediment leukocyte count by microscopy (number/high power field) [HPF] NRG Bacteria detection in urine sediment by light microsco py MODERATE NRG Squamous epithelial cells detection in u rine sediment by light microscopy 5-10 NRG Crystals detection in urine sediment by light microsco py NONE NRG Casts detection in urine sediment by light microscopy NONE NRG Mucus detection in urine sediment by light microscopy NEGATIVE NRG Complete urinalysis with reflex to culture YES NRG Bacterial urine culture - 09/09/17 19:14 URINE CULTURE RESULTS <10,000/ML NRG CULTURE, URINE - 11/17/17 08:18 CULTURE, URINE, [...] 7-25 CREATININE 0.79 mg/dL 0.50-1.10 eGFR NON-AFR. [place] 90 mL/min/1.73m2 > OR = 60 eGFR [...] AST 14 U/L 10-35 ALT 10 U/L 04-14 CBC - 02/12/19 15:55 WHITE BLOOD CELL [...] 1.5 % NRG BASOPHILS 0.5 % NRG Complete blood count (CBC) with automate d white blood cell (WBC) differential - 12/27/19 14:40 Blood leukocytes automated count (number/volume) 23.4 10*3/uL 4.3-11.0 Blood erythrocytes automated count (number/volume) 4.54 10*6/uL 4.35-5.85 Venous blood hemoglobin measurement (mass/volume) 14.1 g/dL 11.5-16.0 Blood hematocrit (volume fraction) 44 % 35-52 Automated erythrocyte mean corpuscular volume 97 [ foz_us] 80-99 Automated erythrocyte mean corpuscular h emoglobin (mass per erythrocyte) 31 pg 25-34 Automated erythrocyte mean corpuscular h emoglobin concentration measurement (mass/volume) 32 g/dL 32-36 Automated erythrocyte distribution width ratio 13. 7 % 10.0- 14.5 Automated blood platelet count (count/volume) 341 10*3/uL 130-400 Automated blood platelet mean volume measurement 10.8 [foz_us] 7.4-10.4 Automated blood neutrophils/100 leukocytes 94 % 42-75 Automated blood lymphocytes/100 leukocytes 2 % 12-44 Blood monocytes/100 leukocytes 4 % 0-12 Automated blood eosinophils/100 leukocytes 0 % 0-10 Automated blood basophils/100 leukocytes 0 % 0-10 Blood neutrophils automated count (number/volume) 22.0 10*3 1.8-7.8 Blood lymphocytes automated count (number/volume) 0.4 10*3 1.0-4.0 Blood monocytes automated count (number/volume) 0. 9 10*3 0.0-1.0 Automated eosinophil count 0.0 10*3/uL 0 .0-0.3 Automated blood basophil count (count/volume) 0.0 10*3/uL 0.0-0.1 Comprehensive metabolic panel - 12/27/19 14:40 Serum or plasma sodium measurement (moles/volume) 132 mmol/L 135-145 Serum or plasma potassium measurement (moles/volume) 5.3 mmol/L 3.6-5.0 Serum or plasma chloride measurement (moles/volume) 99 mmol/L 98-107 Carbon dioxide 10 mmol/L 21-32 Serum or plasma anion gap determination (moles/volume) 23 mmol/L 5-14 Serum or plasma urea nitrogen measurement (mass/volume ) 31 mg/dL 7-18 Serum or plasma creatinine measurement (mass/volume) 1.83 mg/dL 0.60-1.30 Serum or plasma urea nitrogen/creatinine mass ratio 17 NRG Serum or plasma creatinine measurement w ith calculation of estimated glomerular filtration rate 30 NRG Serum or plasma glucose measurement (mass/volume) 651 mg/dL 70-105 Serum or plasma calcium measurement (mass/volume) 9.2 mg/dL 8.5-10.1 Serum or plasma total bilirubin measurement (mass/volu me) 0.5 mg/dL 0.1-1.0 Serum or plasma alkaline phosphatase barbara surement (enzymatic activity/volume) 139 U/L 40-136 Serum or plasma aspartate aminotransfera se measurement (enzymatic activity/volume) 38 U/L 5-34 Serum or plasma alanine aminotransferase measurement (enzymatic activity/volume) 48 U/L 0-55 Serum or plasma protein measurement (mass/volume) 7.6 g/dL 6.4-8.2 Serum or plasma albumin measurement (mass/volume) 4.5 g/dL 3.2-4.5 CALCIUM CORRECTED 8.8 mg/dL 8.5-10.1 PT panel in platelet poor plasma by coag ulation assay - 12/27/19 14:40 Prothrombin time (PT) in platelet poor plasma by coagu lation assay 15.2 s 12.2-14.7 INR in platelet poor plasma or blood by coagulation as say 1.2 0.8-1.4 Activated partial thromboplastin time (a PTT) in platelet poor plasma bycoagulation assay - 12/27/19 14:40 Activated partial thromboplastin time (a PTT) in platelet poor plasma bycoagulation assay 28 s 24-35 Blood lactic acid measurement (moles/vol ume) - 12/27/19 14:40 Blood lactic acid measurement (moles/volume) 2.37 mmol/L 0.50-2.00 Manual absolute plasma cell count - 12/15 12/06 14:40 Blood monocytes/100 leukocytes 2 % NRG Manual blood segmented neutrophils/100 leukocytes 96 % NRG Blood band neutrophils/100 leukocytes 1 % NRG Manual blood lymphocytes/100 leukocytes 1 % NRG Blood macrocytes detection by light microscopy I T NRG Blood erythrocyte morphology finding identification SEE NOTE NRG Bacterial blood culture - 12/27/19 14:40 Bacterial blood culture NG NRG Hemoglobin A1c measurement - 12/27/19 14 :40 Blood hemoglobin A1C measurement (mass/volume) 8.6 % 4.0-5.6 MEAN BLOOD GLUCOSE 200 % <=126 Capillary blood glucose measurement by g lucometer (mass/volume) - 12/27/19 14:43 Capillary blood glucose measurement by glucometer (mas s/volume) 568 mg/dL 70-110 Bacterial blood culture - 12/27/19 14:55 Bacterial blood culture NG NRG Complete urinalysis with reflex to cultu re - 12/27/19 15:00 Urine color determination YELLOW NRG Urine clarity determination CLEAR NR G Urine pH measurement by test strip 5.5 5-9 Specific gravity of urine by test strip 1.025 1.016-1.022 Urine protein assay by test strip, semi-quantitative TRACE NEGATIVE Urine glucose detection by automated test strip 3+ NEGATIVE Erythrocytes detection in urine sediment by light micr oscopy 2+ NEGATIVE Urine ketones detection by automated test strip 3+ NEGATIVE Urine nitrite detection by test strip NEGATIVE NEGATIVE Urine total bilirubin detection by test strip NEGA TIVE NEGATIVE Urine urobilinogen measurement by automated test strip (mass/volume) 0.2 mg/dL < = 1.0 Urine leukocyte esterase detection by dipstick NEG ATIVE NEGATIVE Automated urine sediment erythrocyte cou nt by microscopy (number/high power field) [HPF] NRG Automated urine sediment leukocyte count by microscopy (number/high power field) [HPF] NRG Bacteria detection in urine sediment by light microsco py TRACE NRG Squamous epithelial cells detection in u rine sediment by light microscopy 2-5 NRG Crystals detection in urine sediment by light microsco py NONE NRG Casts detection in urine sediment by light microscopy NONE NRG Mucus detection in urine sediment by light microscopy NEGATIVE NRG Complete urinalysis with reflex to culture NO NRG Urine drug screening test - 12/27/19 15: 00 Urine phencyclidine detection by screening method NEGATIVE NEGATIVE Urine benzodiazepines detection by screening method NEGATIVE NEGATIVE Urine cocaine detection NEGATIVE NEGATI VE Urine amphetamines detection by screening method N EGATIVE NEGATIVE Urine methamphetamine detection by screening method NEGATIVE NEGATIVE Urine cannabinoids detection by screening method N EGATIVE NEGATIVE Urine opiates detection by screening method NEGATI VE NEGATIVE Urine barbiturates detection NEGATIVE N EGATIVE Screening urine tricyclic antidepressants detection NEGATIVE NEGATIVE Urine methadone detection by screening method NEGA TIVE NEGATIVE Urine oxycodone detection NEGATIVE NEGA TIVE Urine propoxyphene detection NEGATIVE N EGATIVE Arterial blood gas measurement - 0 16:40 Blood pCO2 21 mm[Hg] 35-45 Blood pO2 103 mm[Hg] 79-93 Arterial blood bicarbonate measurement (moles/volume) 7 mmol/L 23-27 Arterial blood base excess by calculation -20.2 mm ol/L -2.5-2.5 Arterial blood oxygen saturation measurement 98 % 94-100 * Inhaled oxygen flow rate UNK NRG Arterial blood pH measurement with patient temperature correction 7.15 7.37-7.43 Arterial blood carbon dioxide, total measurement (mole s/volume) 7.8 mmol/L 21.0-31.0 Body site RIGHT RADIAL NRG Assessment of wrist artery patency prior to arterial p uncture POSITIVE NRG Setting of ventilation mode NO NR G Measurement of body temperature 98.1 NRG Capillary blood glucose measurement by g lucometer (mass/volume) - 12/27/19 16:51 Capillary blood glucose measurement by glucometer (mas s/volume) 540 mg/dL 70-110 Serum or plasma lactate measurement (mol es/volume) - 12/27/19 17:40 Serum or plasma lactate measurement (moles/volume) 1.94 mmol/L 0.50-2.00 Whole blood basic metabolic panel - 12/15 12/06 17:40 Serum or plasma sodium measurement (moles/volume) 134 mmol/L 135-145 Serum or plasma potassium measurement (moles/volume) 4.8 mmol/L 3.6-5.0 Serum or plasma chloride measurement (moles/volume) 104 mmol/L 98-107 Carbon dioxide 9 mmol/L 21-32 Serum or plasma anion gap determination (moles/volume) 21 mmol/L 5-14 Serum or plasma urea nitrogen measurement (mass/volume ) 31 mg/dL 7-18 Serum or plasma creatinine measurement (mass/volume) 1.59 mg/dL 0.60-1.30 Serum or plasma urea nitrogen/creatinine mass ratio 19 NRG Serum or plasma creatinine measurement w ith calculation of estimated glomerular filtration rate 35 NRG Serum or plasma glucose measurement (mass/volume) 548 mg/dL 70-105 Serum or plasma calcium measurement (mass/volume) 8.6 mg/dL 8.5-10.1 Methicillin resistant Staphylococcus aur eus (MRSA) screening culture - 12/27/19 18:32 Methicillin resistant Staphylococcus aureus (MRSA) scr eening culture NEG NRG Capillary blood glucose measurement by g lucometer (mass/volume) - 12/27/19 18:54 Capillary blood glucose measurement by glucometer (mas s/volume) 392 mg/dL 70-110 Capillary blood glucose measurement by g lucometer (mass/volume) - 12/27/19 19:56 Capillary blood glucose measurement by glucometer (mas s/volume) 390 mg/dL 70-110 Automated blood complete blood count (he mogram) panel - 12/27/19 20:50 Blood leukocytes automated count (number/volume) 18.1 10*3/uL 4.3-11.0 Blood erythrocytes automated count (number/volume) 3.54 10*6/uL 4.35-5.85 Venous blood hemoglobin measurement (mass/volume) 10.8 g/dL 11.5-16.0 Blood hematocrit (volume fraction) 34 % 35-52 Automated erythrocyte mean corpuscular volume 96 [ foz_us] 80-99 Automated erythrocyte mean corpuscular h emoglobin (mass per erythrocyte) 31 pg 25-34 Automated erythrocyte mean corpuscular h emoglobin concentration measurement (mass/volume) 32 g/dL 32-36 Automated erythrocyte distribution width ratio 13. 6 % 10.0- 14.5 Automated blood platelet count (count/volume) 269 10*3/uL 130-400 Automated blood platelet mean volume measurement 10.6 [foz_us] 7.4-10.4 Whole blood basic metabolic panel - 12/15 12/06 20:50 Serum or plasma sodium measurement (moles/volume) 133 mmol/L 135-145 Serum or plasma potassium measurement (moles/volume) 4.2 mmol/L 3.6-5.0 Serum or plasma chloride measurement (moles/volume) 108 mmol/L 98-107 Carbon dioxide 10 mmol/L 21-32 Serum or plasma anion gap determination (moles/volume) 15 mmol/L 5-14 Serum or plasma urea nitrogen measurement (mass/volume ) 30 mg/dL 7-18 Serum or plasma creatinine measurement (mass/volume) 1.29 mg/dL 0.60-1.30 Serum or plasma urea nitrogen/creatinine mass ratio 23 NRG Serum or plasma creatinine measurement w ith calculation of estimated glomerular filtration rate 44 NRG Serum or plasma glucose measurement (mass/volume) 364 mg/dL 70-105 Serum or plasma calcium measurement (mass/volume) 7.4 mg/dL 8.5-10.1 Beta-hydroxybutyric acid measurement - 0 12/27/19 20:50 Beta-hydroxybutyric acid measurement 3.26 mmol/L 0.00-0.27 Capillary blood glucose measurement by g lucometer (mass/volume) - 12/27/19 21:08 Capillary blood glucose measurement by glucometer (mas s/volume) 299 mg/dL 70-110 Complete urinalysis with reflex to cultu re - 12/27/19 21:32 Urine color determination YELLOW NRG Urine clarity determination CLEAR NR G Urine pH measurement by test strip 5.5 5-9 Specific gravity of urine by test strip 1.025 1.016-1.022 Urine protein assay by test strip, semi-quantitative NEGATIVE NEGATIVE Urine glucose detection by automated test strip 2+ NEGATIVE Erythrocytes detection in urine sediment by light micr oscopy 1+ NEGATIVE Urine ketones detection by automated test strip 3+ NEGATIVE Urine nitrite detection by test strip NEGATIVE NEGATIVE Urine total bilirubin detection by test strip NEGA TIVE NEGATIVE Urine urobilinogen measurement by automated test strip (mass/volume) 0.2 mg/dL < = 1.0 Urine leukocyte esterase detection by dipstick NEG ATIVE NEGATIVE Automated urine sediment erythrocyte cou nt by microscopy (number/high power field) NONE NRG Automated urine sediment leukocyte count by microscopy (number/high power field) NONE NRG Bacteria detection in urine sediment by light microsco py TRACE NRG Crystals detection in urine sediment by light microsco py NONE NRG Casts detection in urine sediment by light microscopy NONE NRG Mucus detection in urine sediment by light microscopy NEGATIVE NRG Complete urinalysis with reflex to culture NO NRG Capillary blood glucose measurement by g lucometer (mass/volume) - 12/27/19 21:55 Capillary blood glucose measurement by glucometer (mas s/volume) 327 mg/dL 70-110 Whole blood basic metabolic panel - 12/15 12/06 22:44 Serum or plasma sodium measurement (moles/volume) 133 mmol/L 135-145 Serum or plasma potassium measurement (moles/volume) 4.1 mmol/L 3.6-5.0 Serum or plasma chloride measurement (moles/volume) 109 mmol/L 98-107 Carbon dioxide 15 mmol/L 21-32 Serum or plasma anion gap determination (moles/volume) 9 mmol/L 5-14 Serum or plasma urea nitrogen measurement (mass/volume ) 30 mg/dL 7-18 Serum or plasma creatinine measurement (mass/volume) 1.21 mg/dL 0.60-1.30 Serum or plasma urea nitrogen/creatinine mass ratio 25 NRG Serum or plasma creatinine measurement w ith calculation of estimated glomerular filtration rate 48 NRG Serum or plasma glucose measurement (mass/volume) 262 mg/dL 70-105 Serum or plasma calcium measurement (mass/volume) 7.3 mg/dL 8.5-10.1 Capillary blood glucose measurement by g lucometer (mass/volume) - 12/27/19 22:57 Capillary blood glucose measurement by glucometer (mas s/volume) 240 mg/dL 70-110 Capillary blood glucose measurement by g lucometer (mass/volume) - 12/27/19 23:48 Capillary blood glucose measurement by glucometer (mas s/volume) 196 mg/dL 70-110 Capillary blood glucose measurement by g lucometer (mass/volume) - 12/28/19 00:52 Capillary blood glucose measurement by glucometer (mas s/volume) 208 mg/dL 70-110 Capillary blood glucose measurement by g lucometer (mass/volume) - 12/28/19 01:53 Capillary blood glucose measurement by glucometer (mas s/volume) 190 mg/dL 70-110 Capillary blood glucose measurement by g lucometer (mass/volume) - 12/28/19 02:48 Capillary blood glucose measurement by glucometer (mas s/volume) 174 mg/dL 70-110 Complete blood count (CBC) with automate d white blood cell (WBC) differential - 12/28/19 03:09 Blood leukocytes automated count (number/volume) 16.5 10*3/uL 4.3-11.0 Blood erythrocytes automated count (number/volume) 3.51 10*6/uL 4.35-5.85 Venous blood hemoglobin measurement (mass/volume) 10.7 g/dL 11.5-16.0 Blood hematocrit (volume fraction) 33 % 35-52 Automated erythrocyte mean corpuscular volume 94 [ foz_us] 80-99 Automated erythrocyte mean corpuscular h emoglobin (mass per erythrocyte) 30 pg 25-34 Automated erythrocyte mean corpuscular h emoglobin concentration measurement (mass/volume) 32 g/dL 32-36 Automated erythrocyte distribution width ratio 13. 7 % 10.0- 14.5 Automated blood platelet count (count/volume) 255 10*3/uL 130-400 Automated blood platelet mean volume measurement 10.9 [foz_us] 7.4-10.4 Automated blood neutrophils/100 leukocytes 83 % 42-75 Automated blood lymphocytes/100 leukocytes 9 % 12-44 Blood monocytes/100 leukocytes 8 % 0-12 Automated blood eosinophils/100 leukocytes 0 % 0-10 Automated blood basophils/100 leukocytes 0 % 0-10 Blood neutrophils automated count (number/volume) 13.7 10*3 1.8-7.8 Blood lymphocytes automated count (number/volume) 1.5 10*3 1.0-4.0 Blood monocytes automated count (number/volume) 1. 3 10*3 0.0-1.0 Automated eosinophil count 0.1 10*3/uL 0 .0-0.3 Automated blood basophil count (count/volume) 0.0 10*3/uL 0.0-0.1 Whole blood basic metabolic panel - 12/15 01/03 03:09 Serum or plasma sodium measurement (moles/volume) 135 mmol/L 135-145 Serum or plasma potassium measurement (moles/volume) 4.1 mmol/L 3.6-5.0 Serum or plasma chloride measurement (moles/volume) 111 mmol/L 98-107 Carbon dioxide 15 mmol/L 21-32 Serum or plasma anion gap determination (moles/volume) 9 mmol/L 5-14 Serum or plasma urea nitrogen measurement (mass/volume ) 27 mg/dL 7-18 Serum or plasma creatinine measurement (mass/volume) 1.08 mg/dL 0.60-1.30 Serum or plasma urea nitrogen/creatinine mass ratio 25 NRG Serum or plasma creatinine measurement w ith calculation of estimated glomerular filtration rate 54 NRG Serum or plasma glucose measurement (mass/volume) 149 mg/dL 70-105 Serum or plasma calcium measurement (mass/volume) 7.3 mg/dL 8.5-10.1 Serum or plasma phosphate measurement (m ass/volume) - 12/28/19 03:09 Serum or plasma phosphate measurement (mass/volume) 1.8 mg/dL 2.3-4.7 Magnesium - 12/28/19 03:09 Magnesium 2.1 mg/dL 1.6-2.4 PROCALCITONIN (PCT) - 12/28/19 03:09 PROCALCITONIN (PCT) 6.78 ng/mL <0.10 Beta-hydroxybutyric acid measurement - 0 12/28/19 03:09 Beta-hydroxybutyric acid measurement 0.03 mmol/L 0.00-0.27 Capillary blood glucose measurement by g lucometer (mass/volume) - 12/28/19 03:59 Capillary blood glucose measurement by glucometer (mas s/volume) 129 mg/dL 70-110 Capillary blood glucose measurement by g lucometer (mass/volume) - 12/28/19 05:04 Capillary blood glucose measurement by glucometer (mas s/volume) 113 mg/dL 70-110 Capillary blood glucose measurement by g lucometer (mass/volume) - 12/28/19 05:48 Capillary blood glucose measurement by glucometer (mas s/volume) 107 mg/dL 70-110 Complete urinalysis with reflex to cultu re - 12/28/19 05:54 Urine color determination YELLOW NRG Urine clarity determination CLEAR NR G Urine pH measurement by test strip 6.0 5-9 Specific gravity of urine by test strip 1.010 1.016-1.022 Urine protein assay by test strip, semi-quantitative NEGATIVE NEGATIVE Urine glucose detection by automated test strip 3+ NEGATIVE Erythrocytes detection in urine sediment by light micr oscopy TRACE-I NEGATIVE Urine ketones detection by automated test strip 2+ NEGATIVE Urine nitrite detection by test strip NEGATIVE NEGATIVE Urine total bilirubin detection by test strip NEGA TIVE NEGATIVE Urine urobilinogen measurement by automated test strip (mass/volume) 0.2 mg/dL < = 1.0 Urine leukocyte esterase detection by dipstick TRA CE NEGATIVE Automated urine sediment erythrocyte cou nt by microscopy (number/high power field) NONE NRG Automated urine sediment leukocyte count by microscopy (number/high power field) [HPF] NRG Bacteria detection in urine sediment by light microsco py FEW NRG Squamous epithelial cells detection in u rine sediment by light microscopy 2-5 NRG Crystals detection in urine sediment by light microsco py NONE NRG Casts detection in urine sediment by light microscopy NONE NRG Mucus detection in urine sediment by light microscopy NEGATIVE NRG Complete urinalysis with reflex to culture YES NRG Bacterial urine culture - 12/28/19 05:54 Bacterial urine culture NG NRG Capillary blood glucose measurement by g lucometer (mass/volume) - 12/28/19 06:45 Capillary blood glucose measurement by glucometer (mas s/volume) 122 mg/dL 70-110 Whole blood basic metabolic panel - 12/15 01/03 07:28 Serum or plasma sodium measurement (moles/volume) 135 mmol/L 135-145 Serum or plasma potassium measurement (moles/volume) 4.4 mmol/L 3.6-5.0 Serum or plasma chloride measurement (moles/volume) 111 mmol/L 98-107 Carbon dioxide 14 mmol/L 21-32 Serum or plasma anion gap determination (moles/volume) 10 mmol/L 5-14 Serum or plasma urea nitrogen measurement (mass/volume ) 24 mg/dL 7-18 Serum or plasma creatinine measurement (mass/volume) 0.99 mg/dL 0.60-1.30 Serum or plasma urea nitrogen/creatinine mass ratio 24 NRG Serum or plasma creatinine measurement w ith calculation of estimated glomerular filtration rate 60 NRG Serum or plasma glucose measurement (mass/volume) 107 mg/dL 70-105 Serum or plasma calcium measurement (mass/volume) 7.5 mg/dL 8.5-10.1 Capillary blood glucose measurement by g lucometer (mass/volume) - 12/28/19 07:59 Capillary blood glucose measurement by glucometer (mas s/volume) 409 mg/dL 70-110 Capillary blood glucose measurement by g lucometer (mass/volume) - 12/28/19 08:55 Capillary blood glucose measurement by glucometer (mas s/volume) 185 mg/dL 70-110 Capillary blood glucose measurement by g lucometer (mass/volume) - 12/28/19 10:05 Capillary blood glucose measurement by glucometer (mas s/volume) 233 mg/dL 70-110 Capillary blood glucose measurement by g lucometer (mass/volume) - 12/28/19 10:44 Capillary blood glucose measurement by glucometer (mas s/volume) 245 mg/dL 70-110 Capillary blood glucose measurement by g lucometer (mass/volume) - 12/28/19 11:46 Capillary blood glucose measurement by glucometer (mas s/volume) 239 mg/dL 70-110 Capillary blood glucose measurement by g lucometer (mass/volume) - 12/28/19 13:03 Capillary blood glucose measurement by glucometer (mas s/volume) 215 mg/dL 70-110 Whole blood basic metabolic panel - 12/15 01/03 13:20 Serum or plasma sodium measurement (moles/volume) 138 mmol/L 135-145 Serum or plasma potassium measurement (moles/volume) 4.3 mmol/L 3.6-5.0 Serum or plasma chloride measurement (moles/volume) 112 mmol/L 98-107 Carbon dioxide 16 mmol/L 21-32 Serum or plasma anion gap determination (moles/volume) 10 mmol/L 5-14 Serum or plasma urea nitrogen measurement (mass/volume ) 19 mg/dL 7-18 Serum or plasma creatinine measurement (mass/volume) 0.93 mg/dL 0.60-1.30 Serum or plasma urea nitrogen/creatinine mass ratio 20 NRG Serum or plasma creatinine measurement w ith calculation of estimated glomerular filtration rate > NRG Serum or plasma glucose measurement (mass/volume) 190 mg/dL 70-105 Serum or plasma calcium measurement (mass/volume) 7.3 mg/dL 8.5-10.1 Capillary blood glucose measurement by g lucometer (mass/volume) - 12/28/19 14:06 Capillary blood glucose measurement by glucometer (mas s/volume) 170 mg/dL 70-110 Capillary blood glucose measurement by g lucometer (mass/volume) - 12/28/19 14:56 Capillary blood glucose measurement by glucometer (mas s/volume) 119 mg/dL 70-110 Capillary blood glucose measurement by g lucometer (mass/volume) - 12/28/19 16:06 Capillary blood glucose measurement by glucometer (mas s/volume) 99 mg/dL 70-110 Beta-hydroxybutyric acid measurement - 0 12/28/19 16:23 Beta-hydroxybutyric acid measurement 0.06 mmol/L 0.00-0.27 Whole blood basic metabolic panel - 12/15 01/03 16:23 Serum or plasma sodium measurement (moles/volume) 139 mmol/L 135-145 Serum or plasma potassium measurement (moles/volume) 4.2 mmol/L 3.6-5.0 Serum or plasma chloride measurement (moles/volume) 114 mmol/L 98-107 Carbon dioxide 16 mmol/L 21-32 Serum or plasma anion gap determination (moles/volume) 9 mmol/L 5-14 Serum or plasma urea nitrogen measurement (mass/volume ) 17 mg/dL 7-18 Serum or plasma creatinine measurement (mass/volume) 0.83 mg/dL 0.60-1.30 Serum or plasma urea nitrogen/creatinine mass ratio 20 NRG Serum or plasma creatinine measurement w ith calculation of estimated glomerular filtration rate > NRG Serum or plasma glucose measurement (mass/volume) 94 mg/dL 70-105 Serum or plasma calcium measurement (mass/volume) 7.6 mg/dL 8.5-10.1 Capillary blood glucose measurement by g lucometer (mass/volume) - 12/28/19 17:00 Capillary blood glucose measurement by glucometer (mas s/volume) 112 mg/dL 70-110 Influenza virus A and B antigen detectio n - 12/28/19 17:48 FLU RESULT NEGATIVE FOR INFLUENZA A AND B ANTIGENS BY [facility] Complete blood count (CBC) with automate d white blood cell (WBC) differential - 12/29/19 03:18 Blood leukocytes automated count (number/volume) 8.2 10*3/uL 4.3-11.0 Blood erythrocytes automated count (number/volume) 3.46 10*6/uL 4.35-5.85 Venous blood hemoglobin measurement (mass/volume) 10.6 g/dL 11.5-16.0 Blood hematocrit (volume fraction) 33 % 35-52 Automated erythrocyte mean corpuscular volume 95 [ foz_us] 80-99 Automated erythrocyte mean corpuscular h emoglobin (mass per erythrocyte) 31 pg 25-34 Automated erythrocyte mean corpuscular h emoglobin concentration measurement (mass/volume) 32 g/dL 32-36 Automated erythrocyte distribution width ratio 14. 2 % 10.0- 14.5 Automated blood platelet count (count/volume) 243 10*3/uL 130-400 Automated blood platelet mean volume measurement 10.4 [foz_us] 7.4-10.4 Automated blood neutrophils/100 leukocytes 75 % 42-75 Automated blood lymphocytes/100 leukocytes 15 % 12-44 Blood monocytes/100 leukocytes 9 % 0-12 Automated blood eosinophils/100 leukocytes 2 % 0-10 Automated blood basophils/100 leukocytes 0 % 0-10 Blood neutrophils automated count (number/volume) 6.1 10*3 1.8-7.8 Blood lymphocytes automated count (number/volume) 1.2 10*3 1.0-4.0 Blood monocytes automated count (number/volume) 0. 7 10*3 0.0-1.0 Automated eosinophil count 0.1 10*3/uL 0 .0-0.3 Automated blood basophil count (count/volume) 0.0 10*3/uL 0.0-0.1 Whole blood basic metabolic panel - 12/15 02/03 03:18 Serum or plasma sodium measurement (moles/volume) 140 mmol/L 135-145 Serum or plasma potassium measurement (moles/volume) 4.1 mmol/L 3.6-5.0 Serum or plasma chloride measurement (moles/volume) 116 mmol/L 98-107 Carbon dioxide 17 mmol/L 21-32 Serum or plasma anion gap determination (moles/volume) 7 mmol/L 5-14 Serum or plasma urea nitrogen measurement (mass/volume ) 12 mg/dL 7-18 Serum or plasma creatinine measurement (mass/volume) 0.76 mg/dL 0.60-1.30 Serum or plasma urea nitrogen/creatinine mass ratio 16 NRG Serum or plasma creatinine measurement w ith calculation of estimated glomerular filtration rate > NRG Serum or plasma glucose measurement (mass/volume) 108 mg/dL 70-105 Serum or plasma calcium measurement (mass/volume) 7.5 mg/dL 8.5-10.1 Serum or plasma phosphate measurement (m ass/volume) - 12/29/19 03:18 Serum or plasma phosphate measurement (mass/volume) 1.9 mg/dL 2.3-4.7 Magnesium - 12/29/19 03:18 Magnesium 2.3 mg/dL 1.6-2.4 Beta-hydroxybutyric acid measurement - 0 12/29/19 03:18 Beta-hydroxybutyric acid measurement 0.11 mmol/L 0.00-0.27 MICROALBUMIN/CREATININE RATIO, URINE - 0 01/04/20 19:00 CREATININE, RANDOM URINE 73 mg/dL 20-27 5 MICROALBUMIN 3.3 mg/dL See Note: MICROALBUMIN/CREATININE RATIO, RANDOM URINE 45 mcg /mg creat <30 CULTURE, URINE - 01/04/20 19:00 CULTURE, URINE, ROUTINE SEE NOTE NRG Coronavirus SARS-CoV-2 SO 2018 - 0 07:58 Coronavirus Ab [Units/volume] in Serum Negative Negative Encounters ACCT No. Visit Date/Time Discharge Status Pt. Type Provider Facility Loc./Unit Complaint [id number] 03/18/2020 08:55:00 03/18/2020 23:59: 59 [facility] Outpatient TEAGAN LYNN, NICOLAS MORRIS [facility] [id number] 01/04/2020 11:40:00 Document Registration [id number] 02/12/2019 15:40:00 Document Registration [id number] 02/05/2019 15:40:00 Document Registration [id number] 12/27/2018 15:40:00 Document Registration [id number] 07/06/2018 11:00:00 Document Registration [id number] 03/07/2018 14:20:00 Document Registration [id number] 11/17/2017 08:00:00 Document Registration [id number] 05/14/2017 15:07:00 Document Registration [id number] 10/23/2015 14:00:00 23:59:59 CLS Outpatient Aditya LYNN, [facility] [id number] 08/04/2015 08:52:00 23:59:00 DIS Outpatient Aditya LYNN, [facility] IMG.[facility] [id number] 07/17/2015 10:51:00 23:59:59 CLS Outpatient Aditya LYNN, [facility] [id number] 03/27/2015 16:01:00 23:59:59 CLS Outpatient Dana LYNN [facility] L.[facility]J.P [id number] 07/02/2013 13:22:00 013 23:59:59 CLS Outpatient Dana LYNN [facility] L.PJ.P [id number] 07/02/2013 09:36:00 013 23:59:00 DIS Outpatient Erin MALHOTRA [facility] IMG.US [id number] 05/16/2013 15:51:00 013 23:59:59 CLS Outpatient Erin MALHOTRA [facility] L.PJ.P [id number] 05/16/2013 14:28:00 013 23:59:00 DIS Outpatient Dana LYNN [facility] IMG.[facility] [id number] 05/05/2016 16:49:00 016 16:49:00 DIS Outpatient Marin Augustin APRN [facility] D.INFUSION [id number] 05/05/2016 16:25:00 016 16:25:00 DIS Outpatient Landon Thibodeaux [facility] D.LAB [id number] 04/30/2016 08:58:00 016 12:19:00 DIS Inpatient Enrique De La Torre [facility] D.ICU [id number] 04/02/2015 12:36:00 015 12:36:00 DIS Outpatient King Cortez M.D. [facility] D.RADAR [id number] 04/10/2020 05:34:00 020 11:34:00 DIS Outpatient JOANNE GALLAGHER DO [facility] PREOP COLONOSCOPY [id number] 12/27/2019 17:00:00 10:20:00 DIS Inpatient JOVI SAUNDERS DO [facility] ICU DKA, TYPE IDM, CYSTITIS [id number] 09/12/2017 07:23:00 017 23:59:59 CLS Outpatient MARIBEL BRUSH MD [facility] RAD BILATERAL RENAL OBSTRUC TION [id number] 09/09/2017 16:24:00 017 20:17:00 DIS Emergency LILI AKILA MILLS [facility] ER VOMITING [id number] 09/04/2017 16:30:00 017 17:40:00 DIS Inpatient GRISELDA RUIZ DO [facility] ICU MATY [id number] 04/14/2020 10:40:00 P EN Preadmit JOANNE GALLAGHER DO [facility] ENDO FAMILY HX COLON [place] [id number] 05/12/2017 11:07:00 Document Registration [id number] 06/18/2015 15:49:00 23:59:59 CLS Outpatient Yaneth Whalen [facility] 786.05 [id number] 06/18/2015 15:44:00 23:59:59 CLS Outpatient Yaneth Whalen [facility] [id number] 12/03/2014 20:00:00 Document Registration [id number] 12/03/2014 19:32:00 Document Registration [id number] 12/04/2014 00:00:00 12/04/2014 17: 30:00 DIS [address] [facility] 1
--- NOTE | 2020-04-14 10:10 | Progress Note-Post Operative ---
Post-Operative Progess Note Surgeon (s)/Curriculum Designer (s) Surgeon JOANNE GALLAGHER DO Curriculum Designer: none Pre-Operative Diagnosis Family hx of colon CA Post-Operative Diagnosis int hemorrhoids Procedure & Operative Findings Date of Procedure 04/14/20 Procedure Performed/Findings colonoscopy Anesthesia Type IV sedation by NEUROSURGICAL PHYSICIAN ASSISTANT Estimated Blood Loss Estimated blood loss (mL): none Specimens/Packing Specimens Removed none JOANNE GALLAGHER DO Apr 14, 2020 10:10
--- NOTE | 2020-04-14 10:11 | Endoscopy Discharge Instruct ---
Endo Procedure/Findings Findings 1.: Internal Hemorrhoids Discharge Instructions - Activity: You might feel a little sleepy until tomorrow. This is due to the me dicine you received to relax you. Until tomorrow, you should: NOT drive a car, operate machinery or power tools. NOT drink any alcoholic beverages. NOT make any important decisions or sign importortant papers. Do not return to work until tomorrow, unless otherwise instructed. Resume previous activities tomorrow. Diet: Start by taking liquids. If you tolerate liquids, advance to solid food. 1.: Colonscopy in 10 years Notify Physician - If you experience excessive bleeding, unusual abdominal pain, fever, or chest pain, contact your doctor immediately. JOANNE GALLAGHER DO Apr 14, 2020 10:11
--- NOTE | 2020-04-14 14:21 | Anesthesia-General Post-Op ---
MAC Patient Condition Mental Status/LOC: Same as Preop Cardiovascular: Satisfactory Nausea/Vomiting: Absent Respiratory: Satisfactory Pain: Controlled Complications: Absent Post Op Complications Complications None Follow Up Care/Instructions Patient Instructions None needed. Anesthesiology Discharge Order Discharge Order Patient is doing well, no complaints, stable vital signs, no apparent adverse anesthesia problems. No complications reported per nursing. SHAUN RYDER CRNA Apr 14, 2020 14:21
--- NOTE | 2020-04-14 14:32 | OPERATIVE REPORT ---
DATE OF SERVICE: PREOPERATIVE DIAGNOSIS: Family history of colon cancer. POSTOPERATIVE DIAGNOSIS: Internal hemorrhoids. PROCEDURE: Colonoscopy. SURGEON: Murali Garcia DO MOLDING PROCESS TECHNICIAN: None. ANESTHESIA: IV sedation by the BROWN SOURER. SPECIMENS: None. BLOOD LOSS: None. FLUIDS: Per anesthesia. POSTOPERATIVE CONDITION: Stable. INDICATION FOR PROCEDURE: The patient is a 50-year-old female who has a strong family history of colon cancer, has had a previous colonoscopy, needs a repeat screening. FINDINGS: The patient had some internal hemorrhoids. No other obvious pathology found. PROCEDURE NOTE: After informed consent was obtained, the patient was brought to the endoscopy suite, placed in bed in left lateral decubitus position. She was administered IV sedation by the BROWN SOURER who then monitored her vitals the entire time, heart rate, blood pressure and pulse ox and the scope was inserted, pushed in to about 160 cm, able to get all the way to the cecum, took a picture of appendiceal orifice, noted the ileocecal valve and then slowly withdrew the scope, insufflating and looking circumferentially at the merritt, looking at the cecum, up the ascending colon to the hepatic flexure, then down the transverse colon, the splenic flexure, into the descending colon down into the sigmoid and finally into the rectum, retroflexed in the rectal vault, saw some very minimal internal hemorrhoids. No other obvious pathology. Scope was then removed. The patient tolerated the procedure and was recovered in endoscopy suite. Job ID: [id number] DocumentID: [id number] Dictated Date: 04/14/2020 10:12:55 Professional Benefits Sales Consultant Date: 04/14/2020 14:32:19 Dictated By: MURALI GARCIA DO MTDD
== END 2020-04-14 11:10 | disposition home or self-care (01) ==
LOC: ENDO 08:45
PROVIDERS: ATTEND Surgery
DX: Z12.11 Encounter for screening for malignant neoplasm of colon (principal); K64.8 Other hemorrhoids; F41.9 Anxiety disorder, unspecified; F32.9 Major depressive disorder, single episode, unspecified; E11.40 Type 2 diabetes mellitus with diabetic neuropathy, unspecified; F17.210 Nicotine dependence, cigarettes, uncomplicated; Z79.4 Long term (current) use of insulin; Z88.2 Allergy status to sulfonamides; Z80.0 Family history of malignant neoplasm of digestive organs
CPT/HCPCS: 82962

== ENCOUNTER → 2020-08-11 | Outpatient (CLI) | payer BC | LOC: RAD 10:00 | PROVIDERS: ATTEND Physician Assistant | DX: Z12.31 Encounter for screening mammogram for malignant neoplasm of breast (principal); Z53.9 Procedure and treatment not carried out, unspecified reason ==

== ENCOUNTER → 2020-10-16 | Outpatient (CLI) | payer BC ==
[~2020-10-16] VITALS: Ht 172.7 cm; Wt 78.6 kg
[~2020-10-16] MED LIST changes: +LIDOCAINE 1% INJ 20 ML 20 ML VIAL INJ ONE
--- NOTE | 2020-10-16 10:24 | Diagnostic Imaging Report ---
INDICATION: Right breast nodule. The patient presents for ultrasound-guided biopsy. The patient was brought to the procedure room and placed on the table in supine position. Ultrasound imaging of the right breast was performed to evaluate appropriate entry site. The right breast was then prepped and draped in usual the sterile fashion. A small amount of 1% lidocaine was utilized for local anesthesia. A total of 4 passes were made into the ovoid, circumscribed hypoechoic nodule at the 3:00 location of the right breast, 12 cm from the nipple utilizing a 14-gauge Achieve needle. Core biopsies were obtained. A marker clip was then deployed. Hemostasis was obtained using manual compression. The patient tolerated the procedure well. The patient obtained a post procedure mammogram and left the department in stable condition. IMPRESSION: Successful ultrasound guided core biopsy of the ovoid solid nodule at the 3:00 location, right breast, 12 cm from the nipple. Pathology results are currently pending. Dictated by: Dictated on workstation # [id number]
--- NOTE | 2020-10-16 12:00 | Diagnostic Imaging Report ---
INDICATION: Right breast nodule, status post ultrasound biopsy. 2-D CC and ML mammography was performed post-ultrasound biopsy. There is a marker clip in the medial aspect of the right breast adjacent to previously noted nodule. IMPRESSION: Marker clip in place, status post ultrasound-guided right breast biopsy. Dictated by: Dictated on workstation # [id number]
== END ==
LOC: RAD 07:59
PROVIDERS: ATTEND Physician Assistant
DX: N63.10 Unspecified lump in the right breast, unspecified quadrant (principal); R92.8 Other abnormal and inconclusive findings on diagnostic imaging of breast
CPT/HCPCS: 19083; 77065; G0279